=== PATIENT | male | born 1970 | race Two or more races ===

== ENCOUNTER 2020-01-05 12:22 | Outpatient (REF) | payer MEDICARE, MEDICAID, SELFPAY ==
[2020-01-05 14:30] LABS: Creatinine Urine 159.18 mg/dL; Microalbum/Creatinine Ratio Ur 4.3 ug/mg cr
[2020-01-05 14:33] LABS: Alanine Aminotransferase 85 U/L (0-40); Albumin Level 4.7 g/dL (3.5-5.0); Alkaline Phosphatase 55 U/L (39-117); Anion Gap 13 (12-20); Aspartate Amino Transferase 31 U/L (5-37); Bilirubin Total 0.6 mg/dL (0.0-1.0); Blood Urea Nitrogen 12 mg/dL (9-16); Calcium 9.4 mg/dL (8.4-10.2); Carbon Dioxide 25 mmol/L (22-29); Chloride 102 mmol/L (96-108); Cholesterol 192 mg/dL; Estimated Glomerular Filt Rate > 60; Glucose Random 95 mg/dL (60-115); HDL Cholesterol 46 mg/dL; LDL Cholesterol Calculated 119 mg/dl; Potassium 4.3 mmol/l (3.3-5.1); Sodium 136 mmol/L (135-145); Total Protein 7.3 g/dL (6.5-8.0); Triglycerides 137 mg/dL
== END 2020-01-05 12:23 | disposition home or self-care (01) ==
LOC: HO.WFDLDS 12:22
PROVIDERS: Visit Provider Family Medicine
DX: Z00.00 Encounter for general adult medical examination without abnormal findings (principal); E78.5 Hyperlipidemia, unspecified; E11.9 Type 2 diabetes mellitus without complications; R79.89 Other specified abnormal findings of blood chemistry
CPT/HCPCS: 80053; 80061; 82043

== ENCOUNTER 2020-04-07 18:41 | Outpatient (REF) | payer MEDICARE, MEDICAID, SELFPAY ==
[2020-04-07 19:19] LABS: Creatinine Urine 139.63 mg/dL
== END 2020-04-07 18:42 | disposition home or self-care (01) ==
LOC: HO.LNP 18:41
PROVIDERS: Visit Provider Family Medicine
DX: E11.9 Type 2 diabetes mellitus without complications (principal)
CPT/HCPCS: 82043

== ENCOUNTER 2020-06-21 12:40 | Outpatient (REF) | payer MEDICARE, MEDICAID, SELFPAY ==
[2020-06-21 15:07] LABS: Alanine Aminotransferase 155 U/L (0-40); Albumin Level 4.4 g/dL (3.5-5.0); Alkaline Phosphatase 62 U/L (39-117); Anion Gap 12 (12-20); Aspartate Amino Transferase 44 U/L (5-37); Bilirubin Total 0.6 mg/dL (0.0-1.0); Blood Urea Nitrogen 12 mg/dL (9-16); Carbon Dioxide 23 mmol/L (22-29); Chloride 108 mmol/L (96-108); Estimated Glomerular Filt Rate > 60; Glucose Fasting 106 mg/dL (60-99); Potassium 4.6 mmol/L (3.3-5.1); Sodium 138 mmol/L (135-145); Total Protein 6.8 g/dL (6.5-8.0)
== END 2020-06-21 12:41 | disposition home or self-care (01) ==
LOC: HO.WFDLDS 12:40
PROVIDERS: Visit Provider Family Medicine
DX: Z00.00 Encounter for general adult medical examination without abnormal findings (principal); R79.89 Other specified abnormal findings of blood chemistry
CPT/HCPCS: 36415; 80053

== ENCOUNTER 2020-09-23 12:31 | Outpatient (REF) | payer MEDICARE, MEDICAID, SELFPAY ==
[2020-09-23 14:21] LABS: Alanine Aminotransferase 88 U/L (0-40); Albumin Level 4.4 g/dL (3.5-5.0); Alkaline Phosphatase 71 U/L (39-117); Anion Gap 12 (12-20); Aspartate Amino Transferase 25 U/L (5-37); Bilirubin Total 0.4 mg/dL (0.0-1.0); Blood Urea Nitrogen 10 mg/dL (9-16); Calcium 9.3 mg/dL (8.4-10.2); Carbon Dioxide 25 mmol/L (22-29); Chloride 106 mmol/L (96-108); Cholesterol 173 mg/dL; Estimated Glomerular Filt Rate > 60; Glucose Fasting 104 mg/dL (60-99); HDL Cholesterol 43 mg/dL; LDL Cholesterol Calculated 115 mg/dl; Potassium 4.3 mmol/L (3.3-5.1); Sodium 139 mmol/L (135-145); Total Protein 6.9 g/dL (6.5-8.0); Triglycerides 78 mg/dL
== END 2020-09-23 12:32 | disposition home or self-care (01) ==
LOC: HO.WFDLDS 12:31
PROVIDERS: Visit Provider Family Medicine
DX: Z00.00 Encounter for general adult medical examination without abnormal findings (principal)
CPT/HCPCS: 36415; 80053; 80061

== ENCOUNTER 2021-01-03 18:11 | Outpatient (REF) | payer MEDICARE, MEDICAID, SELFPAY ==
[2021-01-03 19:03] LABS: Influenza A PCR NEGATIVE (Negative); Influenza B PCR NEGATIVE (Negative); Resp Syncy Virus RNA Qual PCR NEGATIVE (Negative); SARS COV2 PCR INHOUSE NEGATIVE (Negative)
== END 2021-01-03 18:12 | disposition home or self-care (01) ==
LOC: HO.LNP 18:11
PROVIDERS: Visit Provider Family Medicine
DX: Z20.822 Contact with and (suspected) exposure to COVID-19 (principal); R05.9 Cough, unspecified
CPT/HCPCS: 0241U

== ENCOUNTER 2021-02-20 12:17 | Outpatient (REF) | payer MEDICARE, MEDICAID, SELFPAY ==
[2021-02-20 14:32] LABS: Alanine Aminotransferase 144 U/L (0-40); Albumin Level 4.5 g/dL (3.5-5.0); Alkaline Phosphatase 62 U/L (39-117); Anion Gap 11 (12-20); Aspartate Amino Transferase 46 U/L (5-37); Bilirubin Total 0.7 mg/dL (0.0-1.0); Blood Urea Nitrogen 17 mg/dL (9-16); Calcium 9.6 mg/dL (8.4-10.2); Carbon Dioxide 26 mmol/L (22-29); Chloride 104 mmol/L (96-108); Estimated Glomerular Filt Rate > 60; Glucose Fasting 112 mg/dL (60-99); Potassium 4.2 mmol/L (3.3-5.1); Sodium 137 mmol/L (135-145); Total Protein 7.1 g/dL (6.5-8.0)
== END 2021-02-20 12:18 | disposition home or self-care (01) ==
LOC: HO.WFDLDS 12:17
PROVIDERS: Visit Provider Family Medicine
DX: Z00.00 Encounter for general adult medical examination without abnormal findings (principal); R79.89 Other specified abnormal findings of blood chemistry
CPT/HCPCS: 36415; 80053

== ENCOUNTER 2021-03-06 12:38 | Outpatient (REF) | payer MEDICARE, MEDICAID, SELFPAY ==
[2021-03-06 14:16] LABS: Estimated Average Glucose 114 mg/dL; Hemoglobin A1c % 5.6 %
== END 2021-03-06 12:39 | disposition home or self-care (01) ==
LOC: HO.WFDLDS 12:38
PROVIDERS: Visit Provider Family Medicine
DX: R73.01 Impaired fasting glucose (principal); R79.89 Other specified abnormal findings of blood chemistry
CPT/HCPCS: 36415; 83036

== ENCOUNTER 2021-06-12 11:45 | Outpatient (REF) | payer MEDICARE, MEDICAID, SELFPAY ==
[2021-06-12 13:45] LABS: Estimated Average Glucose 111 mg/dL; Hemoglobin A1c % 5.5 %
[2021-06-12 13:48] LABS: Alanine Aminotransferase 131 U/L (0-40); Albumin Level 4.5 g/dL (3.5-5.0); Alkaline Phosphatase 66 U/L (39-117); Anion Gap 12 (12-20); Aspartate Amino Transferase 41 U/L (5-37); Bilirubin Total 0.7 mg/dL (0.0-1.0); Blood Urea Nitrogen 11 mg/dL (9-16); Calcium 9.3 mg/dL (8.4-10.2); Carbon Dioxide 24 mmol/L (22-29); Chloride 105 mmol/L (96-108); Cholesterol 176 mg/dL; Estimated Glomerular Filt Rate > 60; Glucose Fasting 122 mg/dL (60-99); HDL Cholesterol 38 mg/dL; LDL Cholesterol Calculated 112 mg/dl; Potassium 4.3 mmol/L (3.3-5.1); Sodium 137 mmol/L (135-145); Total Protein 7.2 g/dL (6.5-8.0); Triglycerides 132 mg/dL
== END 2021-06-12 11:46 | disposition home or self-care (01) ==
LOC: HO.WFDLDS 11:45
PROVIDERS: Visit Provider Family Medicine
DX: Z00.00 Encounter for general adult medical examination without abnormal findings (principal); R73.01 Impaired fasting glucose
CPT/HCPCS: 36415; 80053; 80061; 83036

== ENCOUNTER 2021-08-09 12:29 | Outpatient (REF) | payer MEDICARE, MEDICAID, SELFPAY ==
[2021-08-09 14:21] LABS: MANUAL DIFF FLAG NO
[2021-08-09 14:23] LABS: Basophils Percent Auto 0.3 % (0-2); Eosinophils Absolute Auto 0.1 X10*3/uL (0.0-0.4); Eosinophils Percent Auto 1.9 % (0-4); Hematocrit 43.5 % (42.0-52.0); Hemoglobin 14.9 g/dl (14.0-18.0); Imm Gran Abs Auto 0.03 X10*3/uL (0.00-0.03); Imm Gran Pct Auto 0.5 % (0.0-0.4); Lymphocytes Absolute Auto 2.5 X10*3/uL (1.2-4.9); Lymphocytes Percent Auto 39.5 % (20-40); Mean Corpuscular HGB Conc 34.3 g/dl (31.0-36.0); Mean Corpuscular Hemoglobin 29.3 pg (27.0-33.0); Mean Corpuscular Volume 85.6 fL (80.0-98.0); Mean Platelet Volume 10.2 fL (9.4-12.4); Monocytes Absolute Auto 0.4 X10*3/uL (0.1-1.2); Monocytes Percent Auto 5.8 % (2-11); Neutrophils Absolute Auto 3.2 x10*3/uL (2.0-8.3); Platelet Count 260 X10*3/uL (160-400); Red Blood Count 5.08 X10*6/uL (4.60-5.80); Red Cell Distribution Width 12.2 % (11.0-16.0); White Blood Count 6.2 X10*3/uL (4.8-10.8)
[2021-08-09 14:32] LABS: D Dimer High Sensitivity < 150 NG/ML
[2021-08-09 14:49] LABS: Alanine Aminotransferase 119 U/L (0-40); Albumin Level 4.2 g/dL (3.5-5.0); Alkaline Phosphatase 59 U/L (39-117); Anion Gap 11 (12-20); Aspartate Amino Transferase 32 U/L (5-37); Bilirubin Total 0.6 mg/dL (0.0-1.0); Blood Urea Nitrogen 14 mg/dL (9-16); Calcium 9.1 mg/dL (8.4-10.2); Carbon Dioxide 22 mmol/L (22-29); Chloride 109 mmol/L (96-108); Cholesterol 176 mg/dL; Estimated Glomerular Filt Rate > 60; Glucose Fasting 113 mg/dL (60-99); HDL Cholesterol 34 mg/dL; LDL Cholesterol Calculated 123 mg/dl; Potassium 3.9 mmol/L (3.3-5.1); Sodium 138 mmol/L (135-145); Total Protein 6.7 g/dL (6.5-8.0); Triglycerides 96 mg/dL
[2021-08-09 16:20] LABS: Troponin-I High Sensitivity < 3.5 ng/L (<3.5-35.0)
== END 2021-08-09 12:30 | disposition home or self-care (01) ==
LOC: HO.WFDLDS 12:29
PROVIDERS: Visit Provider Family Medicine
DX: Z00.00 Encounter for general adult medical examination without abnormal findings (principal); Z12.5 Encounter for screening for malignant neoplasm of prostate; R07.9 Chest pain, unspecified; R74.8 Abnormal levels of other serum enzymes; E78.5 Hyperlipidemia, unspecified
CPT/HCPCS: 36415; 80053; 80061; 84153; 84484; 85025; 85379

== ENCOUNTER → 2021-10-05 12:36 | Outpatient (BNVA) | payer MEDICARE, MEDICAID, SELFPAY | PROVIDERS: PCP Family Medicine; Visit Provider Physician Assistant | DX: Z01.818 Encounter for other preprocedural examination (principal); R07.9 Chest pain, unspecified | CPT/HCPCS: 99202 ==

== ENCOUNTER → 2021-12-07 10:00 | Outpatient (REF) | payer MEDICARE, MEDICAID, SELFPAY ==
--- NOTE | 2021-12-07 10:05 | CA_ITS ---
Acquisition Time: 2021-12-07 10:06:43 Total Exercise Time: 00:07:51 Test Indications: CP Medications: SEE CHART Protocol: KINGSLEY Max HR: 146 BPM 85% of Pred: 171 BPM Max BP: 136/068 mmHG Max Work Load: 9.7 METS Exercise stress test with exercise 7 min 51 sec of Kingsley protocol, achieving 85% MPHR, with mild sob, no chest discomfort, without arrythmia, with normotensive response to exercise, without EKG changes meeting criteria for ischemia wtih exercise, EKG at baseline shows T wave inversions inferiorly, V3-V6 which become upright during testing. Test reviewed with Dr Marx Referred By: Javier Aguirre Overread By: TAMIKO JOHNSON
== END ==
LOC: HO.CARD 10:00
PROVIDERS: Visit Provider Family Medicine
DX: R07.9 Chest pain, unspecified (principal)
CPT/HCPCS: 93017

== ENCOUNTER 2021-12-07 10:42 | Outpatient (REF) | payer MEDICARE, MEDICAID, SELFPAY ==
--- NOTE | ~2021-12-07 | US_ITS ---
EXAMINATION: US ABDOMEN LIMITED WITH LIVER ELASTOGRAPHY CLINICAL INFORMATION: Elevated liver enzymes. COMPARISON: Abdominal ultrasound dated 05/25/2019. TECHNIQUE: Real-time imaging of the abdominal viscera. Noninvasive ultrasound liver fibrosis assessment is performed using Shree ElastPQ point quantification shear wave elastography (2D-SWE) with a C5-2 MHz transducer. Multiple elastography samples are obtained. FINDINGS: PANCREAS: Normal. The visualized pancreatic head and body are normal in appearance. The remainder of the pancreas is obscured from visualization by the overlying bowel gas. LIVER: Normal. The liver demonstrates normal size, contour and generally increased echogenicity, with pericholecystic sparing. No focal lesion or intrahepatic biliary duct dilatation. The right lobe measures 20.8 cm in length. The left lobe measures 13.5 cm in length. Portal flow is towards the liver (hepatopetal). Shear wave liver elastography median stiffness is 1.75 m/s (reference: normal median stiffness is 1.3 m/s or less). IQR/median stiffness to assess sampling precision is 0.07 (reference: good quality data set is IQR/median stiffness of 0.15 or less). GALLBLADDER: Normal. The gallbladder is physiologically distended without evidence of stones, sludge, polyps, wall thickening or pericholecystic fluid. COMMON BILE DUCT: Normal in caliber measuring 0.5 cm in diameter. RIGHT KIDNEY: At the lower pole, a 1.3 cm in maximal diameter anechoic, simple cyst is seen. This is a benign finding, for which no imaging follow-up is recommended. No hydronephrosis. No renal calculi or focal parenchymal lesions. The kidney measures 11.6 cm in maximum dimension. FREE FLUID: None. US/US abdomen hendrickson w elastography IMPRESSION: 1. There is generalized increase in hepatic echotexture, consistent with fatty infiltration or hepatocellular disease. Please correlate clinically. Characteristic pericholecystic sparing favors fatty infiltration. No focal hepatic mass or intrahepatic biliary dilatation is seen. 2. Liver elastography: Measurements are suggestive of compensated advanced chronic liver disease but need further test for confirmation. REFERENCE: Society of Radiologists in Ultrasound Liver Stiffness Thresholds (2020): LIVER STIFFNESS THRESHOLDS: *Liver Stiffness equal or less than 1.3 m/s: High probability of being normal. *Liver Stiffness less than 1.7 m/s: In the absence of other known clinical signs, rules out compensated advanced chronic liver disease. *Liver Stiffness 1.7-2.1 m/s: Suggestive of compensated advanced chronic liver disease but need further test for confirmation. *Liver Stiffness over 2.1 m/s: Rules in compensated advanced chronic liver disease. *Liver Stiffness over 2.4 m/s: Suggestive of clinically significant portal hypertension. QUALITY OF DATA SET: *IQR/Median value equal or less than 0.15 implies a quality data set. *IQR/Median value over 0.15 implies a poor quality data set. SIGNIFICANT CHANGE FROM PRIOR EXAM: Significant change if liver stiffness measurement is 10% or greater from prior exam. OTHER CONSIDERATIONS: The stage of liver fibrosis may be overestimated in the setting of acute hepatitis, liver inflammation, elevated liver function tests, hepatic vascular congestion, obstructive cholestasis, non-fasting state, and infiltrative diseases such as amyloidosis and lymphoma. In some patients with NAFLD, the liver stiffness thresholds for compensated advanced chronic liver disease may be lower. In causes other than viral hepatitis and NAFLD, liver stiffness thresholds are not well established.
== END 2021-12-07 10:43 | disposition home or self-care (01) ==
LOC: HO.US 10:42
PROVIDERS: Visit Provider Family Medicine
DX: R74.8 Abnormal levels of other serum enzymes (principal)
CPT/HCPCS: 76705; 76981

== ENCOUNTER 2022-01-26 12:35 | Outpatient (REF) | payer MEDICARE, MEDICAID, SELFPAY ==
[2022-01-26 14:50] LABS: Alanine Aminotransferase 129 U/L (0-40); Albumin Level 4.7 g/dL (3.5-5.0); Alkaline Phosphatase 60 U/L (39-117); Anion Gap 17 (12-20); Aspartate Amino Transferase 47 U/L (5-37); Bilirubin Total 0.8 mg/dL (0.0-1.0); Blood Urea Nitrogen 15 mg/dL (9-16); Calcium 9.1 mg/dL (8.4-10.2); Carbon Dioxide 20 mmol/L (22-29); Chloride 105 mmol/L (96-108); Estimated Glomerular Filt Rate > 60; Glucose Fasting 100 mg/dL (60-99); Sodium 138 mmol/L (135-145); Total Protein 7.2 g/dL (6.5-8.0)
== END 2022-01-26 12:36 | disposition home or self-care (01) ==
LOC: HO.WFDLDS 12:35
PROVIDERS: Visit Provider Family Medicine
DX: R74.01 Elevation of levels of liver transaminase levels (principal)
CPT/HCPCS: 36415; 80053

== ENCOUNTER 2022-04-05 11:55 | Outpatient (REF) | payer MEDICARE, MEDICAID, SELFPAY ==
[2022-04-05 14:41] LABS: Alanine Aminotransferase 43 U/L (0-40); Albumin Level 4.7 g/dL (3.5-5.0); Alkaline Phosphatase 52 U/L (39-117); Anion Gap 12 (12-20); Aspartate Amino Transferase 22 U/L (5-37); Bilirubin Total 0.9 mg/dL (0.0-1.0); Blood Urea Nitrogen 11 mg/dL (9-16); Calcium 9.3 mg/dL (8.4-10.2); Carbon Dioxide 25 mmol/L (22-29); Chloride 106 mmol/L (96-108); Cholesterol 170 mg/dL; Estimated Glomerular Filt Rate > 60; Glucose Fasting 101 mg/dL (60-99); HDL Cholesterol 45 mg/dL; LDL Cholesterol Calculated 114 mg/dl; Sodium 139 mmol/L (135-145); Total Protein 7.1 g/dL (6.5-8.0); Triglycerides 56 mg/dL
== END 2022-04-05 11:56 | disposition home or self-care (01) ==
LOC: HO.WFDLDS 11:55
PROVIDERS: Visit Provider Family Medicine
DX: Z00.00 Encounter for general adult medical examination without abnormal findings (principal); E78.6 Lipoprotein deficiency; R74.8 Abnormal levels of other serum enzymes
CPT/HCPCS: 36415; 80053; 80061

== ENCOUNTER 2022-08-08 12:21 | Outpatient (REF) | payer MEDICARE, MEDICAID, SELFPAY ==
[2022-08-08 14:12] LABS: Alanine Aminotransferase 34 U/L (0-40); Albumin Level 4.3 g/dL (3.5-5.0); Alkaline Phosphatase 55 U/L (39-117); Anion Gap 11 (12-20); Aspartate Amino Transferase 17 U/L (5-37); Bilirubin Total 0.6 mg/dL (0.0-1.0); Blood Urea Nitrogen 17 mg/dL (9-16); Calcium 9.2 mg/dL (8.4-10.2); Carbon Dioxide 24 mmol/L (22-29); Chloride 107 mmol/L (96-108); Cholesterol 193 mg/dL; Estimated Average Glucose 94 mg/dL; Estimated Glomerular Filt Rate > 60; Glucose Fasting 107 mg/dL (60-99); HDL Cholesterol 46 mg/dL; Hemoglobin A1c % 4.9 %; LDL Cholesterol Calculated 136 mg/dl; Potassium 4.2 mmol/L (3.3-5.1); Sodium 138 mmol/L (135-145); Total Protein 6.9 g/dL (6.5-8.0); Triglycerides 58 mg/dL
[2022-08-08 14:28] LABS: Appearance Urine Clear; Color Urine Yellow; Glucose Urine UA Negative (Negative); Leukocyte Esterase Urine Negative (Negative); Nitrite Urine Negative (Negative); PH 5.5 (5.0-9.0); Specific Gravity - Urine 1.025 (1.005-1.025); UMIC TRIGGER UA YES; Urine Blood Trace (Negative); Urine Ketones Negative (Negative); Urine Protein Negative (Neg-Trace)
[2022-08-08 14:28] LABS: Prostate Specific Antigen Scr 0.56 ng/mL (<0.05-4.0); TSH reflex Free T4 1.88 uIU/mL (0.32-4.0)
[2022-08-08 14:51] LABS: Bacteria Urine None Seen (None Seen); Calcium Oxalate Crystals Urine Present; Hyaline Casts Urine 0-2 /LPF (0-2); RBC Urine 0-2 /HPF (0-2); Squamous Epithelial Cell Urine 0-2 /HPF (0-2); WBC Urine 0-5 /HPF (0-5)
[2022-08-08 16:00] LABS: Creatinine Urine 166.71 mg/dL; Microalbum/Creatinine Ratio Ur 7.7 ug/mg cr
== END 2022-08-08 12:22 | disposition home or self-care (01) ==
LOC: HO.WFDLDS 12:21
PROVIDERS: Visit Provider Family Medicine
DX: Z00.00 Encounter for general adult medical examination without abnormal findings (principal); R73.01 Impaired fasting glucose; I10 Essential (primary) hypertension; R07.9 Chest pain, unspecified; Z12.5 Encounter for screening for malignant neoplasm of prostate
CPT/HCPCS: 36415; 80053; 80061; 81001; 81003; 82043; 83036; 84153; 84443

== ENCOUNTER 2022-10-29 11:42 | Outpatient (AMB) | payer MEDICARE, MEDICAID, SELFPAY ==
--- NOTE | 2022-10-29 11:58 | A.OFFPC_ITS ---
Vital Signs 10/29/22 11:59 Height 5 ft 5 in Weight 203 lb BMI 33.8 BP 122/76 Blood Pressure Location Lt brachial Position Sitting Pulse 68 Pulse Source Pulse Oximeter Pulse Oximetry (%) 99 Oxygen Delivery Method Room Air Intake Visit Reasons: diarrhea Intake Note: Patient is here with diarrhea for over 2 weeks, states it's been since September. He states he has been taking in fluids. Allergies No Known Allergies Allergy (Verified 10/29/22 12:04) Medication List - Last Reconciled 10/29/22 by Javier Aguirre MD atorvastatin 20 mg PO BEDTIME 30 days diphenhydramine HCl (Allergy (diphenhydramine)) 25 mg PO ONCE ibuprofen 400 mg PO Q8H PRN 30 days metformin 500 mg PO DAILY 90 days omeprazole 40 mg PO DAILY 30 days Tobacco use date assessed: 10/29/22 Dental Screening Dental Screen Date: 10/29/22 Did you have a dental visit in the last 12 months?: Yes Did you have a dental problem in the last 6 months where you did not have access to dental care?: No Was dental information given to patient?: No HPI diarrhea HPI Details 51 y/o male presents with complaints of diarrhea since September. He reports soft and watery stools. He denies any blood in stools. He does report appetite changes and is not hungry very often. Pt also has complaints of erectile dysfunction. HPI Comments History of Present Illness Details Documentation assistance for Javier Aguirre MD, was provided by Yaakov Kasper, Rn Palliative on 10/29/2022 12:30 PM EST. I, Dr. Aguirre, have read, observed, and verified documentation. [facility] Medical History DM II (diabetes mellitus, type II), controlled DM2 (diabetes mellitus, type 2) Elevated LFTs Hyperlipidemia Nonalcoholic fatty liver disease Surgical History No pertinent past surgical history Family History Mother No problems noted. Father No problems noted. Social History Housing: Apartment Alcohol intake: never Patient Tobacco Use Status: Never used Tobacco e-Cigarette/Vaping Use: Never Used Second Hand Smoke Exposure: No service: No Current occupational status: employed Current occupational exposures/hazards: No Cognitive needs: No Hearing needs: No Vision needs: No Questionnaire Thrive Questionnaire Date Thrive assessed: 03/23/22 LETICIA-7 AMB Questionnaire LETICIA-7 Date LETICIA - 7 assessed: 03/23/22 Source: Developed by Drs. Doni Villarreal, Yuridia Guzman, Henry Arellano and colleagues, with an educational noel from [employer]. Review of Systems Const Denies chills, Denies fatigue, Denies fever(s), Denies headache(s) and Denies weakness ENT Denies dizziness and Denies headache(s) Card Denies dyspnea Resp Denies cough, Denies dyspnea, Denies wheezing and Denies other (shortness of breath) GI Reports diarrhea Musc Denies numbness and Denies tingling Neuro Denies dizziness, Denies headache(s), Denies numbness, Denies tingling and Denies weakness Psych Reports anxiety and Reports depression Endo Denies fatigue Aller/Immun Denies wheezing Physical exam (Primary Care) Vital Signs: Last Vital Signs Pulse 68 10/29/22 11:59 BP 122/76 10/29/22 11:59 Pulse Ox 99 10/29/22 11:59 Oxygen Delivery Method Room Air 10/29/22 11:59 BMI result Body Mass Index 33.8 Tobacco/Smoking Status: Tobacco use Status Tobacco use date assessed 10/29/22 10/29/22 12:11 Patient Tobacco Use Status Never used Tobacco 10/29/22 12:11 e-Cigarette/Vaping Use Never Used 10/29/22 12:11 Thrive Assessment: Date of Thrive Assessment Date Thrive assessed 03/23/22 10/29/22 12:11 Const General: well developed; No acute distress Nutritional Appearance: well nourished Orientation/consciousness: patient oriented x3 HENMT Head: Yes normocephalic and Yes atraumatic Eyes General: appearance normal, both eyes and all related structures Pupils: Equal, round and reactive pupils present EOM: EOMs intact bilaterally Resp Effort & Inspection: normal respiratory effort Neuro General: patient oriented x3 and gait normal Cranial nerves: Yes Equal, round and reactive pupils present Psych Affect: normal affect Assessment and Plan Assessment & Plan (1) Diarrhea: Code(s): R19.7 - Diarrhea, unspecified Plan: Diarrhea x1 month Will check stool studies Advise bland diet and plenty of fluids. Avoid dairy He has an upcoming appointment with gastroenterology at [facility] and they are planning a colonoscopy (2) Erectile dysfunction: Code(s): N52.9 - Male erectile dysfunction, unspecified Plan: Patient says he has tried Viagra in the past and would like to try this again. Will send script (3) Depression with anxiety: Code(s): F41.8 - Other specified anxiety disorders Plan: Filled out paperwork for patient regarding depression and anxiety Denies SI/HI Fairly stable today. Orders: Orders Comprehensive Met. Panel Today R19.7 - Diarrhea, unspecified Complete Blood Count Auto Diff Today R19.7 - Diarrhea, unspecified, Z00.00 - Encounter for general adult medical examination without abnormal findings CDiff Gene PCR Today R19.7 - Diarrhea, unspecified GI Panel Today R19.7 - Diarrhea, unspecified Ova and Parasite Today R19.7 - Diarrhea, unspecified Medications: New calcium polycarbophil (FiberCon) 625 mg PO BID 30 days 60 tabs 1RF R19.7 - Diarrhea, unspecified sildenafil administer 30 minutes to 4 hours before activity 100 mg PO DAILY 30 days PRN 4 tabs 2RF sexual activity Coding Level of Care Code Est Pt Level 4 (45926) Diagnoses Diarrhea R19.7 Erectile dysfunction N52.9 Depression with anxiety F41.8
[2022-10-29 11:59] VITALS: BP 122/76; PULSE 68; O2SAT 99; BMI 33.8
== END 2022-10-29 12:58 | disposition home or self-care (01) ==
PROVIDERS: PCP Family Medicine; Visit Provider Family Medicine
DX: R19.7 Diarrhea, unspecified (principal); N52.9 Male erectile dysfunction, unspecified; F41.8 Other specified anxiety disorders
CPT/HCPCS: 99214

== ENCOUNTER 2022-10-31 12:52 | Outpatient (REF) | payer MEDICARE, MEDICAID, SELFPAY ==
[2022-10-31 17:01] LABS: CDiff Gene PCR NEGATIVE (Negative)
[2022-11-01 15:17] LABS: Campylobacter Not Detected (Not Detect.)
[2022-11-01 15:18] LABS: Adenovirus F 40/41 Not Detected (Not Detect.); Astrovirus Not Detected (Not Detect.); Cryptosporidium Not Detected (Not Detect.); E. coli EAEC Not Detected (Not Detect.); E. coli EPEC Not Detected (Not Detect.); E. coli ETEC Not Detected (Not Detect.); E. coli STEC Not Detected (Not Detect.); Entamoeba histolytica Not Detected (Not Detect.); Giardia lamblia Not Detected (Not Detect.); Norovirus GI/GII Not Detected (Not Detect.); Plesiomonas shigelloides Not Detected (Not Detect.); Rotavirus A Not Detected (Not Detect.); Salmonella Not Detected (Not Detect.); Sapovirus Not Detected (Not Detect.); Shigella sp./EIEC Not Detected (Not Detect.); Vibrio Not Detected (Not Detect.); Vibrio Cholerae Not Detected (Not Detect.); Yersinia enterocolitica Not Detected (Not Detect.)
[2022-11-01 15:20] LABS: Cyclospora cayetanensis Detected (Not Detect.)
== END 2022-10-31 12:53 | disposition home or self-care (01) ==
LOC: HO.WFDLDS 12:52
PROVIDERS: Visit Provider Family Medicine
DX: R19.7 Diarrhea, unspecified (principal)
CPT/HCPCS: 87177; 87209; 87493; 87507

== ENCOUNTER 2022-11-26 12:28 | Outpatient (REF) | payer MEDICARE, MEDICAID, SELFPAY ==
[2022-11-26 14:08] LABS: MANUAL DIFF FLAG NO
[2022-11-26 14:30] LABS: Basophils Percent Auto 0.3 % (0-2); Eosinophils Absolute Auto 0.2 X10*3/uL (0.0-0.4); Hematocrit 45.7 % (42.0-52.0); Hemoglobin 14.9 g/dl (14.0-18.0); Imm Gran Abs Auto 0.04 X10*3/uL (0.00-0.03); Imm Gran Pct Auto 0.5 % (0.0-0.4); Lymphocytes Absolute Auto 3.3 X10*3/uL (1.2-4.9); Lymphocytes Percent Auto 41.6 % (20-40); Mean Corpuscular HGB Conc 32.6 g/dl (31.0-36.0); Mean Corpuscular Hemoglobin 28.8 pg (27.0-33.0); Mean Corpuscular Volume 88.4 fL (80.0-98.0); Mean Platelet Volume 10.9 fL (9.4-12.4); Monocytes Absolute Auto 0.5 X10*3/uL (0.1-1.2); Monocytes Percent Auto 6.8 % (2-11); Neutrophils Absolute Auto 3.8 x10*3/uL (2.0-8.3); Neutrophils Percent Auto 47.8 % (45-73); Platelet Count 233 X10*3/uL (160-400); Red Blood Count 5.17 X10*6/uL (4.60-5.80); Red Cell Distribution Width 12.5 % (11.0-16.0)
[2022-11-26 15:20] LABS: Alanine Aminotransferase 44 U/L (0-40); Albumin Level 4.2 g/dL (3.5-5.0); Alkaline Phosphatase 75 U/L (39-117); Anion Gap 12 (12-20); Aspartate Amino Transferase 19 U/L (5-37); Bilirubin Total 0.3 mg/dL (0.0-1.0); Blood Urea Nitrogen 15 mg/dL (9-16); Calcium 9.8 mg/dL (8.4-10.2); Carbon Dioxide 23 mmol/L (22-29); Chloride 108 mmol/L (96-108); Cholesterol 126 mg/dL (<200); Estimated Glomerular Filt Rate > 60; Glucose Fasting 95 mg/dL (60-99); Glucose Random 95 mg/dL (60-115); HDL Cholesterol 44 mg/dL (>40); LDL Cholesterol Calculated 56 mg/dL (<100); Potassium 4.2 mmol/L (3.3-5.1); Sodium 139 mmol/L (135-145); Triglycerides 131 mg/dL (<150)
== END 2022-11-26 12:29 | disposition home or self-care (01) ==
LOC: HO.WFDLDS 12:28
PROVIDERS: Visit Provider Family Medicine
DX: Z00.00 Encounter for general adult medical examination without abnormal findings (principal); R19.7 Diarrhea, unspecified; R74.8 Abnormal levels of other serum enzymes; E78.5 Hyperlipidemia, unspecified
CPT/HCPCS: 36415; 80053; 80061; 85025

== ENCOUNTER 2022-11-28 16:30 | Outpatient (AMB) | payer MEDICARE, MEDICAID, SELFPAY ==
--- NOTE | 2022-11-28 16:32 | A.OFFPC_ITS ---
Vital Signs 11/28/22 16:33 Height 5 ft 5 in Weight 207 lb 2 oz BMI 34.5 BP 122/66 Blood Pressure Location Lt brachial Position Sitting Respiration 12 Pulse 69 Pulse Source Pulse Oximeter Temp 97.9 F Temp Source Temporal Artery Scan Pulse Oximetry (%) 98 Oxygen Delivery Method Room Air Intake Visit Reasons: f/u diabetes, HLD, diarrhea and depression/anxiety Advertising Columnist Required: No Accompanied by: Self / Same As Patient Allergies No Known Allergies Allergy (Verified 11/28/22 16:41) Tobacco use date assessed: 10/29/22 Dental Screening Dental Screen Date: 11/28/22 Did you have a dental visit in the last 12 months?: Yes Did you have a dental problem in the last 6 months where you did not have access to dental care?: No Was dental information given to patient?: Patient has dentist HPI f/u diabetes, HLD, diarrhea and depression/anxiety HPI Details 51 y/o male presents to f/u diabetes, HL D, diarrhea and depression/anxiety. Labs were drawn 11/26/22. Reviewed labs with pt. Triglycerides 131. TC 126. LDL 56. HDL 44. He is on artovastatin 20mg daily. Elevated ALT of 44. A1c 5.3%. He takes metformin 500mg daily. Pt reports he is feeling okay regarding his depression/anxiety. [facility] Medical History Nonalcoholic fatty liver disease Elevated LFTs Hyperlipidemia DM II (diabetes mellitus, type II), controlled DM2 (diabetes mellitus, type 2) Surgical History No pertinent past surgical history Family History Mother No problems noted. Father No problems noted. Social History Housing: Apartment Alcohol intake: never Patient Tobacco Use Status: Never used Tobacco e-Cigarette/Vaping Use: Never Used Second Hand Smoke Exposure: No service: No Current occupational status: unemployed Current occupational exposures/hazards: No Cognitive needs: No Hearing needs: No Vision needs: No Questionnaire PHQ-9 Over the last 2 weeks, how often have you been bothered by any of the following problems? 1. Little interest or pleasure in doing things: more than half the days 2. Feeling down, depressed, or hopeless: more than half the days 3. Trouble falling or staying asleep, or sleeping too much: more than half the days 4. Feeling tired or having little energy: more than half the days 5. Poor appetite or overeating: several days 6. Feeling bad about yourself - or that you are a failure or have let yourself or your family down: several days 7. Trouble concentrating on things, such as reading the newspaper or watching television: more than half the days 8. Moving or speaking so slowly that other people could have noticed. Or the opposite - being so fidgety or restless that you have been moving around a lot more than usual: more than half the days 9. Thoughts that you would be better off or of hurting yourself in some way: not at all Total score: 14 Depression Screening Interpretation: Positive Source: Developed by Drs. Doni Villarreal, Henry Agudelo and colleagues, with an educational noel from [email or web address]. Thrive Questionnaire Date Thrive assessed: 03/23/22 LETICIA-7 AMB Questionnaire LETICIA-7 Date LETICIA - 7 assessed: 03/23/22 Feeling nervous, anxious, or on edge: 1 = Several days Not being able to stop or control worryin = Several days Worrying too much about different things: 2 = More than half the days Trouble relaxin = More than half the days Being so restless that it is hard to sit still: 2 = More than half the days Becoming easily annoyed or irritable: 1 = Several days Feeling afraid as if something awful might happen: 1 = Several days Total LETICIA-7 score (0-4 normal; 5-9 mild; 10-14 moderate; 15-21 severe): 10 Source: Developed by Drs. Doni Villarreal, Henry Agudelo and colleagues, with an educational noel from [email or web address]. Review of Systems Const Denies chills, Denies fatigue, Denies fever(s), Denies headache(s) and Denies weakness ENT Denies dizziness and Denies headache(s) Card Denies dyspnea Resp Denies cough, Denies dyspnea, Denies wheezing and Denies other (shortness of breath) Musc Denies numbness and Denies tingling Neuro Denies dizziness, Denies headache(s), Denies numbness, Denies tingling and Denies weakness Psych Denies anxiety and Denies depression Endo Denies fatigue Aller/Immun Denies wheezing Physical exam (Primary Care) Vital Signs: Last Vital Signs Temp 97.9 F 11/28/22 16:33 Pulse 69 11/28/22 16:33 Resp 12 11/28/22 16:33 BP 122/66 11/28/22 16:33 Pulse Ox 98 11/28/22 16:33 Oxygen Delivery Method Room Air 11/28/22 16:33 BMI result Body Mass Index 34.5 Tobacco/Smoking Status: Tobacco use Status Tobacco use date assessed 10/29/22 11/28/22 16:46 Patient Tobacco Use Status Never used Tobacco 11/28/22 16:46 e-Cigarette/Vaping Use Never Used 11/28/22 16:46 PHQ-9: PHQ-9 Score PHQ-9: Total score 14 11/28/22 16:57 Depression Screening Interpretation: Positive Thrive Assessment: Date of Thrive Assessment Date Thrive assessed 03/23/22 11/28/22 16:46 Const General: well developed; No acute distress Nutritional Appearance: well nourished Orientation/consciousness: patient oriented x3 HENMT Head: Yes normocephalic and Yes atraumatic Eyes General: appearance normal, both eyes and all related structures Pupils: Equal, round and reactive pupils present EOM: EOMs intact bilaterally Resp Effort & Inspection: normal respiratory effort Neuro General: patient oriented x3 and gait normal Cranial nerves: Yes Equal, round and reactive pupils present Psych Affect: normal affect Assessment and Plan Assessment & Plan (1) DM II (diabetes mellitus, type II), controlled: Code(s): E11.9 - Type 2 diabetes mellitus without complications Plan: A1c 5.3% is very good control. Goal is less than 7.0% Decreased metformin from 500 mg daily to 250 mg daily (2) Hyperlipidemia: Code(s): E78.5 - Hyperlipidemia, unspecified Plan: LDL cholesterol, 56; is now at goal of less than 100. However, patient notes stiff neck Reduce atorvastatin from 20 mg daily to 10 mg daily (3) Depression with anxiety: Code(s): F41.8 - Other specified anxiety disorders Plan: Resolved (4) Screening for colon cancer: Code(s): Z12.11 - Encounter for screening for malignant neoplasm of colon Plan: Patient had colonoscopy which showed to polyps and internal hemorrhoids. Recommendation was for follow-up in 5 years He should keep stools soft with good hydration and soluble fiber for hemorrhoids (5) Erectile dysfunction: Code(s): N52.9 - Male erectile dysfunction, unspecified Plan: Sildenafil has been helping with erectile dysfunction. Will refill this (6) Immunization counseling: Code(s): Z71.85 - Encounter for immunization safety counseling Plan: Recommended he get his flu shot. He can obtain this at a pharmacy at any time or return to the office in the next couple of weeks when it will be available here. Also recommended he get COVID shot but he has not had any of these and declines this. Orders: Orders Lipid Panel Today E78.5 - Hyperlipidemia, unspecified, Z00.00 - Encounter for general adult medical examination without abnormal findings Comprehensive [place]. Panel Fast Today E78.5 - Hyperlipidemia, unspecified, Z00.00 - Encounter for general adult medical examination without abnormal findings Medications: Changed From atorvastatin 20 mg PO BEDTIME 30 days 30 tabs 2RF To atorvastatin 10 mg (1/2 x 20 mg) PO BEDTIME 15 tabs 2RF 30 days From metformin 500 mg PO DAILY 90 days 90 tabs 1RF To metformin 250 mg (1/2 x 500 mg) PO DAILY 45 tabs 1RF 90 days Coding Level of Care Code Est Pt Level 4 (55254) Diagnoses DM II (diabetes mellitus, type II), controlled E11.9 Hyperlipidemia E78.5 Depression with anxiety F41.8 Screening for colon cancer Z12.11 Erectile dysfunction N52.9 Immunization counseling Z71.85
[2022-11-28 16:33] VITALS: BP 122/66; PULSE 69; RESP 12; TEMP 36.6; O2SAT 98; BMI 34.5
== END 2022-11-28 17:21 | disposition home or self-care (01) ==
PROVIDERS: PCP Family Medicine; Visit Provider Family Medicine
DX: E11.9 Type 2 diabetes mellitus without complications (principal); E78.5 Hyperlipidemia, unspecified; F41.8 Other specified anxiety disorders; Z12.11 Encounter for screening for malignant neoplasm of colon; N52.9 Male erectile dysfunction, unspecified; Z71.85 Encounter for immunization safety counseling
CPT/HCPCS: 99214

== ENCOUNTER 2023-03-21 13:56 | Outpatient (AMB) | payer OTHER, MEDICARE, MEDICAID, SELFPAY ==
--- NOTE | 2023-03-21 14:13 | MHC.PC.OV ---
Vital Signs 03/21/23 14:18 Height 5 ft 5 in Weight 214 lb BMI 35.6 BP 124/80 Blood Pressure Location Lt brachial Position Sitting Pulse 83 Pulse Source Pulse Oximeter Pulse Oximetry (%) 96 Oxygen Delivery Method Room Air Intake Visit Reasons: dog bite left hand Intake Note: Patient is here with dog bite on left hand last Saturday, . 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 Allergies No Known Allergies Allergy (Verified 03/21/23 14:17) Tobacco use date assessed: 03/21/23 HPI dog bite left hand HPI Details 52 y/o male presents with complaints of a dog bite L hand. 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 Pt reports he has not had a recent tetanus shot. HPI Comments History of Present Illness Details Documentation assistance for Javier Aguirre MD, was provided by Yaakov Kasper, Piping Designer on 03/21/2023 2:51 PM EST. I, Dr. Aguirre, have read, observed, and verified documentation. [facility] Medical History Nonalcoholic fatty liver disease Elevated LFTs Hyperlipidemia DM II (diabetes mellitus, type II), controlled DM2 (diabetes mellitus, type 2) Surgical History No pertinent past surgical history Family History Mother No problems noted. Father No problems noted. Social History Housing: Apartment Alcohol intake: never Patient Tobacco Use Status: Never used Tobacco e-Cigarette/Vaping Use: Never Used Second Hand Smoke Exposure: No service: No Current occupational status: unemployed Current occupational exposures/hazards: No Cognitive needs: No Hearing needs: No Vision needs: No Questionnaire Thrive Questionnaire Date Thrive assessed: 03/23/22 LETICIA-7 AMB Questionnaire LETICIA-7 Date LETICIA - 7 assessed: 03/23/22 Source: Developed by Drs. Doni L. Yuridia Villarreal Kurt Kroenke and colleagues, with an educational noel from [employer]. Physical exam (Primary Care) Vital Signs: Last Vital Signs Pulse 83 03/21/23 14:18 BP 124/80 03/21/23 14:18 Pulse Ox 96 03/21/23 14:18 Oxygen Delivery Method Room Air 03/21/23 14:18 BMI result Body Mass Index 35.6 Tobacco/Smoking Status: Tobacco use Status Tobacco use date assessed 03/21/23 03/21/23 14:25 Patient Tobacco Use Status Never used Tobacco 03/21/23 14:13 e-Cigarette/Vaping Use Never Used 03/21/23 14:13 Thrive Assessment: Date of Thrive Assessment Date Thrive assessed 03/23/22 03/21/23 14:13 Assessment and Plan Assessment & Plan (1) Dog bite: Code(s): W54.0XXA - Bitten by dog, initial encounter Plan: Puncture?wounds?on?left?hand?with?swelling?of?left?hand?and?forearm.??Minimal?erythema?at?this?time. Concern?for?infection Start?Augmentin Elevate?arm Patient?has?not?had?a?tetanus?shot?so?he?will?receive?this?today - ordered Advised?patient?that?if?swelling?or?redness?worsens?or?if?not?improving?over?the?course?of?antibiotics,?he?should?call?or?return?to?office?immediately. He?has?an?upcoming?appointment?and?we?can?follow-up?on?this?at?that?time?as?well Orders: Orders TDaP Immunization Today Z23 - Encounter for immunization Medications: New amoxicillin-pot clavulanate 500-125 mg (Augmentin) 1 tab PO Q12H 10 days 20 tabs 0RF Boostrix Tdap (diphth,pertus(acell),tetanus) 0.5 mL IM ONCE 0.5 mL 0RF NS Z23 - Encounter for immunization Coding Level of Care Code Est Pt Level 3 (34639) Diagnoses Dog bite W54.0XXA
[2023-03-21 14:18] VITALS: BP 124/80; PULSE 83; O2SAT 96; BMI 35.6
== END 2023-03-21 15:25 | disposition home or self-care (01) ==
PROVIDERS: PCP Family Medicine; Visit Provider Family Medicine
DX: S61.402A Unspecified open wound of left hand, initial encounter (principal); W54.0XXA Bitten by dog, initial encounter
CPT/HCPCS: 99213

== ENCOUNTER 2023-03-29 12:32 | Outpatient (REF) | payer MEDICARE, MEDICAID, SELFPAY ==
[2023-03-29 15:04] LABS: Appearance Urine Clear; Color Urine Yellow; Glucose Urine UA Negative (Negative); Leukocyte Esterase Urine Negative (Negative); Nitrite Urine Negative (Negative); PH 6.5 (5.0-9.0); Specific Gravity - Urine <= 1.005 (1.005-1.025); Urine Blood Negative (Negative); Urine Ketones Negative (Negative); Urine Protein Negative (Neg-Trace)
[2023-03-29 15:13] LABS: Alanine Aminotransferase 84 U/L (0-40); Albumin Level 4.3 g/dL (3.5-5.0); Alkaline Phosphatase 57 U/L (39-117); Anion Gap 10 (12-20); Aspartate Amino Transferase 32 U/L (5-37); Bilirubin Total 0.5 mg/dL (0.0-1.0); Blood Urea Nitrogen 12 mg/dL (9-16); Calcium 9.2 mg/dL (8.4-10.2); Carbon Dioxide 27 mmol/L (22-29); Chloride 104 mmol/L (96-108); Cholesterol 206 mg/dL (<200); Estimated Glomerular Filt Rate > 60; Glucose Fasting 114 mg/dL (60-99); HDL Cholesterol 47 mg/dL (>40); LDL Cholesterol Calculated 131 mg/dL (<100); Sodium 137 mmol/L (135-145); Total Protein 7.1 g/dL (6.5-8.0); Triglycerides 140 mg/dL (<150)
== END 2023-03-29 12:33 | disposition home or self-care (01) ==
LOC: HO.WFDLDS 12:32
PROVIDERS: Visit Provider Family Medicine
DX: Z00.00 Encounter for general adult medical examination without abnormal findings (principal); E78.5 Hyperlipidemia, unspecified
CPT/HCPCS: 36415; 80053; 80061; 81003

== ENCOUNTER 2023-04-04 15:41 | Outpatient (AMB) | payer MEDICARE, MEDICAID, SELFPAY ==
[2023-04-04 15:45] VITALS: BP 118/68; PULSE 80; O2SAT 97; BMI 36.8
--- NOTE | 2023-04-04 15:45 | MHC.PC.OV ---
Vital Signs 04/04/23 15:45 Height 5 ft 5 in Weight 221 lb 6 oz BMI 36.8 BP 118/68 Blood Pressure Location Lt brachial Position Sitting Pulse 80 Pulse Source Pulse Oximeter Pulse Oximetry (%) 97 Oxygen Delivery Method Room Air Intake Visit Reasons: f/u dog bite needs work note Intake Note: Patient is here to follow up on dog bite, and needs work note, and labs results. Patient states his face feels swollen since last Saturday. Allergies No Known Allergies Allergy (Verified 03/21/23 14:17) Tobacco use date assessed: 04/04/23 HPI f/u dog bite needs work note HPI Details 52 y/o male presents to f/u dog bite and labs. He reports dog bite on hand has been improving. Labs were drawn 03/29/23. Reviewed labs with pt. Elevated fasting glucose of 114. ALT worsened from 44 to 84. Triglycerides 140. TC 206. LDL 131. HDL 47. He prescribed artovastatin 10mg but he states he is no longer taking this due to neck pain. Pt reports hand pain since a dog bit his hand and feels like he cannot return to work. Pt has complaints of L facial swelling. [facility]LY [facility] Medical History Nonalcoholic fatty liver disease Elevated LFTs Hyperlipidemia DM II (diabetes mellitus, type II), controlled DM2 (diabetes mellitus, type 2) Surgical History No pertinent past surgical history Family History Mother No problems noted. Father No problems noted. Social History Housing: Apartment Alcohol intake: never Patient Tobacco Use Status: Never used Tobacco e-Cigarette/Vaping Use: Never Used Second Hand Smoke Exposure: No service: No Current occupational status: unemployed Current occupational exposures/hazards: No Cognitive needs: No Hearing needs: No Vision needs: No Questionnaire Thrive Questionnaire Date Thrive assessed: 03/23/22 LETICIA-7 AMB Questionnaire LETICIA-7 Date LETICIA - 7 assessed: 03/23/22 Source: Developed by Drs. Doni Villarreal, Yuridia BHenry Hassan and colleagues, with an educational noel from [employer]. Physical exam (Primary Care) Vital Signs: Last Vital Signs Pulse 80 04/04/23 15:45 BP 118/68 04/04/23 15:45 Pulse Ox 97 04/04/23 15:45 Oxygen Delivery Method Room Air 04/04/23 15:45 BMI result Body Mass Index 36.8 Tobacco/Smoking Status: Tobacco use Status Tobacco use date assessed 04/04/23 04/04/23 15:51 Patient Tobacco Use Status Never used Tobacco 04/04/23 15:48 e-Cigarette/Vaping Use Never Used 04/04/23 15:48 Thrive Assessment: Date of Thrive Assessment Date Thrive assessed 03/23/22 04/04/23 15:48 Assessment and Plan Assessment & Plan (1) Dog bite: Code(s): W54.0XXA - Bitten by dog, initial encounter Plan: Left?hand?dog?bite. Had?given?patient?Augmentin?and?a?Tdap. Hand?is?much?improved?however?still?has?mild?swelling?and?tenderness He?has?been?unable?to?work?since?March?.??Will?keep?him?out?of?work?for?another?week.??Then?he?may?return?to?work?without?restrictions. (2) Elevated liver enzymes: Code(s): R74.8 - Abnormal levels of other serum enzymes Plan: Liver?enzymes?continue?to?rise?as?does?his?weight. Strongly?encouraged?weight?loss Will?follow?in?about?2?months (3) Hyperlipidemia: Code(s): E78.5 - Hyperlipidemia, unspecified Plan: Patient?did?not?tolerate?atorvastatin?though?he?says?he?has?tolerated?Lipitor?brand?in?the?past. Will?send?script?for?Lipitor?brand,?10?mg May?need?prior?Auth-patient?tolerated?brand?name?in?the?past?but?did?not?tolerate?generic. (4) Hand pain: Code(s): M79.643 - Pain in unspecified hand Plan: Still?has?some?left?hand?pain?as?above?and?I?will?keep?him?out?of?work?for?1?more?week. (5) Left facial swelling: Code(s): R22.0 - Localized swelling, mass and lump, head Plan: Patient?has?left?facial?swelling?without?significant?erythema?or?tenderness. This?may?be?a?reaction?to?Tdap?injection?at?left?deltoid. Will?give?him?a?script?for?prednisone?x5?days. Also?gave?him?a?printout?of?Tdap?information?from?CDC?dot?gov?in?[place]. Medications: New prednisone 40 mg (2 x 20 mg) PO DAILY 5 days 10 tabs 0RF Coding Level of Care Code Est Pt Level 4 (84852) Diagnoses Dog bite W54.0XXA Elevated liver enzymes R74.8 Hyperlipidemia E78.5 Hand pain M79.643 Left facial swelling R22.0
== END 2023-04-04 16:33 | disposition home or self-care (01) ==
PROVIDERS: PCP Family Medicine; Visit Provider Family Medicine
DX: M79.642 Pain in left hand (principal); W54.0XXA Bitten by dog, initial encounter; R74.8 Abnormal levels of other serum enzymes; E78.5 Hyperlipidemia, unspecified; R22.0 Localized swelling, mass and lump, head
CPT/HCPCS: 99214

== ENCOUNTER 2023-05-09 15:21 | Outpatient (AMB) | payer OTHER, MEDICARE, MEDICAID, SELFPAY ==
--- NOTE | 2023-05-09 15:34 | MHC.PC.OV ---
Vital Signs 05/09/23 15:39 Height 5 ft 5 in Weight 222 lb BMI 36.9 BP 128/74 Blood Pressure Location Lt brachial Position Sitting Pulse 76 Pulse Source Pulse Oximeter Pulse Oximetry (%) 98 Intake Visit Reasons: Follow up dog bite Intake Note: Patient is here to follow up on dog bite. Patient is requesting note for April for work. Allergies No Known Allergies Allergy (Verified 05/09/23 15:40) Tobacco use date assessed: 05/09/23 HPI Follow up dog bite HPI Details 52 y/o male presents today to f/u dog bite/L hand pain. Pt reports ongoing L hand pain/numbness along with some weakness. [facility]LY [facility] Medical History Nonalcoholic fatty liver disease Elevated LFTs Hyperlipidemia DM II (diabetes mellitus, type II), controlled DM2 (diabetes mellitus, type 2) Surgical History No pertinent past surgical history Family History Mother No problems noted. Father No problems noted. Social History Housing: Apartment Alcohol intake: never Patient Tobacco Use Status: Never used Tobacco e-Cigarette/Vaping Use: Never Used Second Hand Smoke Exposure: No service: No Current occupational status: unemployed Current occupational exposures/hazards: No Cognitive needs: No Hearing needs: No Vision needs: No Questionnaire Thrive Questionnaire Date Thrive assessed: 03/23/22 LETICIA-7 AMB Questionnaire LETICIA-7 Date LETICIA - 7 assessed: 03/23/22 Source: Developed by Drs. Doni Villarreal, Yuridia Guzman, Henry Arellano and colleagues, with an educational noel from [employer]. Review of Systems Const Denies chills, Denies fatigue, Denies fever(s), Denies headache(s) and Denies weakness ENT Denies dizziness and Denies headache(s) Card Denies dyspnea Resp Denies cough, Denies dyspnea, Denies wheezing and Denies other (shortness of breath) Musc Denies numbness and Denies tingling Neuro Denies dizziness, Denies headache(s), Denies numbness, Denies tingling and Denies weakness Psych Denies anxiety and Denies depression Endo Denies fatigue Aller/Immun Denies wheezing Physical exam (Primary Care) Vital Signs: Last Vital Signs Pulse 76 05/09/23 15:39 BP 128/74 05/09/23 15:39 Pulse Ox 98 05/09/23 15:39 BMI result Body Mass Index 36.9 Tobacco/Smoking Status: Tobacco use Status Tobacco use date assessed 05/09/23 05/09/23 15:50 Patient Tobacco Use Status Never used Tobacco 05/09/23 15:35 e-Cigarette/Vaping Use Never Used 05/09/23 15:35 Thrive Assessment: Date of Thrive Assessment Date Thrive assessed 03/23/22 05/09/23 15:35 Const General: well developed; No acute distress Nutritional Appearance: well nourished Orientation/consciousness: patient oriented x3 HENMT Head: Yes normocephalic and Yes atraumatic Eyes General: appearance normal, both eyes and all related structures Pupils: Equal, round and reactive pupils present EOM: EOMs intact bilaterally Resp Effort & Inspection: normal respiratory effort Neuro General: patient oriented x3 and gait normal Cranial nerves: Yes Equal, round and reactive pupils present Psych Affect: normal affect Assessment and Plan Assessment & Plan (1) Left hand weakness: Code(s): R29.898 - Other symptoms and signs involving the musculoskeletal system Plan: Left?hand?weakness?and?swelling?after?a?dog?bite?in?March. Some?decreased?range?of?motion. Swelling?may?be?secondary?to?decrease?use I?think?he?will?improve?all?of?the?above?with?occupational?therapy. Will?give?him?a?script?to?be?out?of?work?for?additional?time?through?the??week?of?May?with?goal?to?return?to?work?Saturday?May?. If?he?has?not?improving?he?will?let?me?know?and?I?will?refer?him?to?hand?specialist. (2) Swelling of left hand: Code(s): M79.89 - Other specified soft tissue disorders Plan: Mild?diffuse?hand?swelling?without?erythema?or?warmth. This?may?be?secondary?to?decrease?usage Starting?occupational?therapy?as?above Orders: Orders OT Evaluation and Treatment Today R29.898 - Other symptoms and signs involving the musculoskeletal system Coding Level of Care Code Est Pt Level 3 (84775) Diagnoses Left hand weakness R29.898 Swelling of left hand M79.89
[2023-05-09 15:39] VITALS: BP 128/74; PULSE 76; O2SAT 98; BMI 36.9
== END 2023-05-09 16:24 | disposition home or self-care (01) ==
PROVIDERS: PCP Family Medicine; Visit Provider Family Medicine
DX: R29.898 Other symptoms and signs involving the musculoskeletal system (principal); M79.89 Other specified soft tissue disorders
CPT/HCPCS: 99213

== ENCOUNTER 2023-05-28 12:52 | Outpatient (REF) | payer OTHER, MEDICARE, MEDICAID, SELFPAY ==
[2023-05-28 14:23] LABS: Estimated Average Glucose 103 mg/dL; Hemoglobin A1c % 5.2 % (<6.0)
[2023-05-28 14:42] LABS: Alanine Aminotransferase 109 U/L (0-40); Albumin Level 4.4 g/dL (3.5-5.0); Alkaline Phosphatase 59 U/L (39-117); Anion Gap 10 (12-20); Aspartate Amino Transferase 39 U/L (5-37); Bilirubin Total 0.7 mg/dL (0.0-1.0); Blood Urea Nitrogen 12 mg/dL (9-16); Calcium 9.6 mg/dL (8.4-10.2); Carbon Dioxide 26 mmol/L (22-29); Chloride 108 mmol/L (96-108); Cholesterol 148 mg/dL (<200); Estimated Glomerular Filt Rate > 60; Glucose Fasting 110 mg/dL (60-99); HDL Cholesterol 47 mg/dL (>40); LDL Cholesterol Calculated 75 mg/dL (<100); Potassium 4.1 mmol/L (3.3-5.1); Sodium 140 mmol/L (135-145); Total Protein 7.1 g/dL (6.5-8.0); Triglycerides 133 mg/dL (<150)
== END 2023-05-28 12:53 | disposition home or self-care (01) ==
LOC: HO.WFDLDS 12:52
PROVIDERS: Visit Provider Family Medicine
DX: Z00.00 Encounter for general adult medical examination without abnormal findings (principal); Z13.6 Encounter for screening for cardiovascular disorders; R73.01 Impaired fasting glucose
CPT/HCPCS: 36415; 80053; 80061; 83036

== ENCOUNTER 2023-05-30 15:48 | Outpatient (AMB) | payer MEDICARE, MEDICAID, SELFPAY ==
--- NOTE | 2023-05-30 15:53 | MHC.PC.OV ---
Vital Signs 05/30/23 15:55 Height 5 ft 5 in Weight 218 lb 4 oz BMI 36.3 BP 127/72 Blood Pressure Location Lt brachial Position Sitting Pulse 75 Pulse Source Pulse Oximeter Pulse Oximetry (%) 99 Oxygen Delivery Method Room Air Intake Visit Reasons: f/u diabetes and labs ,L hand swelling Intake Note: Pt presents to the office today for a follow up for diabetes and labs, left hand swelling. Pt states he was bit by a dog and has been having left hand swelling. Pt states he is otherwise feeling well. Allergies No Known Allergies Allergy (Verified 05/30/23 15:56) Tobacco use date assessed: 05/09/23 Dental Screening Dental Screen Date: 05/30/23 Did you have a dental visit in the last 12 months?: Yes Did you have a dental problem in the last 6 months where you did not have access to dental care?: No Was dental information given to patient?: Patient has dentist HPI f/u diabetes and labs ,L hand swelling HPI Details 52 y/o male presents to f/u diabetes and labs. Also f/u L hand swelling and weakness. Labs were drawn 05/28/23. Reviewed labs with pt. Elevated fasting glucose of 110 and A1c 5.2%. He is on metformin 250mg daily and he requests to increase this to 500mg. Ongoing elevated liver enzymes - AST 39, ALT 109. Triglycerides 133. TC 148. LDL 75. HDL 47. He is on artovastatin 10mg. [facility] Medical History Nonalcoholic fatty liver disease Elevated LFTs Hyperlipidemia DM II (diabetes mellitus, type II), controlled DM2 (diabetes mellitus, type 2) Surgical History No pertinent past surgical history Family History Mother No problems noted. Father No problems noted. Social History Housing: Apartment Alcohol intake: never Patient Tobacco Use Status: Never used Tobacco e-Cigarette/Vaping Use: Never Used Second Hand Smoke Exposure: No service: No Current occupational status: unemployed Current occupational exposures/hazards: No Cognitive needs: No Hearing needs: No Vision needs: No Questionnaire PHQ-9 Over the last 2 weeks, how often have you been bothered by any of the following problems? 1. Little interest or pleasure in doing things: more than half the days 2. Feeling down, depressed, or hopeless: more than half the days 3. Trouble falling or staying asleep, or sleeping too much: more than half the days 4. Feeling tired or having little energy: more than half the days 5. Poor appetite or overeating: several days 6. Feeling bad about yourself - or that you are a failure or have let yourself or your family down: several days 7. Trouble concentrating on things, such as reading the newspaper or watching television: more than half the days 8. Moving or speaking so slowly that other people could have noticed. Or the opposite - being so fidgety or restless that you have been moving around a lot more than usual: more than half the days 9. Thoughts that you would be better off or of hurting yourself in some way: not at all Total score: 14 Depression Screening Interpretation: Positive Depression Screening Done: Yes Source: Developed by Drs. Doni Villarreal, Yuridia Guzman, Henry Arellano and colleagues, with an educational noel from [employer]. Thrive Questionnaire Date Thrive assessed: 03/23/22 I am a: Patient What is your living situation today?: I have a steady place to live Within the past 12 months, did the food you bought not last and you didn't have the money to get more?: Never true Within the past 12 months, did you worry whether your food would run out before you got money to buy more?: Never true Do you have trouble paying for medicines?: No Do you have trouble getting transportation to medical appointments?: No Do you have trouble paying your heating and electricity bill?: No Do you have trouble taking care of your child, family member or friend?: No Do you have trouble with day-to-day activities such as bathing, preparing meals, shopping, managing finances, etc.?: No Are you currently unemployed and looking for a job?: No Are you interested in more education?: No THRIVE Score: 0 AUDIT C Alcohol Use Questionnaire (AUDIT-C) 1. How often do you have a drink containing alcohol?: Never 3. How often do you have six or more drinks on one occasion?: Never Total Score: 0 LETICIA-7 AMB Questionnaire LETICIA-7 Date LETICIA - 7 assessed: 03/23/22 Feeling nervous, anxious, or on edge: 1 = Several days Not being able to stop or control worryin = Several days Worrying too much about different things: 2 = More than half the days Trouble relaxin = More than half the days Being so restless that it is hard to sit still: 2 = More than half the days Becoming easily annoyed or irritable: 1 = Several days Feeling afraid as if something awful might happen: 1 = Several days Total LETICIA-7 score (0-4 normal; 5-9 mild; 10-14 moderate; 15-21 severe): 10 Source: Developed by Drs. Doni Villarreal, Yuridia Guzman, Henry Arellano and colleagues, with an educational noel from [employer]. Review of Systems Const Denies chills, Denies fatigue, Denies fever(s), Denies headache(s) and Denies weakness ENT Denies dizziness and Denies headache(s) Card Denies dyspnea Resp Denies cough, Denies dyspnea, Denies wheezing and Denies other (shortness of breath) Musc Denies numbness and Denies tingling Neuro Denies dizziness, Denies headache(s), Denies numbness, Denies tingling and Denies weakness Psych Denies anxiety and Denies depression Endo Denies fatigue Aller/Immun Denies wheezing Physical exam (Primary Care) Vital Signs: Last Vital Signs Pulse 75 05/30/23 15:55 BP 127/72 05/30/23 15:55 Pulse Ox 99 05/30/23 15:55 Oxygen Delivery Method Room Air 05/30/23 15:55 BMI result Body Mass Index 36.3 Tobacco/Smoking Status: Tobacco use Status Tobacco use date assessed 05/09/23 05/30/23 15:54 Patient Tobacco Use Status Never used Tobacco 05/30/23 15:54 e-Cigarette/Vaping Use Never Used 05/30/23 15:54 PHQ-9: PHQ-9 Score PHQ-9: Total score 14 05/30/23 16:04 Depression Screening Interpretation: Positive Thrive Assessment: Date of Thrive Assessment Date Thrive assessed 03/23/22 05/30/23 15:54 Const General: well developed; No acute distress Nutritional Appearance: obese Orientation/consciousness: patient oriented x3 HENMT Head: Yes normocephalic and Yes atraumatic Eyes General: appearance normal, both eyes and all related structures Pupils: Equal, round and reactive pupils present EOM: EOMs intact bilaterally Resp Effort & Inspection: normal respiratory effort Neuro General: patient oriented x3 and gait normal Cranial nerves: Yes Equal, round and reactive pupils present Psych Affect: normal affect Assessment and Plan Assessment & Plan (1) DM II (diabetes mellitus, type II), controlled: Code(s): E11.9 - Type 2 diabetes mellitus without complications Plan: A1c?5.2%?2?days?ago.??Good?control.??Goal?is?less?than?7.0% Patient?would?like?to?try?increasing?metformin?for?weight?loss. We?discussed?the?possibilities?of?metformin?causing?low?blood?sugars?which?is?fairly?low.??However?if?he?is?having?any?problems?he?will?go?back?to?metformin?250?mg?daily Renal?function?is?fine (2) Nonalcoholic fatty liver disease: Code(s): K76.0 - Fatty (change of) liver, not elsewhere classified Plan: Elevated?liver?enzymes?and?abnormal?liver?ultrasound. Patient?had?been?referred?to?gastroenterology?at?[facility]?and?I?do?not?have?any?notes?about?this. Nevertheless?liver?enzymes?are?rising?again?and?I?am?referring?him?back?to?GI?at?[facility]. 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 Will?send?to?[facility]?rehab; physical?therapy/occupational?therapy. Medications: Changed From metformin 250 mg (1/2 x 500 mg) PO DAILY 90 days 45 tabs 2RF To metformin 500 mg PO DAILY 90 days 90 tabs 2RF Refilled metformin 250 mg (1/2 x 500 mg) PO DAILY 90 days 45 tabs 2RF Coding Level of Care Code Est Pt Level 4 (85916) Diagnoses DM II (diabetes mellitus, type II), controlled E11.9 Nonalcoholic fatty liver disease K76.0 Elevated LFTs R79.89 Swelling of left hand M79.89
[2023-05-30 15:55] VITALS: BP 127/72; PULSE 75; O2SAT 99; BMI 36.3
== END 2023-05-30 16:27 | disposition home or self-care (01) ==
PROVIDERS: PCP Family Medicine; Visit Provider Family Medicine
DX: E11.9 Type 2 diabetes mellitus without complications (principal); K76.0 Fatty (change of) liver, not elsewhere classified; R79.89 Other specified abnormal findings of blood chemistry; M79.89 Other specified soft tissue disorders
CPT/HCPCS: 99214

== ENCOUNTER 2023-08-29 15:54 | Outpatient (AMB) | payer MEDICARE, MEDICAID, SELFPAY ==
--- NOTE | 2023-08-29 16:10 | A.OFFPC_ITS ---
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 Allergies No Known Allergies Allergy (Verified 05/30/23 15:56) Medication List - Last Reconciled 08/29/23 by Javier Aguirre MD atorvastatin (Lipitor) 10 mg PO BEDTIME 90 days calcium polycarbophil (FiberCon) 625 mg PO BID 30 days diphenhydramine HCl (Allergy (diphenhydramine)) 25 mg PO ONCE ibuprofen 400 mg PO Q8H PRN 30 days metformin 500 mg PO DAILY 90 days sildenafil 100 mg PO DAILY PRN 30 days Tobacco use date assessed: 05/09/23 Dental Screening Dental Screen Date: 05/30/23 HPI f/u diabetes HPI Details 52 y/o male presents to f/u diabetes. Last A1c 05/28/23 5.2%. A1c today 08/29/23 is 5.3%. He is on metformin 500mg dailly. 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 [facility] Medical History Nonalcoholic fatty liver disease Elevated LFTs Hyperlipidemia DM II (diabetes mellitus, type II), controlled DM2 (diabetes mellitus, type 2) Surgical History No pertinent past surgical history Family History Mother No problems noted. Father No problems noted. Social History Housing: Apartment Alcohol intake: never Patient Tobacco Use Status: Never used Tobacco e-Cigarette/Vaping Use: Never Used Second Hand Smoke Exposure: No service: No Current occupational status: unemployed Current occupational exposures/hazards: No Cognitive needs: No Hearing needs: No Vision needs: No Questionnaire Thrive Questionnaire Date Thrive assessed: 03/23/22 LETICIA-7 AMB Questionnaire LETICIA-7 Date LETICIA - 7 assessed: 03/23/22 Source: Developed by Drs. Doni Villarreal, Yuridia Guzman, Henry Arellano and colleagues, with an educational noel from [employer]. Review of Systems Const Denies chills, Denies fatigue, Denies fever(s), Denies headache(s) and Denies weakness ENT Denies dizziness and Denies headache(s) Card Denies dyspnea Resp Denies cough, Denies dyspnea, Denies wheezing and Denies other (shortness of breath) Musc Denies numbness and Denies tingling Neuro Denies dizziness, Denies headache(s), Denies numbness, Denies tingling and Denies weakness Psych Denies anxiety and Denies depression Endo Denies fatigue Aller/Immun Denies wheezing Physical exam (Primary Care) Vital Signs: Last Vital Signs Pulse 71 08/29/23 16:11 BP 120/62 08/29/23 16:11 Pulse Ox 96 08/29/23 16:11 Oxygen Delivery Method Room Air 08/29/23 16:11 BMI result Body Mass Index 35.4 Tobacco/Smoking Status: Tobacco use Status Tobacco use date assessed 05/09/23 08/29/23 16:16 Patient Tobacco Use Status Never used Tobacco 08/29/23 16:16 e-Cigarette/Vaping Use Never Used 08/29/23 16:16 Thrive Assessment: Date of Thrive Assessment Date Thrive assessed 03/23/22 08/29/23 16:16 Const General: well developed; No acute distress Nutritional Appearance: well nourished and obese Orientation/consciousness: [facility]: Yes normocephalic and Yes atraumatic Eyes General: appearance normal, both eyes and all related structures Pupils: Equal, round and reactive pupils present EOM: EOMs intact bilaterally Resp Effort & Inspection: normal respiratory effort Auscultation: clear to auscultation bilaterally Cardio Rate: regular rate Rhythm: regular rhythm Heart sounds: S1 normal heart sound present, S2 normal heart sound present, no gallops, no murmurs and no rubs Neuro General: patient oriented x3 and gait normal Cranial nerves: Yes Equal, round and reactive pupils present Psych Affect: normal affect Assessment and Plan Assessment & Plan (1) DM II (diabetes mellitus, type II), controlled: Code(s): E11.9 - Type 2 diabetes mellitus without complications Plan: A1c?is?5.3%.??Good?control.??Goal?is?less?than?7.0% He?is?on?metformin?and?tolerating?this?well?but?would?like?to?work?at?weight?los s?so?we?discussed?Ozempic?today. Trial?Ozempic?and?he?can?discontinue?metformin If?he?does?not?tolerate?Ozempic?he?will?resume?the?metformin (2) Obesity: Code(s): E66.9 - Obesity, unspecified Plan: As?above,?trial?Ozempic Will?also?make?a?referral?to?nutrition (3) Elevated liver enzymes: Code(s): R74.8 - Abnormal levels of other serum enzymes Plan: Ongoing?rising?liver?enzymes Had?referred?him?to?Gastroenterology?at?[facility]?where?he?has?been?seen ?before?but?they?no?longer?take?his?insurance Referred?to?[facility] [place] [place]ology Orders: Orders AMB Hemoglobin A1c Today Z13.9 - Encounter for screening, unspecified 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
[2023-08-29 16:11] VITALS: BP 120/62; PULSE 71; O2SAT 96; BMI 35.4
== END 2023-08-30 08:01 | disposition home or self-care (01) ==
PROVIDERS: PCP Family Medicine; Visit Provider Family Medicine
DX: E11.9 Type 2 diabetes mellitus without complications (principal)
CPT/HCPCS: 83036; 99214

== ENCOUNTER 2023-09-16 12:51 | Outpatient (AMB) | payer MEDICARE, MEDICAID, SELFPAY ==
[2023-09-16 13:16] VITALS: BMI 35.7
--- NOTE | 2023-09-16 13:16 | A.OFFVIS_ITS ---
VS Expanded 09/16/23 13:16 09/18/23 14:04 Height 5 ft 5 in 5 ft 5 in Weight 214 lb 4.629 oz 214 lb BMI 35.7 35.6 Intake Visit Reasons: T2DM, OBESITY/LVM Allergies No Known Allergies Allergy (Verified 05/30/23 15:56) Nutrition Presentation Details: Pt presents for MNT for T2DM and obesity, Pt was referred by PCP, Dr. Johnson BS Monitoring Most Recent Diabetes Results: Cholesterol 148 mg/dL (<200) 05/28/23 HDL Cholesterol 47 mg/dL (>40) 05/28/23 Triglycerides 133 mg/dL (<150) 05/28/23 Creatinine 0.84 mg/dL (0.5-1.4) 05/28/23 Blood Urea Nitrogen 12 mg/dL (9-16) 05/28/23 Sodium 140 mmol/L (135-145) 05/28/23 Potassium 4.1 mmol/L (3.3-5.1) 05/28/23 Chloride 108 mmol/L (96-108) 05/28/23 Carbon Dioxide 26 mmol/L (22-29) 05/28/23 Calcium 9.6 mg/dL (8.4-10.2) 05/28/23 AST 39 U/L (5-37) H 05/28/23 ALT 109 U/L (0-40) H 05/28/23 Total Protein 7.1 g/dL (6.5-8.0) 05/28/23 Albumin 4.4 g/dL (3.5-5.0) 05/28/23 CGQ-Qumlqib-Ck.Jeor Equation Height: 5 ft 5 in Weight: 214 lb Resting Metabolic Rate: 1755.67 Calculated Activity Level: Sedentary Calories Needed to Maintain Weight: 2106.80 Diagnosis Nutrition problem #1: excessive energy intake As related to (etiology) #1: excess energy intake As evidenced by (sign/symptom) #1: knowledge deficit of diet Monitoring/Goals Nutrition problem monitoring: level of knowledge/skill [facility] Medical History Nonalcoholic fatty liver disease Elevated LFTs Hyperlipidemia DM II (diabetes mellitus, type II), controlled DM2 (diabetes mellitus, type 2) Surgical History No pertinent past surgical history Family History Mother No problems noted. Father No problems noted. Social History Housing: Apartment Alcohol intake: never Patient Tobacco Use Status: Never used Tobacco e-Cigarette/Vaping Use: Never Used Second Hand Smoke Exposure: No service: No Current occupational status: unemployed Current occupational exposures/hazards: No Cognitive needs: No Hearing needs: No Vision needs: No Assessment & Plan Assessment & Plan (1) DM II (diabetes mellitus, type II), controlled: Code(s): E11.9 - Type 2 diabetes mellitus without complications Category: Medical Plan: Wt: 97 Kg ( 09/2023 ) Est kcal needs as per MSJ: 2100 (40% carb, 30% protein/fat) Est fluid needs as per 25-30 ml/d:2900 Est prot per day as per 1 g/kg bw: 97 Recommend fiber intake : 8-10 g per day and gradually increase to 25-28 g per day for women and 35-38 g for men or as tolerated Recommend sodium intake per day : less than 2000 mg Educated patient on: ( R = reviewed V = verbalizes understanding N/R = needs review N/A = not applicable * Food sources of carbohydrate, adequate serving sizes and its role in various health conditions: R * Differences between complex carbohydrates a simple carbohydrates, role of fiber in diet: R V N/R * Lean protein sources of foods: R V NR * Differences between types of fats and role in diet (mono on saturated fat fatty acids, saturated fatty acids, trans fats): R V N/R * Food sources of sodium in salt and healthy modifications for heart health in kidney health: R V R/V * Vitamins and minerals: R V N/R * Healthy plate method concept: R * Physical activity: Benefits a precaution: R * Hypoglycemia protocol (rule of 15): R V N/R * Dietary prevention of Hyperglycemia: R Patient Instructions: follow healthy plate method, reducing portion of starches to 1 1/2 cup serving choosing complex carbohydrate Drink water with meals, have a fruit in place of juice Coding Level of Care Code Nutr Indiv Intake (80570) Diagnoses DM II (diabetes mellitus, type II), controlled E11.9 Time Spent (min) 30
[2023-09-18 14:04] VITALS: BMI 35.6
== END 2023-09-16 13:46 | disposition home or self-care (01) ==
PROVIDERS: PCP Family Medicine; Visit Provider Dietitian, Registered
DX: E11.9 Type 2 diabetes mellitus without complications (principal)

== ENCOUNTER → 2023-09-16 12:51 | Outpatient (BNVA) | payer MEDICARE, MEDICAID, SELFPAY | PROVIDERS: PCP Family Medicine; Visit Provider Dietitian, Registered | DX: E11.9 Type 2 diabetes mellitus without complications (principal); E66.9 Obesity, unspecified; Z71.3 Dietary counseling and surveillance; Z68.35 Body mass index [BMI] 35.0-35.9, adult | CPT/HCPCS: 97802 ==

== ENCOUNTER 2023-09-24 14:02 | Outpatient (AMB) | payer MEDICARE, MEDICAID, SELFPAY ==
[2023-09-24 14:14] VITALS: BP 128/72; PULSE 85; TEMP 36.1; O2SAT 97; BMI 35.3
--- NOTE | 2023-09-24 14:14 | A.OFFPC_ITS ---
Vital Signs 09/24/23 14:14 Height 5 ft 5 in Weight 212 lb BMI 35.3 BP 128/72 Blood Pressure Location Lt brachial Position Sitting Pulse 85 Pulse Source Pulse Oximeter Temp 97 F Pulse Oximetry (%) 97 Oxygen Delivery Method Room Air Intake Visit Reasons: CPE - see comments Intake Note: Patient is here for his physical today. Patient is requesting refill of Atorvastatin. Allergies No Known Allergies Allergy (Verified 09/24/23 14:15) Medication List - Last Reconciled 09/24/23 by Javier Aguirre MD atorvastatin (Lipitor) 10 mg PO BEDTIME 90 days calcium polycarbophil (FiberCon) 625 mg PO BID 30 days diphenhydramine HCl (Allergy (diphenhydramine)) 25 mg PO ONCE ibuprofen 400 mg PO Q8H PRN 30 days semaglutide (Ozempic) 0.25 mg (0.368 mL) subcut QWEEK 28 days sildenafil 100 mg PO DAILY PRN 30 days Tobacco use date assessed: 05/09/23 Dental Screening Dental Screen Date: 05/30/23 HPI CPE - see comments HPI Details 52 y/o male presents for a CPE with f/u labs and health maintenance. Labs were drawn 05/28/23. Reviewed labs with pt. Elevated AST of 39. Elevated ALT of 109. Triglycerides 133. TC 148. LDL improved from 131 to 75. HDL 47. A1c today 09/24/23 5.1%. He is on Ozempic 0.25mg. He notes he had stopped his metformin. He has complaints of L foot pain. Pt notes he had a colonoscopy last year. [facility] Medical History Nonalcoholic fatty liver disease Elevated LFTs Hyperlipidemia DM II (diabetes mellitus, type II), controlled DM2 (diabetes mellitus, type 2) Surgical History No pertinent past surgical history Family History Mother No problems noted. Father No problems noted. Social History Housing: Apartment Alcohol intake: never Patient Tobacco Use Status: Never used Tobacco e-Cigarette/Vaping Use: Never Used Second Hand Smoke Exposure: No service: No Current occupational status: unemployed Current occupational exposures/hazards: No Cognitive needs: No Hearing needs: No Vision needs: No Questionnaire PHQ-9 Over the last 2 weeks, how often have you been bothered by any of the following problems? 1. Little interest or pleasure in doing things: not at all 2. Feeling down, depressed, or hopeless: not at all 3. Trouble falling or staying asleep, or sleeping too much: not at all 4. Feeling tired or having little energy: not at all 5. Poor appetite or overeating: not at all 6. Feeling bad about yourself - or that you are a failure or have let yourself or your family down: not at all 7. Trouble concentrating on things, such as reading the newspaper or watching television: not at all 8. Moving or speaking so slowly that other people could have noticed. Or the opposite - being so fidgety or restless that you have been moving around a lot more than usual: not at all 9. Thoughts that you would be better off or of hurting yourself in some way: not at all Total score: 0 Depression Screening Interpretation: Negative Depression Screening Done: Yes 44926 - PHQ-9 Billing: Yes Source: Developed by Drs. Doni Villarreal, Yuridia Guzman, Henry Arellano and colleagues, with an educational noel from [employer]. Thrive Questionnaire Date Thrive assessed: 09/24/23 I am a: Patient What is your living situation today?: I have a steady place to live Within the past 12 months, did the food you bought not last and you didn't have the money to get more?: Never true Within the past 12 months, did you worry whether your food would run out before you got money to buy more?: Never true Do you have trouble paying for medicines?: No Do you have trouble getting transportation to medical appointments?: No Do you have trouble paying your heating and electricity bill?: No Do you have trouble taking care of your child, family member or friend?: No Do you have trouble with day-to-day activities such as bathing, preparing meals, shopping, managing finances, etc.?: No Are you currently unemployed and looking for a job?: No Are you interested in more education?: Yes THRIVE Score: 0 AUDIT C Alcohol Use Questionnaire (AUDIT-C) 1. How often do you have a drink containing alcohol?: Never 3. How often do you have six or more drinks on one occasion?: Never Total Score: 0 LETICIA-7 AMB Questionnaire LETICIA-7 Date LETICIA - 7 assessed: 09/24/23 Feeling nervous, anxious, or on edge: 0 = Not at all Not being able to stop or control worryin = Not at all Worrying too much about different things: 0 = Not at all Trouble relaxin = Not at all Being so restless that it is hard to sit still: 0 = Not at all Becoming easily annoyed or irritable: 0 = Not at all Feeling afraid as if something awful might happen: 0 = Not at all Total LETICIA-7 score (0-4 normal; 5-9 mild; 10-14 moderate; 15-21 severe): 0 Source: Developed by Drs. Doni Villarreal, Yuridia Guzman, Henry Arellano and colleagues, with an educational noel from [employer]. LETICIA-7 Assessment Billing LETICAI-7 Assessment Tool: LETICIA-7 Assessment 28724 Review of Systems Const Denies chills, Denies fatigue, Denies fever(s), Denies headache(s) and Denies weakness Eyes Denies change in vision ENT Denies dizziness, Denies headache(s), Denies hearing loss, Denies nasal congestion, Denies sinus pain, Denies sinus pressure and Denies sore throat Card Denies chest pain, Denies lightheadedness, Denies dyspnea and Denies other (palpitations) Resp Denies cough, Denies dyspnea and Denies wheezing GI Denies abdominal pain, Denies melena, Denies hematochezia, Denies change in bowel habits, Denies dyspepsia and Denies nausea Denies hematuria and Denies dysuria Musc Denies abnormal gait, Denies myalgias, Denies arthralgias, Denies numbness and Denies tingling Skin/Breast Denies rash, Denies unusual bruising and Denies wounds Neuro Denies abnormal gait, Denies dizziness, Denies headache(s), Denies memory loss, Denies numbness, Denies Sensory deficit (Neuro), Denies tingling and Denies weakness Psych Denies anxiety, Denies depression and Denies memory loss Endo Denies cold intolerance, Denies fatigue, Denies heat intolerance, Denies polydipsia and Denies polyuria Matthew/Lymph Denies easy bleeding and Denies easy bruising Aller/Immun Denies wheezing Physical exam (Primary Care) Vital Signs: Last Vital Signs Temp 97 F 09/24/23 14:14 Pulse 85 09/24/23 14:14 BP 128/72 09/24/23 14:14 Pulse Ox 97 09/24/23 14:14 Oxygen Delivery Method Room Air 09/24/23 14:14 BMI result Body Mass Index 35.3 Tobacco/Smoking Status: Tobacco use Status Tobacco use date assessed 05/09/23 09/24/23 14:21 Patient Tobacco Use Status Never used Tobacco 09/24/23 14:21 e-Cigarette/Vaping Use Never Used 09/24/23 14:21 PHQ-9: PHQ-9 Score PHQ-9: Total score 0 09/24/23 14:29 Depression Screening Interpretation: Negative Thrive Assessment: Date of Thrive Assessment Date Thrive assessed 09/24/23 09/24/23 14:21 Const General: no acute distress, well developed, alert and awake Nutritional Appearance: well nourished Orientation/consciousness: patient oriented x3 HENMT Head: Yes normocephalic and Yes atraumatic Ears: hearing grossly normal bilaterally and TM's normal bilaterally General nose exam: Normal external nose present and Normal nares present Mouth: Normal oral and palatal mucosa present and moist mucous membranes Teeth and gingiva: dentition normal Throat: Yes posterior oropharynx normal Eyes General: appearance normal, both eyes and all related structures Pupils: Equal, round and reactive pupils present and Pupil accommodation reflex normal EOM: EOMs intact bilaterally Neck Neck: Yes normal visual inspection, Yes no lymphadenopathy and Yes trachea midline Thyroid: Thyroid normal Carotids: no bruits Lymphatic: no lymphadenopathy noted Chest Chest palpation & inspection: normal inspection of the chest Resp Effort & Inspection: normal respiratory effort Auscultation: clear to auscultation bilaterally Cardio Rate: regular rate Rhythm: regular rhythm Heart sounds: S1 normal heart sound present, S2 normal heart sound present, no gallops, no murmurs and no rubs Bruits: no abdominal aortic bruits and no carotid bruits GI Palpation (GI): No Abdominal aortic bruit present, Soft to palpation, nontender, No hepatosplenomegaly present and No Rebound tenderness present Auscultation: normal bowel sounds General: Yes no CVA tenderness Back/Spine/Pelvis Back: no CVA tenderness Cervical Spine: cervical ROM normal and No Cervical spine tenderness Thoracic/Lumbar Spine: thoraco-lumbar ROM normal, No pain with thoraco-lumbar ROM, No thoracic spinal tenderness and No lumbar spinal tenderness Skin Lesions: no lesions Rashes: no rashes Trauma: no lacerations or abrasions Wounds: no wounds Nails: normal Neuro General: patient oriented x3 Cranial nerves: Yes Equal, round and reactive pupils present Cognition (Neuro): normal cognition Gait exam (Neuro): Normal gait present Motor exam (neuro): 5/5 motor strength present throughout Sensory Exam: No Sensory deficit (Neuro) Deep tendon reflexes (DTR's): Right patellar reflex intensity grade: 2+ and Left patellar reflex intensity grade: 2+ Extrem General: Yes normal to inspection and No edema Psych Appearance: grossly normal Affect: normal affect Attitude: cooperative Thought process: Normal thought process present Results AMB Hemoglobin A1c AMB Hemoglobin A1c 5.1 % Last Edit by Jessica Roe CMA on 09/24/23 14:37 Assessment and Plan Assessment & Plan (1) Annual physical exam: Code(s): Z00.00 - Encounter for general adult medical examination without abnormal findings Plan: 52-year-old?male?presents?for?complete?physical?exam (2) DM II (diabetes mellitus, type II), controlled: Code(s): E11.9 - Type 2 diabetes mellitus without complications Plan: A1c?shows?good?control.??Goal?is?less?than?7.0% Continue?Ozempic.??No?longer?taking?metformin Will?follow-up?again?in?3?months?and?if?still?showing?good?control, will?continue?on?Ozempic?only. If?not?still?in?good?cont rol,?will?increase?Ozempic?or?resume?metformin?with?Ozempic. (3) Elevated liver enzymes: Code(s): R74.8 - Abnormal levels of other serum enzymes Plan: Continue?weight?loss Hydrate?well Will?recheck?in?3?months (4) Foot pain: Code(s): M79.673 - Pain in unspecified foot Plan: Left?forefoot?pain?on?plantar?surface.??Possible?Ashford's?neuroma Referred?to?Podiatry (5) Hyperlipidemia: Code(s): E78.5 - Hyperlipidemia, unspecified Plan: Continue?atorvastatin Recheck?lipids?with?next?blood?draw (6) Neoplasm of uncertain behavior of skin: Code(s): D48.5 - Neoplasm of uncertain behavior of skin Plan: Referred?to?Podiatry (7) Screening for colon cancer: Code(s): Z12.11 - Encounter for screening for malignant neoplasm of colon Plan: Patient?had?colon[facility]?last?year[facility]with[facility]. Will?request?report (8) Screening for prostate cancer: Code(s): Z12.5 - Encounter for screening for malignant neoplasm of prostate Plan: Check?PSA Orders: Orders Comprehensive [place]. Panel Fast Today E11.9 - Type 2 diabetes mellitus without complications, Z00.00 - Encounter for general adult medical examination without abnormal findings Microalbumin, Random (w Creat) Today E11.9 - Type 2 diabetes mellitus without complications, I10 - Essential (primary) hypertension Prostate Specific Antigen Scr Today E11.9 - Type 2 diabetes mellitus without complications, Z12.5 - Encounter for screening for malignant neoplasm of prostate Lipid Panel Today E78.5 - Hyperlipidemia, unspecified, Z00.00 - Encounter for general adult medical examination without abnormal findings AMB Hemoglobin A1c Today Z13.9 - Encounter for screening, unspecified Referrals Podiatry Referral E11.9 - Type 2 diabetes mellitus without complications, M79.673 - Pain in unspecified foot Dermatology Referral D48.5 - Neoplasm of uncertain behavior of skin Medications: Refilled atorvastatin (Lipitor) 10 mg PO BEDTIME 90 days 90 tabs 2RF Coding Level of Care Code Est Pt Level 3 (17076) New Pt Prev Care 40-64y(88264) Diagnoses Annual physical exam Z00.00 DM II (diabetes mellitus, type II), controlled E11.9 Elevated liver enzymes R74.8 Foot pain M79.673 Hyperlipidemia E78.5 Neoplasm of uncertain behavior of skin D48.5 Screening for colon cancer Z12.11 Screening for prostate cancer Z12.5 Additional Codes LETICIA-7 Assessment Billing - LETICIA-7 Assessment Tool: LETICIA-7 Assessment 83505 ([id number])
== END 2023-09-24 14:56 | disposition home or self-care (01) ==
PROVIDERS: PCP Family Medicine; Visit Provider Family Medicine
DX: Z00.00 Encounter for general adult medical examination without abnormal findings (principal); E11.69 Type 2 diabetes mellitus with other specified complication; R74.8 Abnormal levels of other serum enzymes; M79.672 Pain in left foot; E78.5 Hyperlipidemia, unspecified; D48.5 Neoplasm of uncertain behavior of skin; Z12.11 Encounter for screening for malignant neoplasm of colon; Z12.5 Encounter for screening for malignant neoplasm of prostate
CPT/HCPCS: 83036; 99396

== ENCOUNTER 2023-10-31 15:25 | Outpatient (AMB) | payer MEDICARE, MEDICAID, SELFPAY ==
--- NOTE | 2023-10-31 15:51 | MHC.PC.OV ---
Vital Signs 10/31/23 15:56 Height 5 ft 5 in Weight 210 lb 2 oz BMI 35.0 BP 100/58 L Blood Pressure Location Lt brachial Position Sitting Respiration 12 Pulse 86 Pulse Source Pulse Oximeter Temp 98 F Temp Source Tympanic Pulse Oximetry (%) 99 Oxygen Delivery Method Room Air Intake Visit Reasons: ed follow up from september Intake Note: ed follow up Allergies No Known Allergies Allergy (Verified 10/31/23 15:53) Tobacco use date assessed: 05/09/23 Dental Screening Dental Screen Date: 05/30/23 HPI ed follow up from september HPI Details 52 y/o male presents to f/u ED visit 10/01/23 for evaluation of low back pain. X-rays showed chronic degenerative changes. Recommended heating pads. Was given NSAIDs, muscle relaxant and oxycodone for breakthrough pain. He reports ongoing pain. HPI Comments History of Present Illness Details Documentation assistance for Javier Aguirre MD, was provided by Yaakov Kasper, Patrol Commander on 10/31/2023 at 4:49PM EST. I, Dr. Aguirre, have read, observed, and verified documentation. [facility] Medical History Nonalcoholic fatty liver disease Elevated LFTs Hyperlipidemia DM II (diabetes mellitus, type II), controlled DM2 (diabetes mellitus, type 2) Surgical History No pertinent past surgical history Family History Mother No problems noted. Father No problems noted. Social History Housing: Apartment Alcohol intake: never Patient Tobacco Use Status: Never used Tobacco e-Cigarette/Vaping Use: Never Used Second Hand Smoke Exposure: No service: No Current occupational status: unemployed Current occupational exposures/hazards: No Cognitive needs: No Hearing needs: No Vision needs: No Questionnaire Thrive Questionnaire Date Thrive assessed: 09/24/23 LETICIA-7 AMB Questionnaire LETICIA-7 Date LETICIA - 7 assessed: 09/24/23 Source: Developed by Drs. Doni Villarreal, Yuridia Guzman, Henry Arellano and colleagues, with an educational noel from [employer]. Review of Systems Const Denies chills, Denies fatigue, Denies fever(s), Denies headache(s) and Denies weakness ENT Denies dizziness and Denies headache(s) Card Denies dyspnea Resp Denies cough, Denies dyspnea, Denies wheezing and Denies other (shortness of breath) Musc Reports back pain, Denies numbness and Denies tingling Neuro Denies dizziness, Denies headache(s), Denies numbness, Denies tingling and Denies weakness Psych Denies anxiety and Denies depression Endo Denies fatigue Aller/Immun Denies wheezing Physical exam (Primary Care) Vital Signs: Last Vital Signs Temp 98 F 10/31/23 15:56 Pulse 86 10/31/23 15:56 Resp 12 10/31/23 15:56 BP 100/58 L 10/31/23 15:56 Pulse Ox 99 10/31/23 15:56 Oxygen Delivery Method Room Air 10/31/23 15:56 BMI result Body Mass Index 35.0 Tobacco/Smoking Status: Tobacco use Status Tobacco use date assessed 05/09/23 10/31/23 15:53 Patient Tobacco Use Status Never used Tobacco 10/31/23 15:53 e-Cigarette/Vaping Use Never Used 10/31/23 15:53 Thrive Assessment: Date of Thrive Assessment Date Thrive assessed 09/24/23 10/31/23 15:53 Const General: well developed; No acute distress Nutritional Appearance: well nourished Orientation/consciousness: patient oriented x3 [facility] Head: Yes normocephalic and Yes atraumatic Eyes General: appearance normal, both eyes and all related structures Pupils: Equal, round and reactive pupils present EOM: EOMs intact bilaterally Resp Effort & Inspection: normal respiratory effort Neuro General: patient oriented x3 and gait normal Cranial nerves: Yes Equal, round and reactive pupils present Psych Affect: normal affect Assessment and Plan Assessment & Plan (1) Back pain: Code(s): M54.9 - Dorsalgia, unspecified Plan: Recent?ED?visit?for?back?pain. Plain?films?just?showed?chronic?degenerative?changes He?was?given?a?muscle?relaxer?NSAID?and?some?oxycodone?for?breakthrough?pain. No?significant?pain?today?and?patient?is?able?to?move?without?difficulty. He?still?notes?some?right?lower?back?muscular?discomfort. Will?give?him?script?for?cyclobenzaprine?and?have?him?start?physical?therapy. Orders: Orders PT Evaluation and Treatment Today M54.9 - Dorsalgia, unspecified Medications: New cyclobenzaprine 5 mg PO BID 7 days PRN 14 tabs 0RF muscle spasm M54.9 - Dorsalgia, unspecified Changed From semaglutide (Ozempic) for 4 weeks 0.25 mg (0.368 mL) subcut QWEEK 28 days 1.472 mL 2RF To semaglutide (Ozempic) for 4 weeks 0.5 mg (0.736 mL) subcut QWEEK 28 days 2.944 mL 2RF From atorvastatin (Lipitor) 10 mg PO BEDTIME 90 days 90 tabs 2RF To Lipitor (atorvastatin) [id number]; pt gets stiff neck from generic 10 mg PO BEDTIME 90 days 90 tabs 2RF NS Refilled ibuprofen 400 mg PO Q8H 30 days PRN 90 tabs 2RF pain M54.9 - Dorsalgia, unspecified Coding Level of Care Code Est Pt Level 3 (08630) Diagnoses Back pain M54.9
[2023-10-31 15:56] VITALS: BP 100/58; PULSE 86; RESP 12; TEMP 36.6; O2SAT 99; BMI 35.0
== END 2023-10-31 16:57 | disposition home or self-care (01) ==
PROVIDERS: PCP Family Medicine; Visit Provider Family Medicine
DX: M54.9 Dorsalgia, unspecified (principal)
CPT/HCPCS: 99213

== ENCOUNTER 2024-01-22 12:58 | Outpatient (REF) | payer MEDICARE, MEDICAID, SELFPAY ==
[2024-01-22 14:55] LABS: Alanine Aminotransferase 55 U/L (0-40); Albumin Level 4.3 g/dL (3.5-5.0); Alkaline Phosphatase 55 U/L (39-117); Anion Gap 11 (12-20); Aspartate Amino Transferase 22 U/L (5-37); Bilirubin Total 0.4 mg/dL (0.0-1.0); Blood Urea Nitrogen 14 mg/dL (9-16); Calcium 9.2 mg/dL (8.4-10.2); Carbon Dioxide 24 mmol/L (22-29); Chloride 106 mmol/L (96-108); Cholesterol 204 mg/dL (<200); Estimated Glomerular Filt Rate > 60; Glucose Fasting 101 mg/dL (60-99); HDL Cholesterol 46 mg/dL (>40); LDL Cholesterol Calculated 145 mg/dL (<100); Potassium 4.1 mmol/L (3.3-5.1); Sodium 137 mmol/L (135-145); Triglycerides 68 mg/dL (<150)
[2024-01-22 15:11] LABS: Creatinine Urine 169.13 mg/dL; Microalbum/Creatinine Ratio Ur 2.9 ug/mg cr (<30)
[2024-01-22 15:32] LABS: Prostate Specific Antigen Scr 0.68 ng/mL (<0.05-4.0)
== END 2024-01-22 12:59 | disposition home or self-care (01) ==
LOC: HO.WFDLDS 12:58
PROVIDERS: Visit Provider Family Medicine
DX: Z00.00 Encounter for general adult medical examination without abnormal findings (principal); I10 Essential (primary) hypertension; E11.9 Type 2 diabetes mellitus without complications; E78.5 Hyperlipidemia, unspecified; Z12.5 Encounter for screening for malignant neoplasm of prostate
CPT/HCPCS: 36415; 80053; 80061; 82043; 82570; 84153

== ENCOUNTER 2024-01-30 14:42 | Outpatient (AMB) | payer MEDICARE, MEDICAID, SELFPAY ==
--- NOTE | 2024-01-30 15:52 | A.OFFPC_ITS ---
Vital Signs 01/30/24 15:59 Height 5 ft 5 in Weight 204 lb 8 oz BMI 34.0 BP 110/76 Blood Pressure Location Rt brachial Position Sitting Respiration 14 Pulse 74 Pulse Source Pulse Oximeter Temp 97.6 F Temp Source Oral Pulse Oximetry (%) 98 Oxygen Delivery Method Room Air Intake Visit Reasons: regular visit Intake Note: f/u dm Allergies No Known Allergies Allergy (Verified 01/30/24 15:58) Medication List - Last Reconciled 01/30/24 by Javier Aguirre MD calcium polycarbophil (FiberCon) 625 mg PO BID 30 days cyclobenzaprine 5 mg PO BID PRN 7 days diphenhydramine HCl (Allergy (diphenhydramine)) 25 mg PO ONCE fluticasone propionate 50 mcg/actuation (Flonase Allergy Relief) 1 spray intranasal Q12H 30 days ibuprofen 400 mg PO Q8H PRN 30 days Lipitor (atorvastatin) 10 mg PO BEDTIME 90 days NS semaglutide (Ozempic) 0.5 mg (0.736 mL) subcut QWEEK 28 days Tobacco use date assessed: 05/09/23 Dental Screening Dental Screen Date: 05/30/23 HPI regular visit HPI Details 53 y/o male presents to f/u diabetes, [facility] conditions. Last A1c 09/24/23 5.1%. He is on ozempic 0.5mg. A1c today 01/30/24 is 4.7%. Labs drawn 01/22/24. Reviewed labs with pt. AST 22. ALT 55. Triglycerides 68. TC 203. LDL 145. HDL 46. He is on lipitor 10mg. PSA 0.68. PFSH Medical History Nonalcoholic fatty liver disease Elevated LFTs Hyperlipidemia DM II (diabetes mellitus, type II), controlled DM2 (diabetes mellitus, type 2) Surgical History No pertinent past surgical history Family History Mother No problems noted. Father No problems noted. Social History Housing: Apartment Alcohol intake: never Patient Tobacco Use Status: Never used Tobacco e-Cigarette/Vaping Use: Never Used Second Hand Smoke Exposure: No service: No Current occupational status: unemployed Current occupational exposures/hazards: No Cognitive needs: No Hearing needs: No Vision needs: No Questionnaire PHQ-9 Over the last 2 weeks, how often have you been bothered by any of the following problems? 2. Feeling down, depressed, or hopeless: not at all 3. Trouble falling or staying asleep, or sleeping too much: not at all 4. Feeling tired or having little energy: not at all 5. Poor appetite or overeating: not at all 6. Feeling bad about yourself - or that you are a failure or have let yourself or your family down: not at all 7. Trouble concentrating on things, such as reading the newspaper or watching television: not at all 8. Moving or speaking so slowly that other people could have noticed. Or the opposite - being so fidgety or restless that you have been moving around a lot more than usual: not at all 9. Thoughts that you would be better off or of hurting yourself in some way: not at all Source: Developed by Drs. Doni Villarreal, Yuridia Guzman, Henry Arellano and colleagues, with an educational noel from [employer]. Thrive Questionnaire Date Thrive assessed: 09/24/23 I am a: Patient What is your living situation today?: I have a steady place to live Within the past 12 months, did the food you bought not last and you didn't have the money to get more?: Never true Within the past 12 months, did you worry whether your food would run out before you got money to buy more?: Never true Do you have trouble paying for medicines?: No Do you have trouble getting transportation to medical appointments?: No Do you have trouble paying your heating and electricity bill?: No Do you have trouble taking care of your child, family member or friend?: No Do you have trouble with day-to-day activities such as bathing, preparing meals, shopping, managing finances, etc.?: No Are you currently unemployed and looking for a job?: No Are you interested in more education?: No Please select the resources that you would like help with: None Currently or been in a relationship where the following occur: No concerns reported THRIVE Score: 0 AUDIT C Alcohol Use Questionnaire (AUDIT-C) 1. How often do you have a drink containing alcohol?: Never Total Score: 0 LETICIA-7 AMB Questionnaire LETICIA-7 Date LETICIA - 7 assessed: 09/24/23 Feeling nervous, anxious, or on edge: 0 = Not at all Not being able to stop or control worryin = Not at all Worrying too much about different things: 0 = Not at all Trouble relaxin = Not at all Being so restless that it is hard to sit still: 0 = Not at all Becoming easily annoyed or irritable: 0 = Not at all Feeling afraid as if something awful might happen: 0 = Not at all Total LETICIA-7 score (0-4 normal; 5-9 mild; 10-14 moderate; 15-21 severe): 0 Source: Developed by Drs. Doni Villarreal, Yuridia Guzman, Henry Arellano and colleagues, with an educational noel from [employer]. Review of Systems Const Denies chills, Denies fatigue, Denies fever(s), Denies headache(s) and Denies weakness ENT Denies dizziness and Denies headache(s) Card Denies dyspnea Resp Denies cough, Denies dyspnea, Denies wheezing and Denies other (shortness of breath) Musc Denies numbness and Denies tingling Neuro Denies dizziness, Denies headache(s), Denies numbness, Denies tingling and Denies weakness Psych Denies anxiety and Denies depression Endo Denies fatigue Aller/Immun Denies wheezing Physical exam (Primary Care) Vital Signs: Last Vital Signs Temp 97.6 F 01/30/24 15:59 Pulse 74 01/30/24 15:59 Resp 14 01/30/24 15:59 BP 110/76 01/30/24 15:59 Pulse Ox 98 01/30/24 15:59 Oxygen Delivery Method Room Air 01/30/24 15:59 BMI result Body Mass Index 34.0 Tobacco/Smoking Status: Tobacco use Status Tobacco use date assessed 05/09/23 01/30/24 15:53 Patient Tobacco Use Status Never used Tobacco 01/30/24 15:53 e-Cigarette/Vaping Use Never Used 01/30/24 15:53 Thrive Assessment: Date of Thrive Assessment Date Thrive assessed 09/24/23 01/30/24 15:53 Currently or been in a relationship where the following occur: No concerns reported Const General: well developed; No acute distress Nutritional Appearance: well nourished Orientation/consciousness: patient oriented x3 HENMT Head: Yes normocephalic and Yes atraumatic Eyes General: appearance normal, both eyes and all related structures Pupils: Equal, round and reactive pupils present EOM: EOMs intact bilaterally Resp Effort & Inspection: normal respiratory effort Neuro General: patient oriented x3 and gait normal Cranial nerves: Yes Equal, round and reactive pupils present Psych Affect: normal affect Coding Level of Care Code Est Pt Level 4 (85472) Diagnoses DM II (diabetes mellitus, type II), controlled E11.9 Hyperlipidemia E78.5 Elevated liver enzymes R74.8 Screening for prostate cancer Z12.5 Foot pain M79.673 Assessment & Plan Assessment & Plan (1) DM II (diabetes mellitus, type II), controlled: Code(s): E11.9 - Type 2 diabetes mellitus without complications Category: Medical Plan: A1c?now?4.7%. Excellent?control.??He?is?on?Ozempic. Continues?to?lose?weight?as?well He?would?like?to?increase?Ozempic. Will?increase?Ozempic?to?1.0?mg?weekly. Will?give?him?a blood? sugar?monitor?and?he?can?check?the?to?ensure?he?is?not?getting?low?blood?sugars He?is?no?longer?on?metformin?and?I?advised?him?not?to?take?this?any?longer. (2) Hyperlipidemia: Code(s): E78.5 - Hyperlipidemia, unspecified Category: Medical Plan: Li pids?have?climbed?significantly?as?he?has?been?unable?to?get?brand?name?Lipitor. Patient?gets?stiff?neck?from?generic?atorvastatin Will?ask?medical?assistant professor of archaeology?to?do?prior?authorization (3) Elevated liver enzymes: Code(s): R74.8 - Abnormal levels of other serum enzymes Category: Medical Plan: Liver?enzymes?were?high?and?are?improving?with?weight?loss Continue?weight?loss Will?recheck?prior?to?next?visit?and?review?with?patient (4) Screening for prostate cancer: Code(s): Z12.5 - Encounter for screening for malignant neoplasm of prostate Category: Medical Plan: PSA?is?within?normal?range Will?continue?annual?screening (5) Foot pain: Code(s): M79.673 - Pain in unspecified foot Category: Medical Plan: Had?referred?patient?to?Podiatry?but the?service employee?had?passed?away Will?make?new?referral Orders: Orders Comprehensive [place]. Panel Fast Today R74.8 - Abnormal levels of other serum enzymes, Z00.00 - Encounter for general adult medical examination without abnormal findings Referrals Podiatry Referral E11.9 - Type 2 diabetes mellitus without complications, M79.673 - Pain in unspecified foot
[2024-01-30 15:59] VITALS: BP 110/76; PULSE 74; RESP 14; TEMP 36.4; O2SAT 98; BMI 34.0
== END 2024-01-30 16:47 | disposition home or self-care (01) ==
PROVIDERS: PCP Family Medicine; Visit Provider Family Medicine
DX: E11.9 Type 2 diabetes mellitus without complications (principal); E78.5 Hyperlipidemia, unspecified; R74.8 Abnormal levels of other serum enzymes; Z12.5 Encounter for screening for malignant neoplasm of prostate; M79.673 Pain in unspecified foot

== ENCOUNTER → 2024-01-30 14:42 | Outpatient (BNVA) | payer MEDICARE, MEDICAID, SELFPAY | PROVIDERS: PCP Family Medicine; Visit Provider Family Medicine | DX: E11.9 Type 2 diabetes mellitus without complications (principal); E78.5 Hyperlipidemia, unspecified; R74.8 Abnormal levels of other serum enzymes; M79.673 Pain in unspecified foot | CPT/HCPCS: 99212 ==

== ENCOUNTER 2024-03-06 13:05 | Outpatient (RCR) | payer MEDICARE, MEDICAID, SELFPAY ==
--- NOTE | 2024-02-19 14:55 | MHC.PT.EP ---
[facility] [place] Office [place] Office [place] Office [address] George Montes De Oca [address] [phone] F: [phone] F: [phone] F: [phone] F: [phone] Physical Therapy Plan of Care Date of Evaluation: 02/19/24 Date of Surgery: NA Diagnosis: BACK PAIN Assessment: Pt IS 53 YO M REFERRED TO PT FROM DR NOYOLA WITH CHRONIC LBP. Pt IS UNSURE WHAT MAY HAVE CAUSED BACK PAIN. REPORTS HX OF KNEE PAIN IN PAST ALSO. OF NOTE, HE HAD PT FOR KNEES WHICH DIDNT HELP AND THEY DIDNT DO IT RIGHT . PRESENTS WITH GOOD OVERALL TRUNK ROM, SOME LE/CORE WEAKNESS, TIGHT LES. Pt REPORTS HE HAS GONE TO GYM IN PAST, BUT CURRENTLY DOES NOT HAVE A REGULAR EXERCISE PROGRAM. REPORTS HAS 3 YO TWINS THAT HE HAS A HARD TIME PLAYING WITH BECAUSE OF THE PAIN. Pt IS NOT WORKING AT THIS TIME Frequency and Duration: The patient will be seen 2X/WK X 6 WKS Short Term Goals: 1. INCREASED AWARENESS BACK CARE AND POSTURE 2. Pt TO PERF 2-3 TASKS WITH PROPER BODY MECH 3. CENTRALIZED PAIN Longterm Goals: 1. I HEP WITH DC EX PLAN 2. DECREASED PAIN AT LEAST 50% WITH ADLS 3. IMPROVED SLEEP 4. RTW/SCHOOL Treatment Plan: Modalities to reduce pain, spasms and effusion. Manual therapy to restore motion and function. Therapeutic exercise to improve strength and flexibility. Neuromuscular re-education for posture and balance. Therapeutic activities to return to functional activities of daily living. Electronically signed by: BRITTANY KEN PT Please sign and return to therapist. Thank you for your referral.
== END 2024-04-14 09:19 | disposition home or self-care (01) ==
LOC: HO.PTWFD 13:05
PROVIDERS: PCP Family Medicine; Visit Provider Family Medicine
DX: M54.9 Dorsalgia, unspecified (principal)
CPT/HCPCS: 97110; 97140; 97161; 97535

== ENCOUNTER 2024-04-23 13:24 | Outpatient (REF) | payer MEDICARE, MEDICAID, SELFPAY ==
--- OUTSIDE RECORDS SUMMARY | 2024-04-23 13:27 | XMS_ITS | Data Portability ---
Author Organization [place] - [employer], [facility] [place] [address] [place] [address] Care Team Providers Care Dean Of Men Name Role Phone CRYSTALJLUIOSUSANNE Primary Care Provider [phone] Assessment No assessment recorded. Plan of Treatment Reminders Order Date Submit Date Provider Last Modified By Organization Details Last Modified Time Details Appointments None recorded. Lab hepatic function panel, serum 2018 019 [facility], [address], [address], [place], [address], 9 11:10:18 CMP, serum or plasma 2018 019 JANESSA [facility], [address], [address], [place], [address], 9 13:07:37 lipid panel, serum 2018 019 JANESSA [facility], [address], [address], [place], [address], 9 13:07:38 microalbum in, QN, unspecifie d duration, urine 2018 019 JANESSA [facility], [address], [address], [place], [address], 9 19:43:31 hemoglobin A1c, QN, blood 2018 019 JANESSA [facility], [address], [address], [place], [address], 9 19:43:30 Referral None recorded. Procedures None recorded. Surgeries None recorded. Imaging None recorded. Medication Orders benzonatat e 200 mg capsule 2018 019 [place] [id number] [id number], [address] [place] [address], [place], [place], [id number], 9 19:33:03 Cheratussi n AC 10 mg-100 mg/5 mL oral liquid 2018 019 [facility] 1 [facility], [address], [place], [address], 9 19:32:59 sildenafil (pulmonary hypertensi on) 20 mg tablet 2018 019 INTERFACE [facility], [address], [place], [address], 9 19:47:22 metformin 850 mg tablet 2018 019 INTERFACE [facility], [address], [place], [address], 9 19:43:26 Robitussin Cough-Ches t Congestion DM 5 mg-100 mg/5 mL oral liquid 2018 019 INTERFACE [facility], [address], [place], [address], 9 19:36:41 sildenafil (pulmonary hypertensi on) 20 mg tablet 2018 019 ksadek [facility], [address], [place], [address], 9 13:28:14 omeprazole 20 mg capsule,de layed release 2018 019 INTERFACE [facility], [address], [place], [address], 9 12:28:28 metformin 850 mg tablet 2018 019 INTERFACE [facility], [address], [place], [address], 9 12:25:10 OneTouch Verio test strips 2018 019 INTERFACE [facility], [address], [place], [address], 9 12:26:43 Patient Targets Encounter Date Encounter Id Patient Goals Patient Target Last Modified By Organization Details Last Modified Time Stop all vitamin supplementation for the next 2 weeks. Continue with current Metformin. [email or web address] Not available 04/21/2018 18:53:30 Patient Instructions Encounter Date Encounter Id Patient Instructions Last Modified By Organization Details Last Modified Time 06/19/2018 [id number] [email or web address] Not available 06/23 09:14:39 09/09/2018 [id number] chronic cough: care instructions [email or web address] Not available 09/09/2018 19:36:39 Increase fluid intake. Use of Vaporizer is recommended Rest until afebrile Inga pot or saline rinses. Tylenol or Motrin can be use for pain or fever. DO NOT USE Motrin if you have Kidney Disease, be it chronic or acute. DO NOT USE Tylenol/Acetaminop hen if you have Liver Disease or history of Elevated Liver Enzymes. Use Mucinex for congestion, DM for cough, and Flonase or a nasal steroid as directed for nasal congestion Use over the counter antihistamines like Claritin, Roma or Zyrtec for allergy symptoms Call back if symptoms do not improve or worsen Finish entire course of antibiotics prescribed. [email or web address] Not available 09/22/2018 02:29:19 10/08/2018 [id number] learning about type 2 diabetes ksadek Not available 10/08/2018 12:23:19 type 2 diabetes: care instructions [email or web address] Not available 10/08/2018 12:23:19 high cholesterol : care instructions [email or web address] Not available 10/09/2018 01:57:03 Maintain good exercise activity at least 3 times per week with each episode lasting 20 to 30 minutes and maintaining 1.5 X than the normal baseline heart rate. Maintain good hydration status by consuming at least 64 - 72 ounces of water per day excluding fluids consumed through typical non-alcoholic drinks. Consume less fried or canned food products and eat more fresh vegetables, more of organic type if possible. Avoid excess salt or processed sugar. Maintain sufficient and consistent sleep schedule with having an average 7-8 hours of non-interrupted sleep. [email or web address] Not available 10/09/2018 01:57:37 Reason for Referral None Reported. Results Created Date Observation Date Name Description Value Unit Range Abnormal Flag Note LastModifiedBy Organization Detail LastModifiedTime 04/04/1904/05/2018 CMP, serum or plasm a glucose 99 mg/dL 65-99 Not Available [facility] ([facility]) [address] [place], [address], 04/05/2018 09:18:42 04/04/1904/05/2018 CMP, serum or plasm a BUN 10 mg/dL 6-24 Not Available [facility] ([facility]) [address] [place], [address], 04/05/2018 09:18:42 04/04/1904/05/2018 CMP, serum or plasm a creatinine 0.82 mg/dL 0.76-1 .27 Not Available [facility] ([facility]) [address] [place], [address], 04/05/2018 09:18:42 04/04/1904/05/2018 CMP, serum or plasm a eGFR if nonafricn AM 106 mL/mi n/1.7 3 >59 Not Available [facility] ([facility]) [address] [place], [address], 04/05/2018 09:18:42 04/04/1904/05/2018 CMP, serum or plasm a eGFR if africn AM 123 mL/mi n/1.7 3 >59 Not Available [facility] ([facility]) [address] [facility] [place], [address], 04/05/2018 09:18:42 04/04/1904/05/2018 CMP, serum or plasm a BUN/creatini ne ratio 12 9-20 Not Available [facility]) [address] [facility] [place], [address], 04/05/2018 09:18:42 04/04/1904/05/2018 CMP, serum or plasm a sodium 139 mmol/ L 134-14 4 Not Available [facility] ([facility]) [address] [facility] [place], [address], 04/05/2018 09:18:42 04/04/1904/05/2018 CMP, serum or plasm a potassium 4.5 mmol/ L 3.5-5. 2 Not Available [facility] ([facility]) [address] [facility] [place], [address], 04/05/2018 09:18:42 04/04/1904/05/2018 CMP, serum or plasm a chloride 102 mmol/ L 96-106 Not Available [facility] ([facility]) [address] [facility] [place], [address], 04/05/2018 09:18:42 04/04/1904/05/2018 CMP, serum or plasm a carbon dioxide, total 23 mmol/ L 20-29 Not Available [facility] ([facility]) [address] [facility] [place], [address], 04/05/2018 09:18:42 04/04/1904/05/2018 CMP, serum or plasm a calcium 9.4 mg/dL 8.7-10 .2 Not Available [facility] ([facility]) [address] [facility] [place], [address], 04/05/2018 09:18:42 04/04/1904/05/2018 CMP, serum or plasm a protein, total 6.9 g/dL 6.0-8. 5 Not Available [facility] ([facility]) [address] [facility] [place], [address], 04/05/2018 09:18:42 04/04/1904/05/2018 CMP, serum or plasm a albumin 4.6 g/dL 3.5-5. 5 Not Available [facility] ([facility]) [address] [facility] [place], [address], 04/05/2018 09:18:42 04/04/1904/05/2018 CMP, serum or plasm a globulin, total 2.3 g/dL 1.5-4. 5 Not Available [facility] ([facility]) [address] [place], [address], 04/05/2018 09:18:42 04/04/1904/05/2018 CMP, serum or plasm a A/G ratio 2.0 1.2-2. 2 Not Available [facility] ([facility]) [address] [place], [address], 04/05/2018 09:18:42 04/04/1904/05/2018 CMP, serum or plasm a bilirubin, total 0.4 mg/dL 0.0-1. 2 Not Available [facility] ([facility]) [address] [place], [address], 04/05/2018 09:18:42 04/04/1904/05/2018 CMP, serum or plasm a alkaline phosphatase 58 IU/L 39-117 Not Available [facility] [address] [place], [address], 04/05/2018 09:18:42 04/04/1904/05/2018 CMP, serum or plasm a AST (SGOT) 30 IU/L 0-40 Not Available [facility] ([facility]) [address], [place], [address], 04/05/2018 09:18:42 04/04/1904/05/2018 CMP, serum or plasm a ALT (SGPT) 84 IU/L 0-44 above high normal Not Available [facility] ([facility]) [address] [facility] [place], [address], 04/05/2018 09:18:42 04/04/1904/05/2018 lipid panel , serum cholesterol, total 173 mg/dL 100-19 9 Not Available [facility] ([facility]) [address] [facility] [place] [place], [address], 04/05/2018 09:18:43 04/04/1904/05/2018 lipid panel , serum triglyceride s 179 mg/dL 0-149 above high normal Not Available [facility] ([facility]) [address] [facility] [place], [address], 04/05/2018 09:18:43 04/04/1904/05/2018 lipid panel , serum HDL cholesterol 41 mg/dL >39 Not Available [facility]) [address] [facility], [place], [address], 04/05/2018 09:18:43 04/04/1904/05/2018 lipid panel , serum VLDL cholesterol bree 36 mg/dL 5-40 Not Available [facility]) [address] [facility] [place], [address], 04/05/2018 09:18:43 04/04/1904/05/2018 lipid panel , serum LDL cholesterol calc 96 mg/dL 0-99 Not Available [facility] ([facility]) [address] [facility] [place], [address], 04/05/2018 09:18:43 04/04/1904/05/2018 lipid panel , serum comment: COMMISSIONED FIRE OFFICER Not Available [facility] ([facility]) [address], [place], [address], 04/05/2018 09:18:43 04/04/1904/05/2018 cardi javier freire panel , serum interpretati on Note ----- ----- ----- ----- ----- ----- - CARDI OVASC ULAR REPOR T: ----- ----- ----- ----- ----- ----- - Curre nt avail able clini bree infor matio n sugge sts the patie nt's risk is at least LOW. One major CHD risk facto r is prese nt (age over 45). If the patie nt has CHD or a CHD risk equiv alent , the risk categ ory is high. If patie nt does not have CHD or a CHD risk equiv alent , consi clifton use of the [place] d [place] t Equat ions to estim ate 10-ye ar CVD risk, as indiv idual s with great er than 7.5% risk may warra nt more inten sive thera py. The calcu lator can be found at: http: //too ls.ca rdios ource .org/ ASCVD -Risk -Cally mator / - Insul in resis tance , obesi ty, exces sive alcoh ol use, smoki ng, thyro id disea se, nephr otic syndr ome, liver disea se, and certa in medic ation s are all cause s of secon mikayla dysli pidem ia. Consi clifton evalu ation if clini eliecer indic ated. - Thera peuti c lifes yenni diallo es are alway s valua ble to achie ve optim al blood lipid statu s (diet , exerc ise, weigh t manag ement ). ----- ----- ----- ----- ----- ----- - LIPID MANAG EMENT Selec t one patie nt risk categ ory based upon medic al histo ry and clini bree judgm ent. Addit ional risk facto rs such as perso nal or famil y histo ry of eyad ture CHD, smoki ng, and hyper tensi on modif y a patie nt's goals of thera py. In CVD preve ntion , the inten sity of thera py shoul d be adjus santino to the level of patie nt risk. MODER ATE inten sity stati n thera py gener ally resul ts in an avera ge LDL-C reduc tion of 30% to less than 50% from the untre ated basel ine. Examp les inclu de (ammy y doses ): atorv astat in 10-20 mg, rosuv astat in 5-10 mg, simva stati n 20-40 mg, prava stati n 40-80 mg, lovas tatin 40 mg. HIGH inten sity stati n thera py gener ally resul ts in an avera ge LDL-C reduc tion of 50% or more from the untre ated basel ine. Examp les inclu de (ammy y doses ): atorv astat in 40-80 mg and rosuv astat in 20 mg. ----- ----- ----- ----- ----- ----- - LOW RISK ASSES SMENT AND TREAT MENT SUGMARKEL WOODWARD S ----- ----- ----- ----- ----- ----- - LDL-C is optim al, 96 mg/dL . Non-H DL Shira stero l is accep table , 132 mg/dL . - Consi derat ions for use of stati n thera py inclu de famil y histo ry of eyad ture ather oscle rotic disea se, eleva santino coron jon arter y calci um score , ankle -brac hial index < 0.9, eleva santino CRP, or eleva santino 10-ye ar or lifet dimitri CVD risk. Bruce santino trigl yceri sascha may be assoc iated with incre ased cardi ovasc ular risk due to incre ased numbe rs of ather ogeni c lipop rotei n parti cles. Co-mo rbid condi tions shoul d be evalu ated and treat ed. ----- ----- ----- ----- ----- ----- - INTER MEDIA TE RISK ASSES SMENT AND TREAT [facility] MIKALA WOODWARD S ----- ----- ----- ----- ----- ----- - LDL-C is optim al, 96 mg/dL . Non-H DL Shira stero l is accep table , 132 mg/dL . - Consi clifton measu remen t of LDL parti keyla numbe r or Apo B to adjud icate need for furth er LDL lower ing thera py. Consi clifton begin jimi or incre asing stati n. Facto rs that may influ ence stati n use inclu de famil y histo ry of eyad ture ather oscle rotic disea se, eleva santino coron ojn arter y calci um score , ankle -brac hial index < 0.9, eleva santino CRP, or eleva santino 10-ye ar or lifet dimitri CVD risk. If stati n canno t be eliot ated or incre ased, alter nativ es inclu de use of an intes tinal agent (ezet imibe or bile acid seque stran t), niaci n, and/o r fish oil. ----- ----- ----- ----- ----- ----- - HIGH RISK ASSES SMENT AND TREAT [facility] MIKALA WOODWARD S ----- ----- ----- ----- ----- ----- - LDL-C is rosario l, 96 mg/dL . Non-H DL Shira stero l is borde rline high, 132 mg/dL . - Begin stati n. If stati n alrea dy in use, consi clifton incre asing dose to achie ve at least a 50% LDL reduc tion from basel ine. Moder ate or high inten sity stati n is prefe rred. If stati n canno t be eliot ated or incre ased, alter nativ es inclu de use of an intes tinal agent (ezet imibe or bile acid seque stran t), niaci n, and/o r fish oil. ----- ----- ----- ----- ----- ----- - DISCL AIMER These asses sment s and treat ment sugge stion s are provi ded as a conve nienc e in suppo rt of the physi annabel- patie nt relat ionsh ip and are not inten ded to repla ce the physi [facility] [place] clini bree judgm ent. They are deriv ed from natio nal guide lines in addit ion to other evide nce and exper t opini on. The clini annabel shoul d consi clifton this infor matio n withi n the alda xt of clini bree opini on and the indiv idual patie nt. SEE RADHA NCE FOR CARDI OVASC ULAR REPOR T: González MALLOY et al. 2013 ACC/A NARAYANAN guide line on the treat ment of blood shira stero l to reduc e ather oscle rotic cardi ovasc ular risk in adult s: a repor t of the Martín Castañeda ge of Cardi ology /[employer] i[employer] n Task Force on Pract ice Guide lines . Circu latio n 2014; 129 (supp l 2): S1?S4 5; Dangeloo is et al. Clin Chem 2009; 55(3) :407- 419; Charles dong et al. Diabe jaymie Care 2008; 31(4) :811- 82. Not Available [facility] ([facility]) [address] [facility], [place], [address], 04/05/2018 09:18:44 04/04/19 19 04/05/2018 cardi ovasc ular asses sment panel , serum pdf image Not applic able Not Available [facility] ([facility]) [address] [facility], [place], [address], 04/05/2018 09:18:44 04/04/19 19 04/06/2018 HbA1c (hemo globi n A1c), blood Hb A1C diabetic assessment 5.0 %Hb Note: A refle x test was order ed on this speci men. If A1c resul ts are betwe en a value of 6.0 to 8.0 (incl uding 6.0 and 8.0), Glyco Alden testi ng is perfo rmed. Glyco Alden refle cts post prand ial gluco se spike s from the past 2 weeks , where as A1c refle cts avera ge glyce david contr ol over the past 3 month s. Refer ence Range : Rosario l: <5.7 Incre ased risk for diabe jaymie: 5.7 - 6.4 Ongoi ng Hyper glyce komal: >6.4 Glyce david contr ol for adult s with diabe jaymie: <7.0 (ADA) Not Available [facility] [address] [facility], [place], [address], 04/06/2018 09:07:49 04/04/19 19 04/06/2018 HbA1c (hemo globi n A1c), blood estimated average glucose 97 mg/dL Not Available [facility] [address] [facility], [place], [address], 04/06/2018 09:07:49 04/04/19 19 04/06/2018 HbA1c (hemo globi n A1c), blood glycomark(R) (1,5 Ag) TNP ug/mL Testi ng Not Indic ated Refle x not perfo rmed contr ol in diabe tic patie nts. A low resul t corre spond s to high gluco se peaks . 1, 5-AG blood level s can be affec santino by clini bree condi tions or medic ation s. Pleas e refer to the direc tory of servi sav or labco rp websi te test menu for detai led list of limit ation s. Not Available [facility] [address] [facility], [place], [address], 04/06/2018 09:07:49 04/04/19 19 04/05/2018 micro album in, urine albumin, urine <3.0 ug/mL not estab. Not Available [facility] ([facility]) [address] [facility], [place], [address], 04/06/2018 09:07:49 06/14/1906/14/2018 hepat ic funct ion panel , serum protein, total 7.0 g/dL 6.0-8. 5 Not Available [facility] ([facility]) [address] [place], [address], 06/14/2018 09:14:53 06/14/1906/14/2018 hepat ic funct ion panel , serum albumin 4.6 g/dL 3.5-5. 5 Not Available [facility] ([facility]) [address] [place], [address], 06/14/2018 09:14:53 06/14/1906/14/2018 hepat ic funct ion panel , serum bilirubin, total 0.5 mg/dL 0.0-1. 2 Not Available [facility] ([facility]) [address] [facility] [place], [address], 06/14/2018 09:14:53 06/14/1906/14/2018 hepat ic funct ion panel , serum bilirubin, direct 0.13 mg/dL 0.00-0 .40 Not Available [facility] ([facility]) [address] [place], [address], 06/14/2018 09:14:53 06/14/1906/14/2018 hepat ic funct ion panel , serum alkaline phosphatase 63 IU/L 39-117 Not Available [facility]) [address] [facility] [place], [address], 06/14/2018 09:14:53 06/14/1906/14/2018 hepat ic funct ion panel , serum AST (SGOT) 19 IU/L 0-40 Not Available [facility] ([facility]) [address] [facility] [place] [place], [address], 06/14/2018 09:14:53 06/14/1906/14/2018 hepat ic funct ion panel , serum ALT (SGPT) 41 IU/L 0-44 Not Available [facility] ([facility]) [address] [place], [address], 06/14/2018 09:14:53 10/04/19 19 10/04/2018 CMP, serum or plasm a glucose 89 mg/dL 65-99 Not Available [facility] ([facility]) [address] [place], [address], 10/04/2018 13:07:37 10/04/19 19 10/04/2018 CMP, serum or plasm a BUN 15 mg/dL 6-24 Not Available [facility] ([facility]) [address] [place], [address], 10/04/2018 13:07:37 10/04/19 19 10/04/2018 CMP, serum or plasm a creatinine 0.83 mg/dL 0.76-1 .27 Not Available [facility] ([facility]) [address] [place], [address], 10/04/2018 13:07:37 10/04/19 19 10/04/2018 CMP, serum or plasm a eGFR if nonafricn AM 106 mL/mi n/1.7 3 >59 Not Available [facility] ([facility]) [address] [place], [address], 10/04/2018 13:07:37 10/04/19 19 10/04/2018 CMP, serum or plasm a eGFR if africn AM 122 mL/mi n/1.7 3 >59 Not Available [facility] ([facility]) [address] [place], [address], 10/04/2018 13:07:37 10/04/19 19 10/04/2018 CMP, serum or plasm a BUN/creatini ne ratio 18 9-20 Not Available [facility] ([facility]) [address] [place], [address], 10/04/2018 13:07:37 10/04/19 19 10/04/2018 CMP, serum or plasm a sodium 139 mmol/ L 134-14 4 Not Available [facility] ([facility]) [address] [place], [address], 10/04/2018 13:07:37 10/04/19 19 10/04/2018 CMP, serum or plasm a potassium 4.3 mmol/ L 3.5-5. 2 Not Available [facility] ([facility]) [address] [place], [address], 10/04/2018 13:07:37 10/04/19 19 10/04/2018 CMP, serum or plasm a chloride 102 mmol/ L 96-106 Not Available [facility] ([facility]) [address] [place], [address], 10/04/2018 13:07:37 10/04/19 19 10/04/2018 CMP, serum or plasm a carbon dioxide, total 20 mmol/ L 20-29 Not Available [facility] ([facility]) [address] [place], [address], 10/04/2018 13:07:37 10/04/19 19 10/04/2018 CMP, serum or plasm a calcium 9.2 mg/dL 8.7-10 .2 Not Available [facility] ([facility]) [address] [place], [address], 10/04/2018 13:07:37 10/04/19 19 10/04/2018 CMP, serum or plasm a protein, total 7.1 g/dL 6.0-8. 5 Not Available [facility] ([facility]) [address] [place], [address], 10/04/2018 13:07:37 10/04/19 19 10/04/2018 CMP, serum or plasm a albumin 4.7 g/dL 3.5-5. 5 Not Available [facility] ([facility]) [address] [facility] [place], [address], 10/04/2018 13:07:37 10/04/19 19 10/04/2018 CMP, serum or plasm a globulin, total 2.4 g/dL 1.5-4. 5 Not Available [facility] ([facility]) [address] [facility] [place], [address], 10/04/2018 13:07:37 10/04/19 19 10/04/2018 CMP, serum or plasm a A/G ratio 2.0 1.2-2. 2 Not Available [facility] ([facility]) [address] [facility] [place], [address], 10/04/2018 13:07:37 10/04/19 19 10/04/2018 CMP, serum or plasm a bilirubin, total 0.5 mg/dL 0.0-1. 2 Not Available [facility] ([facility]) [address] [place], [address], 10/04/2018 13:07:37 10/04/19 19 10/04/2018 CMP, serum or plasm a alkaline phosphatase 60 IU/L 39-117 Not Available [facility]) [address] [facility] [place], [address], 10/04/2018 13:07:37 10/04/1910/04/2018 CMP, serum or plasm a AST (SGOT) 21 IU/L 0-40 Not Available [facility] ([facility]) [address] [facility] [place], [address], 10/04/2018 13:07:37 10/04/1910/04/2018 CMP, serum or plasm a ALT (SGPT) 42 IU/L 0-44 Not Available [facility] ([facility]) [address] [facility] [place], [address], 10/04/2018 13:07:37 10/04/19 19 10/04/2018 lipid panel , serum cholesterol, total 167 mg/dL 100-19 9 Not Available [facility] ([facility]) [address] [place], [address], 10/04/2018 13:07:38 10/04/19 19 10/04/2018 lipid panel , serum triglyceride s 159 mg/dL 0-149 above high normal Not Available [facility] ([facility]) [address] [place], [address], 10/04/2018 13:07:38 10/04/19 19 10/04/2018 lipid panel , serum HDL cholesterol 41 mg/dL >39 Not Available [facility] ([facility]) [address] [place], [address], 10/04/2018 13:07:38 10/04/19 19 10/04/2018 lipid panel , serum VLDL cholesterol bree 32 mg/dL 5-40 Not Available [facility] ([facility]) [address] [place], [address], 10/04/2018 13:07:38 10/04/19 19 10/04/2018 lipid panel , serum LDL cholesterol calc 94 mg/dL 0-99 Not Available [facility] ([facility]) [address] [place], [address], 10/04/2018 13:07:38 10/04/19 19 10/04/2018 lipid panel , serum comment: COMMISSIONED FIRE OFFICER Not Available [facility] ([facility]) [address] [place], [address], 10/04/2018 13:07:38 10/04/19 19 10/04/2018 HbA1c (hemo globi n A1c), blood hemoglobin A1C 5.2 % 4.8-5. 6 Predi abete s: 5.7 - 6.4 Diabe jaymie: >6.4 Glyce david contr ol for adult s with diabe jaymie: <7.0 Not Available [facility] ([facility]) [address] [place], [address], 10/04/2018 13:07:38 10/04/19 19 10/04/2018 micro album in, urine albumin, urine 7.8 ug/mL not estab. Not Available [facility] ([facility]) [address], [place], [address], 10/04/2018 13:07:38 10/04/19 19 10/04/2018 cardi ovasc gareth edwards sment panel , serum interpretati on Note ----- ----- ----- ----- ----- ----- - CARDI OVASC ULAR REPOR T: ----- ----- ----- ----- ----- ----- - Curre nt avail able clini bree infor matio n sugge sts the patie nt's risk is at least LOW. One major CHD risk facto r is prese nt (age over 45). If the patie nt has CHD or a CHD risk equiv alent , the risk categ ory is high. If patie nt does not have CHD or a CHD risk equiv alent , consi clifton use of the Park d [place] t Equat ions to estim ate 10-ye ar CVD risk, as indiv idual s with great er than 7.5% risk may warra nt more inten sive thera py. The calcu lator can be found at: http: //too ls.ca rdios ource .org/ ASCVD -Risk -Cally mator / - Insul in resis tance , obesi ty, exces sive alcoh ol use, smoki ng, thyro id disea se, nephr otic syndr ome, liver disea se, and certa in medic ation s are all cause s of secon mikayla dysli pidem ia. Consi clifton evalu ation if clini eliecer indic ated. - Thera peuti c lifes tyle yoel es are alway s valua ble to achie ve optim al blood lipid statu s (diet , exerc ise, weigh t manag ement ). ----- ----- ----- ----- ----- ----- - LIPID MANAG EMENT Selec t one patie nt risk categ ory based upon medic al histo ry and clini bree judgm ent. Addit ional risk facto rs such as perso nal or famil y histo ry of eyad ture CHD, smoki ng, and hyper tensi on modif y a patie nt's goals of thera py. In CVD preve ntion , the inten sity of thera py shoul d be adjus santino to the level of patie nt risk. MODER ATE inten sity stati n thera py gener ally resul ts in an avera ge LDL-C reduc tion of 30% to less than 50% from the untre ated basel ine. Examp les inclu de (ammy y doses ): atorv astat in 10-20 mg, rosuv astat in 5-10 mg, simva stati n 20-40 mg, prava stati n 40-80 mg, lovas tatin 40 mg. HIGH inten sity stati n thera py gener ally resul ts in an avera ge LDL-C reduc tion of 50% or more from the untre ated basel ine. Examp les inclu de (ammy y doses ): atorv astat in 40-80 mg and rosuv astat in 20 mg. ----- ----- ----- ----- ----- ----- - LOW RISK ASSES SMENT AND TREAT MENT MIKALA WOODWARD S ----- ----- ----- ----- ----- ----- - LDL-C is optim al, was 96 and now is 94 mg/dL . Non-H DL Shira stero l is optim al, was 132 and now is 126 mg/dL . - Consi derat ions for use of stati n thera py inclu de famil y histo ry of eyad ture ather oscle rotic disea se, eleva santino coron jon arter y calci um score , ankle -brac hial index < 0.9, eleva santino CRP, or eleva santino 10-ye ar or lifet dimitri CVD risk. Bruce santino trigl yceri sascha may be assoc iated with incre ased cardi ovasc ular risk due to incre ased numbe rs of ather ogeni c lipop rotei n parti cles. Co-mo rbid condi tions shoul d be evalu ated and treat ed. ----- ----- ----- ----- ----- ----- - INTER MEDIA TE RISK ASSES SMENT AND TREAT MENT MIKALA WOODWARD S ----- ----- ----- ----- ----- ----- - LDL-C is optim al, was 96 and now is 94 mg/dL . Non-H DL Shira stero l is optim al, was 132 and now is 126 mg/dL . - Consi clifton measu remen t of LDL parti keyla numbe r or Apo B to adjud icate need for furth er LDL lower ing thera py. Facto rs that may influ ence stati n use inclu de famil y histo ry of eyad ture ather oscle rotic disea se, eleva santino coron jon arter y calci um score , ankle -brac hial index < 0.9, eleva santino CRP, or eleva santino 10-ye ar or lifet dimitri CVD risk. If stati n canno t be eliot ated or incre ased, alter nativ es inclu de use of an intes tinal agent (ezet imibe or bile acid seque stran t), niaci n, and/o r fish oil. ----- ----- ----- ----- ----- ----- - HIGH RISK ASSES SMENT AND TREAT [facility] MIKALA WOODWARD S ----- ----- ----- ----- ----- ----- - LDL-C is rosario l, was 96 and now is 94 mg/dL . Non-H DL Shira stero l is rosario l, was 132 and now is 126 mg/dL . - If at least a 50% LDL reduc tion from basel ine has not been achie hossein, begin or incre ase stati n. Consi clifton measu remen t of LDL parti keyla numbe r or Apo B to adjud icate need for furth er LDL lower ing thera py. If stati n canno t be eliot ated or incre ased, alter nativ es inclu de use of an intes tinal agent (ezet imibe or bile acid seque stran t), niaci n, and/o r fish oil. ----- ----- ----- ----- ----- ----- - DISCL AIMER These asses sment s and treat ment sugge stion s are provi ded as a conve nienc e in suppo rt of the physi annabel- patie nt relat ionsh ip and are not inten ded to repla ce the physi annabel' s clini bree judgm ent. They are deriv ed from natio nal guide lines in addit ion to other evide nce and exper t opini on. The clini annabel shoul d consi clifton this infor matio n withi n the alda xt of clini bree opini on and the indiv idual patie nt. SEE RADHA NCE FOR CARDI OVASC ULAR REPOR T: González MALLOY et al. 2013 ACC/A NARAYANAN guide line on the treat ment of blood shira stero l to reduc e ather oscle rotic cardi ovasc ular risk in adult s: a repor t of the [employer] [employer] ge of Cardi ology /[employer] i[employer] n Task Force on Pract ice Guide lines . Circu latio n 2014; 129 (supp l 2): S1?S4 5; Conto is et al. Clin Chem 2009; 55(3) :407- 419; Charles dong et al. Diabe jaymie Care 2008; 31(4) :811- 82. Not Available [facility] ([facility]) [address] [facility], [place], [address], 10/04/2018 13:07:39 10/04/19 19 10/04/2018 cardi ovasc ular asses sment panel , serum pdf image Not applic able Not Available [facility] ([facility]) [address], [place], [address], 10/04/2018 13:07:39 Result Notes None recorded. Problems Name Problem SNOMED Code Status Onset Date Resolution Date Notes Provider Name and Address Organization Details Recorded Time Multiple joint pain 93869069 Active [address], [place], [address], [facility] - [facility] 13:54:48 Type 2 diabetes mellitus 26460982 Active [address], [place], [address], [facility] - [facility] 13:54:51 Non-smoker 6983919 Active [address] [facility], [place] - [facility] 19:33:44 Hypertriglycer idemia 031534365 Active [address], [place], [address], [facility] - [facility] 20:17:09 Problem Notes None recorded. Medical Equipment None Reported. Allergies No known drug allergies Medications Name Sig Start Date Stop Date Status Note LastModified by Organization Details LastModified Time amoxicillin 500 mg caps 06/19 completed Not Available Not Available Not Available onetouch jaymie ultra bl active Not Available Not Available Not Available atomoxetine 100 mg caps 06/19 completed Not Available Not Available Not Available fastclix mis lancets active Not Available Not Available Not Available apap/codein e tab 300-30mg active Not Available Not Available Not Available metformin hcl 850 mg tabs active Not Available Not Available Not Available accu-chek jaymie ryland pl active Not Available Not Available Not Available gabapentin 300 mg caps active Not Available Not Available Not Available strattera 100 mg caps active Not Available Not Available Not Available escitalopra m oxalate 20 mg tabs active Not Available Not Available N ot Available accu-chek jaymie guide active Not Available Not Available No t Available benzonatate 200 mg capsule Take 1 capsule 3 times a day by oral route. 06/19 completed Not Available Not Available Not Available metformin 850 mg tablet TAKE 1 TABLET BY MOUTH TWICE A DAY FOR 90 DAYS active Not Available Not Available No t Available promethazin e 6.25 mg-codeine 10 mg/5 mL syrup Take 5 mL every 6 hours by oral route for 10 days. 06/19 completed Not Available Not Available Not Available omeprazole 20 mg capsule,del ayed release Take 1 capsule twice a day by oral route for 90 days. 2018 active Not Available Not Available Not Avai lable Cheratussin AC 10 mg-100 mg/5 mL oral liquid Take 10 mL every 4 hours by oral route for 7 days. 06/19 completed Not Available Not Available Not Available loratadine 10 mg tablet TAKE 1 TABLET BY MOUTH AT BEDTIME active Not Available Not Available No t Available escitalopra m 20 mg tablet active Not Available Not Available Not Available Mucinex DM 30 mg-600 mg tablet,exte nded release 12 hr Take 1 tablet by oral route with meals for 10 days. 06/19 completed Not Available Not Available Not Available sildenafil (pulmonary hypertensio n) 20 mg tablet TAKE 2 TO 5 TABLETS BY MOUTH EVERY 24 HOURS NEEDED 30 MINUTES BEFORE SEXUAL ACTIVITY 2018 active Not Available Not Available Not Avai lable sildenafil 06/19 completed Not Available Not Available Not Available atomoxetine 100 mg capsule active Not Available Not Available Not Available OneTouch Ultra2 Meter kit active Not Available Not Available No t Available OneTouch Verio test strips Test up to twice a day 2018 active Not Available Not Available Not Avai lable Robitussin Cough-Chest Congestion DM 5 mg-100 mg/5 mL oral liquid Take 10 mL 4 times a day by oral route. 2018 active Not Available Not Available Not Avai lable Vitals Date Recorded Body height Body mass index (BMI) Body weight Oxygen saturation Oxygen saturation in Arterial blood by Pulse oximetry Heart rate Body temperature Systolic blood pressure Diastolic blood pressure Provider Name and Address Organization Details Last Updated DateTime 9 167.64 cm 34.1 kg/m2 15700.3 9 g 97 % 97 % 74 /min 97.5 [degF] 150 mm[Hg] 80 mm[Hg] Ananya Smith [employer] 9 19:32:46 Date Recorded Body height Body mass index (BMI) Body weight Body temperature Oxygen saturation Oxygen saturation in Arterial blood by Pulse oximetry Heart rate Systolic blood pressure Diastolic blood pressure Provider Name and Address Organization Details Last Updated DateTime 9 167.64 cm 34.2 kg/m2 68621.5 8 g 96.8 [degF] 98 % 98 % 82 /min 132 mm[Hg] 78 mm[Hg] [facility] [employer] 9 19:25:42 Date Recorded Body height Body mass index (BMI) Body weight Oxygen saturation Oxygen saturation in Arterial blood by Pulse oximetry Heart rate Body temperature Systolic blood pressure Diastolic blood pressure Provider Name and Address Organization Details Last Updated DateTime 9 167.64 cm 34.2 kg/m2 33224.5 8 g 98 % 98 % 70 /min 96 [degF] 118 mm[Hg] 70 mm[Hg] [facility] [employer] 9 11:49:30 Date Recorded Body height Body mass index (BMI) Body weight Oxygen saturation Oxygen saturation in Arterial blood by Pulse oximetry Heart rate Body temperature Systolic blood pressure Diastolic blood pressure Provider Name and Address Organization Details Last Updated DateTime 9 167.64 cm 34.6 kg/m2 00196.8 7 g 98 % 98 % 72 /min 97.4 [degF] 115 mm[Hg] 70 mm[Hg] Lisa Kauffman [place] - [employer] 9 13:32:18 Date Recorded Body height Body mass index (BMI) Body weight Oxygen saturation Oxygen saturation in Arterial blood by Pulse oximetry Heart rate Body temperature Systolic blood pressure Diastolic blood pressure Provider Name and Address Organization Details Last Updated DateTime 9 167.64 cm 34.7 kg/m2 78947.3 6 g 97 % 97 % 88 /min 97.4 [degF] 110 mm[Hg] 64 mm[Hg] Lisa Kauffman [place] - [employer] 9 18:25:36 Social History Question Answer Notes LastModified by Organizat ion Details LastModified Time Tobacco Smoking Status Never Smoker Not Available [facility] 11/22/2017 18:44:39 What Is Your Level Of Alcohol Consumption? None [email or web address] Information not available 11/22/2017 What Is Your Level Of Caffeine Consumption? Occasional [email or web address] Information not available 11/26/2017 What Was The Date Of Your Most Recent Tobacco Screening? 09/09/2018 Information n ot available 10/09/2018 Sex: Unknown Functional Status None recorded. Mental Status None recorded. Family History Relationship Description Onset Age of this Age Resolved Age Notes LastModified by Organization Details LastModified Time Mother No family history of [email or web address] Not available 08/2017 16:05:40 Medical History No medical history recorded. Immunizations Vaccine Type Date Status Note Provider Nam e and Address Organization Details Recorded Time Influenza, split virus, quadrivalent, PF 12/20/2017 completed Not Available [facility] 0 02:23:30 Past Encounters Encounter ID Performer Location Encounter Start Date Encounter Closed Date Diagnosis/Indication Diagnosis SNOMED-CT Code Diagnosis ICD10 Code Diagnosis Note [id number] Susanne Cifuentes MD [facility] [place] [address] [place] [address] 11/26/2017 16:31:13 11/27/2017 17:54:36 Chronic cough 24767583 R05 Renewal of prescription 705411612 Z76.0 [id number] Susanne Cifuentes MD [facility] [place] [address] [place] [address] 12/19/2017 18:48:23 12/20/2017 12:04:51 Cough 12544880 R05 Type 2 dana betes mellitus 40392756 E11.9 Administra tion of influenza vaccine 54731934 Z23 [id number] Susanne Cifuentes MD [facility] [place] [address] [place] [address] 03/20/2018 12:31:04 03/23/2018 15:19:00 Type 2 diabetes mellitus 22479259 E11.9 Multiple joint pain 3567 8005 M25.50 [id number] [facility] [place] [address] [place] [address] 04/14/2018 12:29:39 04/21/2018 18:55:07 Liver enzymes level above reference range 835569304 R74.8 Cough 44927144 R05 Type 2 dana betes mellitus 41532601 E11.9 Hypertriglyceridemia 302 928586 E78.1 Bipolar disorder 5526746 4 F31.9 Stable with current medication . Sees psychiatry on regular basis. [id number] Susanne Cifuentes MD [facility] [address] [place] [address] 04/21/2018 17:26:23 04/25/2018 09:06:28 Type 2 diabetes mellitus 05428686 E11.9 Continue with current medication s.Increase exercise activity.I ncrease intake of fluids. Liver enzy mes level above reference range 353460636 R74.8 Repeat testing in 3-4 months.Cameron id use of OTC supplement s unless agreed by MD. Cough 39808126 R05 Plenty of fluids. Avoid any possible triggers. Return to clinic if coughing does not resolve. 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 Report side effects of new medication .Share recent blood results with psych. [id number] Susanne Cifuentes MD [facility] [address] [place] [address] 06/19/2018 19:09:09 06/23/2018 09:25:29 Type 2 diabetes mellitus 39092409 E11.9 Continue with current medication s.Increase exercise activity.I ncrease intake of fluids. Take twice a day. Hypertriglyceridemia 302 330825 E78.1 Diet Management Obesity 768850710 E66.9 1- Maintain a low carbohydra te diet at most times. 2- Increase level of exercise activity, even if just walking for 2- to 30 minutes per day. 3- Increase intake of fluids with consuming at lease 64 ounces of water. 4- Avoid any type of canned food, fast food, vending machine types of snacks and most soda products. 5- Eat more fresh vegetable, lean meat, and fruits with low glycemic index (low sugar load). 6- Maintain good sleep habits. 7- Avoid alcoholic beverages. [id number] Susanne [facility]uentes [facility] [place] [address] [place] [address] 09/09/2018 19:06:56 09/22/2018 04:12:46 Chronic cough 10088358 R05 Type 2 dana betes mellitus 99184217 E11.9 Continue with current medication s.Increase exercise activity.I ncrease intake of fluids. Take twice a day. Primary er ectile dysfunction 037769099 N52.9 [id number] Susanne [facility]ifuentes MD [facility] [place] [address] [place] [address] 10/08/2018 11:38:14 10/09/2018 01:57:56 Type 2 diabetes mellitus 76591299 E11.9 Continue with current medication s.Increase exercise activity.I ncrease intake of fluids. Take twice a day. Primary er ectile dysfunction 135711211 N52.9 Nonulcer dyspepsia 19829 07 K30 Hyperlipidemia 01865184 E78.1 Health Concerns Section Related Observation LastModified by Organization Detai ls LastModified Time None Recorded Concern Status LastModified by Organization Details LastModified Time None Recorded Advance Directives Directive None Recorded Payers Encounter Date Sequence Insurance Name Policy Number Policy Terrell Covered Member ID Terrell Member ID Guarantor Name 04/14/2018 1 [facility] - DUAL COMPLETE - DUAL ELIGIBLE - SNP (MEDICARE-MEDI CAID REPLACEMENT HMO) [facility] Kwaku Fuller [id number] Kwaku Fuller 04/14/2018 2 [facility] (MEDICAID REPLACEMENT - HMO) Kwaku Fuller [id number] Kwaku Alspro 04/21/2018 1 [facility] - DUAL COMPLETE - DUAL ELIGIBLE - SNP (MEDICARE-MEDI CAID REPLACEMENT HMO) [facility] Kwaku Fuller [id number] Kwaku Fuller 04/21/2018 2 [facility] (MEDICAID REPLACEMENT - HMO) Kwaku Fuller [id number] Kwaku Alspro 06/19/2018 1 [facility] - DUAL COMPLETE - DUAL ELIGIBLE - SNP (MEDICARE-MEDI CAID REPLACEMENT HMO) [facility] Kwaku Fuller [id number] Kwaku Alspro 06/19/2018 2 [facility] (MEDICAID REPLACEMENT - HMO) Kwaku Fuller [id number] Kwaku Fuller 09/09/2018 1 [facility] DUAL COMPLETE - DUAL ELIGIBLE - SNP (MEDICARE-MEDI CAID REPLACEMENT HMO) [facility] Kwaku Fuller [id number] Kwaku Fuller 09/09/2018 2 [facility] (MEDICAID REPLACEMENT - HMO) Kwaku Fuller [id number] Kwaku Fuller 10/08/2018 1 [facility] - DUAL COMPLETE - DUAL ELIGIBLE - SNP (MEDICARE-MEDI CAID REPLACEMENT HMO) [facility] Kwaku Fuller [id number] Kwaku Fuller 10/08/2018 2 [facility] (MEDICAID REPLACEMENT - HMO) Kwaku Fuller [id number] Kwaku Fuller Notes Date Note Type Note Provider Name and Address Organization Details Recorded Time 04/14/19 19 text/htm l DiabetesReported bypatient.Control:usually well controlled; improved since last visit; normal range of home blood sugars (in the low 100s) Compliance:compliant with medications; compliant with follow-up visits; compliant with diet; compliant with home glucose monitoring Self Care:monitoring glucose ; seeing eye doctor regularly; checking feet regularly Associated Symptoms:no weight gain; no weight loss; no dizziness; no sweats; no headaches; no confusion; no increased thirst; no increased appetite; no increased urination; no blurred vision; no numbness of feet; no calluses on feet; no fatigue; no blurred vision; no paresthesiasSore ThroatReported bypatient.Location:bilateral Onset/Timing:sudden Quality:painful;hoarseness;sympt oms worse during the day Severity:mild Context:no recent travel; no new medications; no one else with similar symptoms;recent upper respiratory infection; Currently taking Flonase and Mucinex. Alleviating factors:salt water gargles; decongestants; rest; drinking water Aggravating factors:talking Associated Symptoms:no fever; no nausea; no vomiting; no headache;cough Here to go over lab results which showed elevation of one of the liver enzymes. He is taking supplements over the counter including Vitamin D3. Susanne Cifuentes MD [address], [place], [address], [facility] [employer] 04/18/2018 08:30:29 04/21/19 19 text/htm l Anxiety/DepressionReported bypatient.Severity:denies suicidal ideations; able to maintain relationships; does not interfere with activities of daily living Context:no major life stressors Associated Symptoms:denies homicidal ideations; no significant weight gain; no significant weight loss; no visual/auditory hallucinations; no delusions; no shortness of breath; mood good; no anxiety; no crying spells; no panic; no isolation; sleeping well; appetite good; energy good; no apathy; maintaining functionalityDiabetesReported bypatient.Control:usually well controlled; improved since last visit; normal range of home blood sugars (in the low 100s) Compliance:compliant with medications; compliant with follow-up visits; compliant with diet; compliant with home glucose monitoring Self Care:monitoring glucose ; seeing eye doctor regularly; checking feet regularly Associated Symptoms:no weight gain; no weight loss; no dizziness; no sweats; no headaches; no confusion; no increased thirst; no increased appetite; no increased urination; no blurred vision; no numbness of feet; no calluses on feet; no fatigue; no blurred vision; no paresthesias Susanne Cifuentes MD [address], [place], [address], [facility] [employer] 04/25/2018 09:05:12 06/20/19 19 text/htm l Here to go over recent blood testing to check on liver enzymes elevation. Patient has reduced the use of over the counter supplements. He denies symptoms of abdominal pain, no nausea or vomiting, no fever or chills. Susanne Cifuentes MD [address], [place], [address], [facility] [employer] 06/23/2018 09:24:46 06/20/19 19 text/htm l Anxiety/DepressionReported bypatient.Severity:denies suicidal ideations; able to maintain relationships; does not interfere with activities of daily living Context:no major life stressors Associated Symptoms:denies homicidal ideations; no significant weight gain; no significant weight loss; no visual/auditory hallucinations; no delusions; no shortness of breath; mood good; no anxiety; no crying spells; no panic; no isolation; sleeping well; appetite good; energy good; no apathy; maintaining functionalityDiabetesReported bypatient.Control:usually well controlled; improved since last visit; normal range of home blood sugars (in the low 100s) Compliance:compliant with medications; compliant with follow-up visits; compliant with diet; compliant with home glucose monitoring Self Care:monitoring glucose ; seeing eye doctor regularly; checking feet regularly Associated Symptoms:no weight gain; no weight loss; no dizziness; no sweats; no headaches; no confusion; no increased thirst; no increased appetite; no increased urination; no blurred vision; no numbness of feet; no calluses on feet; no fatigue; no blurred vision; no paresthesias Susanne Cifuentes MD [address], [place], [address], [facility] [employer] [facility] 06/23/2018 09:24:46 09/10/19 19 text/htm l DiabetesReported bypatient.Control:usually well controlled; improved since last visit; normal range of home blood sugars (in the low 100s) Compliance:compliant with medications; compliant with follow-up visits; compliant with diet; compliant with home glucose monitoring Self Care:monitoring glucose ; seeing eye doctor regularly; checking feet regularly Associated Symptoms:no weight gain; no weight loss; no dizziness; no sweats; no headaches; no confusion; no increased thirst; no increased appetite; no increased urination; no blurred vision; no numbness of feet; no calluses on feet; no fatigue; no blurred vision; no paresthesias Reason for visit/illness: coughing. Medical History of Patient: admits to intermittent cough with sputum production. No sick contact. Current Status of Illness: {{Improving Same* Worse Resolvin g}}. Onset of Symptoms: {{hours ago within the past 24 hours within the past 48 hours 3-4 days ago 5-7 days ago 1 week ago more than 1 week 2 weeks ago 1 month ago* less than a year ago more the one year ago}}. Location of Symptoms: lower airways. Laterality: {{N/A# Left Sided Left Sided and Medial Left Sided and Lateral Right Sided Right Sided and Medial Right Sided and Lateral}}. Duration of Symptoms: {{Constant Intermittent*}} Severity of Symptoms: {{Mild Mild to Moderate Moderate* Moderate to Severe Severe}}. Aggravating Factors: when exposed to dust and when having increased allergy symptoms. Alleviating Factors: resting and when taking cough medication. Associated Symptoms: denies having any fever or chills, no nausea or vomiting, no headaches or dizziness, no chest pain or shortness of breath, no abdominal or back pain, no numbness or tingling, no diarrhea or constipation, and no blood in the urine or stools. Medications used for Symptoms: Tylenol: {{yes no*}}. Ibuprofen: {{yes no*}}. Prescription medication: {{yes no*}}. Related Past Surgical Intervention: {{yes no*}}. Regular Medications Used: Refer to med list. Similar Symptoms in the Past: {{Yes* No}} Related mental illness/s: {{Positive History of Depression Positive History of Anxiety Positive History of Depression and Anxiety* Denies History of Mental Illness}}. Susanne Cifuentes MD [address], [place], [address], [facility], [facility] 09/22/2018 02:29:35 10/09/19 19 text/htm l DiabetesReported bypatient.Control:usually well controlled; improved since last visit; normal range of home blood sugars (in the low 100s) Compliance:compliant with medications; compliant with follow-up visits; compliant with diet; compliant with home glucose monitoring Self Care:monitoring glucose ; seeing eye doctor regularly; checking feet regularly Associated Symptoms:no weight gain; no weight loss; no dizziness; no sweats; no headaches; no confusion; no increased thirst; no increased appetite; no increased urination; no blurred vision; no numbness of feet; no calluses on feet; no fatigue; no blurred vision; no paresthesiasErectile DysfunctionReported bypatient.Quality:loss of function Severity:moderate Duration:intermittent Context:able to achieve penetration 50% of the time Modifying Factors:medication(currently on psych medications.) Associated Symptoms:no dysuria; no penile discharge; normal libidoHyperlipidemiaReported bypatient.Control:usually well controlled; improving; at goal Compliance:compliant; compliant with diet; exercises Complications:no coronary artery disease; no peripheral artery disease; no cardiovascular disease Susanne Cifuentes MD [address], [place], [address], [facility] - [facility] 10/09/2018 01:57:42
--- OUTSIDE RECORDS SUMMARY | 2024-04-23 13:27 | XMS_ITS | Clinical Summary ---
Author Organization [address] [place] [address] Address [address] [place] [address] Phone Care Team Providers Care Software Verification Engineer Name Role Phone Javier Aguirre MD Primary Care Provider Allergies No known active allergies Medications Medication Sig Dispensed Refills Start Date End Date Status vitamin B complex (B COMPLEX 1 ORAL) Take 1 tablet by mouth 1 (one) time each day. Active cholecalciferol (VITAMIN D-3) 25 mcg (1,000 unit) capsule Take by mouth. Active cyanocobalamin (VITAMIN B-12) 500 mcg tablet Take 1 tablet (500 mcg total) by mouth 1 (one) time each day. Active diphenhydrAMINE (BENADRYL) 25 mg capsule Take 1 capsule (25 mg total) by mouth every 6 (six) hours if needed. Active metFORMIN (GLUCOPHAGE) 500 mg tablet Take 1 tablet (500 mg total) by mouth 1 (one) time each day. Active folic acid (FOLVITE) 400 mcg tablet Take 1 tablet (0.4 mg total) by mouth 1 (one) time each day. Active semaglutide (OZEMPIC) 1 mg/dose (2 mg/1.5 mL) injection pen Inject 1 mg under the skin every 7 (seven) days. Active Active Problems Problem Noted Date Diagnosed Date Elevated LFTs 02/23/2024 NAFLD (nonalcoholic fatty liver disease) 022 Atypical chest pain 02/28/2022 Obesity Seasonal allergies Type 2 diabetes mellitus Encounters Date Type Department Care Team Description 02/21/2024 1:30 PM EST Office Visit Gastroenterology [facility] [address] [place] [phone] Rosalba Bennett MD Elevated LFTs (Primary Dx); Class 1 obesity due to excess calories without serious comorbidity with body mass index (BMI) of 34.0 to 34.9 in adult from Last 3 Months Immunizations Name Administration Dates Next Due Influenza trivalent, with pr eservative (Fluzone; Afluria) 6mo and older 01/03/2021,12/14/2019,12/05/2018 Surgical History Surgery Date Site/Laterality Comments COLONOSCOPY 03/18/2022 - 03/17/2023 Significant for 2 tubular adenomas Medical History Medical History Date Comments Obesity Type 2 diabetes mellitus (CMS/HCC) Seasonal allergies Social History Tobacco Use Types Packs/Day Years Used Date Smoking Tobacco: Never Smokeless Tobacco: Never Alcohol Use Standard Drinks/Week Comments Never 0 (1 standard drink = 0.6 oz pur e alcohol) Sex and Gender Information Value Date Recorded Sex Assigned at Not on file Gender Identity Not on file Sexual Orientation Not on file Job Start Date Occupation Industry Not on file Not on file Not on file Obstetrics History Last Filed Vital Signs Vital Sign Reading Time Taken Comments Blood Pressure 125/68 02/21/2024 1:49 PM EST Pulse 101 02/21/2024 1:49 PM EST Temperature - - Respiratory Rate - - Oxygen Saturation 98% 02/21/2024 1:49 PM EST Inhaled Oxygen Concentration - - Weight 93.9 kg (207 lb) 02/21/2024 1:49 PM EST Height 165.1 cm (5' 5 ) 04/27/2022 2:34 PM EST Body Mass Index 34.45 04/27/2022 2:34 PM EST Plan of Treatment Upcoming Encounters Date Type Department Care Team (Late st Contact Info) Description 04/29/2024 1:45 PM EST Office Visit Orthopedic Surgery - [place] [address] [facility] [address] [place] [phone] Prasanna Hernandez DPM 175 [facility] [address] [place] [address] 03/05/2025 2:10 PM EST Office Visit Gastroenterology - [place] 175 [facility] 175 [facility] [address] [place] [phone] Rosalba Bennett MD [address] [place] [address] [address] [place] [address] Health Maintenance Due Date Last Done Comments Diabetes: Annual GFR (Glomerular Filtration Rate) 1971 Pneumococcal Vaccine: Pediatrics (0 to 5 Years) and At-Risk Patients (6 to 64 Years) (1 of 2 - PCV) 12/11/1977 Diabetes: Annual Foot Exam 12/11/1981 Diabetes: Annual Retina Eye Exam 12/11/1981 DTaP,Tdap,and Td Vaccines (1 - Tdap) 12/11/1990 Hepatitis B Vaccines (1 of 3 - 19+ 3-dose series) 12/11/1990 Zoster Vaccines (1 of 2) 12/11/2021 Depression Screening 03/03/2022 HIV Screening 03/03/2022 Hepatitis C Screening 03/03/2022 Medicare Annual Wellness Visit 03/03/2022 Social Influencers of Health Screening 03/03/2022 COVID-19 Vaccine ( season) 2023 Diabetes: Annual Urine Albumin-Creatinine Ratio (uACR) 02/23/2024 Diabetes: Blood Sugar Control Test (HGBA1C) 02/23/2024 Cholesterol Screening (Lipid Panel) 10/23/2027 10/22/2022 Colorectal Cancer Screening: Colonoscopy 11/21/2027 11/20/2022 Influenza Vaccine Completed 12/05/2023, , 01/03/2021, Additional history exists HIB Vaccines Aged Out No longer eligi ble based on patient's age to complete this topic HPV Vaccines Aged Out No longer eligi ble based on patient's age to complete this topic Hepatitis A Vaccines Aged Out No long er eligible based on patient's age to complete this topic IPV Vaccines Aged Out No longer eligi ble based on patient's age to complete this topic MMR Vaccines Aged Out No longer eligi ble based on patient's age to complete this topic Meningococcal ACWY Vaccine Aged Out N o longer eligible based on patient's age to complete this topic RSV Immunization Patients Under 20 months Aged Out No longer eligible based on patient's age to complete this topic Varicella Vaccines Aged Out No longer eligible based on patient's age to complete this topic Procedures Procedure Name Priority Date/Time Associated Diagnosis Comments EXTERNAL CLINICAL LAB Routine 01/22/2024 12:17 PM EST EXTERNAL CLINICAL LAB 01/22/2024 from Last 3 Months Results * External clinical lab (01/22/2024 12:17 PM EST) Only the most recent of2 resultswithin the time period is included. Historical Provider LAB BLOOD ORDERAB LES from Last 3 Months Care Teams Software Verification Engineer Relationship Specialty Start Date End Date Javier Aguirre MD [address] [place] [address] Dr Ed MA PCP - General 01/05/22
--- OUTSIDE RECORDS SUMMARY | 2024-04-23 13:27 | XMS_ITS | Encounter Summary ---
Author Organization [employer] Address [address] [facility] [address] [place] [address] Care Team Providers Care Manager Mental Health Name Role Phone Unavailable Primary Care Provider Unavailabl e Reason for Visit * Reason Comments Follow-up Encounter Details Date Type Department Care Team ([facility] st Contact Info) Description 04/13/2024 2:15 PM EST Office Visit [facility] [address] [place] [address] Cristopher Franklin [address] [place] [address] Social History Tobacco Use Types Packs/Day Years Used Date Smoking Tobacco: Never Smokeless Tobacco: Never Alcohol Use Standard Drinks/Week Comments Never 0 (1 standard drink = 0.6 oz pur e alcohol) Sex and Gender Information Value Date Recorded Sex Assigned at Male 06/03/2023 3:57 PM EDT Legal Sex Male 3:54 PM EDT Gender Identity Male 06/03/2023 3:57 PM EDT Sexual Orientation Choose not to disclose 2023 3:57 PM EDT documented as of this encounter Progress Notes * Cristopher Franklin - 04/13/2024 2:15 PM EST Dental procedures in this visit D9310 - CONSULTATION - DIAGNOSTIC SERVICE PROVIDED BY DENTIST OR PHYSICIAN OTHER THAN REQUESTING DENTIST OR PHYSICIAN (Completed) D0220 - INTRAORAL - PERIAPICAL FIRST RADIOGRAPHIC IMAGE 2 (Completed) D0270 - BITEWING - SINGLE RADIOGRAPHIC IMAGE (Completed) Patient ID: Kwaku Fuller is a 53 y.o. male. Time Out: Date: 04/13/2024 Location: [facility] Tooth: #2 Procedure: Exam Verified the above with patient, recruitment and outreach assistant, and provider. Confirmed via patient's chart, intraorally and by radiographs. Forensic Psychiatrist: not applicable 53 y.o. y/o male presents for limited exam with Dr. Cristopher Franklin Medical history: Reviewed in EHR Vitals: There were no vitals taken for this visit. Allergies: Reviewed in EHR Medications: Reviewed in EHR Radiographs taken: PA and BW CHIEF COMPLAINT: I'm having pain on my tooth #2 Discussion: The patient presented to the dental office with complaints regarding tooth #2, reporting sensitivity to cold, hot, and biting pressure. Clinical examination revealed a distal amalgam confucianism with evidence of leakage. On the mesial, the tooth had been restored approximately one monthago at a local dental office. Radiographically, tooth #2 showed the presence of a radiolucency on the distal surface, consistent with a carious lesion. The patient was informed that caries control would be performed prior to determining the need for a possible root canal treatment. The patient understood and agreed to the treatment plan. NV: Caries control Provider: Dr. Cristopher Franklin Dental [employer] Field: Emory Bowden Attending: Dr. Parker * Felipe Parker DMD - 04/13/2024 2:15 PM EST Reviewed. Felipe Parker DMD documented in this encounter Plan of Treatment Scheduled Orders Name Type Priority Associated Diagnoses Orde r Schedule 2 2 CROWN - PORCELAIN/CERAMIC Dental Routine 1 Occurrences starting 04/13/2024 2 2 ENDODONTICS - ENDODONTIC THERAPY (INCLUDING TREATMENT PLAN, CLINICAL PROCEDURES AND FOLLOW-UP CARE) - ENDODONTIC THERAPY, MOLAR TOOTH (EXCLUDING FINAL CHEONDOISM) Dental Routine [address] arting 04/13/2024 documented as of this encounter Procedures Procedure Name Priority Date/Time Associated Diagnosis Comments 2 INTRAORAL - PERIAPICAL FIRST RADIOGRAPHIC IMAGE Routine 04/13/2024 2:15 PM EST CONSULTATION - DIAGNOSTIC SERVICE PROVIDED BY DENTIST OR PHYSICIAN OTHER THAN REQUESTING DENTIST OR PHYSICIAN Routine 04/13/2024 2:15 PM EST BITEWING - SINGLE RADIOGRAPHIC IMAGE Routine 04/13/2024 2:15 PM EST documented in this encounter Visit Diagnoses Not on filedocumented in this encounter
--- OUTSIDE RECORDS SUMMARY | 2024-04-23 13:27 | XMS_ITS | Continuity of Care Document ---
Author Organization [facility] Address [address] [place] [address] Phone Care Team Providers Care Sawmill Relief Worker Name Role Phone Alecia Pierson OD Unavailable Unavailable Allergies, Adverse Reactions, Alerts Substance Reaction Status Criticality No Known Allergies Active No Inform ation Medications Medication Instructions Dosage Effective Dates (start - stop) Status Comments metformin ER 500 mg tablet,extended release 24 hr take 2 tablet by oral route every day with the evening meal 1000 MG - Active Strattera 100 mg capsule take 1 capsule by oral route every day 100 MG - Active Lipitor 10 mg tablet take 1 tablet by oral route every day 10 MG - Active Lexapro 20 mg tablet take 1 tablet by oral route every day 20 MG - Active ibuprofen 600 mg tablet take 1 tablet by oral route 3 times every day with food 600 MG - Active Flovent Diskus 50 mcg/actuation powder for inhalation inhale 1 puff by inhalation route 2 times every day - Active HYDROCODONE-ACETA MINOPHEN (unknown strength) take 1 tablet by oral route every 6 hours as needed Not Available - Active Seroquel 200 mg Tab take 1 tablet (200MG) by oral route 2 times every day 200 MG - No Longer Active Strattera 100 mg Cap take 1 capsule (100MG) by oral route every day 100 MG - No Longer Active ibuprofen 600 mg Tab take 1 tablet (600MG) by oral route 3 times every day with food 600 MG - No Longer Active prazosin 2 mg Cap take 1 capsule (2MG) by oral route 3 times every day 2 MG - No Longer Active simvastatin 40 mg Tab take 1 tablet (40MG) by oral route every day in the evening 40 MG No Longer Active fluticasone 50 mcg/Actuation Disk Device for Inhalation inhale 1 puff (50MCG) by inhalation route 2 times every day 50 MCG - No Longer Active Lexapro 20 mg Tab take 1 tablet (20MG) by ORAL route every day 20 MG No Longer Active Lipitor 10 mg Tab take 1 tablet (10MG) by ORAL route every day 10 MG No Longer Active Alprazolam 0.5 mg Tab, Rapid Dissolve take 1 tablet (0.5MG) by ORAL route 3 times every day 0.5 MG - No Longer Active prazosin 2 mg capsule take 1 capsule by oral route 3 times every day 2 MG - No Longer Active Procedures Procedure Date Fundus Photography Est Pt Complete Scan Computerized; Retina Est Pt Complete Fundus Photography Est Pt Complete Scan Computerized; Retina Hearing Screening P Advance Directives Directive Yes / No Effective Date File Name No Information Encounters Encounter Description Practice Location Reason(s) For Visit Diagnoses Date Provider Providers Copied on Encounter [facility], [address] [place] [address], [id number] , tel: [phone] [facility] [place] Type 2 diabetes mellitus without complicationsLong term (current) use of oral antidiabetic drugsMacula scars of posterior pole (post-traumatic), left eyePresbyopiaDry eye syndrome of bilateral lacrimal glands 201 [address] [facility]. [address] [place] [address], [id number], [place]. tel:[phone] [facility], [address] [place], [place], [id number] , tel: [phone] [facility] [place] Type 2 diabetes mellitus without complicationsLong term (current) use of oral antidiabetic drugsTear film insufficiency of bilateral lacrimal glandsPresbyopiaMa cula scars of posterior pole (post-traumatic), left eye 7 [facility]. [address] [place], [place], [id number], [place]. tel:[phone] [facility], [address] [place], [place], [id number] , [place] tel:[phone] [facility] [place] Type 2 diabetes mellitus without complicationsMyopi a, bilateralMacula scars of posterior pole (post traumatic), left eye Oct- 6 [facility]isha. [address] [place], [place], [id number], [place]. tel:[phone] [facility] [address], [place], [id number] , [place] tel:[phone] [facility] No Information 3 [facility] Sirisha. [address] [place], [place], [id number], [place]. tel:[phone] [facility], [address], [id number] , [place] tel:[phone] [facility] Macular ScarsMacular ScarsMyopia 1 [facility]isha. [address] [place], [place], [id number], [place]. tel:[phone] Referring Provider: Sirisha [facility], [address] [place], [address] . tel:[phone] [facility] [address], [id number] , [place] tel:[phone] [facility] No Information Nov- 0 No Information [facility] [address], [place], [id number] , [place] tel:[phone] [facility] No Information 9 No Information Family History Family Member Type Diagnosis Age At Onset No Information Payers Payer name Insurance type Covered green party ID Authoradiela oziel(s) [facility] Dual Complete HMO CI [id number] [facility] [id number] Social History Type Description Quantity Date Captured Comments Alcohol Use Details No Caffeine Use Details No Tobacco Use Status No Information Smoking Status Never smoker Sex Male Vital Signs Date / Time: Height Weight BMI Pulse Rate Blood Pressure Temperature Respiratory Rate Body Surface Area Head Circumference Head Circ. Percentile Wt./Remi. Percentile BMI percentile Pulse Ox Inhaled Ox 1:03 PM 86 /min 97/57 mm[Hg] Chief Complaint And Reason For Visit No Information Reason For Referral Reason For Referral No Information Plan Of Treatment Date Type Action Status Future Order: Radiology Order OC T Retina ([id number]), Ordered on: Ordered Future Order: Radiology Order OC T Retina ([id number]), Ordered on: Ordered History Of Present Illness Encounter Date Complaint History Of Prese nt Illness No Information Functional Status Date Functional Assessmen t No Information Instructions Date Instruction Additional Infor mation - See DM plan. 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 Recommend yearly diabetic eye exam. Discussed with patient importance of good blood sugar control. Related to Type 2 diabetes mellitus without complications - Provided pt with Rosie olmedo ATs sample.Continue ATs tid-qid both eyes. Related to Dry eye syndrome of bilateral lacrimal glands - Ed pt stable, no CNVM.Monitor. 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 Related to Presbyopia - see diabetic plan Related to L nikole term (current) use of oral antidiabetic drugs - Patient got a new pair of glasses from [employer] last month.He defers MRx today Related to Presbyopia - Reviewed photos. N o diabetic retinopathy. Recommend yearly diabetic eye exam. Discussed with patient importance of good blood sugar control with regular visits to PCP, compliance to meds, healthy diet, and daily exercise. Related to Type 2 diabetes mellitus without complications - Pt inquired about any tx/sx for better VA, discussed no options at this time. 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 NO ceiling fans discussed. Related to Tear film insufficiency of bilateral lacrimal glands - Polycarbonated rec ommended. Pt inquired about any tx/sx for better VA, discussed no options at this time. 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 Related to Myopia, bilateral - Reviewed photos. N o diabetic retinopathy. Recommend yearly diabetic eye exam. Discussed with patient importance of good blood sugar control with regular visits to PCP, compliance to meds, healthy diet, and daily exercise. Related to Type 2 diabetes mellitus without complications - in 1 year or soone r if any changes to eyes or vision occur. Related to Macular Scar Macular Scar, OS - P olycarbonated recommended. Pt inquired about any tx/sx for better VA, discussed no options at this time. 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 HM VA OS. Related to Macular Scar - in 1 year or soone r if decrease in vision. New Gls Rx Given Today. Related to Macular Scar Myopia OD - Released MRx with polycarbonate. 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
--- OUTSIDE RECORDS SUMMARY | 2024-04-23 13:27 | XMS_ITS | Clinical Summary ---
Author Organization [employer] Address [address] [facility] [address] [place] [address] Care Team Providers Care Senior Advisory Name Role Phone Unavailable Primary Care Provider Unavailabl e Allergies No known active allergies Medications Lipitor 10 MG tablet Take 10 mg by mouth at bedtime. 4 Active metFORMIN (Glucophage) 500 MG tablet Take 500 mg by mouth in the morning. 4 Active ibuprofen 600 MG tablet Take 1 tablet by mouth every 6 (six) hours if needed. 4 Active Ozempic, 1 MG/DOSE, 4 MG/3ML solution pen-injector INJECT 1 MG (0.75 ML) SUBCUTANEOUSLY EVERY WEEK FOR 28 DAYS FOR 4 WEEKS 4 Active Encounters Date Type Department Care Team Description 04/13/2024 2:15 PM EST Office Visit [facility] [address] [place] [address] Cristopher Franklin from Last 3 Months Social History Tobacco Use Types Packs/Day Years Used Date Smoking Tobacco: Never Smokeless Tobacco: Never Tobacco Cessation:Counseling Given: Not Answered Alcohol Use Standard Drinks/Week Comments Never 0 (1 standard drink = 0.6 oz pur e alcohol) Sex and Gender Information Value Date Recorded Sex Assigned at Male 06/03/2023 3:57 PM EDT Legal Sex Male 3:54 PM EDT Gender Identity Male 06/03/2023 3:57 PM EDT Sexual Orientation Choose not to disclose 2023 3:57 PM EDT Last Filed Vital Signs Vital Sign Reading Time Taken Comments Blood Pressure 128/66 10/07/2023 3:32 PM EDT Pulse - - Temperature - - Respiratory Rate - - Oxygen Saturation - - Inhaled Oxygen Concentration - - Weight - - Height - - Body Mass Index - - Plan of Treatment Health Maintenance Due Date Last Done Comments CT Colonography 1971 Colonoscopy 1971 Colorectal Cancer Screening 1971 Dental Oral Exam 1971 Dental Prophylaxis 1971 Dental X-Ray: Full Mouth 1971 Depression Screening 1971 FIT DNA/Cologuard 1971 FIT 1971 FOBT 1971 HIV Screening 1971 Lipid Panel 1971 SDOH Screening 1971 Sigmoidoscopy 1971 Alcohol/Substance Use Screening 1983 Family Planning (PISQ) 12/11/1986 Hepatitis C Screening 12/11/1989 DTaP/Tdap/Td Vaccines (1 - Tdap) 12/11/1990 Hepatitis A Vaccines (1 of 2 - Risk 2-dose series) 12/11/1990 Hepatitis B Vaccines (1 of 3 - 19+ 3-dose series) 12/11/1990 Pneumococcal Vaccine: 50+ Years (1 of 1 - PCV) 12/11/2021 Zoster Vaccines (1 of 2) 12/11/2021 COVID-19 Vaccine (1 - season) 2023 Tobacco Screening 04/13/2025 04/13/2024 Dental X-Ray: Bitewings 04/14/2025 04/13/2024, 06/23 RSV Patients and Patients Aged 60 years or older (1 - 1-dose 75+ series) 12/11/2046 Influenza Vaccine Completed 12/05/2023, , 01/03/2021, Additional history exists HIB Vaccines Aged Out No longer eligi ble based on patient's age to complete this topic HPV Vaccines Aged Out No longer eligi ble based on patient's age to complete this topic IPV Vaccines Aged Out No longer eligi ble based on patient's age to complete this topic Meningococcal Vaccine Aged Out No ellie inessa eligible based on patient's age to complete this topic Pneumococcal Vaccine: Pediatrics (0 to 5 Years) and At-Risk Patients (6 to 49) Years) Aged Out No longer eligible based on patient's age to complete this topic RSV under 20 months Aged Out No longe r eligible based on patient's age to complete this topic Rotavirus Vaccines Aged Out No longer eligible based on patient's age to complete this topic Procedures Procedure Name Priority Date/Time Associated Diagnosis Comments BITEWING - SINGLE RADIOGRAPHIC IMAGE Routine 04/13/2024 2:15 PM EST 2 INTRAORAL - PERIAPICAL FIRST RADIOGRAPHIC IMAGE Routine 04/13/2024 2:15 PM EST CONSULTATION - DIAGNOSTIC SERVICE PROVIDED BY DENTIST OR PHYSICIAN OTHER THAN REQUESTING DENTIST OR PHYSICIAN Routine 04/13/2024 2:15 PM EST from Last 3 Months Insurance DENTAL [facility] [place] [address] [place]
[2024-04-23 16:43] LABS: Alanine Aminotransferase 66 U/L (0-40); Albumin Level 4.4 g/dL (3.5-5.0); Alkaline Phosphatase 50 U/L (39-117); Anion Gap 10 (12-20); Aspartate Amino Transferase 30 U/L (5-37); Bilirubin Total 0.6 mg/dL (0.0-1.0); Blood Urea Nitrogen 14 mg/dL (9-16); Calcium 8.9 mg/dL (8.4-10.2); Carbon Dioxide 24 mmol/L (22-29); Chloride 106 mmol/L (96-108); Estimated Glomerular Filt Rate > 60; Glucose Fasting 92 mg/dL (60-99); Sodium 136 mmol/L (135-145); Total Protein 7.4 g/dL (6.5-8.0)
== END 2024-04-23 13:25 | disposition home or self-care (01) ==
LOC: HO.WFDLDS 13:24
PROVIDERS: Visit Provider Family Medicine
DX: Z00.00 Encounter for general adult medical examination without abnormal findings (principal); R74.8 Abnormal levels of other serum enzymes
CPT/HCPCS: 36415; 80053

== ENCOUNTER 2024-05-06 10:26 | Outpatient (AMB) | payer MEDICARE, MEDICAID, SELFPAY ==
[2024-05-06 10:29] VITALS: BP 110/62; PULSE 90; O2SAT 96; BMI 34.5
--- NOTE | 2024-05-06 10:29 | MHC.PC.OV ---
Vital Signs 05/06/24 10:29 Height 5 ft 5 in Weight 207 lb 6 oz BMI 34.5 BP 110/62 Blood Pressure Location Lt brachial Position Sitting Pulse 90 Pulse Source Pulse Oximeter Pulse Oximetry (%) 96 Oxygen Delivery Method Room Air Intake Visit Reasons: f/u diabetes, liver enzymes, weight Allergies No Known Allergies Allergy (Verified 05/06/24 10:34) Medication List - Last Reconciled 05/06/24 by Javier Aguirre MD blood sugar diagnostic One Touch Test Strips to check blood sugar one time per day as directed blood sugar diagnostic (FreeStyle Lite Strips) DX: E11.9, test blood sugar once a day, 90 days blood-glucose meter One Touch Verio Meter to check blood sugar one time daily as directed blood-glucose meter (FreeStyle Lite Meter kit) DX: E11.9, test blood sugar once a day, duration 999 days calcium polycarbophil (FiberCon) 625 mg PO BID 30 days fluticasone propionate 50 mcg/actuation (Flonase Allergy Relief) 1 spray intranasal Q12H 30 days ibuprofen 400 mg PO Q8H PRN 30 days lancets One Touch Fine Point Lancets to check blood sugar one time per day as directed lancets (FreeStyle Lancets) As directed semaglutide 1 mg (0.75 mL) subcut QWEEK 28 days Tobacco use date assessed: 05/06/24 Dental Screening Dental Screen Date: 05/06/24 Did you have a dental visit in the last 12 months?: Yes Did you have a dental problem in the last 6 months where you did not have access to dental care?: No Was dental information given to patient?: Patient has dentist HPI f/u diabetes, liver enzymes, weight HPI Details 53 y/o male presents to f/u diabetes, liver enzymes, weight. Labs drawn 04/23/24. Reviewed labs with pt. ALT worsened from 55 to 66. Last A1c 01/30/24 4.7%. A1c today 05/06/24 4.1%. He notes he is no longer taking metformin. He does not check his blood sugars at home. [facility] Medical History Nonalcoholic fatty liver disease Elevated LFTs Hyperlipidemia DM II (diabetes mellitus, type II), controlled DM2 (diabetes mellitus, type 2) Surgical History No pertinent past surgical history Family History Mother No problems noted. Father No problems noted. Social History Housing: Apartment Alcohol intake: never Patient Tobacco Use Status: Never used Tobacco e-Cigarette/Vaping Use: Never Used Second Hand Smoke Exposure: No service: No Current occupational status: unemployed Current occupational exposures/hazards: No Cognitive needs: No Hearing needs: No Vision needs: No Questionnaire PHQ-9 Over the last 2 weeks, how often have you been bothered by any of the following problems? 1. Little interest or pleasure in doing things: not at all 2. Feeling down, depressed, or hopeless: not at all 3. Trouble falling or staying asleep, or sleeping too much: not at all 4. Feeling tired or having little energy: not at all 5. Poor appetite or overeating: not at all 6. Feeling bad about yourself - or that you are a failure or have let yourself or your family down: not at all 7. Trouble concentrating on things, such as reading the newspaper or watching television: not at all 8. Moving or speaking so slowly that other people could have noticed. Or the opposite - being so fidgety or restless that you have been moving around a lot more than usual: not at all 9. Thoughts that you would be better off or of hurting yourself in some way: not at all Total score: 0 Depression Screening Interpretation: Negative Depression Screening Done: Yes 55348 - PHQ-9 Billing: Yes Source: Developed by Drs. Doni Villarreal, Yuridia Guzman, Henry Arellano and colleagues, with an educational noel from [employer]. Thrive Questionnaire Date Thrive assessed: 05/06/24 I am a: Patient What is your living situation today?: I have a steady place to live Within the past 12 months, did the food you bought not last and you didn't have the money to get more?: Never true Within the past 12 months, did you worry whether your food would run out before you got money to buy more?: Never true Do you have trouble paying for medicines?: No Do you have trouble getting transportation to medical appointments?: No Do you have trouble paying your heating and electricity bill?: No Do you have trouble taking care of your child, family member or friend?: No Do you have trouble with day-to-day activities such as bathing, preparing meals, shopping, managing finances, etc.?: No Are you currently unemployed and looking for a job?: No Are you interested in more education?: No Please select the resources that you would like help with: None Currently or been in a relationship where the following occur: No concerns reported THRIVE Score: 0 AUDIT C Alcohol Use Questionnaire (AUDIT-C) 1. How often do you have a drink containing alcohol?: Never 3. How often do you have six or more drinks on one occasion?: Never Total Score: 0 LETICIA-7 AMB Questionnaire LETICIA-7 Date LETICIA - 7 assessed: 05/06/24 Feeling nervous, anxious, or on edge: 0 = Not at all Not being able to stop or control worryin = Not at all Worrying too much about different things: 0 = Not at all Trouble relaxin = Not at all Being so restless that it is hard to sit still: 0 = Not at all Becoming easily annoyed or irritable: 0 = Not at all Feeling afraid as if something awful might happen: 0 = Not at all Total LETICIA-7 score (0-4 normal; 5-9 mild; 10-14 moderate; 15-21 severe): 0 Source: Developed by Drs. Doni Villarreal, Yuridia Guzman, Henry Arellano and colleagues, with an educational noel from [employer]. Physical exam (Primary Care) Vital Signs: Last Vital Signs Pulse 90 05/06/24 10:29 BP 110/62 05/06/24 10:29 Pulse Ox 96 05/06/24 10:29 Oxygen Delivery Method Room Air 05/06/24 10:29 BMI result Body Mass Index 34.5 Tobacco/Smoking Status: Tobacco use Status Tobacco use date assessed 05/06/24 05/06/24 10:37 Patient Tobacco Use Status Never used Tobacco 05/06/24 10:37 e-Cigarette/Vaping Use Never Used 05/06/24 10:37 PHQ-9: PHQ-9 Score PHQ-9: Total score 0 05/06/24 10:37 Depression Screening Interpretation: Negative Thrive Assessment: Date of Thrive Assessment Date Thrive assessed 05/06/24 05/06/24 10:37 Currently or been in a relationship where the following occur: No concerns reported Results AMB Hemoglobin A1c AMB Hemoglobin A1c 4.1 % Last Edit by Hailey Jaramillo CMA on 05/06/24 10:45 Coding Level of Care Code Est Pt Level 4 (93886) Diagnoses DM II (diabetes mellitus, type II), controlled E11.9 Hyperlipidemia E78.5 Elevated LFTs R79.89 Hand numbness R20.0 Immunization counseling Z71.85 Additional Codes PHQ-9 - 20197 - PHQ-9 Billing: Yes ([id number]) Assessment & Plan Assessment & Plan (1) DM II (diabetes mellitus, type II), controlled: Code(s): E11.9 - Type 2 diabetes mellitus without complications Category: Medical Plan: A1c?now?4.1%. He?is?semaglutide?for?weight?loss?and?blood?sugar?control. I?have?given?him?scripts?for?testing?supplies?as?I?am?concerned?that?his?blood?sugar?may?be?low.??Also?advised?that?he?stop?metformin?which?he?has?done. Patient?has?not?been?able?to?get?testing?supplies.??Will?ask?the?nurse?navigator?to?help?him?get?these. No?change?to?blood?sugar?medications. Encouraged?regular?meals (2) Hyperlipidemia: Code(s): E78.5 - Hyperlipidemia, unspecified Category: Medical Plan: Patient?has?been?taking?Lipitor - brand?name?only?as?atorvastatin?and?other?statins?had?given?him?adverse?effects?such?as?stiff?neck. Had?been?taking?this?regularly?and?his?insurance?recently?declined?this. Awaiting?prior?authorization?response. (3) Elevated LFTs: Code(s): R79.89 - Other specified abnormal findings of blood chemistry Category: Medical Plan: Patient?had?been?working?on?weight?loss?and?LFTs?have?been?improving. Patient?has?gained?back?a?few?lb?and?his?ALT?has?climbed?again Encouraged?weight?loss Will?continue?to?monitor (4) Hand numbness: Code(s): R20.0 - Anesthesia of skin Category: Medical Plan: Right?hand?tingling?and?numbness?when?sleeping.??Left?hand?is?normal Sensation,?motor?and?circulation?are?intact?today Phalen's?test?was?negative?however?I?am?still?suspicious?that?this?is?likely?carpal?tunnel?syndrome Will?have?him?try?a?wrist?brace?which?he?will?loosely?bedtime. He?will?let?know?if?this?is?helping.??If?not?improving?will?refer?to?Neurology (5) Immunization counseling: Code(s): Z71.85 - Encounter for immunization safety counseling Category: Medical Plan: Patient?received?a?call?from?his?pharmacy?regarding?shingles?shot?and?I?encouraged?this Orders: Orders AMB Hemoglobin A1c Today Z13.9 - Encounter for screening, unspecified Referrals Nurse Navigator Referral E11.9 - Type 2 diabetes mellitus without complications, E66.9 - Obesity, unspecified
--- OUTSIDE RECORDS SUMMARY | 2024-05-06 11:05 | XMS_ITS | Clinical Summary ---
Author Organization [address] [place] [address] [place] [phone] Phone Care Team Providers Care Netbackup Admin Name Role Phone Javier Aguirre MD Primary Care Provider Allergies No known active allergies Medications vitamin B complex (B COMPLEX 1 ORAL) [...] 02/21/2024 1:30 PM EST Office Visit Gastroenterology [facility] [address] [place] [address] Rosalba Bnenett MD Elevated LFTs (Primary Dx); Class 1 [...] Recorded Sex Assigned at Not on file Legal Sex Male 9:49 AM EST Gender Identity Not on file Sexual Orientation Not on file Obstetrics History Last Filed [...] Care Team (Late st Contact Info) Description 05/06/2024 3:00 PM EST Consult Bariatric Surgery - [place] [address] [facility] [address] [place] [address] Lois Camilo MD [address] [facility] [address] [place] [address] 06/18/2024 3:30 PM EDT Office Visit Orthopedic Surgery - [place] 250 [address] [facility] [address] [place] [address] Prasanna Hernandez, DPM [address] [facility] [address] [place] [address] 03/05/2025 2:10 PM EST Office Visit Gastroenterology - [place] 175 [place] 175 [facility] [address] [place] [id number] Rosalba Bennett MD [address] [facility] 200 [place] [address] Health Maintenance Due Date Last Done Comments Diabetes: Annual GFR (Glomerular Filtration Rate) 1971 Diabetes: Annual Foot Exam 12/11/1981 Diabetes: Annual Retina Eye Exam 12/11/1981 DTaP,Tdap,and Td Vaccines (1 - Tdap) 12/11/1990 Hepatitis B Vaccines (1 of 3 - 19+ 3-dose series) 12/11/1990 Pneumococcal Vaccine: 50+ Years (1 of 2 - PCV) 12/11/1990 Pneumococcal Vaccine: Pediatrics (0 to 5 Years) and At-Risk Patients (6 to 64 Years) (1 of 2 - PCV) 12/11/1990 Zoster Vaccines (1 of 2) 12/11/2021 [...] patient's age to complete this topic Meningococcal B Vacine Aged Out No lo nger eligible based on patient's age to complete this topic RSV Immunization Patients Under 20 months Aged Out No longer eligible based on patient's age to complete this topic Varicella Vaccines Aged Out No longer eligible based on patient's age to complete this topic Insurance [place] [address] MEDICAID - [place] Care Teams Netbackup Admin Relationship Specialty Start Date End Date Javier Aguirre MD [address] [place] [address] Dr Ed [place] PCP - General 01/05/22
--- OUTSIDE RECORDS SUMMARY | 2024-05-06 11:05 | XMS_ITS | Continuity of Care Document ---
Author Organization [employer] Address [address] [place] [address] Phone Care Team Providers Care Enamel Cracker Name Role Phone Alecia Pierson OD Unavailable [...] Diagnoses Date Provider Providers Copied on Encounter [employer], [address] [place] [address], [id number] , tel: [phone] [facility] [place] Type 2 diabetes mellitus without complicationsLong term (current) use of oral antidiabetic drugsMacula scars of posterior pole (post-traumatic), left eyePresbyopiaDry eye syndrome of bilateral lacrimal glands [address] Dangelo [place]. [address] [place] [address], [id number], [place]. tel:[phone] [employer], [address] [place], [place], [id number] , tel: [phone] [facility] [place] Type 2 diabetes mellitus without complicationsLong term (current) use of oral antidiabetic drugsTear film insufficiency of bilateral lacrimal glandsPresbyopiaMa cula scars of posterior pole (post-traumatic), left eye 7 [facility] Sirisha. [address] [place], [place], [id number], [place]. tel:[phone] [employer] [facility], [address] [place], [place], [id number] , [place] tel:[phone] [facility] [place] Type 2 diabetes mellitus without complicationsMyopi a, bilateralMacula scars of posterior pole (post traumatic), left eye Oct- 6 [facility] Sirisha. [address] [place], [place], [id number], [place]. tel:[phone] [employer], [address], [place], [id number] , [place] tel:[phone] [facility] No Information 3 [facility] Sirisha. [address] [place], [place], [id number], [place]. tel:[phone] [employer] [facility], [address], [place], [id number] , [place] tel:[phone] [facility] Macular ScarsMacular ScarsMyopia 1 [facility] Sirisha. [address] [place], [place], [id number], [place]. tel:[phone] Referring Provider: Sirisha Lantigua, [address] [place], [address] . tel:[phone] [employer], [address], [place], [id number] , [place] tel:[phone] [facility] No Information Nov- 0 No Information [employer], [address], [place], [id number] , [place] tel:[phone] [facility] No Information 9 No Information Family History Family Member Type Diagnosis Age At Onset No Information Payers Payer name Insurance type Covered republican ID Authoradiela oziel(s) [facility] Dual Complete HMO CI [id number] [facility] [id number] Social History Type Description Quantity Date Captured [...] Future Order: Radiology Order OC T Retina ([id number]), Ordered on: Ordered Future Order: Radiology Order OC T Retina ([id number]), Ordered on: Ordered History Of Present Illness Encounter Date Complaint History Of Prese nt Illness No Information Functional Status Date Functional Assessmen t No Information Instructions Date Instruction Additional Infor mation - See DM plan. Related to long-term (current) use of oral antidiabetic drugs - [...] got a new pair of glasses from [employer] last month.He defers MRx today Related to [...] Type 2 diabetes mellitus without complications assessment long-term (current) use of oral antidiabetic drugs assessment Macula scars of posterior pole ( post-traumatic), left eye assessment Presbyopia assessment Dry eye syndrome of bilateral la crimal glands Patient Care Teams Name Effective Dates (start - stop) Status Members No Information
--- OUTSIDE RECORDS SUMMARY | 2024-05-06 11:05 | XMS_ITS | Encounter Summary ---
Author Organization [employer] Address [address] [facility] [address] [place] [address] Care Team Providers Care Sheet Metal Roofer Name Role Phone Unavailable Primary Care Provider Unavailabl e Reason for Visit * Reason Comments Follow-up Encounter Details Date Type Department Care Team ([facility] st Contact Info) Description 04/13/2024 2:15 PM EST Office Visit [facility] ADULT DENTAL [address] [place] [address] Cristopher Franklin [address] [place] [address] Social History Tobacco Use Types Packs/Day Years [...] y.o. male. Time Out: Date: 04/13/2024 Location: [facility] Tooth: #2 Procedure: Exam Verified the above with patient, medical record assistant, and provider. Confirmed via patient's chart, intraorally and by radiographs. Supervisor [employer]: not applicable 53 y.o. y/o male presents [...] pressure. Clinical examination revealed a distal amalgam advent with evidence of leakage. On the mesial, [...] Caries control Provider: Dr. Cristopher Franklin Dental Construction Producer: Emory Bowden Attending: Dr. Parker * Felipe [...] - ENDODONTIC THERAPY, MOLAR TOOTH (EXCLUDING FINAL MANDAEN) Dental Routine [address] arting 04/13/2024 [...]
--- OUTSIDE RECORDS SUMMARY | 2024-05-06 11:05 | XMS_ITS | Clinical Summary ---
Author Organization [employer] Address [address] [facility] [address] [place] [address] Care Team Providers Care Finished Cloth Examiner Name Role Phone Unavailable Primary Care Provider [...] Description 04/13/2024 2:15 PM EST Office Visit [facility] ADULT DENTAL [address] [place] [address] Cristopher Franklin from Last 3 Months Social [...] EST from Last 3 Months Insurance DENTAL [facility] [place]
== END 2024-05-06 11:06 | disposition home or self-care (01) ==
LOC: HO.HMCFM 10:26
PROVIDERS: PCP Family Medicine; Visit Provider Family Medicine
DX: E11.9 Type 2 diabetes mellitus without complications (principal); E78.5 Hyperlipidemia, unspecified; R79.89 Other specified abnormal findings of blood chemistry; R20.0 Anesthesia of skin; Z71.85 Encounter for immunization safety counseling; Z13.9 Encounter for screening, unspecified

== ENCOUNTER → 2024-05-06 10:26 | Outpatient (BNVA) | payer MEDICARE, MEDICAID, SELFPAY | PROVIDERS: PCP Family Medicine; Visit Provider Family Medicine | DX: E11.9 Type 2 diabetes mellitus without complications (principal); E78.5 Hyperlipidemia, unspecified; R79.89 Other specified abnormal findings of blood chemistry; R20.0 Anesthesia of skin; Z71.85 Encounter for immunization safety counseling | CPT/HCPCS: 83036; 96127; 99212 ==

== ENCOUNTER 2024-07-28 15:29 | Outpatient (REF) | payer MEDICARE, MEDICAID, SELFPAY ==
--- OUTSIDE RECORDS SUMMARY | 2024-07-28 16:17 | XMS_ITS | Clinical Summary ---
Author Organization [employer] Address [address] [facility] [address] [place] [address] Care Team Providers Care Wheel Fitter Name Role Phone Unavailable Primary Care Provider [...] 28 DAYS FOR 4 WEEKS 4 Active Social History Tobacco Use Types Packs/Day Years [...] of 2) 12/11/2021 COVID-19 Vaccine (1 - 2023- season) 2023 Tobacco Screening 04/13/2025 04/13/2024 Dental [...] RADIOGRAPHIC IMAGE Routine 04/13/2024 2:15 PM EST from Last 3 Months or Most Recently Relevant to Health Maintenance Insurance DENTAL - [employer] [facility] MEDICAID STAND ADULT
--- OUTSIDE RECORDS SUMMARY | 2024-07-28 16:18 | XMS_ITS | Clinical Summary ---
Author Organization 175 [facility] Address [address] [place] [address] Phone Care Team Providers Care Superintendent System Operation Name Role Phone Javier Aguirre MD Primary [...] Obesity Seasonal allergies Type 2 diabetes mellitus (CMS/HCC V24, CMS/HCC V 28) Encounters Date Type Department Care Team Description 06/18/2024 3:30 PM EDT Office Visit Orthopedic Surgery [facility] [address] [facility] [address] [place] [address] Prasanna Hernandez, DPJackie Metatarsalgia of both feet (Primary Dx); Diabetic mononeuropathy simplex ([facility] V24, [facility] V28); Corns and callosities; Acquired hammer toe of right foot; Hammer toe of left foot 06/17/2024 1:45 PM EDT Office Visit Bariatric Surgery [facility] [address] [facility] [address] [place] [address] Lois Camilo MD Hx of lipoma (Primary Dx) 05/26/2024 2:00 PM EDT Procedure visit Bariatric Surgery [facility] [address] [facility] [address] [place] [address] Lois Camilo MD Lipoma of back (Primary Dx) 05/14/2024 Telephone Gastroenterology [facility] 175 [facility] 175 [facility] [address] [place] [address] Rosalba Bennett MD 05/06/2024 3:00 PM EST Consult Bariatric Surgery [facility] [address] [facility] [address] [place] [address] Lois Camilo MD Lipoma of back from Last 3 Months Immunizations Name Administration Dates Next Due Influenza trivalent, with pr eservative (Fluzone; Afluria) 6mo and older 01/03/2021,12/14/2019,12/05/2018 Surgical History Surgery Date Site/Laterality Comments COLONOSCOPY 03/18/2022 - 03/17/2023 Significant for 2 tubular adenomas Medical History Medical History Date Comments Obesity Type 2 diabetes mellitus (CMS/HCC V24, [facility] V 28) Seasonal allergies Social History Tobacco Use Types [...] Sign Reading Time Taken Comments Blood Pressure 120/77 06/17/2024 2:04 PM EDT Pulse 84 06/17/2024 2:04 PM EDT Temperature 36.3 ??C (97.3 ??F) 06/17/2024 2:04 PM ED T Respiratory Rate - - Oxygen Saturation 99% 05/26/2024 2:04 PM EDT Inhaled Oxygen Concentration - - Weight 97.5 kg (215 lb) 06/18/2024 3:14 PM EDT Height 165.1 cm (5' 5 ) 06/18/2024 3:14 PM EDT Body Mass Index 35.78 06/18/2024 3:14 PM EDT Plan of Treatment Upcoming Encounters Date Type Department Care Team (Late st Contact Info) Description 10/15/2024 2:30 PM EDT Office Visit Orthopedic Surgery - [place] [address] [facility] [address] [place] [address] Prasanna Hernandez DPJackie [address] [facility] [address] [place] [address] 03/05/2025 2:10 PM EST Office Visit Gastroenterology - [place] 175 [facility] 175 [facility] [address] [place] [id number] Rosalba Bennett MD 175 [facility] [address] [place] [address] Health Maintenance Due Date Last Done Comments [...] age to complete this topic Meningococcal B Vaccine Aged Out No l onger eligible based on patient's age to complete this topic RSV Immunization Patients Under 20 months Aged Out No longer eligible based on patient's age to complete this topic Varicella Vaccines Aged Out No longer eligible based on patient's age to complete this topic Procedures Procedure Name Priority Date/Time Associated Diagnosis Comments TISSUE EXAM Routine 05/26/2024 2:09 PM EDT Lipoma of back from Last 3 Months Results * Tissue exam (05/26/2024 2:09 PM EDT) Final Diagnosis Soft tissue, upper back, excision: Lipoma 05/28/2024 1:13 PM EDT [facility] Gross Description A. Back, Upper, lipoma: Labeled back U . Received in formalin is a 4.2 x 3.8 x 1.6 cm disrupted yellow lobular portion of adipose tissue. The cut surfaces are comprised of glistening yellow lobular adipose tissue with no areas of hemorrhage or necrosis. Finish Repairer sections are submitted one cassette, four pieces. CHANDAN 05/28/2024 1:13 PM EDT [facility] Disclaimer Unless otherwise specified, all tissue is 10% NB formalin fixed and paraffin embedded. 05/28/2024 1:13 PM EDT [facility] Tissue Structure of upper back / Unknown Non-blood Collection / Unknown 05/26/2024 2:09 PM EDT 05/26/2024 2:33 PM EDT us Lois Camilo MD LAB PATHOLOGY ORDERABLE S Final Result [facility]) [facility] [address] [place] [address], [place] [phone] from Last 3 Months Insurance [employer] MEDICARE MEDICAID - [place] Care Teams Superintendent System Operation Relationship Specialty Start Date End Date Carla, Javier J, MD [address] [place] [address] Dr Ed [place] PCP - General 01/05/22
--- OUTSIDE RECORDS SUMMARY | 2024-07-28 16:18 | XMS_ITS | Data Portability ---
Author Organization [place] [employer] [address] [place] [address] Care Team Providers Care Director Talent Management Name Role Phone SUSANNE CIFUENTES Primary Care Provider Assessment No assessment recorded. Plan of Treatment Reminders Order Date Submit Date Provider Last Modified By Organization Details Last Modified Time Details Appointments None recorded. Lab CMP, serum or plasma 2018 019 [facility], [address], [address], [place], [address], 9 13:07:37 lipid panel, serum 2018 019 [facility], [address], [address], [place], [address], 9 13:07:38 microalbum in, QN, unspecifie d duration, urine 2018 019 [facility], [address], [address], [place], [address], 9 19:43:31 hemoglobin A1c, QN, blood 2018 019 [facility], [address], [address], [place], [address], 9 19:43:30 hepatic function panel, serum 2018 019 [facility] 1 [facility], [address], [address], [place], [address], 9 11:10:18 Referral None recorded. Procedures None recorded. Surgeries None recorded. Imaging None recorded. Medication Orders sildenafil (pulmonary hypertensi on) 20 mg tablet 2018 019 [id number], [address], [place], [address], 9 13:28:14 omeprazole 20 mg capsule,de layed release 2018 019 INTERFACE [facility], [address], [place], [address], 9 12:28:28 metformin 850 mg tablet 2018 019 INTERFACE [facility], [address], [place], [address], 9 12:25:10 OneTouch Verio test strips 2018 019 INTERFACE [facility], [address], [place], [address], 9 12:26:43 sildenafil (pulmonary hypertensi on) 20 mg tablet 2018 019 INTERFACE [facility], [address], [place], [address], 9 19:47:22 metformin 850 mg tablet 2018 019 INTERFACE [facility], [address], [place], [address], 9 19:43:26 Robitussin Cough-Ches t Congestion DM 5 mg-100 mg/5 mL oral liquid 2018 019 INTERFACE [facility], [address], [place], [address], 9 19:36:41 Kiel n AC 10 mg-100 mg/5 mL oral liquid 2018 019 [facility] 1 [facility], [address], [place], [address], 9 19:32:59 benzonatat e 200 mg capsule 2018 019 [facility] 1 [facility], [address], [place], [place], [id number], 9 19:33:03 Patient Targets Encounter Date Encounter Id Patient Goals Patient Target Last Modified By Organization Details Last Modified Time Stop all vitamin supplementation for the next 2 weeks. Continue with current Metformin. ksadek Not available 04/21/2018 18:53:30 Patient Instructions Encounter Date Encounter Id Patient Instructions Last Modified By Organization Details Last Modified Time 06/19/2018 [id number] ksadek Not available 06/23 09:14:39 09/09/2018 [id number] chronic cough: care instructions [email or web address] Not available [...] prescribed. [email or web address] Not available 09/22/2018 02:29:19 10/08/2018 [id number] learning about type 2 diabetes [email or web address] Not [...] 99 mg/dL 65-99 Not Available [facility] ([facility]) [address] [place], [address], 04/05/2018 09:18:42 04/04/1904/05/2018 CMP, serum or plasm a BUN 10 mg/dL 6-24 Not Available [facility] ([facility]) [address] [place], [address], 04/05/2018 09:18:42 04/04/1904/05/2018 CMP, serum or plasm a creatinine 0.82 mg/dL 0.76-1 .27 Not Available [facility] ([facility]) [address] [place], [address], 04/05/2018 09:18:42 04/04/1904/05/2018 CMP, serum or plasm a eGFR if nonafricn AM 106 mL/mi n/1.7 3 >59 Not Available [facility] ([facility]) [address] [place], [address], 04/05/2018 09:18:42 04/04/1904/05/2018 CMP, serum or plasm a eGFR if africn AM 123 mL/mi n/1.7 3 >59 Not Available [facility] ([facility]) [address] [facility] [place], [address], 04/05/2018 09:18:42 04/04/1904/05/2018 CMP, serum or plasm a BUN/creatini ne ratio 12 9-20 Not Available [facility] ([facility]) [address] [place], [address], 04/05/2018 09:18:42 04/04/1904/05/2018 CMP, serum or plasm a sodium 139 mmol/ L 134-14 4 Not Available [facility] ([facility]) [address] [place], [address], 04/05/2018 09:18:42 04/04/1904/05/2018 CMP, serum or plasm a potassium 4.5 mmol/ L 3.5-5. 2 Not Available [facility] ([facility]) [address] [place], [address], 04/05/2018 09:18:42 04/04/1904/05/2018 CMP, serum or plasm a chloride 102 mmol/ L 96-106 Not Available [facility] ([place] [facility]) [address] [place], [address], 04/05/2018 09:18:42 04/04/1904/05/2018 CMP, serum or plasm a carbon dioxide, total 23 mmol/ L 20-29 Not Available [facility] ([facility] [facility]) [address] [place], [address], 04/05/2018 09:18:42 04/04/1904/05/2018 CMP, serum or plasm a calcium 9.4 mg/dL 8.7-10 .2 Not Available [facility] ([facility]) [address] [place], [address], 04/05/2018 09:18:42 04/04/1904/05/2018 CMP, serum or plasm a protein, total 6.9 g/dL 6.0-8. 5 Not Available [facility] ([facility]) [address] [place], [address], 04/05/2018 09:18:42 04/04/1904/05/2018 CMP, serum or plasm a albumin 4.6 g/dL 3.5-5. 5 Not Available [facility] ([facility]) [address] [place], [address], 04/05/2018 09:18:42 04/04/1904/05/2018 CMP, serum or plasm a globulin, total 2.3 g/dL 1.5-4. 5 Not Available [facility] ([facility]) [address] [place], [address], 04/05/2018 09:18:42 04/04/1904/05/2018 CMP, serum or plasm a A/G ratio 2.0 1.2-2. 2 Not Available [facility] ([facility]) [address] [place], [address], 04/05/2018 09:18:42 04/04/1904/05/2018 CMP, serum or plasm a bilirubin, total 0.4 mg/dL 0.0-1. 2 Not Available [facility] ([facility]) [address] [place], [address], 04/05/2018 09:18:42 04/04/1904/05/2018 CMP, serum or plasm a alkaline phosphatase 58 IU/L 39-117 Not Available [facility] ([facility]) [address] [place], [address], 04/05/2018 09:18:42 04/04/1904/05/2018 CMP, serum or plasm a AST (SGOT) 30 IU/L 0-40 Not Available [facility] ([facility]) [address], [place], [address], 04/05/2018 09:18:42 04/04/1904/05/2018 CMP, serum or plasm a ALT (SGPT) 84 IU/L 0-44 above high normal Not Available [facility] ([facility]) [address] [facility] [place], [address], 04/05/2018 09:18:42 04/04/1904/05/2018 lipid panel , serum cholesterol, total 173 mg/dL 100-19 9 Not Available [facility] ([facility]) [address] [facility] [place], [address], 04/05/2018 09:18:43 04/04/1904/05/2018 lipid panel , serum triglyceride s 179 mg/dL 0-149 above high normal Not Available [facility] ([facility]) [address] [place], [address], 04/05/2018 09:18:43 04/04/1904/05/2018 lipid panel , serum HDL cholesterol 41 mg/dL >39 Not Available [facility]) [address] [facility], [place], [address], 04/05/2018 09:18:43 04/04/1904/05/2018 lipid panel , serum VLDL cholesterol bree 36 mg/dL 5-40 Not Available [facility] ([facility]) [address] [facility] [place], [address], 04/05/2018 09:18:43 04/04/1904/05/2018 lipid panel , serum LDL cholesterol calc 96 mg/dL 0-99 Not Available [facility] ([facility]) [address] [facility] [place], [address], 04/05/2018 09:18:43 04/04/1904/05/2018 lipid panel , serum comment: REGULATED PROGRAM MANAGER Not Available [facility] ([facility]) [address], [place], [address], 04/05/2018 09:18:43 04/04/1904/05/2018 cardi javier freire panel [...] 10-ye ar or lifet dimitri CVD risk. [place] santino trigl yceri sascha may be assoc iated with incre ased cardi ovasc ular risk due to incre ased numbe rs of ather ogeni c lipop rotei n parti cles. Co-mo rbid condi tions shoul d be evalu ated and treat ed. ----- ----- ----- ----- ----- ----- - INTER MEDIA TE RISK ASSES SMENT AND TREAT [facility] MIKALA WOODWARD S ----- ----- ----- [...] or eleva santino 10-ye ar or lifet diimtri CVD risk. If stati n canno t be eliot ated or incre ased, alter nativ es inclu de use of an intes tinal agent (ezet imibe or bile acid seque stran t), niaci n, and/o r fish oil. ----- ----- ----- ----- ----- ----- - HIGH RISK ASSES SMENT AND TREAT [facility] MIKALA WOODWARD S ----- ----- ----- [...] inten ded to repla ce the physi [facility] emergency department' s clini bree judgm ent. They are [...] Clin Chem 2009; 55(3) :407- 419; Charles dogn et al. Diabe jaymie Care 2008; 31(4) :811- 82. Not Available [facility] ([facility]) [address] [facility], [place], [address], 04/05/2018 09:18:44 04/04/19 19 04/05/2018 cardi ovasc ular asses sment panel , serum pdf image Not applic able Not Available [facility] ([facility]) [address] [facility], [place], [address], 04/05/2018 09:18:44 04/04/19 19 04/06/2018 HbA1c (hemo [...] (ADA) Not Available [facility] [address] [facility], [place], [address], 04/06/2018 09:07:49 04/04/19 19 04/06/2018 HbA1c (hemo globi n A1c), blood estimated average glucose 97 mg/dL Not Available [facility] [address] [facility], [place], [address], 04/06/2018 09:07:49 04/04/19 19 04/06/2018 HbA1c (hemo [...] s. Not Available [facility] [address] [facility], [place], [address], 04/06/2018 09:07:49 04/04/19 19 04/05/2018 micro album in, urine albumin, urine <3.0 ug/mL not estab. Not Available [facility] ([facility]) [address] [facility], [place], [address], 04/06/2018 09:07:49 06/14/1906/14/2018 hepat ic funct ion panel , serum protein, total 7.0 g/dL 6.0-8. 5 Not Available [facility] ([facility]) [address] [place], [address], 06/14/2018 09:14:53 06/14/1906/14/2018 hepat ic funct ion panel , serum albumin 4.6 g/dL 3.5-5. 5 Not Available [facility] ([facility]) [address] [place], [address], 06/14/2018 09:14:53 06/14/1906/14/2018 hepat ic funct ion panel , serum bilirubin, total 0.5 mg/dL 0.0-1. 2 Not Available [facility] ([facility]) [address] [facility] [place], [address], 06/14/2018 09:14:53 06/14/1906/14/2018 hepat ic funct ion panel , serum bilirubin, direct 0.13 mg/dL 0.00-0 .40 Not Available [facility] ([facility]) [address] [place], [address], 06/14/2018 09:14:53 06/14/1906/14/2018 hepat ic funct ion panel , serum alkaline phosphatase 63 IU/L 39-117 Not Available [facility] ([facility]) [address] [facility] [place], [address], 06/14/2018 09:14:53 06/14/1906/14/2018 hepat ic funct ion panel , serum AST (SGOT) 19 IU/L 0-40 Not Available [facility] ([facility]) [address] [facility] [place], [address], 06/14/2018 09:14:53 06/14/1906/14/2018 hepat ic funct ion panel , serum ALT (SGPT) 41 IU/L 0-44 Not Available [facility] ([facility]) [address] [place], [address], 06/14/2018 09:14:53 10/04/19 19 10/04/2018 CMP, serum or plasm a glucose 89 mg/dL 65-99 Not Available [facility] ([facility]) [address] [place], [address], 10/04/2018 13:07:37 10/04/19 19 10/04/2018 CMP, serum or plasm a BUN 15 mg/dL 6-24 Not Available [facility] ([facility]) [address] [place], [address], 10/04/2018 13:07:37 10/04/19 19 10/04/2018 CMP, serum or plasm a creatinine 0.83 mg/dL 0.76-1 .27 Not Available [facility] ([facility]) [address] [place], [address], 10/04/2018 13:07:37 10/04/19 19 10/04/2018 CMP, serum or plasm a eGFR if nonafricn AM 106 mL/mi n/1.7 3 >59 Not Available [facility] ([facility]) [address] [place], [address], 10/04/2018 13:07:37 10/04/19 19 10/04/2018 CMP, serum or plasm a eGFR if africn AM 122 mL/mi n/1.7 3 >59 Not Available [facility] ([facility]) [address] [place], [address], 10/04/2018 13:07:37 10/04/19 19 10/04/2018 CMP, serum or plasm a BUN/creatini ne ratio 18 9-20 Not Available [facility] ([facility]) [address] [place], [address], 10/04/2018 13:07:37 10/04/19 19 10/04/2018 CMP, serum or plasm a sodium 139 mmol/ L 134-14 4 Not Available [facility] ([facility]) [address] [place], [address], 10/04/2018 13:07:37 10/04/19 19 10/04/2018 CMP, serum or plasm a potassium 4.3 mmol/ L 3.5-5. 2 Not Available [facility] ([facility]) [address] [place], [address], 10/04/2018 13:07:37 10/04/19 19 10/04/2018 CMP, serum or plasm a chloride 102 mmol/ L 96-106 Not Available [facility] ([facility]) [address] [place], [address], 10/04/2018 13:07:37 10/04/19 19 10/04/2018 CMP, serum or plasm a carbon dioxide, total 20 mmol/ L 20-29 Not Available [facility] ([facility]) [address] [place], [address], 10/04/2018 13:07:37 10/04/19 19 10/04/2018 CMP, serum or plasm a calcium 9.2 mg/dL 8.7-10 .2 Not Available [facility] ([facility]) [address] [place], [address], 10/04/2018 13:07:37 10/04/19 19 10/04/2018 CMP, serum or plasm a protein, total 7.1 g/dL 6.0-8. 5 Not Available [facility] ([facility]) [address] [place], [address], 10/04/2018 13:07:37 10/04/19 19 10/04/2018 CMP, serum or plasm a albumin 4.7 g/dL 3.5-5. 5 Not Available [facility] ([facility]) [address] [facility] [place], [address], 10/04/2018 13:07:37 10/04/19 19 10/04/2018 CMP, serum or plasm a globulin, total 2.4 g/dL 1.5-4. 5 Not Available [facility] ([facility]) [address] [place], [address], 10/04/2018 13:07:37 10/04/19 19 10/04/2018 CMP, serum or plasm a A/G ratio 2.0 1.2-2. 2 Not Available [facility] ([facility]) [address] [facility] [place], [address], 10/04/2018 13:07:37 10/04/19 19 10/04/2018 CMP, serum or plasm a bilirubin, total 0.5 mg/dL 0.0-1. 2 Not Available [facility] ([facility]) [address] [place], [address], 10/04/2018 13:07:37 10/04/19 19 10/04/2018 CMP, serum or plasm a alkaline phosphatase 60 IU/L 39-117 Not Available [facility]) [address] [facility] [place], [address], 10/04/2018 13:07:37 10/04/1910/04/2018 CMP, serum or plasm a AST (SGOT) 21 IU/L 0-40 Not Available [facility] ([facility]) [address] [place], [address], 10/04/2018 13:07:37 10/04/1910/04/2018 CMP, serum or plasm a ALT (SGPT) 42 IU/L 0-44 Not Available [facility] ([facility]) [address] [place], [address], 10/04/2018 13:07:37 10/04/19 19 10/04/2018 lipid panel , serum cholesterol, total 167 mg/dL 100-19 9 Not Available [facility] ([facility]) [address] [place], [address], 10/04/2018 13:07:38 10/04/19 19 10/04/2018 lipid panel , serum triglyceride s 159 mg/dL 0-149 above high normal Not Available [facility] ([facility]) [address] [place], [address], 10/04/2018 13:07:38 10/04/19 19 10/04/2018 lipid panel , serum HDL cholesterol 41 mg/dL >39 Not Available [facility] ([facility]) [address] [place], [address], 10/04/2018 13:07:38 10/04/19 19 10/04/2018 lipid panel , serum VLDL cholesterol bree 32 mg/dL 5-40 Not Available [facility] ([facility]) [address] [place], [address], 10/04/2018 13:07:38 10/04/19 19 10/04/2018 lipid panel , serum LDL cholesterol calc 94 mg/dL 0-99 Not Available [facility] ([facility]) [address] [place], [address], 10/04/2018 13:07:38 10/04/19 19 10/04/2018 lipid panel , serum comment: REGULATED PROGRAM MANAGER Not Available [facility] ([facility]) [address] [place], [address], 10/04/2018 13:07:38 10/04/19 19 10/04/2018 HbA1c (hemo globi n A1c), blood hemoglobin A1C 5.2 % 4.8-5. 6 Predi abete s: 5.7 - 6.4 Diabe jaymie: >6.4 Glyce david contr ol for adult s with diabe jaymie: <7.0 Not Available [facility] ([facility]) [address] [facility] [place], [address], 10/04/2018 13:07:38 10/04/19 19 10/04/2018 micro album in, urine albumin, urine 7.8 ug/mL not estab. Not Available [facility] ([facility]) [address], [place], [address], 10/04/2018 13:07:38 10/04/19 19 10/04/2018 cardi ovasc [...] inclu de famil y histo ry of eayd ture ather oscle rotic disea se, eleva santino coron jon arter y calci um score , ankle -brac hial index < 0.9, eleva santino CRP, or eleva santino 10-ye ar or lifet dimitri CVD risk. [place] santino trigl yceri sascha may be assoc [...] - HIGH RISK ASSES SMENT AND TREAT [facility] MIKAL[facility] WOODWARD S ----- ----- ----- [...] 31(4) :811- 82. Not Available [facility] ([facility]) [address] [facility], [place], [address], 10/04/2018 13:07:39 10/04/19 19 10/04/2018 cardi ovasc ular asses sment panel , serum pdf image Not applic able Not Available [facility] ([facility]) [address], [place], [address], 10/04/2018 13:07:39 Result Notes None recorded. Problems Name Problem SNOMED Code Status Onset Date Resolution Date Notes Provider Name and Address Organization Details Recorded Time Pain of multiple joints 96392620 Active [address], [place], [address], [facility] - [facility] 13:54:48 Type 2 diabetes mellitus 80509020 Active [address], [place], [address], [facility] - [facility] 13:54:51 Non-smoker 3523015 Active 2018 Ananya Broderick [place], [place] - [facility] 19:33:44 Hypertriglycer idemia 757026682 Active [address], [place], [address], [facility] - [facility] 20:17:09 Problem Notes None recorded. Medical Equipment None Reported. Allergies No known drug allergies Medications Name Sig Start Date Stop Date Status Note LastModified by Organization Details LastModified Time gabapentin 300 mg caps active Not Available Not Available Not Available strattera 100 mg caps active Not Available Not Available Not Available amoxicillin 500 mg caps 06/19 completed Not Available Not Available Not Available onetouch jaymie ultra bl active Not Available Not Available Not Available atomoxetine 100 mg caps 06/19 completed Not Available Not Available Not Available fastclix mis lancets active Not Available Not Available Not Available escitalopra m oxalate 20 mg tabs active Not Available Not Available N ot Available apap/codein e tab 300-30mg active Not Available Not Available Not Available metformin hcl 850 mg tabs active Not Available Not Available Not Available accu-chek jaymie [address] active Not Available Not Available Not Available accu-chek jaymie guide active Not Available [...] Updated DateTime 9 167.64 cm 34.1 kg/m2 08769.3 9 g 97 % 97 % 74 /min 97.5 [degF] 150 mm[Hg] 80 mm[Hg] Ananya GARCIA - [facility] 9 19:32:46 Date Recorded Body height Body mass index (BMI) Body weight Body temperature Oxygen saturation Oxygen saturation in Arterial blood by Pulse oximetry Heart rate Systolic blood pressure Diastolic blood pressure Provider Name and Address Organization Details Last Updated DateTime 9 167.64 cm 34.2 kg/m2 66308.5 8 g 96.8 [degF] 98 % 98 % 82 /min 132 mm[Hg] 78 mm[facility]Hg[facility] 9 19:25:42 Date Recorded Body height Body mass index (BMI) Body weight Oxygen saturation Oxygen saturation in Arterial blood by Pulse oximetry Heart rate Body temperature Systolic blood pressure Diastolic blood pressure Provider Name and Address Organization Details Last Updated DateTime 9 167.64 cm 34.2 kg/m2 63147.5 8 g 98 % 98 % 70 /min 96 [degF] 118 mm[Hg] 70 mm[Hg] [facility] 9 11:49:30 Date Recorded Body height Body mass index (BMI) Body weight Oxygen saturation Oxygen saturation in Arterial blood by Pulse oximetry Heart rate Body temperature Systolic blood pressure Diastolic blood pressure Provider Name and Address Organization Details Last Updated DateTime 9 167.64 cm 34.6 kg/m2 28156.8 7 g 98 % 98 % 72 /min 97.4 [degF] 115 mm[Hg] 70 mm[Hg] Lisa Kauffman [place] [facility] 9 13:32:18 Date Recorded Body height Body mass index (BMI) Body weight Oxygen saturation Oxygen saturation in Arterial blood by Pulse oximetry Heart rate Body temperature Systolic blood pressure Diastolic blood pressure Provider Name and Address Organization Details Last Updated DateTime 9 167.64 cm 34.7 kg/m2 48243.3 6 g 97 % 97 % 88 /min 97.4 [degF] 110 mm[Hg] 64 mm[Hg] [facility] 9 18:25:36 Social History Question Answer Notes LastModified by Organizat ion Details LastModified Time Tobacco Smoking Status Never Smoker Not Available [facility] 11/22/2017 18:44:39 What Is Your Level Of Caffeine Consumption? Occasional [email or web address] Information not available 11/26/2017 What Was The Date Of Your Most Recent Tobacco Screening? 09/09/2018 Information n ot available 10/09/2018 Sex: Unknown Functional Status Question Answer Note LastModified by Organization D etails LastModified Time What is your level of alcohol consumption? None [email or web address] Information not available 11/22/2017 Mental Status None recorded. Family History Relationship Description Onset Age of this Age Resolved Age Notes LastModified by Organization Details LastModified Time Mother No family history of [email or web address] Not available 08/2017 16:05:40 Medical History No medical history recorded. Immunizations Vaccine Type Date Status Note Provider Nam e and Address Organization Details Recorded Time Influenza, split virus, quadrivalent, PF 12/20/2017 completed Not Available [facility] 02:23:30 Past Encounters Encounter ID Performer Location Encounter Start Date Encounter Closed Date Diagnosis/Indication Diagnosis SNOMED-CT Code Diagnosis ICD10 Code Diagnosis Note [id number] Susanne Cifuentes MD [facility] [place] [address] [place] [phone] 11/26/2017 16:31:13 11/27/2017 17:54:36 Chronic cough 19646267 R05 Renewal of prescription 176236702 Z76.0 [id number] [facility] [address] [place] [phone] 12/19/2017 18:48:23 12/20/2017 12:04:51 Cough 42583391 R05 Type 2 dana betes mellitus 82109747 E11.9 Administra tion of influenza vaccine 16594129 Z23 [id number] [facility]uentes [facility] [place] [address] [place] [address] 03/20/2018 12:31:04 03/23/2018 15:19:00 Type 2 diabetes mellitus 53871927 E11.9 Pain of mu ltiple joints 32400298 M25.50 [id number] Susanne Cifuentes MD [facility] [place] [address] [place] [phone] 04/14/2018 12:29:39 04/21/2018 18:55:07 Liver enzymes level above reference range 242915896 R74.8 Cough 28772203 R05 Type 2 dana betes mellitus 54879863 E11.9 Hypertriglyceridemia 302 292022 E78.1 Bipolar disorder 8489510 4 F31.9 Stable with current medication . Sees psychiatry on regular basis. [id number] Susanne Cifuentes MD [facility] [address] [place] [phone] 04/21/2018 17:26:23 04/25/2018 09:06:28 Type 2 diabetes mellitus 83750359 E11.9 Continue with current medication s.Increase exercise activity.I ncrease intake of fluids. Liver enzy mes level above reference range [id number] R74.8 Repeat testing in 3-4 months.Cameron id use of OTC supplement s unless agreed by . Cough 30011560 R05 Plenty of fluids. Avoid any possible triggers. Return to clinic if coughing does not resolve. 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 Report side effects of new medication .Share recent blood results with psych. [id number] Susanne Cifuentes MD [facility] [address] [place] [phone] 6 06/19/2018 19:09:09 06/23/2018 09:25:29 Type 2 diabetes mellitus 68329364 E11.9 Continue with current medication s.Increase exercise activity.I ncrease intake of fluids. Take twice a day. Hypertriglyceridemia 302 934213 E78.1 Diet Management Obesity 415954146 E66.9 1- Maintain a low carbohydra te [...] good sleep habits. 7- Avoid alcoholic beverages. [id number] Susanne Cifuentes MD [facility] [address] [place] [address] 6 09/09/2018 19:06:56 09/22/2018 04:12:46 Chronic cough 49980606 R05 Type 2 dana betes mellitus 53726975 E11.9 Continue with current medication s.Increase exercise activity.I ncrease intake of fluids. Take twice a day. Primary er ectile dysfunction 416937527 N52.9 [id number] Susanne Cifuentes MD [facility] [address] [place] [address] 10/08/2018 11:38:14 10/09/2018 01:57:56 Type 2 diabetes mellitus 94058749 E11.9 Continue with current medication s.Increase exercise activity.I ncrease intake of fluids. Take twice a day. Primary er ectile dysfunction 584543385 N52.9 Nonulcer dyspepsia 49385 07 K30 Hyperlipidemia 48063696 E78.1 Health Concerns Section Related Observation LastModified by Organization Detai ls LastModified Time None Recorded Concern Status LastModified by Organization Details LastModified Time None Recorded Advance Directives Directive None Recorded Payers Insurance Date Sequence Insurance Name Policy Number Policy Terrell Covered Member ID Terrell Member ID Guarantor Name 11/22/2017 2 [facility] CARE PLAN [facility] (MEDICARE SUPPLEMENT PLAN) Kwaku Fuller [id number] Kwaku Fuller 10/08/2018 1 [facility] DUAL COMPLETE - DUAL ELIGIBLE - [place] (MEDICARE-MEDI CAID REPLACEMENT HMO) [facility] Kwaku Fuller [id number] Kwaku Fuller 12/20/2017 2 [facility] CARE [facility] (MEDICAID REPLACEMENT - HMO) Kwaku Fuller [id number] Kwaku Fuller 04/11/2018 2 [facility] CARE PLAN OF [facility] (MEDICAID HMO) Kwaku Fuller [id number] Kwaku Fuller 10/08/2018 2 [facility] (MEDICAID REPLACEMENT - HMO) Kwaku Fuller [id number] Kwaku Fuller Notes Date Note Type Note [...] counter including Vitamin D3. Susanne Cifuentes MD [address], [place], [address], [facility] - [employer], [facility] 04/18/2018 08:30:29 04/21/19 19 text/htm l Anxiety/DepressionReported [...] Cifuentes MD [address], [place], [address], [facility] [employer] 04/25/2018 09:05:12 06/20/19 19 text/htm l Here to go over recent blood testing to check on liver enzymes elevation. Patient has reduced the use of over the counter supplements. He denies symptoms of abdominal pain, no nausea or vomiting, no fever or chills. Susanne Cifuentes MD [address], [place], [address], [facility] [email or web address] 06/23/2018 09:24:46 06/20/19 19 text/htm l [...] Cifuentes MD [address], [place], [address], [facility] - [employer], [facility] 06/23/2018 09:24:46 09/10/19 19 text/htm l DiabetesReported [...] History of Mental Illness}}. Susanne Cifuentes MD [address], [place], [address], [facility] [employer] 09/22/2018 02:29:35 10/09/19 19 text/htm l DiabetesReported [...] disease; no cardiovascular disease Susanne Cifuentes MD [address], [place], [address], [facility] [employer] 10/09/2018 01:57:42
--- OUTSIDE RECORDS SUMMARY | 2024-07-28 16:18 | XMS_ITS | Continuity of Care Document ---
Author Organization [employer] Address [address] [place] [address] Phone Care Team Providers Care Graduate Fellow Name Role Phone Alecia Pierson OD Unavailable [...] route 2 times every day 50 MCG No Longer Active Lexapro 20 mg Tab take 1 tablet (20MG) by ORAL route every day 20 MG No Longer Active Lipitor 10 mg Tab take 1 tablet (10MG) by ORAL route every day 10 MG No Longer Active Alprazolam 0.5 mg Tab, Rapid Dissolve take 1 tablet (0.5MG) by ORAL route 3 times every day 0.5 MG No Longer Active prazosin 2 mg capsule [...] Diagnoses Date Provider Providers Copied on Encounter [facility], [facility] [place] [address], [id number] , tel: [phone] [facility] [place] Type 2 diabetes mellitus without complicationsLong term (current) use of oral antidiabetic drugsMacula scars of posterior pole (post-traumatic), left eyePresbyopiaDry eye syndrome of bilateral lacrimal glands 201 8 Dangelo Alston. [address] [place] [address], [id number], [place]. [phone] [facility], [address] [place] [address], [id number] , tel: [phone] [facility] [place] Type 2 diabetes mellitus without complicationsLong term (current) use of oral antidiabetic drugsTear film insufficiency of bilateral lacrimal glandsPresbyopiaMa cula scars of posterior pole (post-traumatic), left eye 7 [facility] Sirisha. [address] [place], [place], [id number], [place]. tel:[phone] [facility], [address] [place], [place], [id number] , [place] tel:[phone] [facility] [place] Type 2 diabetes mellitus without complicationsMyopi a, bilateralMacula scars of posterior pole (post traumatic), left eye 6 [facility] Sirisha. [address] [place], [place], [id number], [place]. tel:[phone] [facility], [address] [place], [place], [id number] , [place] tel:[phone] [facility] No Information 3 [facility] Sirisha. [address] [place], [place], [id number], [place]. tel:[phone] [facility], [address] [place], [place], [id number] , [place] tel:[phone] [facility] Macular ScarsMacular ScarsMyopia 1 [facility] Sirisha. [address] [place], [place], [id number], [place]. tel:[phone] Referring Provider: Sirisha Lantigua, [address] [place], [address] . tel:[phone] [facility], [address] [place], [place], [id number] , [place] tel:[phone] [facility] No Information Nov-2 0 No Information [facility], [address] [place], [place], [id number] , [place] tel:[phone] [facility] No Information Nov-2 3200 9 No Information Family History Family Member Type Diagnosis Age At Onset No Information Payers Payer name Insurance type Covered alliance party ID Authoriza timustapha(s) [facility] Dual Complete HMO [id number] [facility] [id number] Social History Type Description Quantity Date Captured [...] Future Order: Radiology Order OC T Retina ([id number]), Ordered on: Ordered Future Order: Radiology Order OC T Retina ([id number]), Ordered on: Ordered History Of Present Illness Encounter Date Complaint History Of Prese nt Illness No Information Functional Status Date Functional Assessmen t No Information Instructions Date Instruction Additional Infor endy - See DM plan. 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 NO ceiling fans discussed. Related to Tear film insufficiency of bilateral lacrimal glands - Reviewed photos. N o diabetic retinopathy. [...] posterior pole (postinflammatory) (post-traumatic), left eye - Reviewed photos. N o diabetic retinopathy. Recommend yearly diabetic eye exam. Discussed with patient importance of good blood sugar control with regular visits to PCP, compliance to meds, healthy diet, and daily exercise. Related to Type 2 diabetes mellitus without complications - Released MRx for u pdate, recommended polycarbonate lens OU. Related to Myopia, bilateral - Polycarbonated rec ommended. Pt inquired about any tx/sx for better VA, discussed no options at this time. 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 Low myope Related to Myopia OD Macular Scar, OS - Polycarbonated recommended. Pt inquired about any tx/sx for better VA, discussed no options at this time. Related to Macular Scar - in 1 year or soone r if any changes to eyes or vision occur. Related to Macular Scar Macular Scar, OS - L ongstanding from [...] Type 2 diabetes mellitus without complications assessment care home (current) use of oral antidiabetic drugs assessment Macula scars of posterior pole ( post-traumatic), left eye assessment Presbyopia assessment Dry eye syndrome of bilateral la crimal glands Patient Care Teams Name Effective Dates (start - stop) Status Members No Information
[2024-07-28 18:47] LABS: Alanine Aminotransferase 85 U/L (0-40); Albumin Level 4.6 g/dL (3.5-5.0); Alkaline Phosphatase 52 U/L (39-117); Anion Gap 13 (12-20); Aspartate Amino Transferase 34 U/L (5-37); Bilirubin Total 0.8 mg/dL (0.0-1.0); Blood Urea Nitrogen 15 mg/dL (9-16); Calcium 9.3 mg/dL (8.4-10.2); Carbon Dioxide 26 mmol/L (22-29); Chloride 104 mmol/L (96-108); Cholesterol 191 mg/dL (<200); Estimated Glomerular Filt Rate > 60; Glucose Fasting 95 mg/dL (60-99); HDL Cholesterol 45 mg/dL (>40); LDL Cholesterol Calculated 131 mg/dL (<100); Potassium 4.6 mmol/L (3.3-5.1); Sodium 138 mmol/L (135-145); Total Protein 7.3 g/dL (6.5-8.0); Triglycerides 75 mg/dL (<150)
== END 2024-07-28 15:30 | disposition home or self-care (01) ==
LOC: HO.WFDLDS 15:29
PROVIDERS: Visit Provider Family Medicine
DX: Z00.00 Encounter for general adult medical examination without abnormal findings (principal); E78.5 Hyperlipidemia, unspecified; R74.8 Abnormal levels of other serum enzymes
CPT/HCPCS: 36415; 80053; 80061

== ENCOUNTER 2024-08-03 11:53 | Outpatient (AMB) | payer MEDICARE, MEDICAID, SELFPAY ==
--- NOTE | 2024-08-03 12:06 | MHC.PC.OV ---
Vital Signs 08/03/24 12:20 Height 5 ft 5 in Weight 213 lb 6 oz BMI 35.5 BP 110/70 Blood Pressure Location Lt brachial Position Sitting Respiration 14 Pulse 76 Pulse Source Pulse Oximeter Temp 97.8 F Temp Source Oral Pulse Oximetry (%) 98 Oxygen Delivery Method Room Air Intake Visit Reasons: f/u diabetes, HLD, liver enzymes - see comments Intake Note: patient isscheduled to follow up for dm and lab review medication refill for lancets Medical Office Scheduler Required: No Allergies No Known Allergies Allergy (Verified 08/03/24 12:19) Tobacco use date assessed: 05/06/24 Dental Screening Dental Screen Date: 05/06/24 HPI f/u diabetes, HLD, liver enzymes - see comments HPI Details 53 y/o male presents to f/u diabetes, HLD, liver enzymes. Labs drawn 07/28/24. Reviewed labs with pt. Elevated ALT of 85. Triglycerides 75. TC 191. LDL 131. HDL 45. Pt notes artovastatin had bothered him before in the past. Last A1c 05/06/24 4.1%. A1c today 08/03/24 4.7%. He used to check his blood sugars but had been unable to do so the past few months. Pt reports back pain. He states he has trialed physical therapy which did not help. HPI Comments History of Present Illness Details Documentation assistance for Javier Aguirre MD, was provided by Yaakov Kasper,? Tong Carrier on 08/03/2024 at 12:16 PM EST. I, Dr. Aguirre, have read, observed, and verified documentation. ? PFSH Medical History Nonalcoholic fatty liver disease Elevated LFTs Hyperlipidemia DM II (diabetes mellitus, type II), controlled DM2 (diabetes mellitus, type 2) Surgical History No pertinent past surgical history Family History Mother No problems noted. Father No problems noted. Social History Housing: Apartment Alcohol intake: never Patient Tobacco Use Status: Never used Tobacco e-Cigarette/Vaping Use: Never Used Second Hand Smoke Exposure: No service: No Current occupational status: unemployed Current occupational exposures/hazards: No Cognitive needs: No Hearing needs: No Vision needs: No Questionnaire PHQ-9 Over the last 2 weeks, how often have you been bothered by any of the following problems? 1. Little interest or pleasure in doing things: not at all 2. Feeling down, depressed, or hopeless: not at all 3. Trouble falling or staying asleep, or sleeping too much: not at all 4. Feeling tired or having little energy: not at all 5. Poor appetite or overeating: not at all 6. Feeling bad about yourself - or that you are a failure or have let yourself or your family down: not at all 7. Trouble concentrating on things, such as reading the newspaper or watching television: not at all 8. Moving or speaking so slowly that other people could have noticed. Or the opposite - being so fidgety or restless that you have been moving around a lot more than usual: not at all 9. Thoughts that you would be better off or of hurting yourself in some way: not at all Total score: 0 Source: Developed by Drs. Doni Villarreal, Yuridia Guzman, Henry Arellano and colleagues, with an educational noel from [employer]. Thrive Questionnaire Date Thrive assessed: 05/06/24 I am a: Patient What is your living situation today?: I have a steady place to live Within the past 12 months, did the food you bought not last and you didn't have the money to get more?: Often true Within the past 12 months, did you worry whether your food would run out before you got money to buy more?: Often true Do you have trouble paying for medicines?: No Do you have trouble getting transportation to medical appointments?: No Do you have trouble paying your heating and electricity bill?: No Do you have trouble taking care of your child, family member or friend?: No Do you have trouble with day-to-day activities such as bathing, preparing meals, shopping, managing finances, etc.?: No Are you currently unemployed and looking for a job?: No Are you interested in more education?: No Please select the resources that you would like help with: None Currently or been in a relationship where the following occur: I choose not to answer THRIVE Score: 2 AUDIT C Alcohol Use Questionnaire (AUDIT-C) 1. How often do you have a drink containing alcohol?: Never Total Score: 0 LETICIA-7 AMB Questionnaire ELTICIA-7 Date LETICIA - 7 assessed: 05/06/24 Feeling nervous, anxious, or on edge: 0 = Not at all Not being able to stop or control worryin = Not at all Worrying too much about different things: 0 = Not at all Trouble relaxin = Not at all Being so restless that it is hard to sit still: 0 = Not at all Becoming easily annoyed or irritable: 0 = Not at all Feeling afraid as if something awful might happen: 0 = Not at all Total LETICIA-7 score (0-4 normal; 5-9 mild; 10-14 moderate; 15-21 severe): 0 Source: Developed by Drs. Doni Villarreal, Yuridia Guzman, Henry Arellano and colleagues, with an educational noel from [employer]. Review of Systems Const Denies chills, Denies fatigue, Denies fever(s), Denies headache(s) and Denies weakness ENT Denies dizziness and Denies headache(s) Card Denies dyspnea Resp Denies cough, Denies dyspnea, Denies wheezing and Denies other (shortness of breath) Musc Denies numbness and Denies tingling Neuro Denies dizziness, Denies headache(s), Denies numbness, Denies tingling and Denies weakness Psych Denies anxiety and Denies depression Endo Denies fatigue Aller/Immun Denies wheezing Physical exam (Primary Care) Vital Signs: Last Vital Signs Temp 97.8 F 08/03/24 12:20 Pulse 76 08/03/24 12:20 Resp 14 08/03/24 12:20 BP 110/70 08/03/24 12:20 Pulse Ox 98 08/03/24 12:20 Oxygen Delivery Method Room Air 08/03/24 12:20 BMI result Body Mass Index 35.5 Tobacco/Smoking Status: Tobacco use Status Tobacco use date assessed 05/06/24 08/03/24 12:07 Patient Tobacco Use Status Never used Tobacco 08/03/24 12:07 e-Cigarette/Vaping Use Never Used 08/03/24 12:07 PHQ-9: PHQ-9 Score PHQ-9: Total score 0 08/03/24 12:15 Thrive Assessment: Date of Thrive Assessment Date Thrive assessed 05/06/24 08/03/24 12:07 Currently or been in a relationship where the following occur: I choose not to answer Const General: well developed; No acute distress Nutritional Appearance: well nourished Orientation/consciousness: patient oriented x3 HENMT Head: Yes normocephalic and Yes atraumatic Eyes General: appearance normal, both eyes and all related structures Pupils: Equal, round and reactive pupils present EOM: EOMs intact bilaterally Resp Effort & Inspection: normal respiratory effort Neuro General: patient oriented x3 and gait normal Cranial nerves: Yes Equal, round and reactive pupils present Psych Affect: normal affect Coding Level of Care Code Est Pt Level 4 (09173) Diagnoses DM II (diabetes mellitus, type II), controlled E11.9 Hyperlipidemia E78.5 Elevated LFTs R79.89 Nonalcoholic fatty liver disease K76.0 Back pain M54.9 Assessment & Plan Assessment & Plan (1) DM II (diabetes mellitus, type II), controlled: Code(s): E11.9 - Type 2 diabetes mellitus without complications Category: Medical Plan: A1c?is?4.7%. Goal?is?less?than?7% He?is?on?semaglutide Feels?well. Has?not?been?checking?his?blood?sugars?lately?because?he?says?he?does?not?have?the?lancet?and?device. Encouraged?him?to?check?blood?sugars.??If?running?low will?adjust?his?medication?and?encourage?regular?meals Referred?back?to?nutrition?for?diabetic?teaching (2) Hyperlipidemia: Code(s): E78.5 - Hyperlipidemia, unspecified Category: Medical Plan: Lipids?are?high.??He?is?no?longer?taking?Lipitor - he?did?not?tolerate?generic?atorvastatin?in?Lipitor?has?been?declined?again. Sending?a?script?for?Zetia (3) Elevated LFTs: Code(s): R79.89 - Other specified abnormal findings of blood chemistry Category: Medical Plan: Liver?enzymes?have?increased?again?concomitantly?with?weight?gain Continue?to?work?at?weight?loss Last?ultrasound?was?about?3?years?ago Repeat?ultrasound (4) Nonalcoholic fatty liver disease: Code(s): K76.0 - Fatty (change of) liver, not elsewhere classified Category: Medical Plan: As?above?work?on?weight?loss (5) Back pain: Code(s): M54.9 - Dorsalgia, unspecified Category: Medical Plan: Ongoing?back?pain?which?is?hindering?exercise Has?had?physical?therapy?without?much?improvement Referred?to?Ortho Orders: Orders US abdomen hendrickson w elastography Today R74.8 - Abnormal levels of other serum enzymes Comprehensive [place]. Panel Fast Today R74.8 - Abnormal levels of other serum enzymes, Z00.00 - Encounter for general adult medical examination without abnormal findings Lipid Panel Today E78.6 - Lipoprotein deficiency, Z00.00 - Encounter for general adult medical examination without abnormal findings Referrals Orthopedics Referral M54.9 - Dorsalgia, unspecified [facility] Referral E11.9 - Type 2 diabetes mellitus without complications Medications: New ezetimibe (Zetia) 10 mg PO DAILY 90 days 90 tabs 3RF
[2024-08-03 12:20] VITALS: BP 110/70; PULSE 76; RESP 14; TEMP 36.6; O2SAT 98; BMI 35.5
--- OUTSIDE RECORDS SUMMARY | 2024-08-03 12:31 | XMS_ITS | Clinical Summary ---
Author Organization [employer] Address [address] [facility] [address] [place] [address] Care Team Providers Care Staffing Clerk Name Role Phone Unavailable Primary Care Provider [...] Relevant to Health Maintenance Insurance DENTAL - [facility] [place] MED[place] STAND ADULT
--- OUTSIDE RECORDS SUMMARY | 2024-08-03 12:32 | XMS_ITS | Clinical Summary ---
Author Organization [address] [facility] Address [address] [place] [address] Phone Care Team Providers Care Field Service Engineer Name Role Phone Javier Aguirre MD [...] 3:30 PM EDT Office Visit Orthopedic Surgery [facility] [address] [facility] [address] [place] [address] Prasanna Hernandez, DPJackie Metatarsalgia of both feet (Primary Dx); Diabetic mononeuropathy simplex ([facility] V24, [facility] V28); Corns and callosities; Acquired hammer toe of right foot; Hammer toe of left foot 06/17/2024 1:45 PM EDT Office Visit Bariatric Surgery [facility] 175 [facility] [address] [place] [address] Lois Camilo MD Hx of lipoma (Primary Dx) 05/26/2024 2:00 PM EDT Procedure visit Bariatric Surgery [facility] [address] [facility] [address] [place] [address] Lois Camilo MD Lipoma of back (Primary Dx) 05/14/[address] [facility] [address] [facility] 175 [facility] [address] [place] [address] Rosalba Bennett MD 05/06/2024 3:00 PM EST Consult Bariatric Surgery [facility] 175 [facility] [address] [place] [address] Lois Camilo MD Lipoma of back from Last 3 Months Immunizations Name Administration Dates Next Due Influenza trivalent, with pr eservative (Fluzone; Afluria) 6mo and older 01/03/2021,12/14/2019,12/05/2018 Surgical History Surgery Date Site/Laterality Comments COLONOSCOPY 03/18/2022 - 03/17/2023 Significant for 2 tubular adenomas Medical History Medical History Date Comments Obesity Type 2 diabetes mellitus (CMS/HCC V24, [facility] V 28) Seasonal allergies Social History Tobacco [...] PM EDT Office Visit Orthopedic Surgery - [place] [address] [facility] [address] [place] [address] Prasanna Hernandez DPJackie [address] [facility] [address] [place] [address] 03/05/2025 2:10 PM EST Office Visit Gastroenterology - [place] [address] [facility] 175 [facility] [address] [place] [phone] Rosalba Bennett MD [address] [facility] [address] [place] [address] Health Maintenance Due Date Last Done Comments [...] back, excision: Lipoma 05/28/2024 1:13 PM EDT [facility] Gross Description A. Back, Upper, lipoma: Labeled back U . Received in formalin is a 4.2 x 3.8 x 1.6 cm disrupted yellow lobular portion of adipose tissue. The cut surfaces are comprised of glistening yellow lobular adipose tissue with no areas of hemorrhage or necrosis. Patient Relations Representative sections are submitted one cassette, four pieces. CHANDAN 05/28/2024 1:13 PM EDT [facility] Disclaimer Unless otherwise specified, all tissue is 10% NB formalin fixed and paraffin embedded. 05/28/2024 1:13 PM EDT [facility] Tissue Structure of upper back / Unknown Non-blood Collection / Unknown 05/26/2024 2:09 PM EDT 05/26/2024 2:33 PM EDT us Lois Camilo MD LAB PATHOLOGY ORDERABLE S Final Result [facility]) [facility] [address] [place] [address], [place] [phone] from Last 3 Months Insurance [employer] MEDICARE MEDICAID - [place] Care Teams Field Service Engineer Relationship Specialty Start Date End Date Carla, Javier J, MD [address] [place] [address] Dr Ed [place] PCP - General 01/05/22
--- OUTSIDE RECORDS SUMMARY | 2024-08-03 12:32 | XMS_ITS | Data Portability ---
Author Organization [place] - [employer], [facility] [place] [address] [place] [address] Care Team Providers Care Scroll Assembler Name Role Phone SUSANNE CIFUENTES Primary Care Provider Assessment No assessment recorded. Plan of Treatment Reminders Order Date Submit Date Provider Last Modified By Organization Details Last Modified Time Details Appointments None recorded. Lab CMP, serum or plasma 2018 019 [facility], [address], [address], [place], [address], 9 13:07:37 lipid panel, serum 2018 019 [facility], [address], [address], [place], [address], 9 13:07:38 microalbum in, QN, unspecifie d duration, urine 2018 019 [facility], [address], [address], [place], [address], 9 19:43:31 hemoglobin A1c, QN, blood 2018 019 [facility], [address], [address], [place], [address], 9 19:43:30 hepatic function panel, serum 2018 019 [facility] 1 [facility], [address], [address], [place], [address], 9 11:10:18 Referral None recorded. Procedures None recorded. Surgeries None recorded. Imaging None recorded. Medication Orders sildenafil (pulmonary hypertensi on) 20 mg tablet 2018 [facility], [address], [place], [address], 9 13:28:14 omeprazole 20 mg capsule,de layed release 2018 019 INTERFACE [facility], [address], [place], [address], 9 12:28:28 metformin 850 mg tablet 2018 019 INTERFACE [facility], [address], [place], [address], 9 12:25:10 OneTouch Verio test strips 2018 019 INTERFACE [facility], [address], [place], [address], 9 12:26:43 sildenafil (pulmonary hypertensi on) 20 mg tablet 2018 019 INTERFACE [facility], [address], [place], [address], 9 19:47:22 metformin 850 mg tablet 2018 019 INTERFACE [facility], [address], [place], [address], 9 19:43:26 Robitussin Cough-Ches t Congestion DM 5 mg-100 mg/5 mL oral liquid 2018 019 INTERFACE [facility], [address], [place], [address], 9 19:36:41 Kiel n AC 10 mg-100 mg/5 mL oral liquid 2018 019 [facility] 1 [facility], [address], [place], [address], 9 19:32:59 benzonatat e 200 mg capsule 2018 019 [facility] 1 [facility], [address], [place], [place], [id number], 9 19:33:03 Patient Targets Encounter Date Encounter Id Patient Goals Patient Target Last Modified By Organization Details Last Modified Time Stop all vitamin supplementation for the next 2 weeks. Continue with current Metformin. ksadek Not available 04/21/2018 18:53:30 Patient Instructions Encounter Date Encounter Id Patient Instructions Last Modified By Organization Details Last Modified Time 06/19/2018 [id number] ksadek Not available 06/23 09:14:39 09/09/2018 [id number] chronic cough: care instructions ksadek Not available [...] prescribed. ksadek Not available 09/22/2018 02:29:19 10/08/2018 [id number] learning about type 2 diabetes ksadek Not [...] glucose 99 mg/dL 65-99 Not Available [facility] ([facility]) [address] [place], [address], 04/05/2018 09:18:42 04/04/1904/05/2018 CMP, serum or plasm a BUN 10 mg/dL 6-24 Not Available [facility] ([facility]) [address] [place], [address], 04/05/2018 09:18:42 04/04/1904/05/2018 CMP, serum or plasm a creatinine 0.82 mg/dL 0.76-1 .27 Not Available [facility] ([facility]) [address] [place], [address], 04/05/2018 09:18:42 04/04/1904/05/2018 CMP, serum or plasm a eGFR if nonafricn AM 106 mL/mi n/1.7 3 >59 Not Available [facility] ([facility]) [address] [place], [address], 04/05/2018 09:18:42 04/04/1904/05/2018 CMP, serum or plasm a eGFR if africn AM 123 mL/mi n/1.7 3 >59 Not Available [facility] ([facility]) [address] [facility], [address], 04/05/2018 09:18:42 04/04/1904/05/2018 CMP, serum or plasm a BUN/creatini ne ratio 12 9-20 Not Available [facility] [address] [facility], [address], 04/05/2018 09:18:42 04/04/1904/05/2018 CMP, serum or plasm a sodium 139 mmol/ L 134-14 4 Not Available [facility] ([facility]) [address] [facility], [address], 04/05/2018 09:18:42 04/04/1904/05/2018 CMP, serum or plasm a potassium 4.5 mmol/ L 3.5-5. 2 Not Available [facility] ([facility]) [address] [facility], [address], 04/05/2018 09:18:42 04/04/1904/05/2018 CMP, serum or plasm a chloride 102 mmol/ L 96-106 Not Available [facility] ([facility]) [address] [facility], [address], 04/05/2018 09:18:42 04/04/1904/05/2018 CMP, serum or plasm a carbon dioxide, total 23 mmol/ L 20-29 Not Available [facility] ([facility]) [address] [place], [address], 04/05/2018 09:18:42 04/04/1904/05/2018 CMP, serum or plasm a calcium 9.4 mg/dL 8.7-10 .2 Not Available [facility] ([facility]) [address] [facility], [address], 04/05/2018 09:18:42 04/04/1904/05/2018 CMP, serum or plasm a protein, total 6.9 g/dL 6.0-8. 5 Not Available [facility] ([facility]) [address] [facility], [address], 04/05/2018 09:18:42 04/04/1904/05/2018 CMP, serum or plasm a albumin 4.6 g/dL 3.5-5. 5 Not Available [facility] ([facility]) [address] [facility], [address], 04/05/2018 09:18:42 04/04/1904/05/2018 CMP, serum or plasm a globulin, total 2.3 g/dL 1.5-4. 5 Not Available [facility] ([facility]) [address] [place], [address], 04/05/2018 09:18:42 04/04/1904/05/2018 CMP, serum or plasm a A/G ratio 2.0 1.2-2. 2 Not Available [facility] ([facility]) [address] [place], [address], 04/05/2018 09:18:42 04/04/1904/05/2018 CMP, serum or plasm a bilirubin, total 0.4 mg/dL 0.0-1. 2 Not Available [facility] ([facility]) [address] [place], [address], 04/05/2018 09:18:42 04/04/1904/05/2018 CMP, serum or plasm a alkaline phosphatase 58 IU/L 39-117 Not Available [facility] [address] [place], [address], 04/05/2018 09:18:42 04/04/1904/05/2018 CMP, serum or plasm a AST (SGOT) 30 IU/L 0-40 Not Available [facility] ([facility]) [address], [place], [address], 04/05/2018 09:18:42 04/04/1904/05/2018 CMP, serum or plasm a ALT (SGPT) 84 IU/L 0-44 above high normal Not Available [facility] ([facility]) [address] [facility] [place], [address], 04/05/2018 09:18:42 04/04/1904/05/2018 lipid panel , serum cholesterol, total 173 mg/dL 100-19 9 Not Available [facility] ([facility]) [address] [facility] [place], [address], 04/05/2018 09:18:43 04/04/1904/05/2018 lipid panel , serum triglyceride s 179 mg/dL 0-149 above high normal Not Available [facility] ([facility]) [address] [facility], [address], 04/05/2018 09:18:43 04/04/1904/05/2018 lipid panel , serum HDL cholesterol 41 mg/dL >39 Not Available [facility] [address] [facility], [place], [address], 04/05/2018 09:18:43 04/04/1904/05/2018 lipid panel , serum VLDL cholesterol bree 36 mg/dL 5-40 Not Available [facility] [address] [facility], [address], 04/05/2018 09:18:43 04/04/1904/05/2018 lipid panel , serum LDL cholesterol calc 96 mg/dL 0-99 Not Available [facility] [address] [place], [address], 04/05/2018 09:18:43 04/04/1904/05/2018 lipid panel , serum comment: RN SUPPLEMENTAL Not Available [facility] ([facility]) [address], [place], [address], 04/05/2018 09:18:43 04/04/1904/05/2018 cardi javier freire panel [...] 10-ye ar or lifet dimitri CVD risk. [place] santino trigl yceri sascha may be assoc iated with incre ased cardi ovasc ular risk due to incre ased numbe rs of ather ogeni c lipop rotei n parti cles. Co-mo rbid condi tions shoul d be evalu ated and treat ed. ----- ----- ----- ----- ----- ----- - INTER MEDIA TE RISK ASSES SMENT AND TREAT [facility] MIKALA WOODWARD S ----- ----- ----- [...] - HIGH RISK ASSES SMENT AND TREAT [facility] MIKALA WOODWARD S ----- ----- ----- [...] inten ded to repla ce the physi nemours foundation' s clini bree judgm ent. They are [...] 2008; 31(4) :811- 82. Not Available [facility] ([facility]) [address] [facility], [place], [address], 04/05/2018 09:18:44 04/04/19 19 04/05/2018 cardi ovasc ular asses sment panel , serum pdf image Not applic able Not Available [facility] ([facility]) [address] [facility], [place], [address], 04/05/2018 09:18:44 04/04/19 19 04/06/2018 HbA1c (hemo [...] (ADA) Not Available [facility] [address], [place], [address], 04/06/2018 09:07:49 04/04/19 19 04/06/2018 HbA1c (hemo globi n A1c), blood estimated average glucose 97 mg/dL Not Available [facility] [address], [place], [address], 04/06/2018 09:07:49 04/04/19 19 04/06/2018 HbA1c (hemo [...] s. Not Available [facility] [address], [place], [address], 04/06/2018 09:07:49 04/04/19 19 04/05/2018 micro album in, urine albumin, urine <3.0 ug/mL not estab. Not Available [facility] ([facility]) [address] [facility], [place], [address], 04/06/2018 09:07:49 06/14/1906/14/2018 hepat ic funct ion panel , serum protein, total 7.0 g/dL 6.0-8. 5 Not Available [facility] ([facility]) [address] [place], [address], 06/14/2018 09:14:53 06/14/1906/14/2018 hepat ic funct ion panel , serum albumin 4.6 g/dL 3.5-5. 5 Not Available [facility] ([facility]) [address] [place], [address], 06/14/2018 09:14:53 06/14/1906/14/2018 hepat ic funct ion panel , serum bilirubin, total 0.5 mg/dL 0.0-1. 2 Not Available [facility] ([facility]) [address] [facility] [place], [address], 06/14/2018 09:14:53 06/14/1906/14/2018 hepat ic funct ion panel , serum bilirubin, direct 0.13 mg/dL 0.00-0 .40 Not Available [facility] ([facility]) [address] [place], [address], 06/14/2018 09:14:53 06/14/1906/14/2018 hepat ic funct ion panel , serum alkaline phosphatase 63 IU/L 39-117 Not Available [facility] [address] [facility] [place], [address], 06/14/2018 09:14:53 06/14/1906/14/2018 hepat ic funct ion panel , serum AST (SGOT) 19 IU/L 0-40 Not Available [facility] ([facility]) [address] [facility] [place], [address], 06/14/2018 09:14:53 06/14/1906/14/2018 hepat ic funct ion panel , serum ALT (SGPT) 41 IU/L 0-44 Not Available [facility] ([facility]) [address] [place], [address], 06/14/2018 09:14:53 10/04/19 19 10/04/2018 CMP, serum or plasm a glucose 89 mg/dL 65-99 Not Available [facility] ([facility]) [address] [place], [address], 10/04/2018 13:07:37 10/04/19 19 10/04/2018 CMP, serum or plasm a BUN 15 mg/dL 6-24 Not Available [facility] ([facility]) [address] [place], [address], 10/04/2018 13:07:37 10/04/19 19 10/04/2018 CMP, serum or plasm a creatinine 0.83 mg/dL 0.76-1 .27 Not Available [facility] ([facility]) [address] [place], [address], 10/04/2018 13:07:37 10/04/19 19 10/04/2018 CMP, serum or plasm a eGFR if nonafricn AM 106 mL/mi n/1.7 3 >59 Not Available [facility] ([facility]) [address] [place], [address], 10/04/2018 13:07:37 10/04/19 19 10/04/2018 CMP, serum or plasm a eGFR if africn AM 122 mL/mi n/1.7 3 >59 Not Available [facility] ([facility]) [address] [place], [address], 10/04/2018 13:07:37 10/04/19 19 10/04/2018 CMP, serum or plasm a BUN/creatini ne ratio 18 9-20 Not Available [facility] [address] [place], [address], 10/04/2018 13:07:37 10/04/19 19 10/04/2018 CMP, serum or plasm a sodium 139 mmol/ L 134-14 4 Not Available [facility] ([facility]) [address] [place], [address], 10/04/2018 13:07:37 10/04/19 19 10/04/2018 CMP, serum or plasm a potassium 4.3 mmol/ L 3.5-5. 2 Not Available [facility] ([facility]) [address] [place], [address], 10/04/2018 13:07:37 10/04/19 19 10/04/2018 CMP, serum or plasm a chloride 102 mmol/ L 96-106 Not Available [facility] ([facility] [address] [place], [address], 10/04/2018 13:07:37 10/04/19 19 10/04/2018 CMP, serum or plasm a carbon dioxide, total 20 mmol/ L 20-29 Not Available [facility] ([facility] [address] [place], [address], 10/04/2018 13:07:37 10/04/19 19 10/04/2018 CMP, serum or plasm a calcium 9.2 mg/dL 8.7-10 .2 Not Available [facility] ([facility] [address] [place], [address], 10/04/2018 13:07:37 10/04/19 19 10/04/2018 CMP, serum or plasm a protein, total 7.1 g/dL 6.0-8. 5 Not Available [facility] ([facility]) [address] [place], [address], 10/04/2018 13:07:37 10/04/19 19 10/04/2018 CMP, serum or plasm a albumin 4.7 g/dL 3.5-5. 5 Not Available [facility] ([facility]) [address] [facility] [place], [address], 10/04/2018 13:07:37 10/04/19 19 10/04/2018 CMP, serum or plasm a globulin, total 2.4 g/dL 1.5-4. 5 Not Available [facility] ([facility]) [address] [place], [address], 10/04/2018 13:07:37 10/04/19 19 10/04/2018 CMP, serum or plasm a A/G ratio 2.0 1.2-2. 2 Not Available [facility] ([facility]) [address] [place], [address], 10/04/2018 13:07:37 10/04/19 19 10/04/2018 CMP, serum or plasm a bilirubin, total 0.5 mg/dL 0.0-1. 2 Not Available [facility] ([facility]) [address] [place], [address], 10/04/2018 13:07:37 10/04/19 19 10/04/2018 CMP, serum or plasm a alkaline phosphatase 60 IU/L 39-117 Not Available [facility] [address] [place], [address], 10/04/2018 13:07:37 10/04/1910/04/2018 CMP, serum or plasm a AST (SGOT) 21 IU/L 0-40 Not Available [facility] ([facility]) [address] [place], [address], 10/04/2018 13:07:37 10/04/1910/04/2018 CMP, serum or plasm a ALT (SGPT) 42 IU/L 0-44 Not Available [facility] ([facility]) [address] [place], [address], 10/04/2018 13:07:37 10/04/19 19 10/04/2018 lipid panel , serum cholesterol, total 167 mg/dL 100-19 9 Not Available [facility] ([facility]) [address] [place], [address], 10/04/2018 13:07:38 10/04/19 19 10/04/2018 lipid panel , serum triglyceride s 159 mg/dL 0-149 above high normal Not Available [facility] ([facility] [address] [place], [address], 10/04/2018 13:07:38 10/04/19 19 10/04/2018 lipid panel , serum HDL cholesterol 41 mg/dL >39 Not Available [facility] [address] [place], [address], 10/04/2018 13:07:38 10/04/19 19 10/04/2018 lipid panel , serum VLDL cholesterol bree 32 mg/dL 5-40 Not Available [facility] [address] [place], [address], 10/04/2018 13:07:38 10/04/19 19 10/04/2018 lipid panel , serum LDL cholesterol calc 94 mg/dL 0-99 Not Available [facility] [address] [place], [address], 10/04/2018 13:07:38 10/04/19 19 10/04/2018 lipid panel , serum comment: RN SUPPLEMENTAL Not Available [facility] ([facility]) [address] [place], [address], 10/04/2018 13:07:38 10/04/19 19 10/04/2018 HbA1c (hemo globi n A1c), blood hemoglobin A1C 5.2 % 4.8-5. 6 Predi abete s: 5.7 - 6.4 Diabe jaymie: >6.4 Glyce david contr ol for adult s with diabe jaymie: <7.0 Not Available [facility] ([facility]) [address] [place], [address], 10/04/2018 13:07:38 10/04/19 19 10/04/2018 micro album in, urine albumin, urine 7.8 ug/mL not estab. Not Available [facility] ([facility]) [address], [place], [address], 10/04/2018 13:07:38 10/04/19 19 10/04/2018 cardi ovasc [...] 10-ye ar or lifet dimitri CVD risk. [place] santino trigl yceri sascha may be assoc [...] - HIGH RISK ASSES SMENT AND TREAT [facility] MIKALA WOODWARD S ----- ----- ----- [...] 2008; 31(4) :811- 82. Not Available [facility] ([facility]) [address] [facility], [place], [address], 10/04/2018 13:07:39 10/04/19 19 10/04/2018 cardi ovasc ular asses sment panel , serum pdf image Not applic able Not Available [facility] ([facility]) [address], [place], [address], 10/04/2018 13:07:39 Result Notes None recorded. Problems Name Problem SNOMED Code Status Onset Date Resolution Date Notes Provider Name and Address Organization Details Recorded Time Pain of multiple joints 78700698 Active [address], [place], [address], [facility] - [employer] 13:54:48 Type 2 diabetes mellitus 75822234 Active [address], [place], [address], [facility] - [employer] 13:54:51 Non-smoker 4122482 Active 2018 Ananya Broderick [facility], [place] - [employer] 19:33:44 Hypertriglycer idemia 597258006 Active [address], [place], [address], [facility] - [employer] 20:17:09 Problem Notes None [...] Updated DateTime 9 167.64 cm 34.1 kg/m2 08939.3 9 g 97 % 97 % 74 /min 97.5 [degF] 150 mm[Hg] 80 mm[Hg] Ananya GARCIA - [employer] 9 19:32:46 Date Recorded Body height Body mass index (BMI) Body weight Body temperature Oxygen saturation Oxygen saturation in Arterial blood by Pulse oximetry Heart rate Systolic blood pressure Diastolic blood pressure Provider Name and Address Organization Details Last Updated DateTime 9 167.64 cm 34.2 kg/m2 91435.5 8 g 96.8 [degF] 98 % 98 % 82 /min 132 mm[Hg] 78 mm[Hg] [facility] [employer] 9 19:25:42 Date Recorded Body height Body mass index (BMI) Body weight Oxygen saturation Oxygen saturation in Arterial blood by Pulse oximetry Heart rate Body temperature Systolic blood pressure Diastolic blood pressure Provider Name and Address Organization Details Last Updated DateTime 9 167.64 cm 34.2 kg/m2 89933.5 8 g 98 % 98 % 70 /min 96 [degF] 118 mm[Hg] 70 mm[Hg] [facility] [employer] 9 11:49:30 Date Recorded Body height Body mass index (BMI) Body weight Oxygen saturation Oxygen saturation in Arterial blood by Pulse oximetry Heart rate Body temperature Systolic blood pressure Diastolic blood pressure Provider Name and Address Organization Details Last Updated DateTime 9 167.64 cm 34.6 kg/m2 85774.8 7 g 98 % 98 % 72 /min 97.4 [degF] 115 mm[Hg] 70 mm[Hg] Lisa Kauffman [place] - [employer] 9 13:32:18 Date Recorded Body height Body mass index (BMI) Body weight Oxygen saturation Oxygen saturation in Arterial blood by Pulse oximetry Heart rate Body temperature Systolic blood pressure Diastolic blood pressure Provider Name and Address Organization Details Last Updated DateTime 9 167.64 cm 34.7 kg/m2 16311.3 6 g 97 % 97 % 88 /min 97.4 [degF] 110 mm[Hg] 64 mm[Hg] [facility] [employer] 9 18:25:36 Social History Question Answer Notes LastModified by Organizat ion Details LastModified Time Tobacco Smoking Status Never Smoker Not Available [facility] 11/22/2017 18:44:39 What Is Your Level [...] virus, quadrivalent, PF 12/20/2017 completed Not Available [facility] 02:23:30 Past Encounters Encounter ID Performer Location Encounter Start Date Encounter Closed Date Diagnosis/Indication Diagnosis SNOMED-CT Code Diagnosis ICD10 Code Diagnosis Note [id number] Susanne Cifuentes MD [facility] [place] [address] [place] [phone] 11/26/2017 16:31:13 11/27/2017 17:54:36 Chronic cough 10009438 R05 Renewal of prescription 792180533 Z76.0 [id number] [facility]uentes [facility] [place] [address] [place] [phone] 12/19/2017 18:48:23 12/20/2017 12:04:51 Cough 30375413 R05 Type 2 dana betes mellitus 65363856 E11.9 Administra tion of influenza vaccine 55020884 Z23 [id number] Sus[facility]uentes [facility] [place] [address] [place] [address] 03/20/2018 12:31:04 03/23/2018 15:19:00 Type 2 diabetes mellitus 35096471 E11.9 Pain of mu ltiple joints 81527153 M25.50 [id number] Susanne Cifuentes MD [facility] [place] [address] [place] [phone] 04/14/2018 12:29:39 04/21/2018 18:55:07 Liver enzymes level above reference range 833829813 R74.8 Cough 74383248 R05 Type 2 dana betes mellitus 15777227 E11.9 Hypertriglyceridemia 302 976681 E78.1 Bipolar disorder 1449792 4 F31.9 Stable with current medication . Sees psychiatry on regular basis. [id number] Susanne Cifuentes MD [facility] [address] [place] [phone] 04/21/2018 17:26:23 04/25/2018 09:06:28 Type 2 diabetes mellitus 57351952 E11.9 Continue with current medication s.Increase exercise activity.I ncrease intake of fluids. Liver enzy mes level above reference range 792448778 R74.8 Repeat testing in 3-4 months.Cameron id use of OTC supplement s unless agreed by . Cough 06326049 R05 Plenty of fluids. Avoid any possible triggers. Return to clinic if coughing does not resolve. 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 Report side effects of new medication .Share recent blood results with psych. [id number] Susanne Cifuentes MD [facility] [address] [place] [phone] 06/19/2018 19:09:09 06/23/2018 09:25:29 Type 2 diabetes mellitus 74394487 E11.9 Continue with current medication s.Increase exercise activity.I ncrease intake of fluids. Take twice a day. Hypertriglyceridemia 302 217464 E78.1 Diet Management Obesity 747488216 E66.9 1- Maintain a low carbohydra te [...] good sleep habits. 7- Avoid alcoholic beverages. [id number] Susanne Cifuentes MD [facility] [address] [place] [phone] 09/09/2018 19:06:56 09/22/2018 04:12:46 Chronic cough 94494796 R05 Type 2 dana betes mellitus 40224253 E11.9 Continue with current medication s.Increase exercise activity.I ncrease intake of fluids. Take twice a day. Primary er ectile dysfunction 494420897 N52.9 [id number] Sus[address] Cif[address] MD [facility] [address] [place] [address] 10/08/2018 11:38:14 10/09/2018 01:57:56 Type 2 diabetes mellitus 17106089 E11.9 Continue with current medication s.Increase exercise activity.I ncrease intake of fluids. Take twice a day. Primary er ectile dysfunction 851758305 N52.9 Nonulcer dyspepsia 25962 07 K30 Hyperlipidemia 82752080 E78.1 Health Concerns Section Related Observation LastModified by Organization Detai ls LastModified Time None Recorded Concern Status LastModified by Organization Details LastModified Time None Recorded Advance Directives Directive None Recorded Payers Insurance Date Sequence Insurance Name Policy Number Policy Terrell Covered Member ID Terrell Member ID Guarantor Name 11/22/2017 2 [facility] CARE PLAN [facility] (MEDICARE SUPPLEMENT PLAN) Kwaku Fuller [id number] Kwaku Fuller 10/08/[address] [facility] DUAL COMPLETE - DUAL ELIGIBLE - [place] (MEDICARE-MEDI CAID REPLACEMENT HMO) [facility] Kwaku Fuller [id number] Kwaku Fuller 12/20/2017 2 [facility] CARE [facility] (MEDICAID REPLACEMENT - HMO) Kwaku Fuller [id number] Kwaku Fuller 04/11/2018 2 [facility] CARE [facility] (MEDICAID HMO) Kwaku Fuller [id number] Kwaku Fuller 10/08/2018 2 [facility] (MEDICAID REPLACEMENT - HMO) Kwaku Fuller [id number] Kwaku Fuller Notes Date Note Type Note [...] Susanne Cifuentes MD [address], [place], [address], [facility] - [employer], [facility] 04/18/2018 08:30:29 04/21/19 19 text/htm l Anxiety/DepressionReported [...] Cifuentes MD [address] [address] [place], [address], [facility] [employer] 04/25/2018 09:05:12 06/20/19 19 text/htm l Here to go over recent blood testing to check on liver enzymes elevation. Patient has reduced the use of over the counter supplements. He denies symptoms of abdominal pain, no nausea or vomiting, no fever or chills. Susanne Cifuentes MD [address], [place], [address], [facility] [employer] 06/23/2018 09:24:46 06/20/19 19 text/htm l [...] Cifuentes MD [address], [place], [address], [facility] - [employer], [facility] 06/23/2018 09:24:46 09/10/19 19 text/htm l DiabetesReported [...] Cifuentes MD [address], [place], [address], [facility] [employer] 09/22/2018 02:29:35 10/09/19 19 text/htm l [...] Cifuentes MD [address], [place], [address], [facility] [employer] 10/09/2018 01:57:42
== END 2024-08-03 13:43 | disposition home or self-care (01) ==
LOC: HO.HMCFM 11:53
PROVIDERS: PCP Family Medicine; Visit Provider Family Medicine
DX: E11.9 Type 2 diabetes mellitus without complications (principal); E78.5 Hyperlipidemia, unspecified; R79.89 Other specified abnormal findings of blood chemistry; K76.0 Fatty (change of) liver, not elsewhere classified; M54.9 Dorsalgia, unspecified

== ENCOUNTER → 2024-08-03 11:53 | Outpatient (BNVA) | payer MEDICARE, MEDICAID, SELFPAY | PROVIDERS: PCP Family Medicine; Visit Provider Family Medicine | DX: E11.9 Type 2 diabetes mellitus without complications (principal); E78.5 Hyperlipidemia, unspecified; R79.89 Other specified abnormal findings of blood chemistry; K76.0 Fatty (change of) liver, not elsewhere classified; M54.9 Dorsalgia, unspecified | CPT/HCPCS: 83036; 99212 ==

== ENCOUNTER 2024-09-08 11:46 | Outpatient (REF) | payer MEDICARE, MEDICAID, SELFPAY ==
--- OUTSIDE RECORDS SUMMARY | 2024-09-08 13:28 | XMS_ITS | Data Portability ---
Author Organization [place] - [employer], [facility] [place] [address] [place] [address] Care Team Providers Care Surgical Instrument Technician Name Role Phone SUSANNE CIFUENTES Primary Care Provider Assessment No assessment recorded. Plan of Treatment Reminders Order Date Submit Date Provider Last Modified By Organization Details Last Modified Time Details Appointments None recorded. Lab CMP, serum or plasma 2018 019 JANESSA [facility], [address], [address], [place], [address], 9 13:07:37 lipid panel, serum 2018 019 JANESSA [facility], [address], [address], [place], [address], 9 13:07:38 microalbum in, QN, unspecifie d duration, urine 2018 019 JANESSA [facility], [address], [address], [place], [address], 9 19:43:31 hemoglobin A1c, QN, blood 2018 019 JANESSA [facility], [address], [address], [place], [address], 9 19:43:30 hepatic function panel, serum 2018 019 [facility] 1 [facility], [address], [address], [place], [address], 9 11:10:18 Referral None recorded. Procedures None recorded. Surgeries None recorded. Imaging None recorded. Medication Orders sildenafil (pulmonary hypertensi on) 20 mg tablet 2018 019 [email or web address] [id number], [address], [place], [address], 9 13:28:14 omeprazole 20 mg capsule,de layed release 2018 019 INTERFACE [facility], [address], [place], [address], 9 12:28:28 metformin 850 mg tablet 2018 019 INTERFACE [facility], [address], [place], [address], 9 12:25:10 OneTouch Verio test strips 2018 019 INTERFACE [facility], [address], [place], [address], 9 12:26:43 sildenafil (pulmonary hypertensi on) 20 mg tablet 2018 019 INTERFACE [facility], [address], [place], [address], 9 19:47:22 metformin 850 mg tablet 2018 019 INTERFACE [facility], [address], [place], [address], 9 19:43:26 Robitussin Cough-Ches t Congestion DM 5 mg-100 mg/5 mL oral liquid 2018 019 INTERFACE [facility], [address], [place], [address], 9 19:36:41 Cheratussi n AC 10 mg-100 mg/5 mL oral liquid 2018 019 [facility] 1 [facility], [address], [place], [address], 9 19:32:59 benzonatat e 200 mg capsule 2018 019 page hospital 1 [id number], [address], [place], [place], [id number], 9 19:33:03 Patient Targets Encounter Date Encounter Id Patient Goals Patient Target Last Modified By Organization Details Last Modified Time 04/21/2018 [id number] Stop all vitamin supplementation for the next 2 weeks. Continue with current Metformin. [email or web address] Not available 04/21/2018 18:53:30 Patient Instructions Encounter Date Encounter Id Patient Instructions Last Modified By Organization Details Last Modified Time 06/19/2018 [id number] [email or web address] Not available 06/23 09:14:39 09/09/2018 [id number] chronic cough: care instructions [email or web address] Not available 09/09/2018 19:36:39 Increase fluid intake. Use of Vaporizer is recommended Rest until afebrile Becker pot or saline rinses. Tylenol or Motrin [...] prescribed. [email or web address] Not available 09/22/2018 02:29:19 10/08/2018 [id number] learning about type 2 diabetes [email or web address] Not [...] glucose 99 mg/dL 65-99 Not Available [facility] ([facility]) [address] [place], [address], 04/05/2018 09:18:42 04/04/1904/05/2018 CMP, serum or plasm a BUN 10 mg/dL 6-24 Not Available [facility] ([facility]) [address] [place], [address], 04/05/2018 09:18:42 04/04/1904/05/2018 CMP, serum or plasm a creatinine 0.82 mg/dL 0.76-1 .27 Not Available [facility] ([facility]) [address] [place], [address], 04/05/2018 09:18:42 04/04/1904/05/2018 CMP, serum or plasm a eGFR if nonafricn AM 106 mL/mi n/1.7 3 >59 Not Available [facility] ([facility]) [address] [place], [address], 04/05/2018 09:18:42 04/04/1904/05/2018 CMP, serum or plasm a eGFR if africn AM 123 mL/mi n/1.7 3 >59 Not Available [facility] ([facility]) [address] [place], [address], 04/05/2018 09:18:42 04/04/1904/05/2018 CMP, serum or plasm a BUN/creatini ne ratio 12 9-20 Not Available [facility] ([facility]) [address] [place], [address], 04/05/2018 09:18:42 04/04/1904/05/2018 CMP, serum or plasm a sodium 139 mmol/ L 134-14 4 Not Available [facility] ([facility]) [address] [place], [address], 04/05/2018 09:18:42 04/04/1904/05/2018 CMP, serum or plasm a potassium 4.5 mmol/ L 3.5-5. 2 Not Available [facility] ([facility]) [address] [place], [address], 04/05/2018 09:18:42 04/04/1904/05/2018 CMP, serum or plasm a chloride 102 mmol/ L 96-106 Not Available [facility] ([facility]) [address] [place], [address], 04/05/2018 09:18:42 04/04/1904/05/2018 CMP, serum or plasm a carbon dioxide, total 23 mmol/ L 20-29 Not Available [facility] ([facility]) [address] [place], [address], 04/05/2018 09:18:42 04/04/1904/05/2018 CMP, serum or plasm a calcium 9.4 mg/dL 8.7-10 .2 Not Available [facility] ([facility]) [address] [place], [address], 04/05/2018 09:18:42 04/04/1904/05/2018 CMP, serum or plasm a protein, total 6.9 g/dL 6.0-8. 5 Not Available [facility] ([facility]) [address] [place], [address], 04/05/2018 09:18:42 04/04/1904/05/2018 CMP, serum or plasm a albumin 4.6 g/dL 3.5-5. 5 Not Available [facility] ([facility]) [address] [place], [address], 04/05/2018 09:18:42 04/04/1904/05/2018 CMP, serum or plasm a globulin, total 2.3 g/dL 1.5-4. 5 Not Available [facility] ([facility]) [address] [place], [address], 04/05/2018 09:18:42 04/04/1904/05/2018 CMP, serum or plasm a A/G ratio 2.0 1.2-2. 2 Not Available [facility] ([facility]) [address] [place], [address], 04/05/2018 09:18:42 04/04/1904/05/2018 CMP, serum or plasm a bilirubin, total 0.4 mg/dL 0.0-1. 2 Not Available [facility] ([facility]) [address] [place], [address], 04/05/2018 09:18:42 04/04/1904/05/2018 CMP, serum or plasm a alkaline phosphatase 58 IU/L 39-117 Not Available [facility] [address] [place], [address], 04/05/2018 09:18:42 04/04/1904/05/2018 CMP, serum or plasm a AST (SGOT) 30 IU/L 0-40 Not Available [facility] ([facility]) [address] [place], [address], 04/05/2018 09:18:42 04/04/1904/05/2018 CMP, serum or plasm a ALT (SGPT) 84 IU/L 0-44 above high normal Not Available [facility] ([facility]) [address] [place], [address], 04/05/2018 09:18:42 04/04/1904/05/2018 lipid panel , serum cholesterol, total 173 mg/dL 100-19 9 Not Available [facility] ([facility]) [address] [place], [address], 04/05/2018 09:18:43 04/04/1904/05/2018 lipid panel , serum triglyceride s 179 mg/dL 0-149 above high normal Not Available [facility] ([facility]) [address] [place], [address], 04/05/2018 09:18:43 04/04/1904/05/2018 lipid panel , serum HDL cholesterol 41 mg/dL >39 Not Available [facility]) [address] [place], [address], 04/05/2018 09:18:43 04/04/1904/05/2018 lipid panel , serum VLDL cholesterol bree 36 mg/dL 5-40 Not Available [facility]) [address] [place], [address], 04/05/2018 09:18:43 04/04/1904/05/2018 lipid panel , serum LDL cholesterol calc 96 mg/dL 0-99 Not Available [facility]) [address] [place], [address], 04/05/2018 09:18:43 04/04/1904/05/2018 lipid panel , serum comment: BACK ROLLER Not Available [facility] ([facility]) [address], [place], [address], 04/05/2018 09:18:43 04/04/1904/05/2018 cardi sridharmagalie edwards smjuan panel , serum interpretati on Note ----- ----- ----- ----- ----- ----- - CARDI OVASC ULAR REPOR T: ----- ----- ----- ----- ----- ----- - Curre nt avail able clini bree infor matletty n sugge sts the patie nt's risk [...] if clini eliecer indic ated. - Thera pejulissai c lifes yenni diallo es are alway [...] LOW RISK ASSES SMENT AND TREAT MENT SUGGE STION S ----- ----- ----- ----- ----- ----- [...] 10-ye ar or lifet dimitri CVD risk. [place] santino trigl yceri sascha may be assoc iated with incre ased cardi ovasc ular risk due to incre ased numbe rs of ather ogeni c lipop rotei n parti cles. Co-mo rbid condi tions shoul d be evalu ated and treat ed. ----- ----- ----- ----- ----- ----- - INTER MEDIA TE RISK ASSES SMENT AND TREAT [facility] MIKALA WOODWARD S ----- ----- ----- ----- [...] - HIGH RISK ASSES SMENT AND TREAT [facility] MIKALA WOODWARD S ----- ----- ----- ----- [...] ded to repla ce the physi [facility] s clini bree judgm ent. They are deriv ed from natio nal guide lines in addit ion to other evide nce and exper t opini on. The clini annabel shoul d consi clifton this infor matletty n withi n the alda xt of [...] 2008; 31(4) :811- 82. Not Available [facility] ([facility]) [address], [place], [address], 04/05/2018 09:18:44 04/04/19 19 04/05/2018 cardi ovasc ular asses sment panel , serum pdf image Not applic able Not Available [facility] ([facility]) [address], [place], [address], 04/05/2018 09:18:44 04/04/19 19 04/06/2018 HbA1c (hemo [...] (ADA) Not Available [facility] [address] [place], [address], 04/06/2018 09:07:49 04/04/19 19 04/06/2018 HbA1c (hemo globi n A1c), blood estimated average glucose 97 mg/dL Not Available [facility] [address] [facility], [place], [address], 04/06/2018 09:07:49 04/04/1904/06/2018 HbA1c (hemo globi n A1c), blood glycomark(R) [...] s. Not Available [facility] [address] [facility], [place], [address], 04/06/2018 09:07:49 04/04/19 19 04/05/2018 micro album in, urine albumin, urine <3.0 ug/mL not estab. Not Available [facility] ([facility]) [address] [place], [address], 04/06/2018 09:07:49 06/14/1906/14/2018 hepat ic funct ion panel , serum protein, total 7.0 g/dL 6.0-8. 5 Not Available [facility] ([facility]) [address] [place], [address], 06/14/2018 09:14:53 06/14/1906/14/2018 hepat ic funct ion panel , serum albumin 4.6 g/dL 3.5-5. 5 Not Available [facility] ([facility]) [address] [place], [address], 06/14/2018 09:14:53 06/14/19 19 06/14/2018 hepat ic funct ion panel , serum bilirubin, total 0.5 mg/dL 0.0-1. 2 Not Available [facility] ([facility]) [address] [place], [address], 06/14/2018 09:14:53 06/14/1906/14/2018 hepat ic funct ion panel , serum bilirubin, direct 0.13 mg/dL 0.00-0 .40 Not Available [facility] ([facility]) [address] [place], [address], 06/14/2018 09:14:53 06/14/1906/14/2018 hepat ic funct ion panel , serum alkaline phosphatase 63 IU/L 39-117 Not Available [facility]) [address] [place], [address], 06/14/2018 09:14:53 06/14/1906/14/2018 hepat ic funct ion panel , serum AST (SGOT) 19 IU/L 0-40 Not Available [facility] ([facility]) [address] [place], [address], 06/14/2018 09:14:53 06/14/19 19 06/14/2018 hepat ic funct ion panel , serum ALT (SGPT) 41 IU/L 0-44 Not Available [facility] ([facility]) [address] [place], [address], 06/14/2018 09:14:53 10/04/19 19 10/04/2018 CMP, serum or plasm a glucose 89 mg/dL 65-99 Not Available [facility] ([facility]) [address] [place], [address], 10/04/2018 13:07:37 10/04/19 19 10/04/2018 CMP, serum or plasm a BUN 15 mg/dL 6-24 Not Available [facility] ([facility]) [address] [place], [address], 10/04/2018 13:07:37 10/04/19 19 10/04/2018 CMP, serum or plasm a creatinine 0.83 mg/dL 0.76-1 .27 Not Available [facility] ([facility]) [address] [place], [address], 10/04/2018 13:07:37 10/04/19 19 10/04/2018 CMP, serum or plasm a eGFR if nonafricn AM 106 mL/mi n/1.7 3 >59 Not Available [facility] ([facility]) [address] [place], [address], 10/04/2018 13:07:37 10/04/19 19 10/04/2018 CMP, serum or plasm a eGFR if africn AM 122 mL/mi n/1.7 3 >59 Not Available [facility] ([facility]) [address] [place], [address], 10/04/2018 13:07:37 10/04/19 19 10/04/2018 CMP, serum or plasm a BUN/creatini ne ratio 18 9-20 Not Available [facility]) [address] [place], [address], 10/04/2018 13:07:37 10/04/19 19 10/04/2018 CMP, serum or plasm a sodium 139 mmol/ L 134-14 4 Not Available [facility] ([facility]) [address] [place], [address], 10/04/2018 13:07:37 10/04/19 19 10/04/2018 CMP, serum or plasm a potassium 4.3 mmol/ L 3.5-5. 2 Not Available [facility] ([facility]) [address] [place], [address], 10/04/2018 13:07:37 10/04/19 19 10/04/2018 CMP, serum or plasm a chloride 102 mmol/ L 96-106 Not Available [facility] ([facility]) [address] [place], [address], 10/04/2018 13:07:37 10/04/19 19 10/04/2018 CMP, serum or plasm a carbon dioxide, total 20 mmol/ L 20-29 Not Available [facility] ([facility]) [address] [place], [address], 10/04/2018 13:07:37 10/04/19 19 10/04/2018 CMP, serum or plasm a calcium 9.2 mg/dL 8.7-10 .2 Not Available [facility] ([facility]) [address] [place], [address], 10/04/2018 13:07:37 10/04/1910/04/2018 CMP, serum or plasm a protein, total 7.1 g/dL 6.0-8. 5 Not Available [facility] ([facility]) [address] [place], [address], 10/04/2018 13:07:37 10/04/19 19 10/04/2018 CMP, serum or plasm a albumin 4.7 g/dL 3.5-5. 5 Not Available [facility] ([facility]) [address] [place], [address], 10/04/2018 13:07:37 10/04/19 19 10/04/2018 CMP, serum or plasm a globulin, total 2.4 g/dL 1.5-4. 5 Not Available [facility] ([facility]) [address] [place], [address], 10/04/2018 13:07:37 10/04/19 19 10/04/2018 CMP, serum or plasm a A/G ratio 2.0 1.2-2. 2 Not Available [facility] ([facility]) [address] [place], [address], 10/04/2018 13:07:37 10/04/19 19 10/04/2018 CMP, serum or plasm a bilirubin, total 0.5 mg/dL 0.0-1. 2 Not Available [facility] ([facility]) [address] [place], [address], 10/04/2018 13:07:37 10/04/19 19 10/04/2018 CMP, serum or plasm a alkaline phosphatase 60 IU/L 39-117 Not Available [facility] ([facility]) [address] [place], [address], 10/04/2018 13:07:37 10/04/19 19 10/04/2018 CMP, serum or plasm a AST (SGOT) 21 IU/L 0-40 Not Available [facility] ([facility]) [address] [place], [address], 10/04/2018 13:07:37 10/04/19 19 10/04/2018 CMP, serum or plasm a ALT (SGPT) 42 IU/L 0-44 Not Available [facility] ([facility]) [address] [place], [address], 10/04/2018 13:07:37 10/04/19 19 10/04/2018 lipid panel , serum cholesterol, total 167 mg/dL 100-19 9 Not Available [facility] ([facility]) [address] [place], [address], 10/04/2018 13:07:38 10/04/19 19 10/04/2018 lipid panel , serum triglyceride s 159 mg/dL 0-149 above high normal Not Available [facility] ([facility]) [address], [place], [address], 10/04/2018 13:07:38 10/04/19 19 10/04/2018 lipid panel , serum HDL cholesterol 41 mg/dL >39 Not Available [facility]) [address], [place], [address], 10/04/2018 13:07:38 10/04/19 19 10/04/2018 lipid panel , serum VLDL cholesterol bree 32 mg/dL 5-40 Not Available [facility] ([facility]) [address], [place], [address], 10/04/2018 13:07:38 10/04/19 19 10/04/2018 lipid panel , serum LDL cholesterol calc 94 mg/dL 0-99 Not Available [facility] ([facility]) [address] [place], [address], 10/04/2018 13:07:38 10/04/19 19 10/04/2018 lipid panel , serum comment: BACK ROLLER Not Available [facility] ([facility]) [address], [place], [address], 10/04/2018 13:07:38 10/04/19 19 10/04/2018 HbA1c (hemo globi n A1c), blood hemoglobin A1C 5.2 % 4.8-5. 6 Predi abete s: 5.7 - 6.4 Diabe jaymie: >6.4 Glyce david contr ol for adult s with diabe jaymie: <7.0 Not Available [facility] ([facility]) [address], [place], [address], 10/04/2018 13:07:38 10/04/19 19 10/04/2018 micro album in, urine albumin, urine 7.8 ug/mL not estab. Not Available [facility] ([facility]) [address], [place], [address], 10/04/2018 13:07:38 10/04/19 19 10/04/2018 cardi ovasc ular asses sment panel , serum interpretati on Note [...] 10-ye ar or lifet dimitri CVD risk. [place] santino trigl yceri sascha may be [...] - HIGH RISK ASSES SMENT AND TREAT MENT MIKALA STION S ----- ----- ----- ----- ----- ----- [...] ded to repla ce the physi [facility]' s clini bree judgm ent. They are [...] 2008; 31(4) :811- 82. Not Available [facility] ([facility]) [address], [place], [address], 10/04/2018 13:07:39 10/04/19 19 10/04/2018 cardi ovasc ular asses sment panel , serum pdf image Not applic able Not Available [facility] ([facility]) [address], [place], [address], 10/04/2018 13:07:39 Result Notes None recorded. Problems Name Problem SNOMED Code Status Onset Date Resolution Date Notes Provider Name and Address Organization Details Recorded Time Pain of multiple joints 66513822 Active [address], [place], [address], [facility] - [facility] 13:54:48 Type 2 diabetes mellitus 53678167 Active [address], [place], [address], [facility] - [facility] 13:54:51 Non-smoker 7977773 Active 2018 Ananya Broderick [facility], [place] - [facility] 19:33:44 Hypertriglycer idemia 045367000 Active [address], [place], [address], [facility] - [facility] 20:17:09 Problem Notes None recorded. [...] Not Available Not Available N ot Available onetouch jaymie ultra bl active Not [...] Updated DateTime 9 167.64 cm 34.6 kg/m2 10995.8 7 g 98 % 98 % 72 /min 97.4 [degF] 115 mm[Hg] 70 mm[Hg] Lisa Kauffman [place] - [facility] 9 13:32:18 Date Recorded Body height Body mass index (BMI) Body weight Oxygen saturation Oxygen saturation in Arterial blood by Pulse oximetry Heart rate Body temperature Systolic blood pressure Diastolic blood pressure Provider Name and Address Organization Details Last Updated DateTime 167.64 cm 34.7 kg/m2 40907.3 6 g 97 % 97 % 88 /min 97.4 [degF] 110 mm[Hg] 64 mm[Hg] Lisa Kauffman [place] - [facility] 9 18:25:36 Date Recorded Body height Body mass index (BMI) Body weight Oxygen saturation Oxygen saturation in Arterial blood by Pulse oximetry Heart rate Body temperature Systolic blood pressure Diastolic blood pressure Provider Name and Address Organization Details Last Updated DateTime 9 167.64 cm 34.1 kg/m2 16754.3 9 g 97 % 97 % 74 /min 97.5 [degF] 150 mm[Hg] 80 mm[Hg] Ananya Broderick [facility] 9 19:32:46 Date Recorded Body height Body mass index (BMI) Body weight Body temperature Oxygen saturation Oxygen saturation in Arterial blood by Pulse oximetry Heart rate Systolic blood pressure Diastolic blood pressure Provider Name and Address Organization Details Last Updated DateTime 9 167.64 cm 34.2 kg/m2 46740.5 8 g 96.8 [degF] 98 % 98 % 82 /min 132 mm[Hg] 78 mm[Hg] [facility] 9 19:25:42 Date Recorded Body height Body mass index (BMI) Body weight Oxygen saturation Oxygen saturation in Arterial blood by Pulse oximetry Heart rate Body temperature Systolic blood pressure Diastolic blood pressure Provider Name and Address Organization Details Last Updated DateTime 167.64 cm 34.2 kg/m2 75386.5 8 g 98 % 98 % 70 /min 96 [degF] 118 mm[Hg] 70 mm[Hg] [facility]old [facility] 11:49:30 Social History Question Answer Notes LastModified by Organizat ion Details LastModified Time Tobacco Smoking Status Never Smoker Not Available [facility] 11/22/2017 18:44:39 What Is Your Level Of [...] virus, quadrivalent, PF 12/20/2017 completed Not Available [facility] 0 02:23:30 Past Encounters Encounter ID Performer Location Encounter Start Date Encounter Closed Date Diagnosis/Indication Diagnosis SNOMED-CT Code Diagnosis ICD10 Code Diagnosis Note [id number] Susanne Cifuentes MD [facility] [place] [address] [place] [address] 11/26/2017 16:31:13 11/27/2017 17:54:36 Chronic cough 16003856 R05 Renewal of prescription 768240304 Z76.0 [id number] [facility] [place] [address] [address] 12/19/2017 18:48:23 12/20/2017 12:04:51 Cough 84819509 R05 Type 2 dana betes mellitus 19000801 E11.9 Administra tion of influenza vaccine 32839301 Z23 [id number] Susanne Cifuentes MD [facility] [place] [address] [place] [address] 03/20/2018 12:31:04 03/23/2018 15:19:00 Type 2 diabetes mellitus 85114767 E11.9 Pain of mu ltiple joints 27232556 M25.50 [id number] Susanne Cifuentes MD [facility] [address] [place] [address] 04/14/2018 12:29:39 04/21/2018 18:55:07 Liver enzymes level above reference range 567009832 R74.8 Cough 21511807 R05 Type 2 dana betes mellitus 19950532 E11.9 Hypertriglyceridemia 302 187364 E78.1 Bipolar disorder 9611173 4 F31.9 Stable with current medication . Sees psychiatry on regular basis. [id number] Susanne Cifuentes MD [facility] [address] [place] [phone] 04/21/2018 17:26:23 04/25/2018 09:06:28 Type 2 diabetes mellitus 17740268 E11.9 Continue with current medication s.Increase exercise activity.I ncrease intake of fluids. Liver enzy mes level above reference range 553449536 R74.8 Repeat testing in 3-4 months.Cameron id use of OTC supplement s unless agreed by MD. Cough 05644862 R05 Plenty of fluids. Avoid any possible triggers. Return to clinic if coughing does not resolve. 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 Report side effects of new medication .Share recent blood results with psych. [id number] Susanne Cifuentes MD [facility] [address] [place] [address] 06/19/2018 19:09:09 06/23/2018 09:25:29 Type 2 diabetes mellitus 97373541 E11.9 Continue with current medication s.Increase exercise activity.I ncrease intake of fluids. Take twice a day. Hypertriglyceridemia 302 574841 E78.1 Diet Management Obesity 894729153 E66.9 1- Maintain a low carbohydra te [...] good sleep habits. 7- Avoid alcoholic beverages. [id number] Susanne Cifuentes MD [facility] [address] [place] [address] 09/09/2018 19:06:56 09/22/2018 04:12:46 Chronic cough 79290163 R05 Type 2 dana betes mellitus 55773373 E11.9 Continue with current medication s.Increase exercise activity.I ncrease intake of fluids. Take twice a day. Primary er ectile dysfunction [id number] N52.9 [id number] Susanne Cifuentes MD [facility] [id number] ,[facility] [address] [place] [address] 10/08/2018 11:38:14 10/09/2018 01:57:56 Type 2 diabetes mellitus [id number] E11.9 Continue with current medication s.Increase exercise activity.I ncrease intake of fluids. Take twice a day. Primary er ectile dysfunction [id number] N52.9 Nonulcer dyspepsia 18219 07 K30 Hyperlipidemia [id number] E78.1 Health Concerns Section Related Observation LastModified by Organization Detai ls LastModified Time None Recorded Concern Status LastModified by Organization Details LastModified Time None Recorded Advance Directives Directive None Recorded Payers Insurance Date Sequence Insurance Name Policy Number Policy Terrell Covered Member ID Terrell Member ID Guarantor Name 11/22/[address] [facility] (MEDICARE SUPPLEMENT PLAN) Kwaku Fuller [id number] Kwaku Fuller 10/08/2018 1 [facility] - DUAL ELIGIBLE (MEDICARE REPLACEMENT/AD VANTAGE - HMO) [facility] Kwaku Fuller [id number] Kwaku Fuller 12/20/2017 2 [facility] (MEDICAID REPLACEMENT - HMO) Kwaku Fuller [id number] Kwaku Fuller 04/11/[address] [facility] (MEDICAID HMO) Kwaku Fuller [id number] Kwaku Fuller 10/08/2018 2 [facility] (MEDICAID REPLACEMENT - HMO) Kwaku Fuller [id number] Kwaku Fuller Notes Date Note Type Note [...] including Vitamin D3. Susanne Cifuentes MD [address] ,[address], [place], [address], [facility] - [facility] [employer], [facility] 04/18/2018 08:30:29 04/21/19 19 text/htm l Anxiety/DepressionReported [...] Cifuentes MD [address], [place], [address], [facility] [employer] 04/25/2018 09:05:12 06/20/19 19 text/htm l Here to go over recent blood testing to check on liver enzymes elevation. Patient has reduced the use of over the counter supplements. He denies symptoms of abdominal pain, no nausea or vomiting, no fever or chills. Susanne Cifuentes MD [address], [place], [address], [facility] [employer] 06/23/2018 09:24:46 06/20/19 19 text/htm l Anxiety/DepressionReported [...] Cifuentes MD [address], [place], [address], [facility] [employer] 06/23/2018 09:24:46 09/10/19 19 text/htm l DiabetesReported [...] No sick contact. Current Status of Illness: Same. Onset of Symptoms: 1 month ago. Location of Symptoms: lower airways. Laterality: N/A. Duration of Symptoms: Intermittent Severity of Symptoms: Moderate. Aggravating Factors: when exposed to dust and [...] or stools. Medications used for Symptoms: Tylenol: no. Ibuprofen: no. Prescription medication: no. Related Past Surgical Intervention: no. Regular Medications Used: Refer to med list. Similar Symptoms in the Past: Yes Related mental illness/s: Positive History of Depression and Anxiety. Susanne Cifuentes MD [address], [place], [address], [facility] [employer] 09/22/2018 02:29:35 10/09/19 19 text/htm l DiabetesReported [...] Cifuentes MD [address], [place], [address], [facility] - [employer] 10/09/2018 01:57:42
[2024-09-08 14:33] LABS: Alanine Aminotransferase 67 U/L (0-40); Albumin Level 4.4 g/dL (3.5-5.0); Alkaline Phosphatase 51 U/L (39-117); Anion Gap 11 (12-20); Aspartate Amino Transferase 31 U/L (5-37); Bilirubin Total 0.6 mg/dL (0.0-1.0); Blood Urea Nitrogen 19 mg/dL (9-16); Calcium 8.8 mg/dL (8.4-10.2); Carbon Dioxide 22 mmol/L (22-29); Chloride 109 mmol/L (96-108); Cholesterol 170 mg/dL (<200); Estimated Glomerular Filt Rate > 60; Glucose Fasting 95 mg/dL (60-99); HDL Cholesterol 38 mg/dL (>40); LDL Cholesterol Calculated 113 mg/dL (<100); Potassium 4.1 mmol/L (3.3-5.1); Sodium 138 mmol/L (135-145); Total Protein 6.9 g/dL (6.5-8.0); Triglycerides 99 mg/dL (<150)
== END 2024-09-08 11:47 | disposition home or self-care (01) ==
LOC: HO.WFDLDS 11:46
PROVIDERS: Visit Provider Family Medicine
DX: Z00.00 Encounter for general adult medical examination without abnormal findings (principal); R74.8 Abnormal levels of other serum enzymes; E78.6 Lipoprotein deficiency
CPT/HCPCS: 36415; 80053; 80061

== ENCOUNTER 2024-09-09 12:58 | Outpatient (REF) | payer MEDICARE, MEDICAID, SELFPAY ==
--- NOTE | ~2024-09-09 | US_ITS ---
EXAMINATION: US ABDOMEN LIMITED WITH LIVER ELASTOGRAPHY HISTORY: R74.8 - Abnormal levels of other serum enzymes TECHNIQUE: Real-time grayscale ultrasound imaging of the right upper quadrant was performed and images were reviewed. COMPARISON: Comparison is made with the prior examination dated 12/07/2021. FINDINGS: Liver: The right lobe of the liver measures 17.4 cm in size. The left lobe of the liver measures 7.8 cm in size. The liver demonstrates increased echotexture, consistent with steatosis. No focal mass or intrahepatic biliary ductal dilatation is identified. There is normal hepatopedal flow in the portal vein. Ultrasound elastography of the liver was performed with 10 separate measurements of the liver parenchyma with the patient in the supine position. Measurements were obtained approximately 2 cm below Mary's capsule and perpendicular to the capsule. The median shear wave velocity is 0.86 m/s (previously 1.75 m/s). The interquartile range/median (IQR/median) is 0.03. Gallbladder and biliary tree: The gallbladder is unremarkable, without evidence of calculi, wall thickening, or pericholecystic fluid. There is no sonographic Jacobson sign. The common bile duct is normal in caliber measuring 4 mm. Right Kidney: The right kidney measures 12.1 cm in length. The right kidney is unremarkable, without evidence of masses, hydronephrosis, or calculi. Pancreas: The pancreatic head, neck, and body are unremarkable. The pancreatic tail is obscured by bowel gas. Abdominal aorta and inferior vena cava: The visualized portions of the abdominal aorta and inferior vena cava are normal in caliber. There is no free fluid in the right upper quadrant. US/US abdomen hendrickson w elastography IMPRESSION: Hepatic steatosis. The median shear wave velocity in the liver is 0.86 m/s, corresponding to a median liver stiffness of 2.2 kPa. The IQR/median value is 0.03. This is indicative of a quality data set. Findings are indicative of a normal elastography value with a low likelihood of severe fibrosis or cirrhosis. REFERENCE: Society of Radiologists in Ultrasound Liver Stiffness Thresholds (2019): LIVER STIFFNESS THRESHOLDS: *Shear wave velocity less than 1.3 m/s (Liver Stiffness equal or less than 5 kPa): High probability of being normal. *Shear wave velocity less than 1.7 m/s (Liver Stiffness less than 9 kPa): In the absence of other known clinical signs, rules out compensated advanced chronic liver disease. *Shear wave velocity between 1.7-2.1 m/s (Liver Stiffness 9-13 kPa): Suggestive of compensated advanced chronic liver disease but need further test for confirmation. *Shear wave velocity between 2.1-2.4 m/s (Liver Stiffness 13-17 kPa): Rules in compensated advanced chronic liver disease. *Shear wave velocity greater than 2.4 m/s (Liver Stiffness over 17 kPa): Suggestive of clinically significant portal hypertension. QUALITY OF DATA SET: *IQR/Median value equal or less than 0.30 implies a quality data set. *IQR/Median value over 0.30 implies a poor quality data set. SIGNIFICANT CHANGE FROM PRIOR EXAM: Significant change if liver stiffness measurement is 10% or greater from prior exam. OTHER CONSIDERATIONS: The stage of liver fibrosis may be overestimated in the setting of acute hepatitis, liver inflammation, elevated liver function tests, hepatic vascular congestion, obstructive cholestasis, non-fasting state, and infiltrative diseases such as amyloidosis and lymphoma. In some patients with NAFLD, the liver stiffness thresholds for compensated advanced chronic liver disease may be lower. In causes other than viral hepatitis and NAFLD, liver stiffness thresholds are not well established. Electronically signed by: Doni Pal MD 09/09/2024 02:05 PM EDT
== END 2024-09-09 12:59 | disposition home or self-care (01) ==
LOC: HO.US 12:58
PROVIDERS: PCP Family Medicine; Visit Provider Family Medicine
DX: R74.8 Abnormal levels of other serum enzymes (principal)
CPT/HCPCS: 76705; 76981

== ENCOUNTER → 2024-09-09 12:59 | Outpatient (BNV) | payer MEDICARE, MEDICAID, SELFPAY | PROVIDERS: PCP Family Medicine; Visit Provider Radiology Diagnostic Radiology | DX: K76.0 Fatty (change of) liver, not elsewhere classified (principal) | CPT/HCPCS: 76705 ==

== ENCOUNTER 2024-09-11 14:07 | Outpatient (AMB) | payer MEDICARE, MEDICAID, SELFPAY ==
--- NOTE | 2024-09-11 14:16 | A.OFFPC_ITS ---
Vital Signs 09/11/24 14:19 Height 5 ft 5 in Weight 215 lb 8 oz BMI 35.9 BP 102/62 Blood Pressure Location Lt brachial Position Sitting Respiration 14 Pulse 68 Pulse Source Pulse Oximeter Temp 97.9 F Temp Source Oral Pulse Oximetry (%) 98 Oxygen Delivery Method Room Air Intake Visit Reasons: f/u diabetes Intake Note: Follow up diabetes. Stopped ezetemibe two weeks ago due to neck pain. Student Activities Director Required: No Allergies ezetimibe Allergy (Severe, Verified 09/11/24 14:19) neck pain Tobacco use date assessed: 09/11/24 Dental Screening Dental Screen Date: 05/06/24 HPI f/u diabetes HPI Details 53 y/o male presents to f/u diabetes, ronic conditions. Elevated liver enzymes. Had started him on Zetia. Had been on statin but did not tolerate genertic artovastatin. Lipitor had been getting rejected by his insurance frequently. Had stopped Zetia 2 weeks ago due to neck pain. Labs drawn 09/08/24. Reviewed labs with pt. Elevated ALT of 67. Triglycerides 99. TC 170. LDL 113. HDL low at 38. Last A1c 08/03/24 4.7%. Liver elastography 09/09/24 shows hepatic steatosis. HPI Comments History of Present Illness Details Documentation assistance for Javier Aguirre MD, was provided by Yaakov Kasper,? [employer] on 09/11/2024 at 2:18 PM EST. I, Dr. Aguirre, have read, observed, and verified documentation. ?? [facility] Medical History Nonalcoholic fatty liver disease Elevated LFTs Hyperlipidemia DM II (diabetes mellitus, type II), controlled DM2 (diabetes mellitus, type 2) Surgical History No pertinent past surgical history Family History Mother No problems noted. Father No problems noted. Social History (Updated 09/11/24 @ 14:19 by Barbara Ellis CMA) Housing: Apartment Alcohol intake: never Patient Tobacco Use Status: Never used Tobacco e-Cigarette/Vaping Use: Never Used Second Hand Smoke Exposure: No service: No Current occupational status: unemployed Current occupational exposures/hazards: No Cognitive needs: No Hearing needs: No Vision needs: No Questionnaire Thrive Questionnaire Date Thrive assessed: 08/03/24 I am a: Patient What is your living situation today?: I have a steady place to live Within the past 12 months, did the food you bought not last and you didn't have the money to get more?: Often true Within the past 12 months, did you worry whether your food would run out before you got money to buy more?: Often true Do you have trouble paying for medicines?: No Do you have trouble getting transportation to medical appointments?: No Do you have trouble paying your heating and electricity bill?: No Do you have trouble taking care of your child, family member or friend?: No Do you have trouble with day-to-day activities such as bathing, preparing meals, shopping, managing finances, etc.?: No Are you currently unemployed and looking for a job?: No Are you interested in more education?: No Please select the resources that you would like help with: None Currently or been in a relationship where the following occur: I choose not to answer THRIVE Score: 2 AUDIT C Alcohol Use Questionnaire (AUDIT-C) 1. How often do you have a drink containing alcohol?: Never 3. How often do you have six or more drinks on one occasion?: Never Total Score: 0 LETICIA-7 AMB Questionnaire LETICIA-7 Date LETICIA - 7 assessed: 05/06/24 Source: Developed by Drs. Doni Villarreal, Yuridia Guzman, Henry Arellano and colleagues, with an educational noel from [employer]. Review of Systems Const Denies chills, Denies fatigue, Denies fever(s), Denies headache(s) and Denies weakness ENT Denies dizziness and Denies headache(s) Card Denies dyspnea Resp Denies cough, Denies dyspnea, Denies wheezing and Denies other (shortness of breath) Musc Denies numbness and Denies tingling Neuro Denies dizziness, Denies headache(s), Denies numbness, Denies tingling and Denies weakness Psych Denies anxiety and Denies depression Endo Denies fatigue Aller/Immun Denies wheezing Physical exam (Primary Care) Vital Signs: Last Vital Signs Temp 97.9 F 09/11/24 14:19 Pulse 68 09/11/24 14:19 Resp 14 09/11/24 14:19 BP 102/62 09/11/24 14:19 Pulse Ox 98 09/11/24 14:19 Oxygen Delivery Method Room Air 09/11/24 14:19 BMI result Body Mass Index 35.9 Tobacco/Smoking Status: Tobacco use Status Tobacco use date assessed 09/11/24 09/11/24 14:19 Patient Tobacco Use Status Never used Tobacco 09/11/24 14:19 e-Cigarette/Vaping Use Never Used 09/11/24 14:19 Thrive Assessment: Date of Thrive Assessment Date Thrive assessed 08/03/24 09/11/24 14:19 Currently or been in a relationship where the following occur: I choose not to answer Const General: well developed; No acute distress Nutritional Appearance: well nourished Orientation/consciousness: patient oriented x3 HENMT Head: Yes normocephalic and Yes atraumatic Eyes General: appearance normal, both eyes and all related structures Pupils: Equal, round and reactive pupils present EOM: EOMs intact bilaterally Resp Effort & Inspection: normal respiratory effort Neuro General: patient oriented x3 and gait normal Cranial nerves: Yes Equal, round and reactive pupils present Psych Affect: normal affect Coding Level of Care Code Est Pt Level 4 (88039) Diagnoses DM II (diabetes mellitus, type II), controlled E11.9 Hyperlipidemia E78.5 Elevated liver enzymes R74.8 Obesity E66.9 Assessment & Plan Assessment & Plan (1) DM II (diabetes mellitus, type II), controlled: Code(s): E11.9 - Type 2 diabetes mellitus without complications Category: Medical Plan: A1c?4.7% He?denies?any?weakness?or?shakiness.??No?known?low?blood?sugars.??He?is?working? with?his?pharmacy?to?get?a?new?meter. Can?continue?semaglutide?for?now (2) Hyperlipidemia: Code(s): E78.5 - Hyperlipidemia, unspecified Category: Medical Plan: LDL?cholesterol?is?a?little?too?high He?has?not?been?able?to?get?the?brand?name?Lipitor?and?atorvastatin?had?caused?n elma?stiffness. Try?Zetia?and?this?cause?next?did?this?as?well Will?recent?for?Lipitor,?brand?name?only.??He?will?check?to?see?if?it?is?afforda ble?without?insurance.??If?not?will?try?pravastatin?or?medication. (3) Elevated liver enzymes: Code(s): R74.8 - Abnormal levels of other serum enzymes Category: Medical Plan: Liver?enzymes?are?improving. Ultrasound?in?2022?showed?hepatic?steatosis Ultrasound?recently?shows?hepatic?steatosis?and?no?fibrosis.??She?will?wave?elas tography?was?within?range. Encouraged?weight?loss?and?good?hydration Will?monitor?liver?enzymes (4) Obesity: Code(s): E66.9 - Obesity, unspecified Category: Medical Plan: Patient?is?only?lost?a?limited?amount?of?weight?on?semaglutide Hesitant?to?increase?this?as?his?blood?sugars are well controlled Patient?would?like?a?referral?to?weight?management Referred Orders: Referrals Medical Weight Management Referral E11.9 - Type 2 diabetes mellitus without complications, E66.9 - Obesity, unspecified, E78.5 - Hyperlipidemia, unspecified, R79.89 - Other specified abnormal findings of blood chemistry
[2024-09-11 14:19] VITALS: BP 102/62; PULSE 68; RESP 14; TEMP 36.6; O2SAT 98; BMI 35.9
== END 2024-09-11 14:55 | disposition home or self-care (01) ==
LOC: HO.HMCFM 14:08
PROVIDERS: PCP Family Medicine; Visit Provider Family Medicine
DX: E11.69 Type 2 diabetes mellitus with other specified complication (principal); E78.5 Hyperlipidemia, unspecified; E66.9 Obesity, unspecified; Z68.35 Body mass index [BMI] 35.0-35.9, adult; R74.8 Abnormal levels of other serum enzymes

== ENCOUNTER → 2024-09-11 14:07 | Outpatient (BNVA) | payer MEDICARE, MEDICAID, SELFPAY | PROVIDERS: PCP Family Medicine; Visit Provider Family Medicine | DX: E11.9 Type 2 diabetes mellitus without complications (principal); E78.5 Hyperlipidemia, unspecified; R74.8 Abnormal levels of other serum enzymes; E66.9 Obesity, unspecified; Z68.35 Body mass index [BMI] 35.0-35.9, adult; Z71.3 Dietary counseling and surveillance | CPT/HCPCS: 99212 ==

== ENCOUNTER 2024-09-30 12:10 | Outpatient (AMB) | payer MEDICARE, MEDICAID, SELFPAY ==
--- NOTE | 2024-09-30 12:14 | A.OFFVIS_ITS ---
Intake Vital Signs 09/30/24 12:23 Height 5 ft 5 in Weight 214 lb BMI 35.6 BP 100/69 Blood Pressure Location Lt brachial Position Sitting Respiration 12 Pulse 62 Pulse Source Pulse Oximeter Temp 97.1 F Temp Source Oral Pulse Oximetry (%) 98 Oxygen Delivery Method Room Air Intake Visit Reasons: cpe Intake Note: AWV Train Controller Required: No Allergies ezetimibe Allergy (Severe, Verified 09/30/24 12:34) neck pain Medication List - Last Reconciled 09/30/24 by Liset House [facility] blood sugar diagnostic One Touch Test Strips to check blood sugar one time per day as directed blood sugar diagnostic (FreeStyle Lite Strips) DX: E11.9, test blood sugar once a day, 90 days blood-glucose meter One Touch Verio Meter to check blood sugar one time daily as directed blood-glucose meter (FreeStyle Lite Meter kit) DX: E11.9, test blood sugar once a day, duration 999 days fluticasone propionate 50 mcg/actuation (Flonase Allergy Relief) 1 spray intranasal Q12H 30 days ibuprofen 400 mg PO Q8H PRN 30 days lancets One Touch Fine Point Lancets to check blood sugar one time per day as directed lancets (FreeStyle Lancets) As directed semaglutide 1 mg (0.75 mL) subcut QWEEK 28 days Do you need a note to return to daycare/school/sports/work: No HPI HPI Comments History of Present Illness Details Here today for AWV. The Medicare Annual Wellness Visit (AWV) is a yearly appointment with a health professional to identify health risks and help reduce them and to create or update a personalized prevention plan. During a Medicare AWV, health professionals should also review any current opioid prescriptions, detect any cognitive impairment, and establish or update medical and family history. 53 Y/O M with NAFLD, HLD, DM 2 with comp lications, Obesity, MDD, LETICIA, obesity SurgHx: Y FHx: Y SocHx: Y Health Maintenance: See scanned preventative medicine assessment with personalized health plan and screening schedule. Colon: 2022 5 yr recall Vaccines: TDAP 2023 COLON 2022 5 yr recall DME 01/2024 NO DM RETINOPATHY BILAT AAA screen: NA EKG: DONE NSR [place] of Care: as documented in chart Visual Acuity: DME 01/2024 NO DM RETINOPATHY BILAT Hearing Screening: NO CONCERNS ACP: DOES NOT HAVE MOSLT AND HCP PROVIDED TODAY Dietary/Nutrition/Exercise Edu provided: Y During the course of the visit the patient was educated and counseled about appropriate screening and preventative services. Patient instructions were provided to the patient in written or electronic format. I have reviewed and verified the above information. History of Present Illness - The patient is a 53-year-old male pres enting with an annual Medicare wellness visit. - Type 2 Diabetes Mellitus with neuropat hy, medication adherence noted. - Difficulty obtaining cholesterol medic ation, prefers brand name Lipitor. Message sent to PCP on this - Hyperlipidemia, see above - Nonalcoholic Fatty Liver Disease, keny tored in context of diabetes. - Obesity with BMI of 35.6, ongoing weig ht management. - Depression and anxiety, stable w/o med s - Ate cold watermelon and developed thro at discomfort; only happens when he does this. 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 - Does not smoke or consume alcohol. - Drives independently. - Reports good dietary habits and mentio ns occasional cold consumption leading to throat discomfort. - Engages in daily routines and maintain s an active lifestyle. Health Maintenance - Tetanus vaccination is up-to-date. - Due for pneumococcal and shingles vacc inations, advised to obtain from pharmacy. - Recent prostate cancer screening theo banda (January 2024). - Colonoscopy was up-to-date as of 2022. - Cholesterol and diabetes lab work are current. - EKG performed during the visit showed normal results. Review of Systems - Respiratory: Denies dyspnea. - Mental Health: Denies depression, sadn ess; anxiety stable. - Cardiovascular: Denies dizziness, palp itation. - Neurological: Denies headaches; diabet es-associated neuropathy noted. - Musculoskeletal: No musculoskeletal co mplaints reported. - ENT: Reports occasional throat discomf ort after cold food intake. - Gastrointestinal: Denies abdominal juan n. - General: Reports feeling well. - Dietary: Cold watermelon reported to c ause throat discomfort. Physical Exam General: Well developed, well nourished, in no acute distress. Appears stated age. Head: Normocephalic, atraumatic. Eyes: Pupils are equal, round and reactive to light and accommodation. Conjunctivae are clear. Vision grossly normal. Ears: TMs clear AU, EACS WNL. Hearing is reported as normal. Nose: Patent, without discharge. Neck: Supple, no adenopathy or thyromegaly. Breast: Edu on SBE Lungs: Clear to auscultation bilaterally. No rales, rhonchi or wheeze noted. Good air flow in all gold. Heart: Regular rate and rhythm. No murmurs, click, rubs or gallops are noted. Abdomen: Bowel sounds present in all quadrants. The abdomen is soft, nontender, with no masses or organomegaly noted. No hernias are noted. : Deferred. Reviewed SUSAN & recommendations Pulses: Peripheral pulses are equal and palpable bilaterally. Extremities: No clubbing, cyanosis nor edema is noted. Neurologic: Gait and station normal. Cranial Nerves 2-12 intact. Motor strength grossly symmetrical and intact. No sensory loss. Balance normal. Skin: No rashes, ulcers, or lesions noted. Turgor is good. Skin color is good. Hair and nails are without abnormalities. Psych: Normal eye contact, affect and mood appropriate, and normal interactions. Patient is alert and appropriate to context. Results - Labs: Diabetes and cholesterol blood w ork up-to-date. - Tests and Diagnostics: EKG normal. Pro state cancer screening was normal (January 2024). Discussion Notes I discussed with the patient that he is due for pneumococcal and shingles vaccinations, explaining that these are typically administered at the pharmacy and recommended over the age of 50, particularly given his diabetes. We reviewed his current medications, and I clarified the issue resolving around the brand name Lipitor, assuring him that a prior authorization request would be sent to address the requirement from his insurance. I confirmed that his recent prostate cancer screening was normal and that his colonoscopy conducted in 2022 was also up-to-date. We also discussed his history of feeling uncomfortable in the throat after consuming cold items, suggesting he refrain from eating foods when they are cold to avoid discomfort. Consent to proceed with noted management and interventions was confirmed through verbal agreement during the conversation. Assessment and Plan 1. Type 2 Diabetes Mellitus with Neuropa thy - Continue semaglutide. - Return for diabetes check-up in three months. 2. Hyperlipidemia - Ensure authorization for brand name Mihaela jama. 3. Obesity - Continue weight management efforts. 4. Nonalcoholic Fatty Liver Disease - Monitor liver health. 5. Depression and Anxiety - Maintain current treatments. 6. Preventative Care - Obtain pneumococcal and shingles vacci nations. - Reviewed normal prostate screening and colonoscopy results. - obtain urine micro today, over due Patient Instructions - Continue taking your current medicatio ns as prescribed. - Visit pharmacy for pneumococcal and sh ingles vaccines. - Refrain from consuming cold foods to m anage throat discomfort. - Schedule diabetes follow-up appointmen t in three months. - Monitor health changes and report sign ificant concerns. - Ask for a print of today's visit summa rebecca at the assistant front office manager. Consent Patient was informed and verbally consented to the use of an ambient scribe for clinic note documentation during this visit. An additional 30 minutes was spent addressing the problem(s) noted at todays visit. This includes time spent before the visit reviewing the chart, time spent during the visit, and time spent after the visit on documentation reviewing laboratory results, diagnostic imaging, medications, performing a medically necessary evaluation, counseling on diagnoses, care coordination, ordering appropriate tests, ordering appropriate medications, review of tests performed by other providers, reporting test results with the patient, communication with other healthcare providers. [facility] Medical History (Updated 09/30/24 @ 13:04 by ROM Vu-MANJU) DM II (diabetes mellitus, type II), controlled DM2 (diabetes mellitus, type 2) Elevated LFTs Hyperlipidemia Nonalcoholic fatty liver disease Surgical History (Updated 09/30/24 @ 12:18 by ROM Vu-MANJU) History of colonoscopy (~2022) No pertinent past surgical history Family History Mother No problems noted. Father No problems noted. Social History (Updated 09/11/24 @ 14:19 by Barbara Ellis CMA) Housing: Apartment Alcohol intake: never Patient Tobacco Use Status: Never used Tobacco e-Cigarette/Vaping Use: Never Used Second Hand Smoke Exposure: No service: No Current occupational status: unemployed Current occupational exposures/hazards: No Cognitive needs: No Hearing needs: No Vision needs: No Questionnaire Medicare Wellness Checkup What gender do you identify with?: male During the past 4 weeks, how much have you been bothered by emotional problems such as feeling anxious, depressed, irritable, sad or downhearted, and blue?: not at all During the past 4 weeks, has your physical & emotional health limited your social activities with family, friends, neighbors, or groups?: not at all During the past 4 weeks, how much bodily pain have you generally had?: no pain During the past 4 weeks, was someone available to help you if you needed & wante d help?: yes, as much as I wanted During the past 4 weeks, what was the hardest physical activity you could do for at least 2 minutes?: moderate Can you get to places out of walking distance without help? (For eg., can you travel alone on buses, taxis or drive your car?): Yes Can you go shopping for groceries or clothes without someone's help?: Yes Can you prepare your own meals?: Yes Can you do your housework without help?: Yes Can you handle your own money without help?: Yes During the past 4 weeks, how would you rate your health in general?: very good During the past 4 weeks how have things been going for you?: pretty well Are you having difficulties driving your car?: no Do you always fasten your seat belt when you are in a car?: yes, usually During past 4 weeks, have you been bothered by the following: never: Falling or dizzy when standing up, Sexual problems?, Trouble eating well?, Teeth or denture problems?, Problems using the telephone? and Tiredness or fatigue? Have you fallen 2 or more times in the past year?: No Are you afraid of falling?: No Are you a smoker?: no During the past 4 weeks, how many drinks of wine, beer, or other alcoholic beverages did you have?: no alcohol at all Do you exercise for about 20 minutes 3 or more times a week?: yes, some of the time Have you been given information to help with the following?: no: Hazards in your house that might hurt you? and no: Keeping track of your medications? How often do you have trouble taking medicines the way you have been told to take them?: I always take medicine as prescribed How confident are you that you can control & manage most of your health problems?: very confident What is your race?: Other Activity of Daily Living Bathing - sponge bath, tub bath or shower: receives no assistance (gets in/out by self, if usual bathing means Dressing - getting clothes from closets & drawers, including inner/outer garments & fasteners.: gets clothes & gets completely dressed without help Toileting - going to the 'toilet room' for urine/bowel elimination & cleaning self/arranging clothes: goes to toilet room, cleans self, arranges clothes without help Transfer: moves in & out of bed and chair without help (may use support object) Continence: controls urination/bowel movements completely by self Feeding: feeds self without help Total Score: 0 Information obtained from: patient Using telephone: independent Traveling: independent Shopping: independent Preparing meals: independent Housework: independent Taking medicine: independent Managing money: independent Physical Exam Vital Signs: Last Vital Signs Temp 97.1 F 09/30/24 12:23 Pulse 62 09/30/24 12:23 Resp 12 09/30/24 12:23 BP 100/69 09/30/24 12:23 Pulse Ox 98 09/30/24 12:23 Oxygen Delivery Method Room Air 09/30/24 12:23 BMI result Body Mass Index 35.6 Office Procedures Diabetic Foot Exam Details: ABNORMAL VIBRATORY SENSATION BILAT NORMAL MONOFILAMENT TESTING G9226 - Diabetic Foot Exam EKG [id number], Complete Vision Screening Right Eye: 20/20 Left Eye: 20/100 Bilateral: 20/15 Color: Pass Corrected: Pass (wearing glasses) 77612 - Vision Screening Assessment & Plan Assessment & Plan (1) Encounter for subsequent annual wellness visit (AWV) in Medicare patient: Onset Date: ~09/30/24 Code(s): Z00.00 - Encounter for general adult medical examination without abnormal findings (2) Language barrier: Comment: offered and declined Train Controller for visit today Code(s): Z78.9 - Other specified health status (3) Depression with anxiety: Code(s): F41.8 - Other specified anxiety disorders (4) Hyperlipidemia: Code(s): E78.5 - Hyperlipidemia, unspecified Qualifiers: Hyperlipidemia type: mixed hyperlipidemia Qualified Code(s): E78.2 - Mixed hyperlipidemia (5) DM II (diabetes mellitus, type II), controlled: Code(s): E11.9 - Type 2 diabetes mellitus without complications (6) Nonalcoholic fatty liver disease: Code(s): K76.0 - Fatty (change of) liver, not elsewhere classified (7) Immunization counseling: Code(s): Z71.85 - Encounter for immunization safety counseling (8) Diabetic neuropathy: Code(s): E11.40 - Type 2 diabetes mellitus with diabetic neuropathy, unspecified Qualifiers: Diabetes mellitus type: type 2 Diabetes mellitus complication detail: diabetic mononeuropathy Qualified Code(s): E11.41 - Type 2 diabetes mellitus with diabetic mononeuropathy (9) ACP (advance care planning): Code(s): Z71.89 - Other specified counseling (10) Severe obesity (BMI 35.0-35.9 with comorbidity): Comment: w DM and HLD Code(s): E66.01 - Morbid (severe) obesity due to excess calories; Z68.35 - Body mass index [BMI] 35.0-35.9, adult Plan . Orders: Orders Microalbumin, Random (w Creat) Today E11.9 - Type 2 diabetes mellitus without complications Prostate Specific Antigen Scr 3 Months E11.9 - Type 2 diabetes mellitus without complications, E78.5 - Hyperlipidemia, unspecified, K76.0 - Fatty (change of) liver, not elsewhere classified Lipid Panel 3 Months E11.9 - Type 2 diabetes mellitus without complications, E78.5 - Hyperlipidemia, unspecified, K76.0 - Fatty (change of) liver, not elsewhere classified Basic Metabolic Panel Fasting 3 Months E11.9 - Type 2 diabetes mellitus without complications, E78.5 - Hyperlipidemia, unspecified, K76.0 - Fatty (change of) liver, not elsewhere classified Patient Instructions: Patient Instructions - Continue taking your current medications as prescribed. - Visit pharmacy for pneumococcal and shingles vaccines. - Refrain from consuming cold foods to manage throat discomfort. - Schedule diabetes follow-up appointment in three months with Dr Aguirre, labs to be done 1 week before. - Monitor health changes and report significant concerns. - Ask for a print of today's visit summary at the assistant front office manager. HEALTH SCREENINGS FOR MEN YOU SHOULD VISIT YOUR HEALTH CARE PROVIDER REGULARLY, EVEN IF YOU FEEL HEALTHY. THE PURPOSE OF THESE VISITS IS TO: SCREEN FOR MEDICAL ISSUES ASSESS YOUR RISK FOR FUTURE MEDICAL PROBLEMS ENCOURAGE A HEALTHY LIFESTYLE UPDATE VACCINATIONS AND OTHER PREVENTIVE CARE SERVICES HELP YOU GET TO KNOW YOUR PROVIDER IN CASE OF AN ILLNESS INFORMATION EVEN IF YOU FEEL FINE, YOU SHOULD STILL SEE YOUR PROVIDER FOR REGULAR CHECKUPS. THESE VISITS CAN HELP YOU AVOID PROBLEMS IN THE FUTURE. FOR EXAMPLE, THE ONLY WAY TO FIND OUT IF YOU HAVE HIGH BLOOD PRESSURE IS TO HAVE IT CHECKED REGULARLY. HIGH BLOOD SUGAR AND HIGH CHOLESTEROL LEVEL ALSO MAY NOT HAVE ANY SYMPTOMS IN THE EARLY STAGES. SIMPLE BLOOD TESTS CAN CHECK FOR THESE CONDITIONS. THERE ARE SPECIFIC TIMES WHEN YOU SHOULD SEE YOUR PROVIDER OR RECEIVE SPECIFIC HEALTH SCREENINGS. THE [employer] PUBLISHES A LIST OF RECOMMENDED SCREENINGS. BELOW ARE SCREENING GUIDELINES FOR MEN AGES 40 TO 64. BLOOD PRESSURE SCREENING HAVE YOUR BLOOD PRESSURE CHECKED AT LEAST ONCE EVERY YEAR. WATCH FOR BLOOD PRESSURE SCREENINGS IN YOUR AREA. ASK YOUR PROVIDER IF YOU CAN STOP IN TO HAVE YOUR BLOOD PRESSURE CHECKED. ASK YOUR PROVIDER IF YOU NEED YOUR BLOOD PRESSURE CHECKED MORE OFTEN IF: YOU HAVE DIABETES, HEART DISEASE, KIDNEY PROBLEMS, OR ARE OVERWEIGHT OR HAVE CERTAIN OTHER HEALTH CONDITIONS YOU HAVE A FIRST-DEGREE RELATIVE WITH HIGH BLOOD PRESSURE YOU ARE BLACK YOUR BLOOD PRESSURE TOP NUMBER IS FROM 120 TO 129 MM HG, OR THE BOTTOM NUMBER IS FROM 70 TO 79 MM HG IF THE TOP NUMBER IS 130 MM HG OR GREATER OR THE BOTTOM NUMBER IS 80 MM HG OR GREATER, THIS IS CONSIDERED STAGE 1 HYPERTENSION. SCHEDULE AN APPOINTMENT WITH YOUR PROVIDER TO LEARN HOW YOU CAN LOWER YOUR BLOOD PRESSURE. EFFECTS OF AGE ON BLOOD PRESSURE CHOLESTEROL SCREENING CHOLESTEROL SCREENING SHOULD BEGIN AT AGE 35 FOR MEN WITH NO KNOWN RISK FACTORS FOR CORONARY HEART DISEASE. REPEAT CHOLESTEROL SCREENING SHOULD TAKE PLACE: EVERY 5 YEARS FOR MEN WITH NORMAL CHOLESTEROL LEVELS MORE OFTEN IF CHANGES OCCUR IN LIFESTYLE (INCLUDING WEIGHT GAIN AND DIET) MORE OFTEN IF YOU HAVE DIABETES, HEART DISEASE, KIDNEY PROBLEMS, OR CERTAIN OTHER CONDITIONS COLORECTAL CANCER SCREENING IF YOU ARE UNDER AGE 45, TALK TO YOUR PROVIDER ABOUT GETTING SCREENED. YOU MAY NEED TO BE SCREENED IF YOU HAVE A STRONG FAMILY HISTORY OF COLON CANCER OR POLYPS. SCREENING MAY ALSO BE CONSIDERED IF YOU HAVE RISK FACTORS SUCH A HISTORY OF INFLAMMATORY BOWEL DISEASE OR POLYPS. IF YOU ARE AGE 45 TO 75, YOU SHOULD BE SCREENED FOR COLORECTAL CANCER. THERE ARE SEVERAL SCREENING TESTS AVAILABLE: A STOOL-BASED FECAL OCCULT BLOOD (GFOBT) OR FECAL IMMUNOCHEMICAL TEST (FIT) EVERY YEAR A STOOL SDNA TEST EVERY 1 TO 3 YEARS FLEXIBLE SIGMOIDOSCOPY EVERY 5 YEARS OR EVERY 10 YEARS WITH STOOL TESTING FIT DONE EVERY YEAR CT COLONOGRAPHY (VIRTUAL COLONOSCOPY) EVERY 5 YEARS COLONOSCOPY EVERY 10 YEARS YOU MAY NEED A COLONOSCOPY MORE OFTEN IF YOU HAVE RISK FACTORS FOR COLORECTAL CANCER, SUCH : ULCERATIVE COLITIS A PERSONAL OR FAMILY HISTORY OF COLORECTAL CANCER A HISTORY OF GROWTHS IN YOUR COLON CALLED ADENOMATOUS POLYPS DENTAL EXAM GO TO THE DENTIST ONCE OR TWICE EVERY YEAR FOR AN EXAM AND CLEANING. YOUR DENTIST WILL EVALUATE IF YOU HAVE A NEED FOR MORE FREQUENT VISITS. DIABETES SCREENING ALL ADULTS WHO DO NOT HAVE RISK FACTORS FOR DIABETES SHOULD BE SCREENED STARTING AT AGE 35 AND REPEATED EVERY 3 YEARS. IF YOU HAVE OTHER RISK FACTORS FOR DIABETES, SUCH A FIRST DEGREE RELATIVE WITH DIABETES, OVERWEIGHT OR OBESITY, HIGH BLOOD PRESSURE, PREDIABETES, OR A HISTORY OF HEART DISEASE, YOU MAY BE TESTED MORE OFTEN. IF YOU ARE OVERWEIGHT AND HAVE OTHER RISK FACTORS, SUCH HIGH BLOOD PRESSURE AND ARE PLANNING TO BECOME , SCREENING IS RECOMMENDED. EYE EXAM HAVE AN EYE EXAM EVERY 2 TO 4 YEARS AGES 40 TO 54 AND EVERY 1 TO 3 YEARS AGES 55 TO 64. YOUR PROVIDER MAY RECOMMEND MORE FREQUENT EYE EXAMS IF YOU HAVE VISION PROBLEMS OR GLAUCOMA RISK. HAVE AN EYE EXAM THAT INCLUDES AN EXAMINATION OF YOUR RETINA (BACK OF YOUR EYE) AT LEAST EVERY YEAR IF YOU HAVE DIABETES. IMMUNIZATIONS COMMONLY NEEDED VACCINES INCLUDE: FLU SHOT: GET ONE EVERY YEAR COVID-19 VACCINE: ASK YOUR PROVIDER WHAT IS BEST FOR YOU TETANUS-DIPHTHERIA AND ACELLULAR PERTUSSIS (TDAP) VACCINE: HAVE ONE OF YOUR TETANUS-DIPHTHERIA VACCINES IF YOU DID NOT RECEIVE IT AN ADOLESCENT TETANUS-DIPHTHERIA: HAVE A BOOSTER (OR TDAP) EVERY 10 YEARS VARICELLA VACCINE: RECEIVE 2 DOSES IF YOU NEVER HAD CHICKENPOX OR THE VARICELLA VACCINE AND WERE BORN IN 1978 OR AFTER HEPATITIS B VACCINE: RECEIVE 2, 3, OR 4 DOSES, DEPENDING ON YOUR EXACT CIRCUMSTANCES, IF YOU DID NOT RECEIVE THESE A CHILD OR ADOLESCENT, UNTIL AGE 59 SHINGLES (HERPES ZOSTER) VACCINE: AT OR AFTER AGE 50 ASK YOUR PROVIDER IF YOU SHOULD RECEIVE OTHER IMMUNIZATIONS, ESPECIALLY IF YOU HAVE CERTAIN MEDICAL CONDITIONS, SUCH DIABETES OR ARE AT INCREASED RISK FOR SOME DISEASES SUCH PNEUMONIA. INFECTIOUS DISEASE SCREENING SCREENING FOR HEPATITIS C: ALL ADULTS AGES 18 TO 79 SHOULD GET A ONE-TIME TEST FOR HEPATITIS C. SCREENING FOR HUMAN IMMUNODEFICIENCY VIRUS (HIV): ALL PEOPLE AGES 15 TO 65 SHOULD GET A ONE-TIME TEST FOR HIV. DEPENDING ON YOUR LIFESTYLE AND MEDICAL HISTORY, YOU MAY NEED TO BE SCREENED FOR INFECTIONS SUCH SYPHILIS, CHLAMYDIA, AND OTHER INFECTIONS. LUNG CANCER SCREENING YOU SHOULD HAVE AN ANNUAL SCREENING FOR LUNG CANCER WITH LOW-DOSE COMPUTED TOMOGRAPHY (LDCT) IF: YOU ARE AGE 50 TO 80 YEARS AND YOU HAVE A 20 PACK-YEAR SMOKING HISTORY AND YOU CURRENTLY SMOKE OR HAVE QUIT WITHIN THE PAST 15 YEARS OSTEOPOROSIS SCREENING IF YOU ARE AGE 50 TO 64 AND HAVE RISK FACTORS FOR OSTEOPOROSIS, YOU SHOULD DISCUSS SCREENING WITH YOUR PROVIDER. RISK FACTORS CAN INCLUDE LONG-TERM STEROID USE, LOW BODY WEIGHT, SMOKING, HEAVY ALCOHOL USE, HAVING A FRACTURE AFTER AGE 50, OR A FAMILY HISTORY OF HIP FRACTURE OR OSTEOPOROSIS. OSTEOPOROSIS PHYSICAL EXAM ALL ADULTS SHOULD VISIT THEIR PROVIDER FROM TIME TO TIME, EVEN IF THEY ARE HEALTHY. THE PURPOSE OF THESE VISITS IS TO: SCREEN FOR DISEASES ASSESS RISK OF FUTURE MEDICAL PROBLEMS ENCOURAGE A HEALTHY LIFESTYLE UPDATE VACCINATIONS AND OTHER PREVENTIVE CARE SERVICES MAINTAIN A RELATIONSHIP WITH A PROVIDER IN CASE OF AN ILLNESS YOUR HEIGHT, WEIGHT, AND BODY MASS INDEX (BMI) SHOULD BE CHECKED AT EVERY EXAM. DURING YOUR EXAM, YOUR PROVIDER MAY ASK YOU ABOUT: DEPRESSION AND ANXIETY DIET AND EXERCISE ALCOHOL AND TOBACCO USE SAFETY, SUCH USE OF SEAT BELTS AND SMOKE DETECTORS YOUR MEDICINES AND RISK FOR INTERACTIONS PROSTATE CANCER SCREENING IF YOU'RE 55 THROUGH 69 YEARS OLD, BEFORE HAVING THE TEST, TALK TO YOUR PROVIDER ABOUT THE PROS AND CONS OF HAVING A PSA TEST. ASK ABOUT: WHETHER SCREENING DECREASES YOUR CHANCE OF DYING FROM PROSTATE CANCER. WHETHER THERE IS ANY HARM FROM PROSTATE CANCER SCREENING, SUCH SIDE EFFECTS FROM TESTING OR OVERTREATMENT OF CANCER WHEN DISCOVERED. WHETHER YOU HAVE A HIGHER RISK OF PROSTATE CANCER THAN OTHERS. IF YOU ARE AGE 55 OR YOUNGER, SCREENING IS NOT GENERALLY RECOMMENDED. YOU SHOULD TALK WITH YOUR PROVIDER ABOUT IF YOU HAVE A HIGHER RISK FOR PROSTATE CANCER. RISK FACTORS INCLUDE: HAVING A FAMILY HISTORY OF PROSTATE CANCER (ESPECIALLY A BROTHER OR FATHER) BEING IF YOU CHOOSE TO BE TESTED, THE PSA BLOOD TEST IS REPEATED OVER TIME (YEARLY OR LESS OFTEN), THOUGH THE BEST FREQUENCY IS NOT KNOWN. PROSTATE EXAMINATIONS ARE NO LONGER ROUTINELY DONE ON MEN WITH NO SYMPTOMS. PROSTATE CANCER SKIN EXAM YOUR PROVIDER MAY CHECK YOUR SKIN FOR SIGNS OF SKIN CANCER, ESPECIALLY IF YOU'RE AT HIGH RISK. PEOPLE AT HIGH RISK INCLUDE THOSE WHO HAVE HAD SKIN CANCER BEFORE, HAVE CLOSE RELATIVES WITH SKIN CANCER, OR HAVE A WEAKENED IMMUNE SYSTEM. TESTICULAR EXAM THE [employer] ([facility]F) NOW RECOMMENDS AGAINST PERFORMING TESTICULAR SELF-EXAMS. DOING TESTICULAR SELF-EXAMS HAS BEEN SHOWN TO HAVE LITTLE TO NO BENEFIT. Quality Reporting (2019) Adult ([facility] ) Smoking risk assessment performed?: Yes Patient Tobacco Use Status: Never used Tobacco Depression screening performed: Yes Screen Results: Yes Negative screen Systolic BP not done?: No Diastolic BP not done?: No BMI screening not done: No BMI High - Follow Up: Yes High-plan Sexual Activity Screening ([facility] 153) Sexually active?: Yes Immunizations ([facility] 147, 117) Annual Influenza Vaccine: No (not flu season ) Measles Antibody Test: No Mumps Antibody Test: No Rubella Antibody Test: No Varicella Antibody Test: No Anti Hepatitis A IgG Antigen test: No Anti Hepatitis B Virus Surface Ab test: No Diabetes ([facility] 131/134/142) Date of last retinal or dilated eye exam: 01/20/24 Fall Risk Screening ([facility] 139) Last assessed Fall Risk: 09/30/24 Fall risk assessment: No Falls in past year Dementia Assessment ([facility] 149) Cognitive assessment recorded: Yes Assessment of cognition with standardized tool: Yes (0/28 m cit ) Ophthalmol:Cataracts Visual Acuity (133) Visual acuity exam performed: Yes (see results) Coding Level of Care Code Medicare Subsequent (G0439) Est Pt Level 4 (22024) Diagnoses Encounter for subsequent annual wellness visit (AWV) in Medicare patient Z00.00 Language barrier Z78.9 Depression with anxiety F41.8 Mixed hyperlipidemia E78.2 Hyperlipidemia type: mixed hyperlipidemia DM II (diabetes mellitus, type II), controlled E11.9 Nonalcoholic fatty liver disease K76.0 Immunization counseling Z71.85 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.41 Diabetes mellitus type: type 2 Diabetes mellitus complication detail: diabetic mononeuropathy ACP (advance care planning) Z71.89 Severe obesity (BMI 35.0-35.9 with comorbidity) E66.01; Z68.35 CPT Codes Advance Care Planning - Time spent: 1-15 minutes, not on file ([id number]) Diabetic Foot Exam - CPT: G9226 - Diabetic Foot Exam ([id number]) EKG - CPT: 65358-[id number], Complete ([id number]) Vision Screening - Vision Screenin - Vision Screening ([id number]) Advance Care Planning Advance Care Planning discussion: Exists, not on file Date of discussion: 09/30/24 Who was present: self Forms completed: Health Care Proxy, MOLST and Living will Time spent: 1-15 minutes, not on file Actual minutes spent: 5
[2024-09-30 12:23] VITALS: BP 100/69; PULSE 62; RESP 12; TEMP 36.2; O2SAT 98; BMI 35.6
--- OUTSIDE RECORDS SUMMARY | 2024-09-30 13:13 | XMS_ITS | Clinical Summary ---
Author Organization [employer] Address [address] [facility] [address] [place] [address] Care Team Providers Care Assistant Track And Field Coach Name Role Phone Unavailable Primary Care Provider [...] Panel 1971 SDOH Screening 1971 Sigmoidoscopy 1971 Disability Screening 1971 Alcohol/Substance Use Screening 1983 Family Planning (PISQ) 12/11/1986 Hepatitis C Screening 12/11/1989 DTaP/Tdap/Td Vaccines (1 - Tdap) 12/11/1990 Hepatitis A Vaccines (1 of 2 - Risk 2-dose series) 12/11/1990 Hepatitis B Vaccines (1 of 3 - 19+ 3-dose series) 12/11/1990 Pneumococcal Vaccine: 50+ Years (1 of 1 - PCV) 12/11/2021 Zoster Vaccines (1 of 2) 12/11/2021 COVID-19 Vaccine (1 - season) 2023 Influenza Vaccine (#1) 2024 , 12/10/2022, 01/03/2021, Additional history exists Tobacco Screening 04/13/2025 04/13/2024 Dental X-Ray: Bitewings 04/14/2025 04/13/2024, 06/23 RSV Patients and Patients Aged 60 years or older (1 - 1-dose 75+ series) 12/11/2046 HIB Vaccines Aged Out No longer eligi [...] Relevant to Health Maintenance Insurance DENTAL - [facility] [place] [address] [place] AD[place]
--- OUTSIDE RECORDS SUMMARY | 2024-09-30 13:13 | XMS_ITS | Clinical Summary ---
Author Organization [address] [facility] Address [address] [place] [address] Phone Care Team Providers Care Chemical Strength Tester Name Role Phone Javier Aguirre MD Primary [...] diabetes mellitus (CMS/HCC V24, CMS/HCC V 28) Immunizations Name Administration Dates Next Due Influenza trivalent, with pr eservative (Fluzone; Afluria) 6mo and older 01/03/2021,12/14/2019,12/05/2018 Surgical History Surgery Date Site/Laterality Comments COLONOSCOPY 03/18/2022 - 03/17/2023 Significant for 2 tubular adenomas Medical History Medical History Date Comments Obesity Type 2 diabetes mellitus (CMS/[facility] V24, CMS/[facility] V 28) Seasonal allergies Social History Tobacco [...] 84 06/17/2024 2:04 PM EDT Temperature 36.3 C (97.3 F) 06/17/2024 2:04 PM EDT Respiratory Rate - - Oxygen Saturation 99% [...] PM EDT Office Visit Orthopedic Surgery - [place] [address] [facility] [address] [place] [id number] Prasanna Hernandez DPM [address] [facility] [address] [place] [address] 03/05/2025 2:10 PM EST Office Visit Gastroenterology - [place] [address] [facility] [address] [facility] [address] [place] [phone] Rosalba Bennett MD [address] [facility] [address] [place] [address] Health Maintenance Due Date Last Done Comments Diabetes: Annual GFR (Glomerular Filtration Rate) 1971 Diabetes: Annual Foot Exam 12/11/1981 Diabetes: Annual Retina Eye Exam 12/11/1981 DTaP,Tdap,and Td Vaccines (1 - Tdap) 12/11/1990 Hepatitis B Vaccines (1 of 3 - 19+ 3-dose series) 12/11/1990 Pneumococcal Vaccine: 50+ Years (1 of 2 - PCV) 12/11/1990 Zoster Vaccines (1 of 2) 12/11/2021 Depression Screening 03/03/2022 HIV Screening 03/03/2022 Hepatitis C Screening 03/03/2022 Medicare Annual Wellness Visit 03/03/2022 Social Influencers of Health Screening 03/03/2022 COVID-19 Vaccine ( season) 2023 Diabetes: Annual Urine Albumin-Creatinine Ratio (uACR) 02/23/2024 Diabetes: Blood Sugar Control Test (HGBA1C) 02/23/2024 Influenza Vaccine (#1) 2024 4, 12/10/2022, 01/03/2021, Additional history exists Cholesterol Screening (Lipid Panel) 10/23/2027 10/22/2022 Colorectal Cancer Screening: Colonoscopy 11/21/2027 11/20/2022 HIB Vaccines Aged Out No longer eligi [...] complete this topic Insurance [employer] MEDICARE [place]ICAID - [place] Care Teams Chemical Strength Tester Relationship Specialty Start Date End Date Javier Aguirre MD [address] [place] [address] Dr Ed [place] PCP - General 01/05/22
--- OUTSIDE RECORDS SUMMARY | 2024-09-30 13:13 | XMS_ITS | Data Portability ---
Author Organization [place] - [employer], [facility] [place] [address] [place] [address] Care Team Providers Care Supervisor [place]ades Name Role Phone SUSANNE CIFUENTES Primary Care Provider Assessment No assessment recorded. Plan of Treatment Reminders Order Date Submit Date Provider Last Modified By Organization Details Last Modified Time Details Appointments None recorded. Lab CMP, serum or plasma 2018 019 JANESSA [facility], [address], [address], [place], [address], 9 13:07:37 lipid panel, serum 2018 019 JANESSA [facility], [address], [address], [place], [address], 9 13:07:38 microalbum in, QN, unspecifie d duration, urine 2018 019 JANESSA [facility], [address], [address], [place], [address], 9 19:43:31 hemoglobin A1c, QN, blood 2018 019 JANESSA [facility], [address], [address], [place], [address], 9 19:43:30 hepatic function panel, serum 2018 019 [facility] 1 [facility], [address], [address], [place], [address], 9 11:10:18 Referral None recorded. Procedures None recorded. Surgeries None recorded. Imaging None recorded. Medication Orders sildenafil (pulmonary hypertensi on) 20 mg tablet 2018 019 [email or web address] [facility] #[id number], [address], [place], [address], 9 13:28:14 omeprazole 20 mg capsule,de layed release 2018 019 INTERFACE [facility][id number], [address], [place], [address], 9 12:28:28 metformin 850 mg tablet 2018 019 INTERFACE [facility]0069, [address], [place], [address], 9 12:25:10 OneTouch Verio test strips 2018 019 INTERFACE [facility] #0069, [address], [place], [address], 9 12:26:43 sildenafil (pulmonary hypertensi on) 20 mg tablet 2018 019 INTERFACE [id number], [address], [place], [address], 9 19:47:22 metformin 850 mg tablet 2018 019 INTERFACE [facility]0069, [address], [place], [address], 9 19:43:26 Robitussin Cough-Ches t Congestion DM 5 mg-100 mg/5 mL oral liquid 2018 019 INTERFACE [id number], [address], [place], [address], 9 19:36:41 Cheratussi n AC 10 mg-100 mg/5 mL oral liquid 2018 019 [facility] 1 [id number], [address], [place], [address], 9 19:32:59 benzonatat e 200 mg capsule 2018 019 [facility] 1 [id number], [address], [place], [place], [id number], 9 19:33:03 Patient Targets Encounter Date Encounter Id Patient Goals Patient Target Last Modified By Organization Details Last Modified Time 04/21/2018 [id number] Stop all vitamin supplementation for the next 2 weeks. Continue with current Metformin. [email or web address] Not available 04/21/2018 18:53:30 Patient Instructions Encounter Date Encounter Id Patient Instructions Last Modified By Organization Details Last Modified Time 06/19/2018 [id number] [email or web address] Not available 06/23 09:14:39 09/09/2018 [id number] chronic cough: care instructions [email or web address] Not available 09/09/2018 19:36:39 Increase fluid intake. Use of Vaporizer is recommended Rest until afebrile [place] pot or saline rinses. Tylenol or Motrin [...] prescribed. [email or web address] Not available 09/22/2018 02:29:19 10/08/2018 [id number] learning about type 2 diabetes [email or web address] Not [...] ([facility]) [address] [place], [address], 04/05/2018 09:18:42 04/04/1904/05/2018 CMP, serum or plasm a BUN 10 mg/dL 6-24 Not Available [facility] ([facility]) [address] [place], [address], 04/05/2018 09:18:42 04/04/1904/05/2018 CMP, serum or plasm a creatinine 0.82 mg/dL 0.76-1 .27 Not Available [facility] ([facility]) [address] [place], [address], 04/05/2018 09:18:42 04/04/1904/05/2018 CMP, serum or plasm a eGFR if nonafricn AM 106 mL/mi n/1.7 3 >59 Not Available [facility] ([facility]) [address] [place], [address], 04/05/2018 09:18:42 04/04/1904/05/2018 CMP, serum or plasm a eGFR if africn AM 123 mL/mi n/1.7 3 >59 Not Available [facility] ([facility]) [address] [place], [address], 04/05/2018 09:18:42 04/04/1904/05/2018 CMP, serum or plasm a BUN/creatini ne ratio 12 9-20 Not Available [facility] ([facility]) [address] [place], [address], 04/05/2018 09:18:42 04/04/1904/05/2018 CMP, serum or plasm a sodium 139 mmol/ L 134-14 4 Not Available [facility] ([facility]) [address] [place], [address], 04/05/2018 09:18:42 04/04/1904/05/2018 CMP, serum or plasm a potassium 4.5 mmol/ L 3.5-5. 2 Not Available [facility] ([facility]) [address] [place], [address], 04/05/2018 09:18:42 04/04/1904/05/2018 CMP, serum or plasm a chloride 102 mmol/ L 96-106 Not Available [facility] ([facility]) [address] [place], [address], 04/05/2018 09:18:42 04/04/1904/05/2018 CMP, serum or plasm a carbon dioxide, total 23 mmol/ L 20-29 Not Available [facility] ([facility]) [address] [place], [address], 04/05/2018 09:18:42 04/04/1904/05/2018 CMP, serum or plasm a calcium 9.4 mg/dL 8.7-10 .2 Not Available [facility] ([facility]) [address] [place], [address], 04/05/2018 09:18:42 04/04/1904/05/2018 CMP, serum or plasm a protein, total 6.9 g/dL 6.0-8. 5 Not Available [facility] ([facility]) [address] [place], [address], 04/05/2018 09:18:42 04/04/1904/05/2018 CMP, serum or plasm a albumin 4.6 g/dL 3.5-5. 5 Not Available [facility] ([facility]) [address] [facility] [place], [address], 04/05/2018 09:18:42 04/04/1904/05/2018 CMP, serum or plasm a globulin, total 2.3 g/dL 1.5-4. 5 Not Available [facility] ([facility]) [address] [facility] [place], [address], 04/05/2018 09:18:42 04/04/1904/05/2018 CMP, serum or plasm a A/G ratio 2.0 1.2-2. 2 Not Available [facility] ([facility]) [address] [facility] [place], [address], 04/05/2018 09:18:42 04/04/1904/05/2018 CMP, serum or plasm a bilirubin, total 0.4 mg/dL 0.0-1. 2 Not Available [facility] ([facility]) [address] [facility] [place], [address], 04/05/2018 09:18:42 04/04/1904/05/2018 CMP, serum or plasm a alkaline phosphatase 58 IU/L 39-117 Not Available [facility] ([facility] [address] [facility] [place], [address], 04/05/2018 09:18:42 04/04/1904/05/2018 CMP, serum or plasm a AST (SGOT) 30 IU/L 0-40 Not Available [facility] ([facility]) [address] [place], [address], 04/05/2018 09:18:42 04/04/1904/05/2018 CMP, serum or plasm a ALT (SGPT) 84 IU/L 0-44 above high normal Not Available [facility] ([facility]) [address] [facility] [place], [address], 04/05/2018 09:18:42 04/04/1904/05/2018 lipid panel , serum cholesterol, total 173 mg/dL 100-19 9 Not Available [facility] ([facility]) [address] [place], [address], 04/05/2018 09:18:43 04/04/1904/05/2018 lipid panel , serum triglyceride s 179 mg/dL 0-149 above high normal Not Available [facility] ([facility]) [address] [facility] [place], [address], 04/05/2018 09:18:43 04/04/1904/05/2018 lipid panel , serum HDL cholesterol 41 mg/dL >39 Not Available [facility] ([facility]) [address] [place], [address], 04/05/2018 09:18:43 04/04/1904/05/2018 lipid panel , serum VLDL cholesterol bree 36 mg/dL 5-40 Not Available [facility] ([facility] [address] [facility] [place], [address], 04/05/2018 09:18:43 04/04/1904/05/2018 lipid panel , serum LDL cholesterol calc 96 mg/dL 0-99 Not Available [facility] ([facility]) [address] [facility] [place], [address], 04/05/2018 09:18:43 04/04/1904/05/2018 lipid panel , serum comment: HEALTH COMMUNICATIONS SPECIALIST Not Available [facility] ([facility]) [address], [place], [address], 04/05/2018 09:18:43 04/04/1904/05/2018 cardi sridharmagalie edwards smjuan [...] 10-ye ar or lifet dimitri CVD risk. [place] santino trigl yceri sascha may be assoc iated with incre ased cardi ovasc ular risk due to incre ased numbe rs of ather ogeni c lipop rotei n parti cles. Co-mo rbid condi tions shoul d be evalu ated and treat ed. ----- ----- ----- ----- ----- ----- - INTER MEDIA TE RISK ASSES SMENT AND TREAT [facility] MIKALA WOODWARD S ----- ----- ----- [...] - HIGH RISK ASSES SMENT AND TREAT [facility]AL[facility] WOODWARD S ----- ----- ----- [...] inten ded [facility] repla [facility] jud[facility]. They are [...] ([facility]) [address] [facility], [place], [address], 04/05/2018 09:18:44 04/04/19 19 04/05/2018 cardi ovasc ular asses sment panel , serum pdf image Not applic able Not Available [facility] ([facility]) [address] [facility], [place], [address], 04/05/2018 09:18:44 04/04/19 19 04/06/2018 HbA1c (hemo [...] (ADA) Not Available [facility] [address] [place], [address], 04/06/2018 09:07:49 04/04/19 19 04/06/2018 HbA1c (hemo globi n A1c), blood estimated average glucose 97 mg/dL Not Available [facility] [address] [facility], [place], [address], 04/06/2018 09:07:49 04/04/1904/06/2018 HbA1c (hemo globi n [...] s. Not Available [facility] [address] [facility], [place], [address], 04/06/2018 09:07:49 04/04/19 19 04/05/2018 micro album in, urine albumin, urine <3.0 ug/mL not estab. Not Available [facility] ([facility]) [address] [place], [address], 04/06/2018 09:07:49 06/14/1906/14/2018 hepat ic funct ion panel , serum protein, total 7.0 g/dL 6.0-8. 5 Not Available [facility] ([facility]) [address] [place], [address], 06/14/2018 09:14:53 06/14/1906/14/2018 hepat ic funct ion panel , serum albumin 4.6 g/dL 3.5-5. 5 Not Available [facility] ([facility]) [address] [place], [address], 06/14/2018 09:14:53 06/14/19 19 06/14/2018 hepat ic funct ion panel , serum bilirubin, total 0.5 mg/dL 0.0-1. 2 Not Available [facility] ([facility]) [address], [place], [address], 06/14/2018 09:14:53 06/14/1906/14/2018 hepat ic funct ion panel , serum bilirubin, direct 0.13 mg/dL 0.00-0 .40 Not Available [facility] ([facility]) [address] [place], [address], 06/14/2018 09:14:53 06/14/1906/14/2018 hepat ic funct ion panel , serum alkaline phosphatase 63 IU/L 39-117 Not Available [facility] ([facility]) [address] [place], [address], 06/14/2018 09:14:53 06/14/1906/14/2018 hepat ic funct ion panel , serum AST (SGOT) 19 IU/L 0-40 Not Available [facility] ([facility]) [address] [place], [address], 06/14/2018 09:14:53 06/14/19 19 06/14/2018 hepat ic funct ion panel , serum ALT (SGPT) 41 IU/L 0-44 Not Available [facility] ([facility]) [address] [facility] [place], [address], 06/14/2018 09:14:53 10/04/19 19 10/04/2018 CMP, serum or plasm a glucose 89 mg/dL 65-99 Not Available [facility] ([facility]) [address] [facility] [place], [address], 10/04/2018 13:07:37 10/04/19 19 10/04/2018 CMP, serum or plasm a BUN 15 mg/dL 6-24 Not Available [facility] ([facility]) [address] [facility] [place], [address], 10/04/2018 13:07:37 10/04/19 19 10/04/2018 CMP, serum or plasm a creatinine 0.83 mg/dL 0.76-1 .27 Not Available [facility] ([facility]) [address] [facility] [place], [address], 10/04/2018 13:07:37 10/04/19 19 10/04/2018 CMP, serum or plasm a eGFR if nonafricn AM 106 mL/mi n/1.7 3 >59 Not Available [facility] ([facility]) [address] [facility] [place], [address], 10/04/2018 13:07:37 10/04/19 19 10/04/2018 CMP, serum or plasm a eGFR if africn AM 122 mL/mi n/1.7 3 >59 Not Available [facility] ([facility]) [address] [place], [address], 10/04/2018 13:07:37 10/04/19 19 10/04/2018 CMP, serum or plasm a BUN/creatini ne ratio 18 9-20 Not Available [facility] ([facility]) [address] [facility] [place], [address], 10/04/2018 13:07:37 10/04/19 19 10/04/2018 CMP, serum or plasm a sodium 139 mmol/ L 134-14 4 Not Available [facility] ([facility]) [address] [facility] [place], [address], 10/04/2018 13:07:37 10/04/19 19 10/04/2018 CMP, serum or plasm a potassium 4.3 mmol/ L 3.5-5. 2 Not Available [facility] ([facility]) [address] [facility] [place], [address], 10/04/2018 13:07:37 10/04/19 19 10/04/2018 CMP, serum or plasm a chloride 102 mmol/ L 96-106 Not Available [facility] ([facility]) [address] [place], [address], 10/04/2018 13:07:37 10/04/19 19 10/04/2018 CMP, serum or plasm a carbon dioxide, total 20 mmol/ L 20-29 Not Available [facility] ([facility]) [address] [place], [address], 10/04/2018 13:07:37 10/04/19 19 10/04/2018 CMP, serum or plasm a calcium 9.2 mg/dL 8.7-10 .2 Not Available [facility] ([facility]) [address] [place], [address], 10/04/2018 13:07:37 10/04/1910/04/2018 CMP, serum or plasm a protein, total 7.1 g/dL 6.0-8. 5 Not Available [facility] ([facility]) [address] [place], [address], 10/04/2018 13:07:37 10/04/19 19 10/04/2018 CMP, serum or plasm a albumin 4.7 g/dL 3.5-5. 5 Not Available [facility] ([facility]) [address] [facility] [place], [address], 10/04/2018 13:07:37 10/04/19 19 10/04/2018 CMP, serum or plasm a globulin, total 2.4 g/dL 1.5-4. 5 Not Available [facility] ([facility]) [address] [facility] [place], [address], 10/04/2018 13:07:37 10/04/19 19 10/04/2018 CMP, serum or plasm a A/G ratio 2.0 1.2-2. 2 Not Available [facility] ([facility]) [address] [facility] [place], [address], 10/04/2018 13:07:37 10/04/19 19 10/04/2018 CMP, serum or plasm a bilirubin, total 0.5 mg/dL 0.0-1. 2 Not Available [facility] ([facility]) [address] [facility] [place], [address], 10/04/2018 13:07:37 10/04/19 19 10/04/2018 CMP, serum or plasm a alkaline phosphatase 60 IU/L 39-117 Not Available [facility] ([facility]) [address] [facility] [place], [address], 10/04/2018 13:07:37 10/04/19 19 10/04/2018 CMP, serum or plasm a AST (SGOT) 21 IU/L 0-40 Not Available [facility] ([facility]) [address] [facility] [place], [address], 10/04/2018 13:07:37 10/04/19 19 10/04/2018 CMP, serum or plasm a ALT (SGPT) 42 IU/L 0-44 Not Available [facility] ([facility]) [address] [facility] [place], [address], 10/04/2018 13:07:37 10/04/19 19 10/04/2018 lipid panel , serum cholesterol, total 167 mg/dL 100-19 9 Not Available [facility] ([facility]) [address] [place], [address], 10/04/2018 13:07:38 10/04/19 19 10/04/2018 lipid panel , serum triglyceride s 159 mg/dL 0-149 above high normal Not Available [facility] ([facility]) [address] [facility], [place], [address], 10/04/2018 13:07:38 10/04/19 19 10/04/2018 lipid panel , serum HDL cholesterol 41 mg/dL >39 Not Available [facility] ([facility]) [address] [facility], [place], [address], 10/04/2018 13:07:38 10/04/19 19 10/04/2018 lipid panel , serum VLDL cholesterol bree 32 mg/dL 5-40 Not Available [facility] ([facility]) [address] [facility], [place], [address], 10/04/2018 13:07:38 10/04/19 19 10/04/2018 lipid panel , serum LDL cholesterol calc 94 mg/dL 0-99 Not Available [facility] ([facility]) [address] [place], [address], 10/04/2018 13:07:38 10/04/19 19 10/04/2018 lipid panel , serum comment: HEALTH COMMUNICATIONS SPECIALIST Not Available [facility] ([facility]) [address] [facility], [place], [address], 10/04/2018 13:07:38 10/04/19 19 10/04/2018 HbA1c (hemo globi n A1c), blood hemoglobin A1C 5.2 % 4.8-5. 6 Predi abete s: 5.7 - 6.4 Diabe jaymie: >6.4 Glyce david contr ol for adult s with diabe jaymie: <7.0 Not Available [facility] ([facility]) [address], [place], [address], 10/04/2018 13:07:38 10/04/19 19 10/04/2018 micro album in, urine albumin, urine 7.8 ug/mL not estab. Not Available [facility] ([facility]) [address] [facility], [place], [address], 10/04/2018 13:07:38 10/04/19 19 10/04/2018 cardi ovasc [...] ia. Consi clifton evalu ation if clini leiecer indic ated. - Thera peuti c lifes [...] 10-ye ar or lifet dimitri CVD risk. [place] santino trigl yceri sascha may be assoc [...] inten ded to repla [facility]. They are [...] ([facility]) [address] [facility], [place], [address], 10/04/2018 13:07:39 10/04/19 19 10/04/2018 cardi ovasc ular asses sment panel , serum pdf image Not applic able Not Available [facility] ([facility]) [address], [place], [address], 10/04/2018 13:07:39 Result Notes None recorded. Problems Name Problem SNOMED Code Status Onset Date Resolution Date Notes Provider Name and Address Organization Details Recorded Time Pain of multiple joints 85385052 Active [address], [place], [address], [facility] - [employer] 13:54:48 Type 2 diabetes mellitus 31941912 Active [address], [place], [address], [facility] - [employer] [facility] 13:54:51 Non-smoker 9552369 Active 2018 Ananya Broderick [facility], [place] - [employer] 19:33:44 Hypertriglycer idemia 860084133 Active [address], [place], [address], [facility] - [employer] 20:17:09 Problem Notes None recorded. [...] Pulse oximetry Heart rate Body temperature Systolic And Diastolic Provider Name and Address Organization Details Last Updated DateTime 9 167.64 cm 34.6 kg/m2 35167.8 7 g 98 % 98 % 72 /min 97.4 [degF] 115/70 mm[Hg] Lisa Kauffman [facility] [employer] 9 13:32:18 Date Recorded Body height Body mass index (BMI) Body weight Oxygen saturation Oxygen saturation in Arterial blood by Pulse oximetry Heart rate Body temperature Systolic And Diastolic Provider Name and Address Organization Details Last Updated DateTime 9 167.64 cm 34.7 kg/m2 38684.3 6 g 97 % 97 % 88 /min 97.4 [degF] 110/64 mm[Hg] [facility] [employer] 9 18:25:36 Date Recorded Body height Body mass index (BMI) Body weight Oxygen saturation Oxygen saturation in Arterial blood by Pulse oximetry Heart rate Body temperature Systolic And Diastolic Provider Name and Address Organization Details Last Updated DateTime 9 167.64 cm 34.1 kg/m2 36505.3 9 g 97 % 97 % 74 /min 97.5 [degF] 150/80 mm[Hg] Ananya Broderick [facility] [employer] 9 19:32:46 Date Recorded Body height Body mass index (BMI) Body weight Body temperature Oxygen saturation Oxygen saturation in Arterial blood by Pulse oximetry Heart rate Systolic And Diastolic Provider Name and Address Organization Details Last Updated DateTime 9 167.64 cm 34.2 kg/m2 87133.5 8 g 96.8 [degF] 98 % 98 % 82 /min 132/78 mm[Hg] [facility] [employer] 9 19:25:42 Date Recorded Body height Body mass index (BMI) Body weight Oxygen saturation Oxygen saturation in Arterial blood by Pulse oximetry Heart rate Body temperature Systolic And Diastolic Provider Name and Address Organization Details Last Updated DateTime 9 167.64 cm 34.2 kg/m2 14484.5 8 g 98 % 98 % 70 /min 96 [degF] 118/70 mm[Hg] [facility] [employer] [facility] 9 11:49:30 Social History Question Answer Notes LastModified by Organizat ion Details LastModified Time Tobacco Smoking Status Never Smoker Not Available [facility] 11/22/2017 18:44:39 What Is Your Level [...] virus, quadrivalent, PF 12/20/2017 completed Not Available [facility] 0 02:23:30 Past Encounters Encounter ID Performer Location Encounter Start Date Encounter Closed Date Diagnosis/Indication Diagnosis SNOMED-CT Code Diagnosis ICD10 Code Diagnosis Note [id number] Susanne Cifuentes MD [facility] [place] [address] [place] [address] 11/26/2017 16:31:13 11/27/2017 17:54:36 Chronic cough 21556325 R05 Renewal of prescription 759367191 Z76.0 [id number] Susanne Cifuentes MD [facility] [place] [address] [place] [address] 12/19/2017 18:48:23 12/20/2017 12:04:51 Cough 69818252 R05 Type 2 dana betes mellitus 20033282 E11.9 Administra tion of influenza vaccine 11889816 Z23 [id number] Susanne Cifuentes MD [facility] [place] [address] [place] [address] 03/20/2018 12:31:04 03/23/2018 15:19:00 Type 2 diabetes mellitus 22549905 E11.9 Pain of mu ltiple joints 37916752 M25.50 [id number] Susanne Cifuentes MD [facility] [place] [address] [place] [address] 04/14/2018 12:29:39 04/21/2018 18:55:07 Liver enzymes level above reference range 300931366 R74.8 Cough 85422445 R05 Type 2 dana betes mellitus 66864184 E11.9 Hypertriglyceridemia 302 905059 E78.1 Bipolar disorder 8330060 4 F31.9 Stable with current medication . Sees psychiatry on regular basis. [id number] Susanne Cifuentes MD [facility] [address] [place] [address] 04/21/2018 17:26:23 04/25/2018 09:06:28 Type 2 diabetes mellitus 11438155 E11.9 Continue with current medication s.Increase exercise activity.I ncrease intake of fluids. Liver enzy mes level above reference range 436759885 R74.8 Repeat testing in 3-4 months.Cameron id use of OTC supplement s unless agreed by MD. Cough 15695296 R05 Plenty of fluids. Avoid any possible triggers. Return to clinic if coughing does not resolve. 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 Report side effects of new medication .Share recent blood results with psych. [id number] Susanne Cifuentes MD [facility] [address] [place] [address] 06/19/2018 19:09:09 06/23/2018 09:25:29 Type 2 diabetes mellitus 83871294 E11.9 Continue with current medication s.Increase exercise activity.I ncrease intake of fluids. Take twice a day. Hypertriglyceridemia 302 868691 E78.1 Diet Management Obesity 116767408 E66.9 1- Maintain a low carbohydra te [...] good sleep habits. 7- Avoid alcoholic beverages. [id number] Susanne Cifuentes MD [facility] [place] [address] [place] [address] 09/09/2018 19:06:56 09/22/2018 04:12:46 Chronic cough [id number] R05 Type 2 dana betes mellitus 30503053 E11.9 Continue with current medication s.Increase exercise activity.I ncrease intake of fluids. Take twice a day. Primary er ectile dysfunction [id number] N52.9 [id number] Susanne Cifuentes MD [facility] [place] [address] [place] [address] 10/08/2018 11:38:14 10/09/2018 01:57:56 Type 2 diabetes mellitus [id number] E11.9 Continue with current medication s.Increase exercise activity.I ncrease intake of fluids. Take twice a day. Primary er ectile dysfunction [id number] N52.9 Nonulcer dyspepsia 69420 07 K30 Hyperlipidemia 06094592 E78.1 Health Concerns Section Related Observation LastModified by Organization Detai ls LastModified Time None Recorded Concern Status LastModified by Organization Details LastModified Time None Recorded Advance Directives Directive None Recorded Payers Insurance Date Sequence Insurance Name Policy Number Policy Terrell Covered Member ID Terrell Member ID Guarantor Name 11/22/2017 2 [facility] (MEDICARE SUPPLEMENT PLAN) Kwaku Fuller [id number] Kwaku Fuller 10/08/2018 1 [facility] - DUAL ELIGIBLE (MEDICARE REPLACEMENT/AD VANTAGE - HMO) [facility] Kwaku Fuller [id number] Kwaku Fuller 12/20/2017 2 [facility] (MEDICAID REPLACEMENT - HMO) Kwaku Fuller [id number] Kwaku Fuller 04/11/2018 2 [facility] (MEDICAID HMO) Kwaku Fuller [id number] Kwaku Fuller 10/08/2018 2 [facility] (MEDICAID REPLACEMENT - HMO) Kwaku Fuller [id number] Kwaku Fuller Notes Date Note Type Note [...] counter including Vitamin D3. Susanne Cifuentes MD [address] ,[address], [place], [address], [facility] - [employer] 04/18/2018 08:30:29 04/21/19 19 text/htm l [...] Cifuentes MD [address], [place], [address], [facility] [employer] 04/25/2018 09:05:12 06/20/19 19 text/htm l Anxiety/DepressionReported bypatient.Severity:denies suicidal [...] no fatigue; no blurred vision; no paresthesias Here to go over recent blood testing to check on liver enzymes elevation. Patient has reduced the use of over the counter supplements. He denies symptoms of abdominal pain, no nausea or vomiting, no fever or chills. Susanne Cifuentes MD [address], [place], [address], [facility] [employer] 06/23/2018 09:24:46 09/10/19 19 text/htm l DiabetesReported [...] Depression and Anxiety. Susanne Cifuentes MD [address] ,[address], [place], [address], [facility] - [employer], [facility] 09/22/2018 02:29:35 10/09/19 19 text/htm l [...] no cardiovascular disease Susanne Cifuentes MD [address], [place], [address], [facility] - [employer] 10/09/2018 01:57:42
== END 2024-09-30 13:14 | disposition home or self-care (01) ==
LOC: HO.HMCFM 12:11
PROVIDERS: PCP Family Medicine; Visit Provider Nurse Practitioner Family
DX: Z00.00 Encounter for general adult medical examination without abnormal findings (principal); E11.41 Type 2 diabetes mellitus with diabetic mononeuropathy; E66.01 Morbid (severe) obesity due to excess calories; Z68.35 Body mass index [BMI] 35.0-35.9, adult; Z78.9 Other specified health status; F41.8 Other specified anxiety disorders; E78.2 Mixed hyperlipidemia; K76.0 Fatty (change of) liver, not elsewhere classified; Z71.85 Encounter for immunization safety counseling; Z71.89 Other specified counseling; Z01.00 Encounter for examination of eyes and vision without abnormal findings

== ENCOUNTER 2024-09-30 12:10 | Outpatient (REF) | payer MEDICARE, MEDICAID, SELFPAY | END 2024-09-30 12:11 | disposition home or self-care (01) | LOC: HO.LAB 12:10 | PROVIDERS: PCP Family Medicine; Visit Provider Nurse Practitioner Family | DX: Z00.00 Encounter for general adult medical examination without abnormal findings (principal); E11.41 Type 2 diabetes mellitus with diabetic mononeuropathy; E78.2 Mixed hyperlipidemia; E66.01 Morbid (severe) obesity due to excess calories; K76.0 Fatty (change of) liver, not elsewhere classified; F41.8 Other specified anxiety disorders; Z71.85 Encounter for immunization safety counseling; Z78.9 Other specified health status; Z68.35 Body mass index [BMI] 35.0-35.9, adult | CPT/HCPCS: 82570; 93005; 99212 ==

== ENCOUNTER 2024-12-29 13:31 | Outpatient (REF) | payer MEDICARE, MEDICAID, SELFPAY ==
--- OUTSIDE RECORDS SUMMARY | 2024-12-29 16:24 | XMS_ITS | Clinical Summary ---
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 Active alpha lipoic acid 600 mg tablet Take 1 tablet by mouth 1 (one) time each day. 30 tablet 2 12/03/2024 5 Active Active Problems Problem Noted Date Diagnosed Date Elevated LFTs 02/23/2024 NAFLD (nonalcoholic fatty liver disease) 022 Atypical chest pain 02/28/2022 Obesity Seasonal allergies Type 2 diabetes mellitus (CMS/HCC V24, [facility] V 28) Encounters Date Type Department Care Team Description 12/03/2024 2:30 PM EDT Office Visit Orthopedic Surgery [facility] [address] [phone] Prasanna Hernandez DPM Diabetic mononeuropathy simplex ([facility] V24, [facility] V28) (Primary Dx); Hammer toe of left foot; Metatarsalgia of both feet 10/18/2024 1:15 PM EDT - 10/18/2024 11:59 PM EDT Hospital Encounter [facility] MRI [address] [place] [phone] Disorder of ligament of foot, left Discharge Disposition: Home or Self Care 10/15/2024 2:30 PM EDT Office Visit Orthopedic Surgery [facility] [address] [phone] Prasanna Hernandez DPM Disorder of ligament of foot, left (Primary Dx); Follow-up exam; Hammer toe of left foot; Metatarsalgia of both feet; Diabetic mononeuropathy simplex ([facility] V24, [facility] V28) from Last 3 Months Immunizations Immunization Administration Dates Next Due Influenza trivalent, with pr eservative (Fluzone; Afluria) 6mo and older 01/03/2021,12/14/2019,12/05/2018 Surgical History Surgery Date Site/Laterality Comments COLONOSCOPY 03/18/2022 - 03/17/2023 Significant for 2 tubular adenomas Medical History Medical History Date Comments Obesity Type 2 diabetes mellitus ([facility] V24, [facility] V 28) Seasonal allergies [...] - - Weight 97.5 kg (215 lb) 10/15/2024 2:44 PM EDT Height 165.1 cm (5' 5 ) 10/15/2024 2:44 PM EDT Body Mass Index 35.78 10/15/2024 2:44 PM EDT Plan of Treatment Upcoming Encounters Date Type Department Care Team (Late st Contact Info) Description 03/04/2025 2:00 PM EST Office Visit Orthopedic Surgery - [place] 250 175 [facility] 250 [place] [address] Prasanna Hernandez DPJackie 175 [facility] [address] [place] [phone] 03/05/2025 2:10 PM EST Office Visit Gastroenterology - [place] 175 [facility] 175 [facility] [address] [place] [phone] Rosalba Bennett MD 175 [facility] 200 [place], [place] [phone] Health Maintenance Due Date Last Done Comments Diabetes: Annual GFR (Glomerular Filtration Rate) 1971 Diabetes: Annual Foot Exam 12/11/1981 Diabetes: Annual Retina Eye Exam 12/11/1981 DTaP,Tdap,and Td Vaccines (1 - Tdap) 12/11/1990 Hepatitis B Vaccines (1 of 3 - 19+ 3-dose series) 12/11/1990 RSV Immunization Adult Patients (1 - Risk 50-74 years 1-dose series) 12/11/2021 HIV Screening 03/03/2022 Hepatitis C Screening 03/03/2022 Medicare Annual Wellness Visit 03/03/2022 Social Influencers of Health Screening 03/03/2022 Diabetes: Annual Urine Albumin-Creatinine Ratio (uACR) 02/23/2024 Diabetes: Blood Sugar Control Test (HGBA1C) 02/23/2024 Depression Screening 03/18/2024 COVID-19 Vaccine ( season) 2024 Zoster Vaccines (2 of 2) 11/25/2024 09/30/2024 Cholesterol Screening (Lipid Panel) 10/23/2027 10/22/2022 Colorectal Cancer Screening: Colonoscopy 11/21/2027 11/20/2022 Pneumococcal Vaccine: 50+ Years Completed 09/30/2024 Influenza Vaccine Completed 11/18/2024, , 12/10/2022, Additional history exists HIB Vaccines Aged Out [...] Procedure Name Priority Date/Time Associated Diagnosis Comments MR FOOT WO CONTRAST LEFT Routine 10/18/2024 1:57 PM EDT Disorder of ligament of foot, left XR FOOT 3+ VIEWS BILAT Routine 10/15/2024 2:55 PM EDT Follow-up exam from Last 3 Months Results * MR Foot wo Contrast Left (10/18/2024 1:57 PM EDT) Anatomical Region Laterality Modality Lower Extremities, Foot Left Magnetic Resonance 10/19/2024 3:35 AM EDT Impressions 10/19/2024 5:41 AM EDT Unremarkable MRI of the left foot -------- FINAL REPORT -------- Dictated By: Vero Carter Dictated Date: 10/19/2024 03:35 ET Assigned Physician: Vero Carter Reviewed and Electronically Signed By: Vero Carter Signed Date: 10/19/2024 05:41 ET Workstation ID: [id number] Transcribed By: Self Edit Transcribed Date: 10/19/2024 03:43 ET Narrative 10/19/2024 5:41 AM EDT INDICATION: strain ligament vs diabetic neuropathy . COMPARISON: None TECHNIQUE: Multiplanar, multisequence MRI was performed of the left foot without intravenous contrast FINDINGS: Bone: No acute fracture or dislocation of the left foot. No abnormal bone marrow signal. Minimal degenerative changes of the left great toe MTP with mild hypertrophic lipping. Soft Tissues: Small amount of intermetatarsal bursal fluid between the first and second and second and third metatarsal heads. Lisfranc ligament is maintained. Soft tissues are unremarkable. Procedure Note Vero Carter MD - 10/19/2024 INDICATION: strain ligament vs diabetic neuropathy . COMPARISON: None TECHNIQUE: Multiplanar, multisequence MRI was performed of the left footwithout intravenous contrast FINDINGS: Bone: No acute fracture or dislocation of the left foot. No abnormalbone marrow signal. Minimal degenerative changes of the left great toeMTP with mild hypertrophic lipping. Soft Tissues: Small amount of intermetatarsal bursal fluid between thefirst and second and second and third metatarsal heads. Lisfranc ligamentis maintained. Soft tissues are unremarkable. IMPRESSION: Unremarkable MRI of the left foot -------- FINAL REPORT -------- Dictated By: Vero Carter Dictated Date: 10/19/2024 03:35 ET Assigned Physician: Vero Carter Reviewed and Electronically Signed By: Vero Carter Signed Date: 10/19/2024 05:41 ET Workstation ID: [id number] Transcribed By: Self Edit Transcribed Date: 10/19/2024 03:43 ET us Prasanna Hernandez DPM IMG MRI PROCEDURES Final Result * XR Foot 3+ Views bilat (10/15/2024 2:55 PM EDT) Anatomical Region Laterality Modality Lower Extremities, Foot Bilateral Computed Radiography Narrative 10/15/2024 4:37 PM EDT Right foot 3 views No fracture. No radiopaque foreign joint spaces normal Foot position rectus Normal talus navicular position normal calcaneal inclination normal symes line talus navicular joint to calcaneal cuboid joint Left foot 3 views No fracture. 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
--- OUTSIDE RECORDS SUMMARY | 2024-12-29 16:24 | XMS_ITS | Clinical Summary ---
Author Organization [employer] Address [address] [facility] 7[address] [place] [address] Care Team Providers Care Personal Secretary Name Role Phone Unavailable Primary Care Provider [...] Disability Screening 1971 Alcohol/Substance Use Screening 1983 Hepatitis C Screening 12/11/1989 DTaP/Tdap/Td Vaccines (1 - Tdap) 12/11/1990 Hepatitis A Vaccines (1 of 2 - Risk 2-dose series) 12/11/1990 Hepatitis B Vaccines (1 of 3 - 19+ 3-dose series) 12/11/1990 Pneumococcal Vaccine: 50+ Years (1 of 1 - PCV) 12/11/2021 Zoster Vaccines (1 of 2) 12/11/2021 COVID-19 Vaccine (1 - 2023- season) 2024 Influenza Vaccine (#1) 2024 , 12/10/2022, 01/03/2021, [...] Relevant to Health Maintenance Insurance DENTAL - [facility] ADULT
[2024-12-29 18:28] LABS: Anion Gap 12 (12-20); Blood Urea Nitrogen 15 mg/dL (9-16); Calcium 9.3 mg/dL (8.4-10.2); Carbon Dioxide 26 mmol/L (22-29); Chloride 106 mmol/L (96-108); Cholesterol 202 mg/dL (<200); Estimated Glomerular Filt Rate > 60; HDL Cholesterol 46 mg/dL (>40); Potassium 4.6 mmol/L (3.3-5.1); Sodium 139 mmol/L (135-145); Triglycerides 111 mg/dL (<150)
== END 2024-12-29 13:32 | disposition home or self-care (01) ==
LOC: HO.WFDLDS 13:31
PROVIDERS: Visit Provider Nurse Practitioner Family
DX: E11.9 Type 2 diabetes mellitus without complications (principal); K76.0 Fatty (change of) liver, not elsewhere classified; E78.5 Hyperlipidemia, unspecified; Z12.5 Encounter for screening for malignant neoplasm of prostate
CPT/HCPCS: 36415; 80048; 80061; 84153

== ENCOUNTER 2025-01-01 11:53 | Outpatient (AMB) | payer MEDICARE, MEDICAID, SELFPAY ==
--- NOTE | 2025-01-01 12:14 | MHC.PC.OV ---
Vital Signs 01/01/25 12:22 Height 5 ft 10 in Weight 211 lb BMI 30.3 BP 114/80 Blood Pressure Location Lt brachial Position Sitting Respiration 14 Pulse 73 Pulse Source Pulse Oximeter Temp 97.7 F Temp Source Temporal Artery Scan Pulse Oximetry (%) 97 Oxygen Delivery Method Room Air Intake Visit Reasons: f/u DM /LIPIDS /chronic conditions Intake Note: Kwaku presents in the office today to follow up on his diabetes and cholesterol. Core Worker Required: No Core Worker Name: Refused Core Worker Allergies ezetimibe Allergy (Severe, Verified 01/01/25 12:21) neck pain atorvastatin Allergy (Verified 01/01/25 12:21) Joint Pain Medication List - Last Reconciled 01/01/25 by Javier Aguirre MD benzonatate 100 mg PO BID PRN 10 days blood sugar diagnostic One Touch Test Strips to check blood sugar one time per day as directed blood sugar diagnostic (FreeStyle Lite Strips) DX: E11.9, test blood sugar once a day, 90 days blood-glucose meter One Touch Verio Meter to check blood sugar one time daily as directed blood-glucose meter (FreeStyle Lite Meter kit) DX: E11.9, test blood sugar once a day, duration 999 days fluticasone propionate 50 mcg/actuation (Flonase Allergy Relief) 1 spray intranasal Q12H 30 days ibuprofen 400 mg PO Q8H PRN 30 days lancets One Touch Fine Point Lancets to check blood sugar one time per day as directed lancets (FreeStyle Lancets) As directed semaglutide 1 mg (0.75 mL) subcut QWEEK 28 days Tobacco use date assessed: 09/11/24 Dental Screening Dental Screen Date: 01/01/25 Did you have a dental visit in the last 12 months?: Yes Did you have a dental problem in the last 6 months where you did not have access to dental care?: No Was dental information given to patient?: Patient has dentist HPI f/u DM /LIPIDS /chronic conditions HPI Details 54 y/o male presents to f/u diabetes, chronic conditions. A1c today 01/01/25 5.1%. He is on semaglutide 1mg. Lipid panel drawn 12/29/24. Reviewed labs with pt. Triglycerides 111. TC 202. LDL 134. HDL 46. Had discontinued his artovastatin 10mg due to achiness. PSA 0.74. HPI Comments History of Present Illness Details Documentation assistance for Javier Aguirre MD, was provided by Yaakov Kasper,? Front End Application Developer on 01/01/2025 at 12:41 PM EST. I, Dr. Aguirre, have read, observed, and verified documentation. ?? [facility] Medical History (Updated 09/30/24 @ 13:04 by Liset House [facility]-) Nonalcoholic fatty liver disease Elevated LFTs Hyperlipidemia DM II (diabetes mellitus, type II), controlled DM2 (diabetes mellitus, type 2) Surgical History (Updated 09/30/24 @ 12:18 by VINNY VuP-) History of colonoscopy (~2022) No pertinent past surgical history Family History Mother No problems noted. Father No problems noted. Social History (Updated 01/01/25 @ 12:22 by Nya Patel [facility]) Housing: Apartment Alcohol intake: never Patient Tobacco Use Status: Current everyday Tobacco user e-Cigarette/Vaping Use: Never Used Second Hand Smoke Exposure: No service: No Current occupational status: unemployed Current occupational exposures/hazards: No Cognitive needs: No Hearing needs: No Vision needs: No Questionnaire Thrive Questionnaire Date Thrive assessed: 08/03/24 I am a: Patient What is your living situation today?: I have a steady place to live Within the past 12 months, did the food you bought not last and you didn't have the money to get more?: Often true Within the past 12 months, did you worry whether your food would run out before you got money to buy more?: Often true Do you have trouble paying for medicines?: No Do you have trouble getting transportation to medical appointments?: No Do you have trouble paying your heating and electricity bill?: No Do you have trouble taking care of your child, family member or friend?: No Do you have trouble with day-to-day activities such as bathing, preparing meals, shopping, managing finances, etc.?: No Are you currently unemployed and looking for a job?: No Are you interested in more education?: No Please select the resources that you would like help with: None Currently or been in a relationship where the following occur: I choose not to answer THRIVE Score: 2 LETICIA-7 AMB Questionnaire LETICIA-7 Date LETICIA - 7 assessed: 05/06/24 Source: Developed by Drs. Doni Villarreal, Yuridia Guzman, Henry Arellano and colleagues, with an educational noel from [employer]. Review of Systems Const Denies chills, Denies fatigue, Denies fever(s), Denies headache(s) and Denies weakness ENT Denies dizziness and Denies headache(s) Card Denies dyspnea Resp Denies cough, Denies dyspnea, Denies wheezing and Denies other (shortness of breath) Musc Denies numbness and Denies tingling Neuro Denies dizziness, Denies headache(s), Denies numbness, Denies tingling and Denies weakness Psych Denies anxiety and Denies depression Endo Denies fatigue Aller/Immun Denies wheezing Physical exam (Primary Care) Vital Signs: Last Vital Signs Temp 97.7 F 01/01/25 12:22 Pulse 73 01/01/25 12:22 Resp 14 01/01/25 12:22 BP 114/80 01/01/25 12:22 Pulse Ox 97 01/01/25 12:22 Oxygen Delivery Method Room Air 01/01/25 12:22 BMI result Body Mass Index 30.3 Tobacco/Smoking Status: Tobacco use Status Tobacco use date assessed 09/11/24 01/01/25 12:15 Patient Tobacco Use Status Current everyday Tobacco 01/01/25 12:27 e-Cigarette/Vaping Use Never Used 01/01/25 12:22 Thrive Assessment: Date of Thrive Assessment Date Thrive assessed 08/03/24 01/01/25 12:15 Currently or been in a relationship where the following occur: I choose not to answer Const General: well developed; No acute distress Nutritional Appearance: well nourished Orientation/consciousness: patient oriented x3 HENMT Head: Yes normocephalic and Yes atraumatic Eyes General: appearance normal, both eyes and all related structures Pupils: Equal, round and reactive pupils present EOM: EOMs intact bilaterally Resp Effort & Inspection: normal respiratory effort Auscultation: clear to auscultation bilaterally Cardio Rate: regular rate Rhythm: regular rhythm Heart sounds: S1 normal heart sound present, S2 normal heart sound present, no gallops, no murmurs and no rubs Neuro General: patient oriented x3 and gait normal Cranial nerves: Yes Equal, round and reactive pupils present Psych Affect: normal affect Results AMB Hemoglobin A1c AMB Hemoglobin A1c 5.1 % Last Edit by Nya Patel CMA on 01/01/25 12:37 Results Reviewed Results Reviewed: Laboratory Last Values Hgb A1c (Clinic) 5.1 % (4.0-6.0) 01/01/25 12:28 Coding Level of Care Code Est Pt Level 4 (23244) Diagnoses DM II (diabetes mellitus, type II), controlled E11.9 Mixed hyperlipidemia E78.2 Hyperlipidemia type: mixed hyperlipidemia Elevated LFTs R79.89 Assessment & Plan Assessment & Plan (1) DM II (diabetes mellitus, type II), controlled: Code(s): E11.9 - Type 2 diabetes mellitus without complications Category: Medical Plan: A1c is 5.1%. Good control. Goal is less than 7.0% Continue current medication Work on diet, exercise and weight loss (2) Hyperlipidemia: Code(s): E78.5 - Hyperlipidemia, unspecified Category: Medical Qualifiers: Hyperlipidemia type: mixed hyperlipidemia Qualified Code(s): E78.2 - Mixed hyperlipidemia Plan: LDL cholesterol is above 130. Goal is less than 100 Patient was having trouble tolerating atorvastatin Switching to pravastatin Will recheck lipids with next blood draw (3) Elevated LFTs: Code(s): R79.89 - Other specified abnormal findings of blood chemistry Category: Medical Plan: Elevated LFTs and recent ultrasound showed hepatic steatosis She wave elastography was negative for advanced chronic liver disease Encouraged weight loss and good hydration Will continue to monitor Orders: Orders Lipid Panel Today E66.01 - Morbid (severe) obesity due to excess calories, Z00.00 - Encounter for general adult medical examination without abnormal findings, Z68.35 - Body mass index [BMI] 35.0-35.9, adult AMB Hemoglobin A1c Today E11.9 - Type 2 diabetes mellitus without complications Comprehensive [place]. Panel Fast Today E66.01 - Morbid (severe) obesity due to excess calories, Z00.00 - Encounter for general adult medical examination without abnormal findings, Z68.35 - Body mass index [BMI] 35.0-35.9, adult Medications: New pravastatin 10 mg PO BEDTIME 90 tabs 3RF 90 days
[2025-01-01 12:22] VITALS: BP 114/80; PULSE 73; RESP 14; TEMP 36.5; O2SAT 97; BMI 30.3
--- OUTSIDE RECORDS SUMMARY | 2025-01-01 14:42 | XMS_ITS | Clinical Summary ---
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 V 28) Encounters Date Type Department Care Team Description 12/03/2024 2:30 PM EDT Office Visit Orthopedic Surgery [facility] [address] [phone] Prasanna Hernandez DPM Diabetic mononeuropathy simplex ([facility] V24, [facility] V28) (Primary Dx); Hammer toe of left foot; Metatarsalgia of both feet 10/18/2024 1:15 PM EDT - 10/18/2024 11:59 PM EDT Hospital Encounter [facility] MRI [address] [place] [phone] Disorder of ligament of foot, left Discharge Disposition: Home or Self Care 10/15/2024 2:30 PM EDT Office Visit Orthopedic Surgery [facility] [address] [phone] Prasanna Hernandez DPM Disorder of ligament of foot, left (Primary Dx); Follow-up exam; Hammer toe of left foot; Metatarsalgia of both feet; Diabetic mononeuropathy simplex ([facility] V24, [facility] V28) from Last 3 Months Immunizations Immunization Administration Dates Next Due Influenza trivalent, with pr eservative (Fluzone; Afluria) 6mo and older 01/03/2021,12/14/2019,12/05/2018 Surgical History Surgery Date Site/Laterality Comments COLONOSCOPY 03/18/2022 - 03/17/2023 Significant for 2 tubular adenomas Medical History Medical History Date Comments Obesity Type 2 diabetes mellitus ([facility] V24, [facility] V 28) Seasonal allergies Social History [...] PM EST Office Visit Orthopedic Surgery - [place] 250 175 [facility] 250 [place] [address] Prasanna Hernandez DPJackie 175 [facility] [address] [place] [phone] 03/05/2025 2:10 PM EST Office Visit Gastroenterology - [place] 175 [facility] 175 [facility] [address] [place] [phone] Rosalba Bennett MD 175 [facility] [address] [place], [place] [phone] Health Maintenance Due Date Last Done Comments [...] Signed Date: 10/19/2024 05:41 ET Workstation ID: [id number] Transcribed By: Self Edit Transcribed Date: 10/19/2024 [...] Signed Date: 10/19/2024 05:41 ET Workstation ID: [id number] Transcribed By: Self Edit Transcribed Date: 10/19/2024 [...] navicular joint to calcaneal cuboid joint us Prasanan Hernandez DPM IMG XR PROCEDURES Final R esult from Last 3 Months Insurance [employer] MEDICARE MEDICAID - [place] Care Teams Plastics Fabricator Or Welder Relationship Specialty Start Date End Date Javier Aguirre MD [address] [place] [address] Dr Ed [place] PCP - General 01/05/22
--- OUTSIDE RECORDS SUMMARY | 2025-01-01 14:42 | XMS_ITS | Clinical Summary ---
Author Organization [employer] Address [address] [facility] 7t [place] [address] Care Team Providers Care Campus Interviews Intern Name Role Phone Unavailable Primary Care Provider [...] Relevant to Health Maintenance Insurance [facility] - [facility] [place] STAND AD[place]
--- OUTSIDE RECORDS SUMMARY | 2025-01-01 14:43 | XMS_ITS | Data Portability ---
Author Organization [place] [facility] [employer] [place] [address] [place] [address] Care Team Providers Care Supply Coordinator Name Role Phone SUSANNE CIFUENTES Primary Care Provider Assessment No assessment recorded. Plan of Treatment Reminders Order Date Submit Date Provider Last Modified By Organization Details Last Modified Time Details Appointments None recorded. Lab CMP, serum or plasma 2018 019 JANESSA [facility], [address], [address], [place], [address], 9 13:07:37 lipid panel, serum 2018 019 JAN[facility]SA [facility], [address], [address], [place], [address], 9 13:07:38 microalbum in, QN, unspecifie d duration, urine 2018 019 JANESSA [facility], [address], [address], [place], [address], 9 19:43:31 hemoglobin A1c, QN, blood 2018 019 JANESSA [facility], [address], [address], [place], [address], 9 19:43:30 hepatic function panel, serum 2018 019 [facility] 1 [facility], [address], [address], [place], [address], 9 11:10:18 Referral None recorded. Procedures None recorded. Surgeries None recorded. Imaging None recorded. Medication Orders sildenafil (pulmonary hypertensi on) 20 mg tablet 2018 019 [email or web address] [facility]0069, [address], [place], [address], 9 13:28:14 omeprazole 20 mg capsule,de layed release 2018 019 INTERFACE [facility]00[facility], [address], [place], [address], 9 12:28:28 metformin 850 mg tablet 2018 019 INTERFACE [facility]00[facility], [address], [place], [address], 9 12:25:10 OneTouch Verio test strips 2018 019 INTERFACE [facility]00[facility], [address], [place], [address], 9 12:26:43 sildenafil (pulmonary hypertensi on) 20 mg tablet 2018 019 INTERFACE [facility], [address], [place], [address], 9 19:47:22 metformin 850 mg tablet 2018 019 INTERFACE [facility]00[facility], [address], [place], [address], 9 19:43:26 Robitussin Cough-Ches t Congestion DM 5 mg-100 mg/5 mL oral liquid 2018 019 INTERFACE [facility], [address], [place], [address], 9 19:36:41 Cheratussi n AC 10 mg-100 mg/5 mL oral liquid 2018 019 [facility] 1 [facility], [address], [place], [address], 9 19:32:59 benzonatat e 200 mg capsule 2018 019 [facility] 1 [id number], [address], [place], [place], [id number], 9 19:33:03 Patient Targets Encounter Date Encounter Id Patient Goals Patient Target Last Modified By Organization Details Last Modified Time 04/21/2018 [id number] Stop all vitamin supplementation for the next 2 weeks. Continue with current Metformin. [email or web address] Not available 04/21/2018 18:53:30 Patient Instructions Encounter Date Encounter Id Patient Instructions Last Modified By Organization Details Last Modified Time 06/19/2018 [id number] [email or web address] Not available 06/23 09:14:39 09/09/2018 [id number] chronic cough: care instructions [email or web address] Not available 09/09/2018 19:36:39 Increase fluid intake. Use of Vaporizer is recommended Rest until afebrile [place] pot or saline rinses. Tylenol or Motrin [...] prescribed. [email or web address] Not available 09/22/2018 02:29:19 10/08/2018 [id number] learning about type 2 diabetes [email or web address] Not [...] glucose 99 mg/dL 65-99 Not Available [facility] ([facility]) [address] [place], [address], 04/05/2018 09:18:42 04/04/1904/05/2018 CMP, serum or plasm a BUN 10 mg/dL 6-24 Not Available [facility] ([facility]) [address] [place], [address], 04/05/2018 09:18:42 04/04/1904/05/2018 CMP, serum or plasm a creatinine 0.82 mg/dL 0.76-1 .27 Not Available [facility] ([facility]) [address] [place], [address], 04/05/2018 09:18:42 04/04/1904/05/2018 CMP, serum or plasm a eGFR if nonafricn AM 106 mL/mi n/1.7 3 >59 Not Available [facility] ([facility]) [address] [place], [address], 04/05/2018 09:18:42 04/04/1904/05/2018 CMP, serum or plasm a eGFR if africn AM 123 mL/mi n/1.7 3 >59 Not Available [facility] ([facility]) [address] [place], [address], 04/05/2018 09:18:42 04/04/1904/05/2018 CMP, serum or plasm a BUN/creatini ne ratio 12 9-20 Not Available [facility]) [address] [place], [address], 04/05/2018 09:18:42 04/04/1904/05/2018 CMP, serum or plasm a sodium 139 mmol/ L 134-14 4 Not Available [facility] ([facility]) [address] [place], [address], 04/05/2018 09:18:42 04/04/1904/05/2018 CMP, serum or plasm a potassium 4.5 mmol/ L 3.5-5. 2 Not Available [facility] ([facility]) [address] [place], [address], 04/05/2018 09:18:42 04/04/1904/05/2018 CMP, serum or plasm a chloride 102 mmol/ L 96-106 Not Available [facility] ([facility]) [address] [place], [address], 04/05/2018 09:18:42 04/04/1904/05/2018 CMP, serum or plasm a carbon dioxide, total 23 mmol/ L 20-29 Not Available [facility] ([facility]) [address] [place], [address], 04/05/2018 09:18:42 04/04/1904/05/2018 CMP, serum or plasm a calcium 9.4 mg/dL 8.7-10 .2 Not Available [facility] ([facility]) [address] [place], [address], 04/05/2018 09:18:42 04/04/1904/05/2018 CMP, serum or plasm a protein, total 6.9 g/dL 6.0-8. 5 Not Available [facility] ([facility]) [address] [place], [address], 04/05/2018 09:18:42 04/04/1904/05/2018 CMP, serum or plasm a albumin 4.6 g/dL 3.5-5. 5 Not Available [facility] ([facility] [address] [place], [address], 04/05/2018 09:18:42 04/04/1904/05/2018 CMP, serum or plasm a globulin, total 2.3 g/dL 1.5-4. 5 Not Available [facility] ([facility] [address] [place], [address], 04/05/2018 09:18:42 04/04/1904/05/2018 CMP, serum or plasm a A/G ratio 2.0 1.2-2. 2 Not Available [facility] ([facility]) [address] [place], [address], 04/05/2018 09:18:42 04/04/1904/05/2018 CMP, serum or plasm a bilirubin, total 0.4 mg/dL 0.0-1. 2 Not Available [facility] ([facility]) [address] [place], [address], 04/05/2018 09:18:42 04/04/1904/05/2018 CMP, serum or plasm a alkaline phosphatase 58 IU/L 39-117 Not Available [facility] [address] [place], [address], 04/05/2018 09:18:42 04/04/1904/05/2018 CMP, serum or plasm a AST (SGOT) 30 IU/L 0-40 Not Available [facility] ([facility]) [address] [place], [address], 04/05/2018 09:18:42 04/04/1904/05/2018 CMP, serum or plasm a ALT (SGPT) 84 IU/L 0-44 above high normal Not Available [facility] ([facility] [address] [place], [address], 04/05/2018 09:18:42 04/04/1904/05/2018 lipid panel , serum cholesterol, total 173 mg/dL 100-19 9 Not Available [facility] ([facility]) [address] [place], [address], 04/05/2018 09:18:43 04/04/1904/05/2018 lipid panel , serum triglyceride s 179 mg/dL 0-149 above high normal Not Available [facility] ([facility]) [address] [place], [address], 04/05/2018 09:18:43 04/04/1904/05/2018 lipid panel , serum HDL cholesterol 41 mg/dL >39 Not Available [facility] [address] [place], [address], 04/05/2018 09:18:43 04/04/1904/05/2018 lipid panel , serum VLDL cholesterol bree 36 mg/dL 5-40 Not Available [facility] [address] [place], [address], 04/05/2018 09:18:43 04/04/1904/05/2018 lipid panel , serum LDL cholesterol calc 96 mg/dL 0-99 Not Available [facility] [address] [place], [address], 04/05/2018 09:18:43 04/04/1904/05/2018 lipid panel , serum comment: CABLE SPOOLER Not Available [facility] ([facility]) [address], [place], [address], 04/05/2018 09:18:43 04/04/1904/05/2018 cardi sridharmagalie edwards smjuan [...] 10-ye ar or lifet dimitri CVD risk. Siloam santino trigl yceri sascha may be assoc iated with incre ased cardi ovasc ular risk due to incre ased numbe rs of ather ogeni c lipop rotei n parti cles. Co-mo rbid condi tions shoul d be evalu ated and treat ed. ----- ----- ----- ----- ----- ----- - INTER MEDIA TE RISK ASSES [facility] T[facility] MIKALA WOODWARD S ----- ----- ----- [...] - HIGH RISK ASSES [facility]ENT [facility]AL[facility]OD[facility] S ----- ----- ----- [...] ded [facility] [place] judgm ent. They are [...] 2008; 31(4) :811- 82. Not Available [facility] ([facility]) [address] [facility], [place], [address], 04/05/2018 09:18:44 04/04/19 19 04/05/2018 cardi ovasc ular asses sment panel , serum pdf image Not applic able Not Available [facility] ([facility]) [address] [facility], [place], [address], 04/05/2018 09:18:44 04/04/19 19 04/06/2018 HbA1c (hemo [...] (ADA) Not Available [facility] [address] [place], [address], 04/06/2018 09:07:49 04/04/19 19 04/06/2018 HbA1c (hemo globi n A1c), blood estimated average glucose 97 mg/dL Not Available [facility] [address] [facility], [place], [address], 04/06/2018 09:07:49 04/04/1904/06/2018 HbA1c (hemo globi n [...] s. Not Available [facility] [address] [facility], [place], [address], 04/06/2018 09:07:49 04/04/19 19 04/05/2018 micro album in, urine albumin, urine <3.0 ug/mL not estab. Not Available [facility]) [address] [place], [address], 04/06/2018 09:07:49 06/14/1906/14/2018 hepat ic funct ion panel , serum protein, total 7.0 g/dL 6.0-8. 5 Not Available [facility] ([facility]) [address] [place], [address], 06/14/2018 09:14:53 06/14/1906/14/2018 hepat ic funct ion panel , serum albumin 4.6 g/dL 3.5-5. 5 Not Available [facility] ([facility]) [address] [place], [address], 06/14/2018 09:14:53 06/14/19 19 06/14/2018 hepat ic funct ion panel , serum bilirubin, total 0.5 mg/dL 0.0-1. 2 Not Available [facility] ([facility]) [address], [place], [address], 06/14/2018 09:14:53 06/14/1906/14/2018 hepat ic funct ion panel , serum bilirubin, direct 0.13 mg/dL 0.00-0 .40 Not Available [facility] ([facility]) [address] [place], [address], 06/14/2018 09:14:53 06/14/1906/14/2018 hepat ic funct ion panel , serum alkaline phosphatase 63 IU/L 39-117 Not Available [facility] [address] [place], [address], 06/14/2018 09:14:53 06/14/1906/14/2018 hepat ic funct ion panel , serum AST (SGOT) 19 IU/L 0-40 Not Available [facility] ([facility]) [address] [place], [address], 06/14/2018 09:14:53 06/14/19 19 06/14/2018 hepat ic funct ion panel , serum ALT (SGPT) 41 IU/L 0-44 Not Available [facility] ([facility]) [address] [place], [address], 06/14/2018 09:14:53 10/04/19 19 10/04/2018 CMP, serum or plasm a glucose 89 mg/dL 65-99 Not Available [facility] ([facility]) [address] [place], [address], 10/04/2018 13:07:37 10/04/19 19 10/04/2018 CMP, serum or plasm a BUN 15 mg/dL 6-24 Not Available [facility] ([facility]) [address] [place], [address], 10/04/2018 13:07:37 10/04/19 19 10/04/2018 CMP, serum or plasm a creatinine 0.83 mg/dL 0.76-1 .27 Not Available [facility] ([facility]) [address] [place], [address], 10/04/2018 13:07:37 10/04/19 19 10/04/2018 CMP, serum or plasm a eGFR if nonafricn AM 106 mL/mi n/1.7 3 >59 Not Available [facility] ([facility]) [address] [place], [address], 10/04/2018 13:07:37 10/04/19 19 10/04/2018 CMP, serum or plasm a eGFR if africn AM 122 mL/mi n/1.7 3 >59 Not Available [facility] ([facility]) [address] [place], [address], 10/04/2018 13:07:37 10/04/19 19 10/04/2018 CMP, serum or plasm a BUN/creatini ne ratio 18 9-20 Not Available [facility] ([facility]) [address] [place], [address], 10/04/2018 13:07:37 10/04/19 19 10/04/2018 CMP, serum or plasm a sodium 139 mmol/ L 134-14 4 Not Available [facility] ([facility]) [address] [place], [address], 10/04/2018 13:07:37 10/04/19 19 10/04/2018 CMP, serum or plasm a potassium 4.3 mmol/ L 3.5-5. 2 Not Available [facility] ([facility]) [address] [place], [address], 10/04/2018 13:07:37 10/04/19 19 10/04/2018 CMP, serum or plasm a chloride 102 mmol/ L 96-106 Not Available [facility] ([facility]) [address] [place], [address], 10/04/2018 13:07:37 10/04/19 19 10/04/2018 CMP, serum or plasm a carbon dioxide, total 20 mmol/ L 20-29 Not Available [facility] ([facility]) [address] [place], [address], 10/04/2018 13:07:37 10/04/19 19 10/04/2018 CMP, serum or plasm a calcium 9.2 mg/dL 8.7-10 .2 Not Available [facility] ([facility]) [address] [place], [address], 10/04/2018 13:07:37 10/04/1910/04/2018 CMP, serum or plasm a protein, total 7.1 g/dL 6.0-8. 5 Not Available [facility] ([facility]) [address] [place], [address], 10/04/2018 13:07:37 10/04/19 19 10/04/2018 CMP, serum or plasm a albumin 4.7 g/dL 3.5-5. 5 Not Available [facility] ([facility]) [address] [place], [address], 10/04/2018 13:07:37 10/04/19 19 10/04/2018 CMP, serum or plasm a globulin, total 2.4 g/dL 1.5-4. 5 Not Available [facility] ([facility]) [address] [place], [address], 10/04/2018 13:07:37 10/04/19 19 10/04/2018 CMP, serum or plasm a A/G ratio 2.0 1.2-2. 2 Not Available [facility] ([facility]) [address] [place], [address], 10/04/2018 13:07:37 10/04/19 19 10/04/2018 CMP, serum or plasm a bilirubin, total 0.5 mg/dL 0.0-1. 2 Not Available [facility] ([facility]) [address] [place], [address], 10/04/2018 13:07:37 10/04/19 19 10/04/2018 CMP, serum or plasm a alkaline phosphatase 60 IU/L 39-117 Not Available [facility] [address] [place], [address], 10/04/2018 13:07:37 10/04/19 19 10/04/2018 CMP, serum or plasm a AST (SGOT) 21 IU/L 0-40 Not Available [facility] ([facility]) [address] [place], [address], 10/04/2018 13:07:37 10/04/19 19 10/04/2018 CMP, serum or plasm a ALT (SGPT) 42 IU/L 0-44 Not Available [facility] ([facility]) [address] [place], [address], 10/04/2018 13:07:37 10/04/19 19 10/04/2018 lipid panel , serum cholesterol, total 167 mg/dL 100-19 9 Not Available [facility] ([facility]) [address] [place], [address], 10/04/2018 13:07:38 10/04/19 19 10/04/2018 lipid panel , serum triglyceride s 159 mg/dL 0-149 above high normal Not Available [facility] ([facility]) [address] [facility], [place], [address], 10/04/2018 13:07:38 10/04/19 19 10/04/2018 lipid panel , serum HDL cholesterol 41 mg/dL >39 Not Available [facility]) [address] [facility], [place], [address], 10/04/2018 13:07:38 10/04/19 19 10/04/2018 lipid panel , serum VLDL cholesterol bree 32 mg/dL 5-40 Not Available [facility] ([facility]) [address] [facility], [place], [address], 10/04/2018 13:07:38 10/04/19 19 10/04/2018 lipid panel , serum LDL cholesterol calc 94 mg/dL 0-99 Not Available [facility] ([facility]) [address] [place], [address], 10/04/2018 13:07:38 10/04/19 19 10/04/2018 lipid panel , serum comment: CABLE SPOOLER Not Available [facility] ([facility]) [address] [facility], [place], [address], 10/04/2018 13:07:38 10/04/19 19 10/04/2018 HbA1c (hemo globi n A1c), blood hemoglobin A1C 5.2 % 4.8-5. 6 Predi abete s: 5.7 - 6.4 Diabe jaymie: >6.4 Glyce david contr ol for adult s with diabe jaymie: <7.0 Not Available [facility] ([facility]) [address], [place], [address], 10/04/2018 13:07:38 10/04/19 19 10/04/2018 micro album in, urine albumin, urine 7.8 ug/mL not estab. Not Available [facility] ([facility]) [address] [facility], [place], [address], 10/04/2018 13:07:38 10/04/19 19 10/04/2018 cardi ovasc [...] 10-ye ar or lifet dimitri CVD risk. Siloam santino trigl yceri sascha may be assoc [...] ture ather oscle rotic disea se, eleva santnio coron jon arter y calci um score [...] ded to repla ce the [facility] [place] bree judgm ent. They are [...] 2008; 31(4) :811- 82. Not Available [facility] ([facility]) [address] [facility], [place], [address], 10/04/2018 13:07:39 10/04/19 19 10/04/2018 cardi ovasc ular asses sment panel , serum pdf image Not applic able Not Available [facility] ([facility]) [address], [place], [address], 10/04/2018 13:07:39 Result Notes None recorded. Problems Name Problem SNOMED Code Status Onset Date Resolution Date Notes Provider Name and Address Organization Details Recorded Time Pain of multiple joints 69374450 Active [address], [place], [address], [facility] - [employer] 13:54:48 Type 2 diabetes mellitus 48752211 Active [address], [place], [address], [facility] - [facility] 13:54:51 Non-smoker 4979245 Active 2018 Ananya Broderick [facility], [place] - [employer] 19:33:44 Hypertriglycer idemia 168339473 Active [address], [place], [address], [facility] - [employer] 20:17:09 Problem Notes None recorded. [...] Updated DateTime 9 167.64 cm 34.6 kg/m2 38859.8 7 g 98 % 98 % 72 /min 97.4 [degF] 115/70 mm[Hg] Lisa Kauffman [facility] [employer] 9 13:32:18 Date Recorded Body height Body mass index (BMI) Body weight Oxygen saturation Oxygen saturation in Arterial blood by Pulse oximetry Heart rate Body temperature Systolic And Diastolic Provider Name and Address Organization Details Last Updated DateTime 9 167.64 cm 34.7 kg/m2 09022.3 6 g 97 % 97 % 88 /min 97.4 [degF] 110/64 mm[Hg] [facility] [employer] 9 18:25:36 Date Recorded Body height Body mass index (BMI) Body weight Oxygen saturation Oxygen saturation in Arterial blood by Pulse oximetry Heart rate Body temperature Systolic And Diastolic Provider Name and Address Organization Details Last Updated DateTime 9 167.64 cm 34.1 kg/m2 31149.3 9 g 97 % 97 % 74 /min 97.5 [degF] 150/80 mm[Hg] Ananya Broderick [facility] [employer] 9 19:32:46 Date Recorded Body height Body mass index (BMI) Body weight Body temperature Oxygen saturation Oxygen saturation in Arterial blood by Pulse oximetry Heart rate Systolic And Diastolic Provider Name and Address Organization Details Last Updated DateTime 9 167.64 cm 34.2 kg/m2 16990.5 8 g 96.8 [degF] 98 % 98 % 82 /min 132/78 mm[Hg] [facility] [employer] 9 19:25:42 Date Recorded Body height Body mass index (BMI) Body weight Oxygen saturation Oxygen saturation in Arterial blood by Pulse oximetry Heart rate Body temperature Systolic And Diastolic Provider Name and Address Organization Details Last Updated DateTime 9 167.64 cm 34.2 kg/m2 09234.5 8 g 98 % 98 % 70 /min 96 [degF] 118/70 mm[Hg] [facility] [employer] [facility] 9 11:49:30 Social History Question Answer Notes LastModified by Organizat ion Details LastModified Time Tobacco Smoking Status Never Smoker Not Available [facility] 11/22/2017 18:44:39 What Is Your Level [...] virus, quadrivalent, PF 12/20/2017 completed Not Available [facility] 0 02:23:30 Past Encounters Encounter ID Performer Location Encounter Start Date Encounter Closed Date Diagnosis/Indication Diagnosis SNOMED-CT Code Diagnosis ICD10 Code Diagnosis IMO Codes Diagnosis Note [id number] Susanne Cifuentes MD [facility] [place] [address] [place] [address] 11/26/2017 16:31:13 11/27/2017 17:54:36 Chronic cough 68072150 R05 Renewal of prescription 679357116 Z76.0 [id number] Susanne Cifuentes MD [facility] [place] [address] [place] [address] 12/19/2017 18:48:23 12/20/2017 12:04:51 Cough 90348753 R05 Type 2 dana betes mellitus 98491258 E11.9 Administra tion of influenza vaccine 90048707 Z23 [id number] Susanne Cifuentes MD [facility] [place] [address] [place] [address] 03/20/2018 12:31:04 03/23/2018 15:19:00 Type 2 diabetes mellitus 73374317 E11.9 Pain of mu ltiple joints 92522708 M25.50 [id number] Susanne Cifuentes MD [facility] [place] [address] [place] [address] 04/14/2018 12:29:39 04/21/2018 18:55:07 Liver enzymes level above reference range 562620273 R74.8 Cough 36745228 R05 Type 2 dana betes mellitus 70547659 E11.9 Hypertriglyceridemia 302 845255 E78.1 Bipolar disorder 8966223 4 F31.9 Stable with current medication . Sees psychiatry on regular basis. [id number] Susanne Cifuentes MD [facility] [address] [place] [address] 04/21/2018 17:26:23 04/25/2018 09:06:28 Type 2 diabetes mellitus 73211754 E11.9 Continue with current medication s.Increase exercise activity.I ncrease intake of fluids. Liver enzy mes level above reference range 279356768 R74.8 Repeat testing in 3-4 months.Cameron id use of OTC supplement s unless agreed by MD. Cough 60828636 R05 Plenty of fluids. Avoid any possible triggers. Return to clinic if coughing does not resolve. 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 Report side effects of new medication .Share recent blood results with psych. [id number] Sus[facility]es MD [facility] [address] [place] [address] 06/19/2018 19:09:09 06/23/2018 09:25:29 Type 2 diabetes mellitus 50291795 E11.9 Continue with current medication s.Increase exercise activity.I ncrease intake of fluids. Take twice a day. Hypertriglyceridemia 302 294794 E78.1 Diet Management Obesity 357327188 E66.9 1- Maintain a low carbohydra te [...] good sleep habits. 7- Avoid alcoholic beverages. [id number] [facility] [place] [address] [place] [address] 09/09/2018 19:06:56 09/22/2018 04:12:46 Chronic cough 54564164 R05 Type 2 dana betes mellitus 84372775 E11.9 Continue with current medication s.Increase exercise activity.I ncrease intake of fluids. Take twice a day. Primary er ectile dysfunction 745587315 N52.9 [id number] Susanne Cifuentes MD [facility] [place] [address] [place] [address] 10/08/2018 11:38:14 10/09/2018 01:57:56 Type 2 diabetes mellitus 29694382 E11.9 Continue with current medication s.Increase exercise activity.I ncrease intake of fluids. Take twice a day. Primary er ectile dysfunction 279333936 N52.9 Nonulcer dyspepsia 67152 07 K30 Hyperlipidemia 06382724 E78.1 Health Concerns Section Related Observation LastModified by Organization Detai ls LastModified Time None Recorded Concern Status LastModified by Organization Details LastModified Time None Recorded Advance Directives Directive None Recorded Payers Insurance Date Sequence Insurance Name Policy Number Policy Terrell Covered Member ID Terrell Member ID Guarantor Name 11/22/[address] [facility] (MEDICARE SUPPLEMENT PLAN) Kwaku Fuller [id number] Kwaku Fuller 10/08/2018 1 [facility] - DUAL ELIGIBLE (MEDICARE REPLACEMENT/AD VANTAGE - HMO) [facility] Kwaku Fuller [id number] Kwaku Fuller 12/20/2017 2 [facility] (MEDICAID REPLACEMENT - HMO) Kwaku Fuller [id number] Kwaku Fuller 04/11/[address] [facility] (MEDICAID HMO) Kwaku Fuller [id number] Kwaku Fuller 10/08/2018 2 [facility] (MEDICAID REPLACEMENT - HMO) Kwaku Fuller [id number] Kwaku Alshaher Notes Date Note Type Note Provider Name and Address Organization Details Recorded Time 9 text/html Sore ThroatReported by PatientHPIFor quality, patient reportspainful,hoarseness, andsymptoms worse during the day. For severity, patient reportsmild. For context, patient reportsrecent upper respiratory infectionbut reportsno recent travel,no new medications, andno one else with similar symptoms(currently taking flonase and mucinex.). For aggravating factors, patient reportstalking. For associated symptoms, patient reportscoughbut reportsno fever,no nausea,no vomiting, andno headache. For location, patient reportsbilateral. For onset/timing, patient reportssudden. For alleviating factors, patient reportssalt water gargles,decongestants,rest, anddrinking water. DiabetesReported by PatientHPIFor control, patient reportsusually well controlled,improved since last visit, andnormal range of home blood sugars (in the low 100s). For compliance, patient reportscompliant with medications,compliant with follow-up visits,compliant with diet, andcompliant with home glucose monitoring. For self care, patient reportsmonitoring glucose __,seeing eye doctor regularly, andchecking feet regularly. For associated symptoms, patient reportsno weight gain,no weight loss,no dizziness,no sweats,no headaches,no confusion,no increased thirst,no increased appetite,no increased urination,no blurred vision,no numbness of feet,no calluses on feet,no fatigue,no blurred vision, andno paresthesias.ROS as noted in the HPI Here to go over lab results which showed elevation of one of the liver enzymes. He is taking supplements over the counter including Vitamin D3. Susanne Cifuentes MD [address], [place], [address], [facility] - [employer] 04/18/2018 08:30:29 9 text/html Anxiety/DepressionReported by PatientHPIFor severity, patient reportsdenies suicidal ideations,able to maintain relationships, anddoes not interfere with activities of daily living. For context, patient reportsno major life stressors. For associated symptoms, patient reportsdenies homicidal ideations,no significant weight gain,no significant weight loss,no visual/auditory hallucinations,no delusions,no shortness of breath,mood good,no anxiety,no crying spells,no panic,no isolation,sleeping well,appetite good,energy good,no apathy, andmaintaining functionality. DiabetesReported by PatientHPIFor control, patient reportsusually well controlled,improved since last visit, andnormal range of home blood sugars (in the low 100s). For compliance, patient reportscompliant with medications,compliant with follow-up visits,compliant with diet, andcompliant with home glucose monitoring. For self care, patient reportsmonitoring glucose __,seeing eye doctor regularly, andchecking feet regularly. For associated symptoms, patient reportsno weight gain,no weight loss,no dizziness,no sweats,no headaches,no confusion,no increased thirst,no increased appetite,no increased urination,no blurred vision,no numbness of feet,no calluses on feet,no fatigue,no blurred vision, andno paresthesias.ROS as noted in the HPI Susanne Cifuentes MD [address], [place], [address], [facility] - [employer] 04/25/2018 09:05:12 9 text/html DiabetesReported by PatientHPIFor control, patient reportsusually well controlled,improved since last visit, andnormal range of home blood sugars (in the low 100s). For compliance, patient reportscompliant with medications,compliant with follow-up visits,compliant with diet, andcompliant with home glucose monitoring. For self care, patient reportsmonitoring glucose __,seeing eye doctor regularly, andchecking feet regularly. For associated symptoms, patient reportsno weight gain,no weight loss,no dizziness,no sweats,no headaches,no confusion,no increased thirst,no increased appetite,no increased urination,no blurred vision,no numbness of feet,no calluses on feet,no fatigue,no blurred vision, andno paresthesias. Anxiety/DepressionReported by PatientHPIFor severity, patient reportsdenies suicidal ideations,able to maintain relationships, anddoes not interfere with activities of daily living. For context, patient reportsno major life stressors. For associated symptoms, patient reportsdenies homicidal ideations,no significant weight gain,no significant weight loss,no visual/auditory hallucinations,no delusions,no shortness of breath,mood good,no anxiety,no crying spells,no panic,no isolation,sleeping well,appetite good,energy good,no apathy, andmaintaining functionality.ROS as noted in the HPI Here to go over recent blood testing to check on liver enzymes elevation. Patient has reduced the use of over the counter supplements. He denies symptoms of abdominal pain, no nausea or vomiting, no fever or chills. Susanne Cifuentes MD [address], [place], [address], [facility] - [employer] [facility] 06/23/2018 09:24:46 9 text/html DiabetesReported by PatientHPIFor control, patient reportsusually well controlled,improved since last visit, andnormal range of home blood sugars (in the low 100s). For compliance, patient reportscompliant with medications,compliant with follow-up visits,compliant with diet, andcompliant with home glucose monitoring. For self care, patient reportsmonitoring glucose __,seeing eye doctor regularly, andchecking feet regularly. For associated symptoms, patient reportsno weight gain,no weight loss,no dizziness,no sweats,no headaches,no confusion,no increased thirst,no increased appetite,no increased urination,no blurred vision,no numbness of feet,no calluses on feet,no fatigue,no blurred vision, andno paresthesias.ROS as noted in the HPI Reason for visit/illness: coughing. Medical History of [...] illness/s: Positive History of Depression and Anxiety. MD [address], [place], [address], [facility] - [employer] 09/22/2018 02:29:35 9 text/html HyperlipidemiaReported by PatientHPIFor control, patient reportsusually well controlled,improving, andat goal. For compliance, patient reportscompliant,compliant with diet, andexercises. For complications, patient reportsno coronary artery disease,no peripheral artery disease, andno cardiovascular disease. Erectile DysfunctionReported by PatientHPIFor modifying factors, patient reportsmedication (currently on psych medications.). For quality, patient reportsloss of function. For severity, patient reportsmoderate. For duration, patient reportsintermittent. For context, patient reportsable to achieve penetration 50% of the time. For associated symptoms, patient reportsno dysuria,no penile discharge, andnormal libido. DiabetesReported by PatientHPIFor control, patient reportsusually well controlled,improved since last visit, andnormal range of home blood sugars (in the low 100s). For compliance, patient reportscompliant with medications,compliant with follow-up visits,compliant with diet, andcompliant with home glucose monitoring. For self care, patient reportsmonitoring glucose __,seeing eye doctor regularly, andchecking feet regularly. For associated symptoms, patient reportsno weight gain,no weight loss,no dizziness,no sweats,no headaches,no confusion,no increased thirst,no increased appetite,no increased urination,no blurred vision,no numbness of feet,no calluses on feet,no fatigue,no blurred vision, andno paresthesias.ROS as noted in the HPI MD [address], [place], [address], [facility] - [facility] 10/09/2018 01:57:42
== END 2025-01-01 12:58 | disposition home or self-care (01) ==
LOC: HO.HMCFM 11:54
PROVIDERS: PCP Family Medicine; Visit Provider Family Medicine
DX: E11.9 Type 2 diabetes mellitus without complications (principal); E78.2 Mixed hyperlipidemia; R79.89 Other specified abnormal findings of blood chemistry

== ENCOUNTER → 2025-01-01 11:53 | Outpatient (BNVA) | payer MEDICARE, MEDICAID, SELFPAY | PROVIDERS: PCP Family Medicine; Visit Provider Family Medicine | DX: E11.9 Type 2 diabetes mellitus without complications (principal); E78.2 Mixed hyperlipidemia; R79.89 Other specified abnormal findings of blood chemistry | CPT/HCPCS: 83036; 99212 ==

== ENCOUNTER 2025-01-06 09:08 | Outpatient (AMB) | payer MEDICARE, MEDICAID, SELFPAY ==
--- OUTSIDE RECORDS SUMMARY | 2025-01-06 10:04 | XMS_ITS | Clinical Summary ---
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 Name Role Phone Javier Aguirre MD Primary Care Provider [phone] Allergies No known active allergies Medications vitamin [...] allergies Type 2 diabetes mellitus (CMS/HCC V24, [facility] V 28) Encounters Date Type Department Care Team Description 12/03/2024 2:30 PM EDT Office Visit Orthopedic Surgery [facility] [address] [phone] Prasanna Hernandez DPM Diabetic mononeuropathy simplex ([facility] V24, [facility] V28) (Primary Dx); Hammer toe of left foot; Metatarsalgia of both feet 10/18/2024 1:15 PM EDT - 10/18/2024 11:59 PM EDT Hospital Encounter [facility] MRI [address] [place] [phone] Disorder of ligament of foot, left Discharge Disposition: Home or Self Care 10/15/2024 2:30 PM EDT Office Visit Orthopedic Surgery [facility] [address] [phone] Prasanna Hernandez DPM Disorder of ligament of foot, left (Primary Dx); Follow-up exam; Hammer toe of left foot; Metatarsalgia of both feet; Diabetic mononeuropathy simplex ([facility] V24, [facility] V28) from Last 3 Months Immunizations Immunization Administration Dates Next Due Influenza trivalent, with pr eservative (Fluzone; Afluria) 6mo and older 01/03/2021,12/14/2019,12/05/2018 Surgical History Surgery Date Site/Laterality Comments COLONOSCOPY 03/18/2022 - 03/17/2023 Significant for 2 tubular adenomas Medical History Medical History Date Comments Obesity Type 2 diabetes mellitus ([facility] V24, [facility] V 28) Seasonal allergies Social [...] PM EST Office Visit Orthopedic Surgery - [place] 250 175 [facility] [address] [place] [phone] Prasanna Hernandez, DPM 175 [facility] [address] [place] [phone] 03/05/2025 2:10 PM EST Office Visit Gastroenterology - [address] [facility] [address] [facility] [address] [place] [phone] Rosalba Bennett MD 175 [facility] [address] [place] [address] Health Maintenance Due Date Last Done Comments [...] Signed Date: 10/19/2024 05:41 ET Workstation ID: [id number] Transcribed By: Self Edit Transcribed Date: 10/19/2024 [...] Signed Date: 10/19/2024 05:41 ET Workstation ID: [id number] Transcribed By: Self Edit Transcribed Date: 10/19/2024 [...] talus navicular joint to calcaneal cuboid joint Prasanna Hernandez DPM IMG XR PROCEDURES Final R esult from Last 3 Months Insurance [employer] MEDICARE MEDICAID - [place] Care Teams Garbage Depot Worker Relationship Specialty Start Date End Date Javier Aguirre MD [address] [place] [address] Dr Ed [place] PCP - General 01/05/22
--- OUTSIDE RECORDS SUMMARY | 2025-01-06 10:04 | XMS_ITS | Clinical Summary ---
Author Organization [employer] Address [address] [facility] 7[address] [place] [address] Care Team Providers Care Clinical Document Improvement Educator Name Role Phone Unavailable Primary Care Provider [...] Relevant to Health Maintenance Insurance DENTAL - [facility] [place]
--- NOTE | 2025-01-06 13:15 | A.OFFVIS_ITS ---
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* Allergies ezetimibe Allergy (Severe, Verified 01/06/25 13:15) neck pain atorvastatin Allergy (Verified 01/06/25 13:15) Joint Pain Medication List - Last Reconciled 01/06/25 by René Gold MD benzonatate 100 mg PO BID PRN 10 days blood sugar diagnostic One Touch Test Strips to check blood sugar one time per day as directed blood sugar diagnostic (FreeStyle Lite Strips) DX: E11.9, test blood sugar once a day, 90 days blood-glucose meter One Touch Verio Meter to check blood sugar one time daily as directed blood-glucose meter (FreeStyle Lite Meter kit) DX: E11.9, test blood sugar once a day, duration 999 days fluticasone propionate 50 mcg/actuation (Flonase Allergy Relief) 1 spray intranasal Q12H 30 days ibuprofen 400 mg PO Q8H PRN 30 days lancets One Touch Fine Point Lancets to check blood sugar one time per day as directed lancets (FreeStyle Lancets) As directed pravastatin 10 mg PO BEDTIME 90 days semaglutide 1 mg (0.75 mL) subcut QWEEK 28 days HPI HPI 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*: Details: Start time: 1pm, End time: 1.32pm ?I spent 27 minutes speaking with the patient on the phone plus an additional 5 minutes reviewing and updating records for a total of 32 minutes HPI Comments Details: Previous weight loss efforts: Ozempic for 1 yr: no weight loss Wakes up: 9am, Sleeps: 12am Breakfast: 9-10am (eggs) Lunch: skips Dinner: 4-5pm (meat, chicken, vegetables) Snacks: before dinner (nuts), after dinner (ice cream, fruits) Exercise: Has a stationary bike (no calories) Beverages: Coffee: 1/wk (milk and honey, cocoa), Tea: none, Soda: none, Juice: 3-4/wk, ETOH: none PFSH Medical History (Updated 01/06/25 @ 13:31 by René Gold MD) BMI 34.0-34.9,adult Nonalcoholic fatty liver disease Elevated LFTs Hyperlipidemia DM II (diabetes mellitus, type II), controlled DM2 (diabetes mellitus, type 2) Surgical History (Updated 09/30/24 @ 12:18 by Liset House, [facility]) History of colonoscopy (~2022) No pertinent past surgical history Family History Mother No problems noted. Father No problems noted. Social History (Updated 01/01/25 @ 12:22 by Nya Patel CMA) Housing: Apartment Alcohol intake: never Patient Tobacco Use Status: Current everyday Tobacco user e-Cigarette/Vaping Use: Never Used Second Hand Smoke Exposure: No service: No Current occupational status: unemployed Current occupational exposures/hazards: No Cognitive needs: No Hearing needs: No Vision needs: No Quality Reporting (2019) Adult ([facility] ) Smoking risk assessment performed?: Yes Patient Tobacco Use Status: Current everyday Tobacco user Telehealth Telehealth Telehealth Platform: Telephone Location of provider rendering services: practice address Location of patient: address on file Patient Identification confirmed using: Name, : Yes Telehealth method: voice only Patient verbally consented to treatment: Yes Patient verbally consented to billing insurance company: Yes Patient informed of any privacy concerns related to visit: Yes Minutes spent on Phone/Video with Pt.: 32 Assessment & Plan Assessment & Plan (1) Obesity: Code(s): E66.9 - Obesity, unspecified Category: Medical Qualifiers: Obesity type: due to excess calories Obesity classification: adult class 1 (BMI 30 - 34.9) Serious obesity comorbidity presence: with serious comorbidity Body mass index: BMI 34.0-34.9 Qualified Code(s): E66.09 - Other obesity due to excess calories; Z68.34 - Body mass index [BMI] 34.0-34.9, adult Plan: 1. Buy a body composition scale and let me know when you get it 2. Once you have the scale, I will precribe Mounjaro 2.5mg/week to use replacing the Ozempic
[2025-01-06 13:29] VITALS: BMI 30.1
== END 2025-01-06 13:33 | disposition home or self-care (01) ==
LOC: HO.HBS 09:08
PROVIDERS: PCP Family Medicine; Visit Provider Surgery
DX: E66.9 Obesity, unspecified (principal); Z68.33 Body mass index [BMI] 33.0-33.9, adult
CPT/HCPCS: 99203

== ENCOUNTER 2025-03-04 16:26 | Outpatient (AMB) | payer MEDICARE, MEDICAID, SELFPAY ==
[2025-03-04 16:29] VITALS: BP 118/59; PULSE 87; RESP 16; TEMP 36.8; O2SAT 98; BMI 30.6
--- NOTE | 2025-03-04 16:29 | AM.OFFWIN_ITS ---
Intake Vital Signs 03/04/25 16:29 Height 5 ft 10 in Weight 213 lb BMI 30.6 BP 118/59 L Blood Pressure Location Lt brachial Position Sitting Respiration 16 Pulse 87 Pulse Source Pulse Oximeter Temp 98.2 F Temp Source Oral Pulse Oximetry (%) 98 Oxygen Delivery Method Room Air Intake Visit Reasons: walk in Intake Note: EP got diarrhea (4 times a day) last Saturday. He also complains of heartburn. Patient Tobacco Use Status: Current everyday Tobacco user Allergies ezetimibe Allergy (Severe, Verified 03/04/25 16:39) neck pain atorvastatin Allergy (Verified 03/04/25 16:39) Joint Pain Do you need a note to return to daycare/school/sports/work: No HPI HPI Comments History of Present Illness Details History of Present Illness The patient is a 54-year-old male with a past medical history of type 2 diabetes mellitus, nonalcoholic fatty liver disease, diabetic neuropathy, HLD presenting with diarrhea. Patient speaks primarily Faroese. He declines interpretation services. - The patient reports onset of diarrhea last weekend, occurring about four times per day initially. - He has not seen any blood, or black ta rry stool in the stool - Associated symptoms include heartburn, but he denies abdominal pain, nausea, vomiting, or fever. - The patient states his symptoms have i mproved today after eating yogurt, with only one bowel movement noted. - He reports a history of a prolonged, o ne-month episode of diarrhea in October 2022, which was diagnosed as a Cyclospora infection. - He denies any other household contacts with similar symptoms - He denies any new food/spoiled food th at july have contributed to his symptoms - He denies any URI symptoms Review of Systems Constitutional: Negative for fevers, chills Respiratory: Negative for cough, rhinorrhea, or congestion Cardiac: Negative for chest pain Gastrointestinal: Reports diarrhea and heartburn. Negative for abdominal pain, nausea, vomiting, blood in stool, constipation, black tarry stools Genitourinary: Negative for difficulty urinating, dysuria, urinary frequency, urinary urgency Physical Exam General Appearance: Normal appearance, well developed. No acute distress Head: Normocephalic, atraumatic Cardiac: RRR. No M/R/G Pulmonary: No respiratory distress. Speaking in full sentences Abdomen: Soft and nontender to palpation. No epigastric TTP. No guarding or rigidity Musculoskeletal: Moving all extremities spontaneously and against gravity Mental Status: Alert and Oriented x 3 Psychiatric: Normal mood. Normal affect. [facility] Medical History (Updated 03/05/25 @ 07:34 by Vesna Esteves MD) BMI 34.0-34.9,adult Nonalcoholic fatty liver disease Elevated LFTs Hyperlipidemia DM II (diabetes mellitus, type II), controlled DM2 (diabetes mellitus, type 2) Surgical History (Updated 09/30/24 @ 12:18 by Liset House [facility]) History of colonoscopy (~2022) No pertinent past surgical history Family History Mother No problems noted. Father No problems noted. Social History (Updated 01/01/25 @ 12:22 by Nya Patel CMA) Housing: Apartment Alcohol intake: never Patient Tobacco Use Status: Current everyday Tobacco user e-Cigarette/Vaping Use: Never Used Second Hand Smoke Exposure: No service: No Current occupational status: unemployed Current occupational exposures/hazards: No Cognitive needs: No Hearing needs: No Vision needs: No Physical Exam Vital Signs: Last Vital Signs Temp 98.2 F 03/04/25 16:29 Pulse 87 03/04/25 16:29 Resp 16 03/04/25 16:29 BP 118/59 L 03/04/25 16:29 Pulse Ox 98 03/04/25 16:29 Oxygen Delivery Method Room Air 03/04/25 16:29 BMI result Body Mass Index 30.6 Assessment & Plan Assessment & Plan (1) Diarrhea: Code(s): R19.7 - Diarrhea, unspecified Qualifiers: Diarrhea type: unspecified type Qualified Code(s): R19.7 - Diarrhea, unspecified Plan - The patient presents with acute non blood diarrhea for 1 week - Differentials include food-borne illness versus viral gastroenteritis. - As it appears his symptoms started to improve today, discussed potentially monitoring his symptoms and supportive care. However, due to prior cyclosporiasis infection, patient requesting stool studies - Stool studies ordered. The patient was instructed to go to the lab tomorrow to pick up driver a collection kit if he is still having frequent diarrhea - Famotidine also prescribed to help with acid reflux symptoms. Advised to avoid NSAIDs like ibuprofen which can worsen heartburn. - Avoid acidic foods such as fruit juices, tomato sauces, coffee, and chocolate - Recommended increased fluids and bland diet - Advised if worsening symptoms, abdominal pain, blood in stool, black tarry stools, or signs of dehydration to seek prompt medical evaluation Patient was informed and verbally consented to the use of an ambient scribe for clinic note documentation during the visit. Orders: Orders GI Panel 03/04/25 R19.7 - Diarrhea, unspecified Ova and Parasite 03/04/25 R19.7 - Diarrhea, unspecified CDiff Gene PCR 03/04/25 R19.7 - Diarrhea, unspecified Medications: New famotidine (Pepcid) 20 mg PO DAILY 14 tabs 0RF Coding Level of Care Code Est Pt Level 3 (87768) Diagnoses Diarrhea, unspecified type R19.7 Diarrhea type: unspecified type
--- OUTSIDE RECORDS SUMMARY | 2025-03-04 19:41 | XMS_ITS | Clinical Summary ---
Author Organization [employer] Address [address] [facility] 7t [place] [address] Care Team Providers Care Cheese Cook Name Role Phone Unavailable Primary Care Provider [...] Years (1 of 1 - PCV) 12/11/2021 RSV Patients and Patients Aged 60 years or older (1 - Risk 50-74 years 1-dose series) 12/11/2021 Zoster Vaccines (1 of 2) 12/11/2021 COVID-19 Vaccine (1 - season) 2024 Influenza Vaccine (#1) 2024 4, 12/10/2022, 01/03/2021, Additional history exists Tobacco Screening 04/13/2025 04/13/2024 Dental X-Ray: Bitewings 04/14/2025 04/13/2024, 06/23 HIB Vaccines Aged Out No longer eligi [...] Relevant to Health Maintenance Insurance DENTAL - [facility] [place] [address] [place]
--- OUTSIDE RECORDS SUMMARY | 2025-03-04 19:41 | XMS_ITS | Clinical Summary ---
Author Organization 175 [facility] Address [address] [place] [address] Phone Care Team Providers Care Collet Gluer Name Role Phone Javier Aguirre MD Primary [...] time each day. 30 tablet 2 12/03/2024 03/03/20 25 Active Problems Problem Noted Date Diagnosed Date Elevated LFTs 02/23/2024 NAFLD (nonalcoholic fatty liver disease) 022 Atypical chest pain 02/28/2022 Obesity Seasonal allergies Type 2 diabetes mellitus Encounters Date Type Department Care Team Description 12/03/2024 2:30 PM EDT Office Visit Orthopedic Surgery [facility] 250 175 [facility] 250 [place] [phone] Prasanna Hernandez DPM Diabetic mononeuropathy simplex ([facility] V24, [facility] V28) (Primary Dx); Hammer toe of left foot; Metatarsalgia of both feet from Last 3 Months Immunizations Immunization Administration Dates Next Due Influenza trivalent, with pr eservative (Fluzone; Afluria) 6mo and older 01/03/2021,12/14/2019,12/05/2018 Surgical History Surgery Date Site/Laterality Comments COLONOSCOPY 03/18/2022 - 03/17/2023 Significant for 2 tubular adenomas Medical History Medical History Date Comments Obesity Type 2 diabetes mellitus ([facility] V24, [facility] V 28) Seasonal allergies Social [...] on file Sexual Orientation Not on file Last Filed Vital Signs Vital Sign Reading [...] Care Team (Late st Contact Info) Description 05/20/2025 2:00 PM EST Office Visit Orthopedic Surgery [facility] 250 175 [facility] 250 [place] [phone] Prasanna Hernandez DPM [address] [phone] Health Maintenance Due Date Last Done Comments [...] (HGBA1C) 02/23/2024 Depression Screening 03/18/2024 COVID-19 Vaccine (1 - season) 2024 Zoster Vaccines (2 of 2) [...] HEALTHCARE MEDICARE [place]ICAID - [place] Care Teams Collet Gluer Relationship Specialty Start Date End Date Javier Aguirre MD [address] [place] [address] Dr Ed [place] PCP - General 01/05/22
--- OUTSIDE RECORDS SUMMARY | 2025-03-04 19:41 | XMS_ITS | Data Portability ---
Author Organization ID - [employer], [facility] [place] [address] [place] [address] Care Team Providers Care Health Care Administrator Name Role Phone SUSANNE CIFUENTES Primary Care Provider Assessment No assessment recorded. Plan of Treatment Reminders Order Date Submit Date Provider Last Modified By Organization Details Last Modified Time Details Appointments None recorded. Lab CMP, serum or plasma 2018 019 JANESSA [facility], [address], [address], [place], [address], 9 13:07:37 lipid panel, serum 2018 019 JANESSA [facility], [address], [address], [place], [address], 9 13:07:38 microalbum in, QN, unspecifie d duration, urine 2018 019 JANESSA [facility], [address], [address], [place], [address], 9 19:43:31 hemoglobin A1c, QN, blood 2018 019 JANESSA [facility], [address], [address], [place], [address], 9 19:43:30 hepatic function panel, serum 2018 019 [facility] 1 [facility], [address], [address], [place], [address], 9 11:10:18 Referral None recorded. Procedures None recorded. Surgeries None recorded. Imaging None recorded. Medication Orders sildenafil (pulmonary hypertensi on) 20 mg tablet 2018 019 [email or web address] [id number], [address], [place], [address], 9 13:28:14 omeprazole 20 mg capsule,de layed release 2018 019 INTERFACE [facility], [address], [place], [address], 9 12:28:28 metformin 850 mg tablet 2018 019 INTERFACE [facility], [address], [place], [address], 9 12:25:10 OneTouch Verio test strips 2018 019 INTERFACE [facility], [address], [place], [address], 9 12:26:43 sildenafil (pulmonary hypertensi on) 20 mg tablet 2018 019 INTERFACE [facility], [address], [place], [address], 9 19:47:22 metformin 850 mg tablet 2018 019 INTERFACE [facility], [address], [place], [address], 9 19:43:26 Robitussin Cough-Ches t Congestion DM 5 mg-100 mg/5 mL oral liquid 2018 019 INTERFACE [facility], [address], [place], [address], 9 19:36:41 Cheratussi n AC 10 mg-100 mg/5 mL oral liquid 2018 019 [facility] 1 [facility], [address], [place], [address], 9 19:32:59 benzonatat e 200 mg capsule 2018 019 [facility] 1 [id number], [address], [place], [place], [id number], 9 19:33:03 Patient Targets Encounter Date Encounter Id Patient Goals Patient Target Last Modified By Organization Details Last Modified Time 04/21/2018 [id number] Stop all vitamin supplementation for the next 2 weeks. Continue with current Metformin. [email or web address] Not available 04/21/2018 18:53:30 Patient Instructions Encounter Date Encounter Id Patient Instructions Last Modified By Organization Details Last Modified Time 06/19/2018 [id number] [email or web address] Not available 06/23 09:14:39 09/09/2018 [id number] chronic cough: care instructions [email or web address] Not available 09/09/2018 19:36:39 Increase fluid intake. Use of Vaporizer is recommended Rest until afebrile [place] pot or saline rinses. Tylenol or Motrin [...] prescribed. [email or web address] Not available 09/22/2018 02:29:19 10/08/2018 [id number] learning about type 2 diabetes [email or web address] Not [...] glucose 99 mg/dL 65-99 Not Available [facility] ([facility]) [address] [place], [address], 04/05/2018 09:18:42 04/04/1904/05/2018 CMP, serum or plasm a BUN 10 mg/dL 6-24 Not Available [facility] ([facility]) [address] [place], [address], 04/05/2018 09:18:42 04/04/1904/05/2018 CMP, serum or plasm a creatinine 0.82 mg/dL 0.76-1 .27 Not Available [facility] ([facility]) [address] [place], [address], 04/05/2018 09:18:42 04/04/1904/05/2018 CMP, serum or plasm a eGFR if nonafricn AM 106 mL/mi n/1.7 3 >59 Not Available [facility] ([facility]) [address] [place], [address], 04/05/2018 09:18:42 04/04/1904/05/2018 CMP, serum or plasm a eGFR if africn AM 123 mL/mi n/1.7 3 >59 Not Available [facility] ([facility]) [address] [place], [address], 04/05/2018 09:18:42 04/04/1904/05/2018 CMP, serum or plasm a BUN/creatini ne ratio 12 9-20 Not Available [facility] ([facility]) [address] [place], [address], 04/05/2018 09:18:42 04/04/1904/05/2018 CMP, serum or plasm a sodium 139 mmol/ L 134-14 4 Not Available [facility] ([facility]) [address] [place], [address], 04/05/2018 09:18:42 04/04/1904/05/2018 CMP, serum or plasm a potassium 4.5 mmol/ L 3.5-5. 2 Not Available [facility] ([facility]) [address] [place], [address], 04/05/2018 09:18:42 04/04/1904/05/2018 CMP, serum or plasm a chloride 102 mmol/ L 96-106 Not Available [facility] ([facility]) [address] [place], [address], 04/05/2018 09:18:42 04/04/1904/05/2018 CMP, serum or plasm a carbon dioxide, total 23 mmol/ L 20-29 Not Available [facility] ([facility]) [address] [place], [address], 04/05/2018 09:18:42 04/04/1904/05/2018 CMP, serum or plasm a calcium 9.4 mg/dL 8.7-10 .2 Not Available [facility] ([facility]) [address] [place], [address], 04/05/2018 09:18:42 04/04/1904/05/2018 CMP, serum or plasm a protein, total 6.9 g/dL 6.0-8. 5 Not Available [facility] ([facility]) [address] [place], [address], 04/05/2018 09:18:42 04/04/1904/05/2018 CMP, serum or plasm a albumin 4.6 g/dL 3.5-5. 5 Not Available [facility] ([facility] [address] [facility] [place], [address], 04/05/2018 09:18:42 04/04/1904/05/2018 CMP, serum or plasm a globulin, total 2.3 g/dL 1.5-4. 5 Not Available [facility] ([facility] [address] [facility] [place], [address], 04/05/2018 09:18:42 04/04/1904/05/2018 CMP, serum or plasm a A/G ratio 2.0 1.2-2. 2 Not Available [facility] ([facility]) [address] [facility] [place], [address], 04/05/2018 09:18:42 04/04/1904/05/2018 CMP, serum or plasm a bilirubin, total 0.4 mg/dL 0.0-1. 2 Not Available [facility] ([facility]) [address] [facility] [place], [address], 04/05/2018 09:18:42 04/04/1904/05/2018 CMP, serum or plasm a alkaline phosphatase 58 IU/L 39-117 Not Available [facility] [address] [facility] [place], [address], 04/05/2018 09:18:42 04/04/1904/05/2018 CMP, serum or plasm a AST (SGOT) 30 IU/L 0-40 Not Available [facility] ([facility]) [address] [place], [address], 04/05/2018 09:18:42 04/04/1904/05/2018 CMP, serum or plasm a ALT (SGPT) 84 IU/L 0-44 above high normal Not Available [facility] ([facility] [address] [place], [address], 04/05/2018 09:18:42 04/04/1904/05/2018 lipid panel , serum cholesterol, total 173 mg/dL 100-19 9 Not Available [facility] ([facility]) [address] [place], [address], 04/05/2018 09:18:43 04/04/1904/05/2018 lipid panel , serum triglyceride s 179 mg/dL 0-149 above high normal Not Available [facility] ([facility]) [address] [facility] [place], [address], 04/05/2018 09:18:43 04/04/1904/05/2018 lipid panel , serum HDL cholesterol 41 mg/dL >39 Not Available [facility] ([facility] [address] [place], [address], 04/05/2018 09:18:43 04/04/1904/05/2018 lipid panel , serum VLDL cholesterol bree 36 mg/dL 5-40 Not Available [facility] [address] [facility] [place], [address], 04/05/2018 09:18:43 04/04/1904/05/2018 lipid panel , serum LDL cholesterol calc 96 mg/dL 0-99 Not Available [facility] ([facility] [address] [facility] [place], [address], 04/05/2018 09:18:43 04/04/1904/05/2018 lipid panel , serum comment: TAP GRINDER Not Available [facility] ([facility]) [address], [place], [address], 04/05/2018 09:18:43 04/04/1904/05/2018 cardi sridharmagalie edwards smjuan [...] 10-ye ar or lifet dimitri CVD risk. Perry santino trigl yceri sascha may be assoc iated with incre ased cardi ovasc ular risk due to incre ased numbe rs of ather ogeni c lipop rotei n parti cles. Co-mo rbid condi tions shoul d be evalu ated and treat ed. ----- ----- ----- ----- ----- ----- - INTER MEDIA TE RISK ASSES SMENT AND TREAT [facility] MIKALA WOODWARD S ----- ----- ----- [...] - HIGH RISK ASSES SMENT AND TREAT [facility] MIKALA WOODWARD S ----- ----- ----- [...] line on the treat ment of blood shria stero l to reduc e ather oscle [...] 2008; 31(4) :811- 82. Not Available [facility] ([facility]) [address] [facility], [place], [address], 04/05/2018 09:18:44 04/04/19 19 04/05/2018 cardi ovasc ular asses sment panel , serum pdf image Not applic able Not Available [facility] ([facility]) [address] [facility], [place], [address], 04/05/2018 09:18:44 04/04/19 19 04/06/2018 HbA1c (hemo [...] (ADA) Not Available [facility] [address] [place], [address], 04/06/2018 09:07:49 04/04/19 19 04/06/2018 HbA1c (hemo globi n A1c), blood estimated average glucose 97 mg/dL Not Available [facility] [address], [place], [address], 04/06/2018 09:07:49 04/04/1904/06/2018 HbA1c (hemo globi n [...] s. Not Available [facility] [address], [place], [address], 04/06/2018 09:07:49 04/04/19 19 04/05/2018 micro album in, urine albumin, urine <3.0 ug/mL not estab. Not Available [facility] ([facility]) [address] [place], [address], 04/06/2018 09:07:49 06/14/1906/14/2018 hepat ic funct ion panel , serum protein, total 7.0 g/dL 6.0-8. 5 Not Available [facility] ([facility]) [address] [place], [address], 06/14/2018 09:14:53 06/14/1906/14/2018 hepat ic funct ion panel , serum albumin 4.6 g/dL 3.5-5. 5 Not Available [facility] ([facility]) [address] [place], [address], 06/14/2018 09:14:53 06/14/19 19 06/14/2018 hepat ic funct ion panel , serum bilirubin, total 0.5 mg/dL 0.0-1. 2 Not Available [facility] ([facility]) [address], [place], [address], 06/14/2018 09:14:53 06/14/1906/14/2018 hepat ic funct ion panel , serum bilirubin, direct 0.13 mg/dL 0.00-0 .40 Not Available [facility] ([facility]) [address] [place], [address], 06/14/2018 09:14:53 06/14/1906/14/2018 hepat ic funct ion panel , serum alkaline phosphatase 63 IU/L 39-117 Not Available [facility] ([facility]) [address] [place], [address], 06/14/2018 09:14:53 06/14/1906/14/2018 hepat ic funct ion panel , serum AST (SGOT) 19 IU/L 0-40 Not Available [facility] ([facility]) [address] [place], [address], 06/14/2018 09:14:53 06/14/19 19 06/14/2018 hepat ic funct ion panel , serum ALT (SGPT) 41 IU/L 0-44 Not Available [facility] ([facility]) [address] [place] [place], [address], 06/14/2018 09:14:53 10/04/19 19 10/04/2018 CMP, serum or plasm a glucose 89 mg/dL 65-99 Not Available [facility] ([facility]) [address] [place] [place], [address], 10/04/2018 13:07:37 10/04/19 19 10/04/2018 CMP, serum or plasm a BUN 15 mg/dL 6-24 Not Available [facility] ([facility]) [address] [place] [place], [address], 10/04/2018 13:07:37 10/04/19 19 10/04/2018 CMP, serum or plasm a creatinine 0.83 mg/dL 0.76-1 .27 Not Available [facility] ([facility]) [address] [place] [place], [address], 10/04/2018 13:07:37 10/04/19 19 10/04/2018 CMP, serum or plasm a eGFR if nonafricn AM 106 mL/mi n/1.7 3 >59 Not Available [facility] ([facility]) [address] [place], [address], 10/04/2018 13:07:37 10/04/19 19 10/04/2018 CMP, serum or plasm a eGFR if africn AM 122 mL/mi n/1.7 3 >59 Not Available [facility] ([facility]) [address] [place], [address], 10/04/2018 13:07:37 10/04/19 19 10/04/2018 CMP, serum or plasm a BUN/creatini ne ratio 18 9-20 Not Available [facility] ([facility]) [address] [place] [place], [address], 10/04/2018 13:07:37 10/04/19 19 10/04/2018 CMP, serum or plasm a sodium 139 mmol/ L 134-14 4 Not Available [facility] ([facility]) [address] [place] [place], [address], 10/04/2018 13:07:37 10/04/19 19 10/04/2018 CMP, serum or plasm a potassium 4.3 mmol/ L 3.5-5. 2 Not Available [facility] ([facility]) [address] [place], [address], 10/04/2018 13:07:37 10/04/19 19 10/04/2018 CMP, serum or plasm a chloride 102 mmol/ L 96-106 Not Available [facility] ([facility]) [address] [place], [address], 10/04/2018 13:07:37 10/04/19 19 10/04/2018 CMP, serum or plasm a carbon dioxide, total 20 mmol/ L 20-29 Not Available [facility] ([facility]) [address] [place], [address], 10/04/2018 13:07:37 10/04/19 19 10/04/2018 CMP, serum or plasm a calcium 9.2 mg/dL 8.7-10 .2 Not Available [facility] ([facility]) [address] [place], [address], 10/04/2018 13:07:37 10/04/1910/04/2018 CMP, serum or plasm a protein, total 7.1 g/dL 6.0-8. 5 Not Available [facility] ([facility]) [address] [place], [address], 10/04/2018 13:07:37 10/04/19 19 10/04/2018 CMP, serum or plasm a albumin 4.7 g/dL 3.5-5. 5 Not Available [facility] ([facility]) [address] [facility] [place], [address], 10/04/2018 13:07:37 10/04/19 19 10/04/2018 CMP, serum or plasm a globulin, total 2.4 g/dL 1.5-4. 5 Not Available [facility] ([facility]) [address] [facility] [place], [address], 10/04/2018 13:07:37 10/04/19 19 10/04/2018 CMP, serum or plasm a A/G ratio 2.0 1.2-2. 2 Not Available [facility] ([facility]) [address] [place], [address], 10/04/2018 13:07:37 10/04/19 19 10/04/2018 CMP, serum or plasm a bilirubin, total 0.5 mg/dL 0.0-1. 2 Not Available [facility] ([facility]) [address] [facility] [place], [address], 10/04/2018 13:07:37 10/04/19 19 10/04/2018 CMP, serum or plasm a alkaline phosphatase 60 IU/L 39-117 Not Available [facility] ([facility]) [address] [facility] [place], [address], 10/04/2018 13:07:37 10/04/19 19 10/04/2018 CMP, serum or plasm a AST (SGOT) 21 IU/L 0-40 Not Available [facility] ([facility]) [address] [facility] [place], [address], 10/04/2018 13:07:37 10/04/19 19 10/04/2018 CMP, serum or plasm a ALT (SGPT) 42 IU/L 0-44 Not Available [facility] ([facility]) [address] [place] [place], [address], 10/04/2018 13:07:37 10/04/19 19 10/04/2018 lipid panel , serum cholesterol, total 167 mg/dL 100-19 9 Not Available [facility] ([facility]) [address] [place], [address], 10/04/2018 13:07:38 10/04/19 19 10/04/2018 lipid panel , serum triglyceride s 159 mg/dL 0-149 above high normal Not Available [facility] ([facility]) [address] [facility], [place], [address], 10/04/2018 13:07:38 10/04/19 19 10/04/2018 lipid panel , serum HDL cholesterol 41 mg/dL >39 Not Available [facility] ([facility]) [address] [facility], [place], [address], 10/04/2018 13:07:38 10/04/19 19 10/04/2018 lipid panel , serum VLDL cholesterol bree 32 mg/dL 5-40 Not Available [facility] ([facility]) [address] [facility], [place], [address], 10/04/2018 13:07:38 10/04/19 19 10/04/2018 lipid panel , serum LDL cholesterol calc 94 mg/dL 0-99 Not Available [facility] ([facility]) [address] [place], [address], 10/04/2018 13:07:38 10/04/19 19 10/04/2018 lipid panel , serum comment: TAP GRINDER Not Available [facility] ([facility]) [address] [facility], [place], [address], 10/04/2018 13:07:38 10/04/19 19 10/04/2018 HbA1c (hemo globi n A1c), blood hemoglobin A1C 5.2 % 4.8-5. 6 Predi abete s: 5.7 - 6.4 Diabe jaymie: >6.4 Glyce david contr ol for adult s with diabe jaymie: <7.0 Not Available [facility] ([facility]) [address], [place], [address], 10/04/2018 13:07:38 10/04/19 19 10/04/2018 micro album in, urine albumin, urine 7.8 ug/mL not estab. Not Available [facility] ([facility]) [address] [facility], [place], [address], 10/04/2018 13:07:38 10/04/19 19 10/04/2018 cardi ovasc [...] ated basel ine. Examp les inclu de (mamy y doses ): atorv astat in 10-20 [...] 10-ye ar or lifet dimitri CVD risk. Perry santino trigl yceri sascha may be assoc [...] 2008; 31(4) :811- 82. Not Available [facility] ([facility]) [address] [facility], [place], [address], 10/04/2018 13:07:39 10/04/19 19 10/04/2018 cardi ovasc ular asses sment panel , serum pdf image Not applic able Not Available [facility] ([facility]) [address], [place], [address], 10/04/2018 13:07:39 Result Notes None recorded. Problems Name Problem SNOMED Code Status Onset Date Resolution Date Notes Provider Name and Address Organization Details Recorded Time Pain of multiple joints 24835606 Active [address], [place], [address], [facility] - [employer] 13:54:48 Type 2 diabetes mellitus 12175814 Active [address], [place], [address], [facility] - [employer] 13:54:51 Non-smoker 1253741 Active 2018 Ananya Broderick [facility], [place] - [employer] 19:33:44 Hypertriglycer idemia 030547776 Active [address], [place], [address], [facility] - [employer] 20:17:09 Problem Notes None recorded. [...] mass index (BMI) Body weight Oxygen saturation Heart rate Body temperature Systolic And Diastolic Provider Name and Address Organization Details Last Updated DateTime 9 167.64 cm 34.6 kg/m2 51486.8 7 g 98 % 72 /min 97.4 [degF] 115/70 mm[Hg] Lisa GARCIA - [employer] 9 13:32:18 Date Recorded Body height Body mass index (BMI) Body weight Oxygen saturation Heart rate Body temperature Systolic And Diastolic Provider Name and Address Organization Details Last Updated DateTime 9 167.64 cm 34.7 kg/m2 81737.3 6 g 97 % 88 /min 97.4 [degF] 110/64 mm[Hg] Lisa Kauffman [facility] [employer] 9 18:25:36 Date Recorded Body height Body mass index (BMI) Body weight Oxygen saturation Heart rate Body temperature Systolic And Diastolic Provider Name and Address Organization Details Last Updated DateTime 9 167.64 cm 34.1 kg/m2 68740.3 9 g 97 % 74 /min 97.5 [degF] 150/80 mm[Hg] Ananya Forbesjacky [facility] [employer] 9 19:32:46 Date Recorded Body height Body mass index (BMI) Body weight Body temperature Oxygen saturation Heart rate Systolic And Diastolic Provider Name and Address Organization Details Last Updated DateTime 9 167.64 cm 34.2 kg/m2 31146.5 8 g 96.8 [degF] 98 % 82 /min 132/78 mm[Hg] [facility] [employer] 19:25:42 Date Recorded Body height Body mass index (BMI) Body weight Oxygen saturation Heart rate Body temperature Systolic And Diastolic Provider Name and Address Organization Details Last Updated DateTime 9 167.64 cm 34.2 kg/m2 66478.5 8 g 98 % 70 /min 96 [degF] 118/70 mm[Hg] [facility] [employer] 9 11:49:30 Social History Question Answer Notes LastModified by Organizat ion Details LastModified Time Tobacco Smoking Status Never Smoker Not Available [facility] 11/22/2017 18:44:39 What Is Your Level [...] virus, quadrivalent, PF 12/20/2017 completed Not Available [facility] 02:23:30 Past Encounters Encounter ID Performer Location Encounter Start Date Encounter Closed Date Diagnosis/Indication Diagnosis SNOMED-CT Code Diagnosis ICD10 Code Diagnosis IMO Codes Diagnosis Note [id number] Susanne Cifuentes MD [facility] [place] [address] [place] [phone] 11/26/2017 16:31:13 11/27/2017 17:54:36 Chronic cough 28646354 R05 Renewal of prescription 508069868 Z76.0 [id number] Susanne Cifuentes MD [facility] [place] [address] [place] [phone] 12/19/2017 18:48:23 12/20/2017 12:04:51 Cough 70797972 R05 Type 2 dana betes mellitus 61650290 E11.9 Administra tion of influenza vaccine 22554100 Z23 [id number] Susanne Cifuentes MD [facility] [place] [address] [place] [phone] 03/20/2018 12:31:04 03/23/2018 15:19:00 Type 2 diabetes mellitus 09346187 E11.9 Pain of mu ltiple joints 85900454 M25.50 [id number] Susanne Cifuentes MD [facility] [place] [address] [place] [phone] 04/14/2018 12:29:39 04/21/2018 18:55:07 Liver enzymes level above reference range 309867573 R74.8 Cough 53346833 R05 Type 2 dana betes mellitus 37558276 E11.9 Hypertriglyceridemia 302 026215 E78.1 Bipolar disorder 7198411 4 F31.9 Stable with current medication . Sees psychiatry on regular basis. [id number] [facility] [place] [address] [place] [phone] 04/21/2018 17:26:23 04/25/2018 09:06:28 Type 2 diabetes mellitus 52100887 E11.9 Continue with current medication s.Increase exercise activity.I ncrease intake of fluids. Liver enzy mes level above reference range 637367233 R74.8 Repeat testing in 3-4 months.Cameron id use of OTC supplement s unless agreed by MD. Cough 81062230 R05 Plenty of fluids. Avoid any possible triggers. Return to clinic if coughing does not resolve. 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 Report side effects of new medication .Share recent blood results with psych. [id number] Susanne Cifuentes MD [facility] [place] [address] [place] [phone] 06/19/2018 19:09:09 06/23/2018 09:25:29 Type 2 diabetes mellitus 78978119 E11.9 Continue with current medication s.Increase exercise activity.I ncrease intake of fluids. Take twice a day. Hypertriglyceridemia 302 920534 E78.1 Diet Management Obesity 992563984 E66.9 1- Maintain a low carbohydra te [...] good sleep habits. 7- Avoid alcoholic beverages. [id number] [facility] [address] [place] [phone] 09/09/2018 19:06:56 09/22/2018 04:12:46 Chronic cough 41225376 R05 Type 2 dana betes mellitus 67936938 E11.9 Continue with current medication s.Increase exercise activity.I ncrease intake of fluids. Take twice a day. Primary er ectile dysfunction 829633755 N52.9 [id number] Susanne Cifuentes MD [facility] [place] [address] [place] [id number] 10/08/2018 11:38:14 10/09/2018 01:57:56 Type 2 diabetes mellitus 34273362 E11.9 Continue with current medication s.Increase exercise activity.I ncrease intake of fluids. Take twice a day. Primary er ectile dysfunction [id number] N52.9 Nonulcer dyspepsia 71582 07 K30 Hyperlipidemia [id number] E78.1 Health Concerns Section Related Observation LastModified by Organization Detai ls LastModified Time None Recorded Concern Status LastModified by Organization Details LastModified Time None Recorded Advance Directives Directive None Recorded Payers Insurance Date Sequence Insurance Name Policy Number Policy Terrell Covered Member ID Terrell Member ID Guarantor Name 11/22/2017 2 [facility] CARE [facility]AN [facility] (MEDICARE SUPPLEMENT PLAN) Kwaku Fuller [id number] Kwaku Fuller 10/08/2018 1 [facility] - DUAL ELIGIBLE (MEDICARE REPLACEMENT/AD VANTAGE - HMO) [facility] Kwaku Fuller [id number] Kwaku Fuller 12/20/2017 2 [facility] (MEDICAID REPLACEMENT - HMO) Kwaku Fuller [id number] Kwaku Fuller 04/11/2018 2 [facility] CARE PLAN [facility] (MEDICAID HMO) Kwaku Fuller [id number] Kwaku Fuller 10/08/2018 2 [facility] (MEDICAID REPLACEMENT - HMO) Kwaku Fuller [id number] Kwaku Fuller Notes Date Note Type Note [...] counter including Vitamin D3. Susanne Cifuentes MD [address], [place], [address], [facility] - [facility], [facility] 04/18/2018 08:30:29 9 text/html Anxiety/DepressionReported by PatientHPIFor [...] noted in the HPI Susanne Cifuentes MD [address], [place], [address], [facility] - [facility], [facility] 04/25/2018 09:05:12 9 text/html DiabetesReported by PatientHPIFor [...] fever or chills. Susanne Cifuentes MD [address], [place], [address], [facility] - [facility] 06/23/2018 09:24:46 9 text/html DiabetesReported by PatientHPIFor [...] Cifuentes MD [address], [place], [address], [facility] - [facility] 09/22/2018 02:29:35 9 text/html HyperlipidemiaReported by [...] noted in the HPI Susanne Cifuentes MD [address], [place], [address], [facility] - [facility] 10/09/2018 01:57:42
== END 2025-03-04 16:59 | disposition home or self-care (01) ==
PROVIDERS: PCP Family Medicine; Visit Provider Family Medicine
DX: R19.7 Diarrhea, unspecified (principal)

== ENCOUNTER → 2025-03-04 16:26 | Outpatient (BNVA) | payer MEDICARE, MEDICAID, SELFPAY | PROVIDERS: PCP Family Medicine; Visit Provider Family Medicine | DX: R19.7 Diarrhea, unspecified (principal); F17.200 Nicotine dependence, unspecified, uncomplicated | CPT/HCPCS: 99212 ==